=== PATIENT | male | born 1955 | race Caucasian/White ===

== ENCOUNTER 2016-11-09 10:00 | Emergency (ER) | payer MEDICARE ==
[~2016-11-09] VITALS: Ht 172.7 cm; Wt 75.0 kg
[~2016-11-09 10:00] MED LIST: AMBI10TA PO; ASPI81 PO; ATOR40TA PO; BUSP10 PO; METO50TA PO; MIRTA15 PO; OXYC5 PO; PRAS10 PO; RAMI2.5 PO
[2016-11-09 10:13] VITALS: BP 111/62; PULSE 82; RESP 16; TEMP 98; O2SAT 97
[2016-11-09 11:16] VITALS: BP 109/63; PULSE 81; RESP 18; TEMP 97.8; O2SAT 98
[2016-11-09] MEDS ORDERED: METO50TA PO ×2 (11:32)
[2016-11-09] MEDS ORDERED: RISP1TAB2 PO (11:32)
[2016-11-09] MEDS ORDERED: BUSP10TA PO (11:32)
[2016-11-09] MEDS ORDERED: ENAL5TAB PO (11:32)
[2016-11-09] MEDS ORDERED: MIRT30TA PO (11:32)
[2016-11-09] MEDS ORDERED: ASPI81TA11 PO (11:32)
[2016-11-09] MEDS ORDERED: ATOR40TA16 PO (11:32)
[2016-11-09] MEDS ORDERED: HYDR50TA94 PO (11:32)
[2016-11-09] MEDS ORDERED: TRAM50TA PO (12:52)
--- NOTE | 2016-11-09 13:01 | PD ---
HPI Chief Complaint: Abdominal Pain Time Seen by Provider: 11:35 Travel History International Travel<30 days: No Contact w/Intl Traveler<30days: No Traveled to known affect area: No History of Present Illness HPI This patient is concerned about having a hernia. He says he gets a soft ball sized growth on the right side of his groin that comes and goes. Duration is 4 months. Not having pain now. Has not had it evaluated by surgery. No alleviating factors PFSH Past Medical History Hx Anticoagulant Therapy: Yes (EFFIENT ) ADHD: Yes Arthritis: No Asthma: No Autoimmune Disease: No Blood Disorders: No Bipolar Disorder: Yes Anxiety: Yes Depression: Yes Cancer: No Cardiovascular Problems: Yes (HTN ) High Cholesterol: Yes (HAS BEEN UNDER CONTROL AT THIS TIME. ) Chemotherapy: No Chest Pain: No Congestive Heart Failure: No COPD: No Cerebrovascular Accident: Yes Coronary Artery Disease: Yes Diabetes: No Diminished Hearing: No Endocrine: No Gastrointestinal Disorders: No (INTUSSUSCEPTION (denies)) GERD: Yes Glaucoma: No Genitourinary: No Headaches: No Hepatitis: Yes (C) Hiatal Hernia: No Hypertension: Yes Immune Disorder: Yes (HEP C HX) Kidney Stones: No Musculoskeletal: Yes (CHRONIC RIGHT BACK PAIN) Neurologic: Yes (LEFT ARM/ SHOULDER NERVE DAMAGE) Psychiatric: Yes (PTSD) Reproductive: No Respiratory: No Migraines: No Myocardial Infarction: Yes Radiation Therapy: No Renal Failure: Yes Seizures: No Sickle Cell Disease: No Sleep Apnea: No Thyroid Disease: No Triglycerides - High: Yes Ulcer: No Tetanus Vaccination: < 5 Years Past Surgical History Abdominal Surgery: No AICD: No Appendectomy: No Arteriovenous Shunt: No Cardiac Surgery: Yes (cath; valve replacement) Cholecystectomy: No Ear Surgery: No Endocrine Surgery: No Eye Surgery: No Genitourinary Surgery: No Gynecologic Surgery: No Insulin Pump: No Joint Replacement: No Oral Surgery: Yes (ROOT CANAL) Pacemaker: No Thoracic Surgery: No Tonsillectomy: Yes (childhood) Other Surgery: Yes (SINUSES MANY YEARS AGO, tonsillectomy) Social History Alcohol Use: No Tobacco Use: Yes (05/19 PPD) Substance Use: No Allergies-Medications (Allergen,Severity, Reaction): Coded Allergies: No Known Allergies (Verified , 11/09/16) Reported Meds & Prescriptions Reported Meds & Active Scripts Active Tramadol (Tramadol HCl) 50 Mg Tab 50 Mg PO Q6H PRN Reported Mirtazapine 30 Mg Tab 30 Mg PO HS Metoprolol Tartrate 50 Mg Tab 25 Mg PO HS take one tablet every morning and take one-half tablet each night. Metoprolol Tartrate 50 Mg Tab 50 Mg PO DAILY take one tablet every morning and take one-half tablet each night. Enalapril (Enalapril Maleate) 5 Mg Tab 5 Mg PO DAILY Buspirone (Buspirone HCl) 10 Mg Tab 10 Mg PO TID Risperidone 1 Mg Tab 1 Mg PO DAILY Atorvastatin (Atorvastatin Calcium) 40 Mg Tab 40 Mg PO DAILY Hydroxyzine HCl 50 Mg Tab 50 Mg PO HS Aspirin EC (Aspirin) 81 Mg Tabdr 81 Mg PO DAILY Review of Systems General / Constitutional: No: Fever HENT: No: Headaches Cardiovascular: No: Chest Pain or Discomfort Physical Exam Narrative GASTROINTESTINAL: Abdomen soft, non-tender, nondistended. Positive bowel sounds. No hepato-splenomegaly, or palpable masses. No guarding. SKIN: Focused skin assessment reveals no rash or ulcers. Skin is warm and dry. Palpation shows no induration or nodules. : Circumcised penis without testicular tenderness or scrotal mass I don't see any obvious hernia Data Data Last Documented VS Vital Signs Date Time Temp Pulse Resp B/P Pulse Ox O2 Delivery O2 Flow Rate FiO2 11/09/16 11:16 18 11/09/16 11:16 97.8 81 109/63 98 Room Air MDM Medical Decision Making Medical Screen Exam Complete: Yes Emergency Medical Condition: Yes Medical Record Reviewed: Yes Differential Diagnosis Hernia, inguinal lymphadenopathy, hydrocele Narrative Course I have reviewed the patient's electronic medical record. Patient is a soft benign nontender abdomen. I don't feel any obvious mass or hernia at this time but given his complaint I would assume a right inguinal hernia. Suggested he follow-up with general surgery to discuss I wrote him a few tramadol and discussed measures to decrease intra-abdominal pressure No indication for emergent studies now Diagnosis Primary Impression: Hernia Additional Impression: Abdominal pain Qualified Code: R10.31 - Right lower quadrant abdominal pain Additional Instructions: The patient was advised to follow up with general surgery and return if they worsen. The patient was warned about potential sedation for the medications they will receive on prescription. Med/Other Pt SpecificInfo: Other Scripts Tramadol 50 Mg Tab50 Mg PO Q6H PRN (PAIN) #20 TAB Ref 0 Prov:Jose A Onofre MD 11/09/16 Disposition: 01 DISCHARGE HOME Condition: Stable Jose A Onofre MD Nov 09, 2016 13:01
[2016-11-09 14:01] VITALS: BP 109/63
== END 2016-11-09 14:01 | disposition home or self-care (01) ==
LOC: NEPC 10:00
DX: K40.90 Unilateral inguinal hernia, without obstruction or gangrene, not specified as recurrent (principal); I10 Essential (primary) hypertension; I25.10 Atherosclerotic heart disease of native coronary artery without angina pectoris; K21.9 Gastro-esophageal reflux disease without esophagitis; F31.9 Bipolar disorder, unspecified; F41.9 Anxiety disorder, unspecified; E78.00 Pure hypercholesterolemia, unspecified; Z86.73 Personal history of transient ischemic attack (TIA), and cerebral infarction without residual deficits; I25.2 Old myocardial infarction
CPT/HCPCS: 99283

== ENCOUNTER 2017-05-21 19:25 | Emergency (ER) | payer OTHER, MEDICARE ==
[~2017-05-21] VITALS: Ht 172.7 cm; Wt 70.0 kg
[~2017-05-21 19:25] MED LIST changes: -AMBI10TA PO; -ASPI81 PO; +ASPI81TA23 PO; -ATOR40TA PO; +ATOR40TA16 PO; -BUSP10 PO; +BUSP10TA PO; +DOXY100C PO; +ENAL5TAB PO; +HYDR50TA94 PO; +MIRT30TA PO; -MIRTA15 PO; -OXYC5 PO; -PRAS10 PO; -RAMI2.5 PO; +RISP1TAB2 PO; +TRAM50TA PO
[2017-05-21 19:26] VITALS: BP 175/98; PULSE 119; RESP 18; TEMP 97.9; O2SAT 97
--- NOTE | 2017-05-21 21:55 | PD ---
HPI Chief Complaint: Back/ Neck Pain or Injury Time Seen by Provider: 21:48 Travel History International Travel<30 days: No Contact w/Intl Traveler<30days: No Traveled to known affect area: No History of Present Illness HPI 61-year-old male with history hypertension, CVA, cardiac disease, psychiatric illness, remote IV drug use, presents to emergency department for evaluation of left-sided neck pain. Patient states he woke up with it 3 days ago. He describes it as severe, constant, exacerbated with movement States that he is unable to turn his head to the right without significant pain. States pain goes from the base of the skull to his shoulder. Denies any injury. Denies any focal deficits or weakness. He has not tried taking anything for this pain. He has no other symptoms to report. PFSH Past Medical History Hx Anticoagulant Therapy: Yes (EFFIENT ) ADHD: Yes Arthritis: No Asthma: No Autoimmune Disease: No Blood Disorders: No Bipolar Disorder: Yes Anxiety: Yes Depression: Yes Cancer: No Cardiovascular Problems: Yes (HTN ) High Cholesterol: Yes (HAS BEEN UNDER CONTROL AT THIS TIME. ) Chemotherapy: No Chest Pain: No Congestive Heart Failure: No COPD: No Cerebrovascular Accident: Yes Coronary Artery Disease: Yes Diabetes: No Diminished Hearing: No Endocrine: No Gastrointestinal Disorders: No (INTUSSUSCEPTION (denies)) GERD: Yes Glaucoma: No Genitourinary: No Headaches: No Hepatitis: Yes (C) Hiatal Hernia: No Hypertension: Yes Immune Disorder: Yes (HEP C HX) Kidney Stones: No Musculoskeletal: Yes (CHRONIC RIGHT BACK PAIN) Neurologic: Yes (LEFT ARM/ SHOULDER NERVE DAMAGE) Psychiatric: Yes (PTSD) Reproductive: No Respiratory: No Migraines: No Myocardial Infarction: Yes Radiation Therapy: No Renal Failure: Yes Seizures: No Sickle Cell Disease: No Sleep Apnea: No Thyroid Disease: No Triglycerides - High: Yes Ulcer: No ?: Not Past Surgical History Abdominal Surgery: No AICD: No Appendectomy: No Arteriovenous Shunt: No Cardiac Surgery: Yes (cath; valve replacement) Cholecystectomy: No Ear Surgery: No Endocrine Surgery: No Eye Surgery: No Genitourinary Surgery: No Gynecologic Surgery: No Insulin Pump: No Joint Replacement: No Oral Surgery: Yes (ROOT CANAL) Pacemaker: No Thoracic Surgery: No Tonsillectomy: Yes (childhood) Other Surgery: Yes (SINUSES MANY YEARS AGO, tonsillectomy) Social History Alcohol Use: No Tobacco Use: Yes (05/19 PPD) Substance Use: No Allergies-Medications (Allergen,Severity, Reaction): Coded Allergies: No Known Allergies (Verified Adverse Reaction, Unknown, 03/21/17) Reported Meds & Prescriptions Reported Meds & Active Scripts Active Ibuprofen 600 Mg Tab 600 Mg PO Q8HR PRN Robaxin (Methocarbamol) 500 Mg Tab 500 Mg PO QID PRN Doxycycline Hyclate 100 Mg Cap 100 Mg PO BID 7 Days Tramadol (Tramadol HCl) 50 Mg Tab 50 Mg PO Q6H PRN Reported Mirtazapine 30 Mg Tab 30 Mg PO HS Metoprolol Tartrate 50 Mg Tab 25 Mg PO HS take one tablet every morning and take one-half tablet each night. Metoprolol Tartrate 50 Mg Tab 50 Mg PO DAILY take one tablet every morning and take one-half tablet each night. Enalapril (Enalapril Maleate) 5 Mg Tab 5 Mg PO DAILY Buspirone (Buspirone HCl) 10 Mg Tab 10 Mg PO TID Risperidone 1 Mg Tab 1 Mg PO DAILY Atorvastatin (Atorvastatin Calcium) 40 Mg Tab 40 Mg PO DAILY Hydroxyzine HCl 50 Mg Tab 50 Mg PO HS Aspirin EC (Aspirin) 81 Mg Tabdr 81 Mg PO DAILY Review of Systems Except as stated in HPI: all other systems reviewed are Neg Physical Exam Narrative GENERAL: Thin, chronically ill-appearing male patient, in no acute distress. SKIN: Focused skin assessment warm/dry. HEAD: Normocephalic. EYES: No scleral icterus. No injection or drainage. NECK: Supple, trachea midline. No JVD or lymphadenopathy. Tenderness elicited palpation along the left trapezius musculature. Patient can turn his head to the right but reports significant pain with this. No spinal tenderness CARDIOVASCULAR: Tachycardic rate and rhythm without murmurs, gallops, or rubs. RESPIRATORY: Breath sounds equal bilaterally. No accessory muscle use. GASTROINTESTINAL: Abdomen soft, non-tender, nondistended. MUSCULOSKELETAL: No cyanosis, or edema. 5+ strength equal bilateral extremities. BACK: Nontender without obvious deformity. No CVA tenderness. Data Data Last Documented VS Vital Signs Date Time Temp Pulse Resp B/P (MAP) Pulse Ox O2 Delivery O2 Flow Rate FiO2 05/21/17 23:08 05/21/17 22:50 88 05/21/17 19:26 97.9 18 97 Room Air Orders Orders Ketorolac Inj (Toradol Inj) (05/21/17 22:00) Orphenadrine Inj (Norflex Inj) (05/21/17 22:00) Spine, Cervical - Ltd (Ap&Lat) (05/21/17 ) Ed Discharge Order (05/21/17 22:51) MDM Medical Decision Making Medical Screen Exam Complete: Yes Emergency Medical Condition: Yes Medical Record Reviewed: Yes Differential Diagnosis Spasmatic torticollis versus muscle strain versus discogenic pain versus radiculopathy Narrative Course 61-year-old male presents to emergency department for evaluation of left-sided neck pain, exacerbated by movement. Physical and history is consistent with a spasmodic torticollis. Patient is treated for pain. Upon reassessment, his heart rate has normalized and he verbalizes marked improvement in his pain. Patient will be discharged home with additional pain control. He is encouraged to follow-up with a primary care provider and return immediately with any acute worsening symptoms. Diagnosis Primary Impression: Spasmodic torticollis Referrals: Primary Care Physician Patient Instructions: General Instructions, Spasmodic Torticollis (ED) Additional Instructions: Warm heat and light massage may help to alleviate symptoms Follow-up with a primary care provider Return immediately with any acute worsening symptoms Med/Other Pt SpecificInfo: Prescription(s) given Scripts Ibuprofen (Ibuprofen) 600 Mg Tab 600 MG PO Q8HR Y for PAIN, #30 TAB 0 Refills Prov: Ellie Alexandra 05/21/17 Methocarbamol (Robaxin) 500 Mg Tab 500 MG PO QID Y for MUSCLE SPASM, #20 TAB 0 Refills Prov: Ellie Alexandra 05/21/17 Disposition: 01 DISCHARGE HOME Condition: Stable Ellie Alexandra May 21, 2017 21:55
[2017-05-21] MEDS ORDERED: ORPHENADRINE INJ 60 MG/2 ML AMP IM ONE (22:00)
[2017-05-21] MEDS ORDERED: KETOROLAC TROMETHAMINE 60 MG/2 ML (IM) VIAL IM ONE (22:00)
--- NOTE | 2017-05-21 22:49 | RADRPT ---
EXAM DATE/TIME: 05/21/2017 22:16 [facility] COMPARISON: No previous studies available for comparison. INDICATIONS : Neck pain for 6 hours with no known injury MEDICAL HISTORY : None. SURGICAL HISTORY : None. ENCOUNTER: Initial ACUITY: 1 day PAIN SCORE: 10/10 LOCATION: Cervical spine FINDINGS: There is moderate degenerative disc disease in lower cervical spine with slight reversal of normal ce rvical lordosis. No acute fracture or subluxation. No prevertebral soft tissue swelling. CONCLUSION: 1. Moderate degenerative disc disease at C5-6-7 with slight reversal of normal cervical lordosis. No acute bony abnormalities. Faizan Calvillo MD on May 21, 2017 at 22:46 Board Certified Radiologist. This report was verified electronically.
[2017-05-21 22:50] VITALS: PULSE 88
[2017-05-21] MEDS ORDERED: IBUP-232 PO (22:53)
[2017-05-21] MEDS ORDERED: ROBA500T PO (22:53)
== END 2017-05-21 23:09 | disposition home or self-care (01) ==
LOC: NEPK 19:25
DX: G24.3 Spasmodic torticollis (principal); I10 Essential (primary) hypertension; B19.20 Unspecified viral hepatitis C without hepatic coma; Z72.0 Tobacco use; Z79.01 Long term (current) use of anticoagulants
CPT/HCPCS: 72040; 96372; 99284; J1885; J2360

== ENCOUNTER 2017-05-24 13:09 | Inpatient (IN) | payer MEDICARE, OTHER ==
[~2017-05-24] VITALS: Ht 172.7 cm; Wt 67.0 kg
[~2017-05-24 13:09] MED LIST changes: +IBUP-232 PO; +ROBA500T PO
[2017-05-24] MEDS ORDERED: GADODIAMIDE PF 287 MG/ML 5 ML VIAL (for RAD MRI) IVCONTRAST ONE (13:10)
[2017-05-24 13:12] VITALS: BP 194/106; PULSE 128; RESP 18; TEMP 99.7; O2SAT 97
[2017-05-24] MEDS ORDERED: PLAV75TA29 PO (13:19)
[2017-05-24] MEDS ORDERED: SODIUM CHLOR 0.9% 1000 ML INJ 1,000 ML IV ONE ×4 (13:30→19:15)
[2017-05-24] MEDS ORDERED: HYDROmorphone HCL PF 2 MG/ML VIAL IV PUSH ONE ×2 (13:30→14:30)
[2017-05-24] MEDS ORDERED: ONDANSETRON HCL 4 MG/2 ML VIAL IV PUSH ONE (13:30)
[2017-05-24 13:38] VITALS: BP 176/113; PULSE 122; RESP 18; O2SAT 98
--- NOTE | 2017-05-24 13:38 | PD ---
HPI Chief Complaint: Back/ Neck Pain or Injury Time Seen by Provider: 13:15 Travel History International Travel<30 days: No Contact w/Intl Traveler<30days: No Traveled to known affect area: No History of Present Illness HPI This 61-year-old male is complaining of back pain and neck pain. He says he has been having back pain for about 4 days. He says the pain is quite severe and aggravated by any movement. He was unable to stand today because of the pain He does not have any numbness or tingling. He has not had any dysuria. He is not aware of any trauma. He was in the emergency department on the fifth with complaint of neck pain at that time was thought to have spasmodic torticollis. He did have an MRI of his neck done in December of 2015 which showed some herniated disks. He has a history of coronary artery disease. He has had a STEMI in the past and is on an anticoagulant, possibly clopidogrel or Effient. He was not aware of fever. He does have a history of drug use in the past. He says he has not used anything for about a month. He denies intravenous use at that time. He has a history of mental illness PFSH Past Medical History Hx Anticoagulant Therapy: Yes (EFFIENT ) ADHD: Yes Arthritis: No Asthma: No Autoimmune Disease: No Blood Disorders: No Bipolar Disorder: Yes Anxiety: Yes Depression: Yes Cancer: No Cardiovascular Problems: Yes (HTN ) High Cholesterol: Yes (HAS BEEN UNDER CONTROL AT THIS TIME. ) Chemotherapy: No Chest Pain: No Congestive Heart Failure: No COPD: No Cerebrovascular Accident: Yes Coronary Artery Disease: Yes Diabetes: No Diminished Hearing: No Endocrine: No Gastrointestinal Disorders: No (INTUSSUSCEPTION (denies)) GERD: Yes Glaucoma: No Genitourinary: No Headaches: No Hepatitis: Yes (C) Hiatal Hernia: No Hypertension: Yes Immune Disorder: Yes Kidney Stones: No Musculoskeletal: Yes (CHRONIC RIGHT BACK PAIN) Neurologic: Yes (LEFT ARM/ SHOULDER NERVE DAMAGE) Psychiatric: Yes (PTSD) Reproductive: No Respiratory: No Migraines: No Myocardial Infarction: Yes Radiation Therapy: No Renal Failure: Yes Seizures: No Sickle Cell Disease: No Sleep Apnea: No Thyroid Disease: No Triglycerides - High: Yes Ulcer: No Influenza Vaccination: Yes ?: Not Past Surgical History Abdominal Surgery: No AICD: No Appendectomy: No Arteriovenous Shunt: No Cardiac Surgery: Yes (cath; valve replacement) Cholecystectomy: No Ear Surgery: No Endocrine Surgery: No Eye Surgery: No Genitourinary Surgery: No Gynecologic Surgery: No Insulin Pump: No Joint Replacement: No Oral Surgery: Yes (ROOT CANAL) Pacemaker: No Thoracic Surgery: No Tonsillectomy: Yes (childhood) Other Surgery: Yes (SINUSES MANY YEARS AGO, tonsillectomy) Social History Alcohol Use: No Tobacco Use: Yes (05/19 PPD) Substance Use: No Allergies-Medications (Allergen,Severity, Reaction): Coded Allergies: No Known Allergies (Verified Adverse Reaction, Unknown, 05/24/17) Reported Meds & Prescriptions Reported Meds & Active Scripts Active Ibuprofen 600 Mg Tab 600 Mg PO Q8HR PRN Robaxin (Methocarbamol) 500 Mg Tab 500 Mg PO QID PRN Reported Plavix (Clopidogrel Bisulfate) 75 Mg Tab 75 Mg PO DAILY Buspirone (Buspirone HCl) 10 Mg Tab 10 Mg PO TID Risperidone 1 Mg Tab 1 Mg PO DAILY Atorvastatin (Atorvastatin Calcium) 40 Mg Tab 40 Mg PO DAILY Hydroxyzine HCl 50 Mg Tab 50 Mg PO HS Aspirin EC (Aspirin) 81 Mg Tabdr 81 Mg PO DAILY Review of Systems General / Constitutional: No: Fever, Chills Eyes: No: Diploplia, Blurred Vision HENT: No: Headaches, Vertigo, Sore Throat Cardiovascular: No: Chest Pain or Discomfort, Palpitations Respiratory: No: Cough, Shortness of Breath Gastrointestinal: No: Nausea, Vomiting Genitourinary: No: Urgency, Frequency Musculoskeletal: Positive: Pain, No: Myalgias Skin: No Rash, No Itching Neurologic: No: Weakness, Dizziness Endocrine: No: Heat Intolerance, Cold Intolerance Hematologic/Lymphatic: No: Easy Bruising Physical Exam Narrative GENERAL: Disheveled male in moderate distress SKIN: Focused skin assessment warm/dry. HEAD: Atraumatic. Normocephalic. EYES: Pupils equal and round. No scleral icterus. No injection or drainage. ENT: No nasal bleeding or discharge. Mucous membranes pink and moist. NECK: Trachea midline. No JVD. CARDIOVASCULAR: Irregular rate and rhythm. No murmur appreciated. RESPIRATORY: No accessory muscle use. Clear to auscultation. Breath sounds equal bilaterally. GASTROINTESTINAL: Abdomen soft, non-tender, nondistended. Hepatic and splenic margins not palpable. MUSCULOSKELETAL: No obvious deformities. No clubbing. No cyanosis. No edema. NEUROLOGICAL: Awake and alert. No obvious cranial nerve deficits. Motor grossly within normal limits. Normal speech. He is very tender in the lower back and the neck PSYCHIATRIC: Anxiety Data Data Last Documented VS Vital Signs Date Time Temp Pulse Resp B/P (MAP) Pulse Ox O2 Delivery O2 Flow Rate FiO2 05/24/17 14:16 18 05/24/17 13:38 122 176/113 (134) 98 Room Air 05/24/17 13:12 99.7 Orders Orders Sepsis Workup Initiated (05/24/17 ) Complete Blood Count With Diff (05/24/17 13:16) Comprehensive Metabolic Panel (05/24/17 13:16) Lactic Acid Sepsis Protocol (05/24/17 13:16) Urinalysis - C+S If Indicated (05/24/17 13:16) Influenzae A/B Antigen (05/24/17 13:16) Blood Culture (05/24/17 13:16) Chest, Single Ap (05/24/17 13:16) Blood Glucose (05/24/17 13:16) Ecg Monitoring (05/24/17 13:16) Iv Access Insert/Monitor (05/24/17 13:16) Oximetry (05/24/17 13:16) Oxygen Administration (05/24/17 13:16) C-Reactive Protein (Crp) (05/24/17 13:16) Westergren Sedimentation Rate (05/24/17 13:16) Sodium Chlor 0.9% 1000 Ml Inj (Ns 1000 M (05/24/17 13:30) Sodium Chlor 0.9% 1000 Ml Inj (Ns 1000 M (05/24/17 13:30) Ondansetron Inj (Zofran Inj) (05/24/17 13:30) Hydromorphone Pf Inj (Dilaudid Pf Inj) (05/24/17 13:30) Mri C Spine W&W/O Contrast (05/24/17 ) Mri T Spine W & W/O Contrast (05/24/17 ) Mri L Spine W&W/O Contrast (05/24/17 ) Sodium Chlor 0.9% 1000 Ml Inj (Ns 1000 M (05/24/17 14:15) Hydromorphone Pf Inj (Dilaudid Pf Inj) (05/24/17 14:30) Labs Laboratory Tests Test 05/24/17 13:25 05/24/17 14:05 White Blood Count 13.6 TH/MM3 Red Blood Count 4.58 MIL/MM3 Hemoglobin 12.6 GM/DL Hematocrit 38.8 % Mean Corpuscular Volume 84.8 FL Mean Corpuscular Hemoglobin 27.5 PG Mean Corpuscular Hemoglobin Concent 32.5 % Red Cell Distribution Width 13.9 % Platelet Count 422 TH/MM3 Mean Platelet Volume 8.1 FL Neutrophils (%) (Auto) 80.4 % Lymphocytes (%) (Auto) 8.3 % Monocytes (%) (Auto) 7.0 % Eosinophils (%) (Auto) 0.2 % Basophils (%) (Auto) 4.1 % Neutrophils # (Auto) 10.9 TH/MM3 Lymphocytes # (Auto) 1.1 TH/MM3 Monocytes # (Auto) 1.0 TH/MM3 Eosinophils # (Auto) 0.0 TH/MM3 Basophils # (Auto) 0.6 TH/MM3 CBC Comment DIFF FINAL Differential Comment Erythrocyte Sedimentation Rate 76 mm/hr Blood Urea Nitrogen 8 MG/DL Creatinine 0.70 MG/DL Random Glucose 106 MG/DL Total Protein 7.3 GM/DL Albumin 2.1 GM/DL Calcium Level 8.5 MG/DL Alkaline Phosphatase 151 U/L Aspartate Amino Transf (AST/SGOT) 21 U/L Alanine Aminotransferase (ALT/SGPT) 27 U/L Total Bilirubin 0.2 MG/DL Sodium Level 138 MEQ/L Potassium Level 3.6 MEQ/L Chloride Level 105 MEQ/L Carbon Dioxide Level 25.6 MEQ/L Anion Gap 7 MEQ/L Estimat Glomerular Filtration Rate 115 ML/MIN Lactic Acid Level 0.9 mmol/L [facility] Medical Decision Making Medical Screen Exam Complete: Yes Emergency Medical Condition: Yes Medical Record Reviewed: Yes Differential Diagnosis Differential includes HNP, lumbar strain, epidural abscess, osteomyelitis Narrative Course Hemoglobin is 12.6 with a white count of 13.6. His sedimentation rate is 76. MRIs of the cervical thoracic and lumbar spine have been ordered Solo Rodriguez MD May 24, 2017 13:38
[2017-05-24 13:46] LABS: AUTOMATED NEUTROPHIL # 10.9 TH/MM3 (1.8-7.7); BASOPHIL # 0.6 TH/MM3 (0-0.2); BASOPHIL % 4.1 % (0.0-2.0); EOSINOPHIL % 0.2 % (0.0-4.0); HEMATOCRIT 38.8 % (39.0-51.0); HEMOGLOBIN 12.6 GM/DL (13.0-17.0); LYMPH % 8.3 % (9.0-44.0); LYMPHOCYTE # 1.1 TH/MM3 (1.0-4.8); MEAN CELL VOLUME 84.8 FL (80.0-100.0); MEAN CORPUSCULAR HEMOGLOBIN 27.5 PG (27.0-34.0); MEAN CORPUSCULAR HGB CONC 32.5 % (32.0-36.0); MEAN PLATELET VOLUME 8.1 FL (7.0-11.0); NEUT % 80.4 % (16.0-70.0); PLATELET COUNT 422 TH/MM3 (150-450); RED BLOOD COUNT 4.58 MIL/MM3 (4.50-5.90); RED CELL DISTRIBUTION WIDTH 13.9 % (11.6-17.2); WHITE BLOOD COUNT 13.6 TH/MM3 (4.0-11.0)
--- NOTE | 2017-05-24 14:05 | RADRPT ---
EXAM DATE/TIME: 05/24/2017 13:30 [facility] COMPARISON: CHEST SINGLE AP, December 20, 2015, 22:30. INDICATIONS : Chest pain and muscle aches MEDICAL HISTORY : Hypertension. Hepatitis C. Gastroesophageal reflux disease. SURGICAL HISTORY : Cardiac catherization. ENCOUNTER: Initial ACUITY: 1 day PAIN SCORE: 10/10 LOCATION: Bilateral chest FINDINGS: A single view of the chest demonstrates the lungs to be symmetrically aerated without evidence of mas s, infiltrate or effusion. The cardiomediastinal contours are unremarkable. Osseous structures are intact. CONCLUSION: No acute disease. Marco Agustin MD FACR on May 24, 2017 at 14:02 Board Certified Radiologist. This report was verified electronically.
[2017-05-24 14:23] LABS: CHLORIDE 105 MEQ/L (98-107); SODIUM (NA) 138 MEQ/L (136-145)
[2017-05-24 14:26] LABS: ALBUMIN 2.1 GM/DL (3.4-5.0); BICARBONATE 25.6 MEQ/L (21.0-32.0); CALCIUM 8.5 MG/DL (8.5-10.1); GLUCOSE,RANDOM 106 MG/DL (74-106)
[2017-05-24 14:27] LABS: BLOOD UREA NITROGEN 8 MG/DL (7-18)
[2017-05-24 14:30] LABS: ALT (GPT) 27 U/L (12-78); AST (GOT) 21 U/L (15-37); GLOMERULAR FILTRATION RATE 115 ML/MIN (>89)
[2017-05-24 14:31] LABS: TOTAL BILIRUBIN ADULT 0.2 MG/DL (0.2-1.0); TOTAL PROTEIN 7.3 GM/DL (6.4-8.2)
[2017-05-24 14:32] LABS: ALKALINE PHOSPHATASE 151 U/L (45-117)
[2017-05-24 16:17] VITALS: BP 161/104; PULSE 130; RESP 18; O2SAT 96
--- NOTE | 2017-05-24 16:39 | RADRPT ---
EXAM DATE/TIME: 05/24/2017 14:52 [facility] COMPARISON: No previous studies available for comparison. INDICATIONS : Osteomyelitis. CONTRAST: 15 cc Omniscan (gadodiamide) IV MEDICAL HISTORY : Hepatitis C. PTSD, Bipolar, Drug abuse. SURGICAL HISTORY : Tonsillectomy. Appendectomy. Carotid stent. Nasal sx. ENCOUNTER: Initial ACUITY: 1 day PAIN SCORE: 10/10 LOCATION: Right lower back region. TECHNIQUE: Multiplanar multisequence MRI of the lumbar spine was performed with and without contrast. FINDINGS: Alignment: Intact without evidence of listhesis. Osseous structures and facet joints: Generalized bone marrow edema is identified throughout the L4 vertebral body. There is focal marginal erosion identified along the superior endplate and anterior cortical margins of the vertebral body. Following administration of contrast there is diffuse enhancement of vertebral body. There is no sign ificant enhancement of the L3-4 disc. Significant enhancing paraspinal soft tissue is noted. The enha ncing soft tissue extends from mid L3 to the top of L5. There are scattered small fluid accumulations within the enhancing soft tissue characteristic of small abscesses. These range in size up to 1 cm. Intervertebral disc spaces: The L3-4 demonstrates mild T2 hyperintensity which is equal in signal intensity to normal appearing L 4-5 and L5-S1 intervertebral discs. There is no significant disc enhancement. L1-2 and L2-3: Mild degenerative disc disease with disc space narrowing. L4-5 and L5-S1: Normal Neurologic structures: No evidence of epidural or intradural fluid collections. There is no evidence of nerve root enhanceme nt. CONCLUSION: 1. Diffuse bone marrow edema with abnormal enhancement and cortical erosion involving the L4 characte ristic of osteomyelitis. 2. No significant enhancement of the L3-4 disc. 3. Enhancing paraspinal soft tissue with small fluid collections characteristic of phlegmon and small abscesses. 4. Mild degenerative disc disease of L1-2 and L2-3 5. No other significant abnormality. Jewel Martin MD on May 24, 2017 at 16:22 Board Certified Radiologist. This report was verified electronically.
--- NOTE | 2017-05-24 16:54 | RADRPT ---
EXAM DATE/TIME: 05/24/2017 14:52 [facility] COMPARISON: No previous studies available for comparison. INDICATIONS : Osteomyelitis. CONTRAST: 15 cc Omniscan (gadodiamide) IV MEDICAL HISTORY : Hepatitis C. PTSD, Bipolar, Drug abuse. SURGICAL HISTORY : Carotid stent. Appendectomy. Tonsillectomy. Nasal sx. ENCOUNTER: Initial ACUITY: 1 day PAIN SCORE: 10/10 LOCATION: Bilateral midback region. TECHNIQUE: Multiplanar multisequence MRI of the thoracic spine was performed. FINDINGS: Study is limited by motion artifact on just about every pulse sequence. However, vertebral body signa l is normal throughout without marrow edema or abnormal enhancement. Spinal canal is widely patent. T1-T2: Normal. T2-T3: The thecal sac has a normal diameter. No evidence of disc bulge or protrusion. T3-T4: The thecal sac has a normal diameter. No evidence of disc bulge or protrusion. T4-T5: The thecal sac has a normal diameter. No evidence of disc bulge or protrusion. T5-T6: The thecal sac has a normal diameter. No evidence of disc bulge or protrusion. T6-T7: The thecal sac has a normal diameter. No evidence of disc bulge or protrusion. T7-T8: The thecal sac has a normal diameter. No evidence of disc bulge or protrusion. T8-T9: The thecal sac has a normal diameter. No evidence of disc bulge or protrusion. T9-T10: The thecal sac has a normal diameter. No evidence of disc bulge or protrusion. T10-T11: The thecal sac has a normal diameter. No evidence of disc bulge or protrusion. T11-T12: The thecal sac has a normal diameter. No evidence of disc bulge or protrusion. T12-L1: The thecal sac has a normal diameter. No evidence of disc bulge or protrusion. CONCLUSION: 1. Examination is somewhat limited due to motion artifact on every pulse sequence. 2. However, studies are adequate to exclude osteomyelitis. No vertebral body edema or abnormal enhanc ement. Spinal canal is widely patent throughout without cord compromise. Mango Spence MD on May 24, 2017 at 16:46 Board Certified Radiologist. This report was verified electronically.
--- NOTE | 2017-05-24 17:19 | RADRPT ---
EXAM DATE/TIME: 05/24/2017 14:29 [facility] COMPARISON: MRI CERVICAL SPINE W & W/O CONTRAST, December 26, 2015, 8:11. INDICATIONS : Osteomyelitis. CONTRAST: 15 cc Omniscan (gadodiamide) IV MEDICAL HISTORY : Hepatitis C. Bipolar, PTSD, Drug abuse. SURGICAL HISTORY : Appendectomy. Carotid stent. Tonsillectomy. Nasal Sx. ENCOUNTER: Initial ACUITY: 1 day PAIN SCORE: 10/10 LOCATION: Left neck region. TECHNIQUE: Multiplanar, multisequence MRI examination of the cervical spine was performed. FINDINGS: Extremely limited study due to motion artifact and just about every pulse sequence. There does appear to be degenerative disc disease most prominent at C4-5 and C5-6 with Modic endplate changes at C5-6 and a mild, diffuse disc bulge. Degree of stenosis at C4-5 and C5-6 is difficult to determine again t o motion artifact. On the axial sequence, there may be a disc left posterior at C2-3 with an inferior ly extruded segment which fills the lateral recess. CONCLUSION: 1. Very limited exam due to motion artifact on that about every pulse sequence. 2. I do believe that there is a left posterior sixth 8 mm dense with an inferiorly extruded segment a t C2-3 extending inferiorly. This appears to fill lateral recess and may compromise the left side of the cord. 3. Degenerative disc disease most prominent at C4-5 and C5-6 with Modic endplate changes at C5-6. Deg ree of spinal stenosis is difficult to determine again due to motion artifact. 4. No gross findings of osteomyelitis. Mango Spence MD on May 24, 2017 at 16:54 Board Certified Radiologist. This report was verified electronically.
--- NOTE | 2017-05-24 17:29 | PD ---
Physical Exam Narrative Patient was seen by ED physician and signed out to me. Data Data Last Documented VS Vital Signs Date Time Temp Pulse Resp B/P (MAP) Pulse Ox O2 Delivery O2 Flow Rate FiO2 05/24/17 16:19 18 05/24/17 16:17 130 161/104 (123) 96 Room Air 05/24/17 13:12 99.7 Orders Orders Sepsis Workup Initiated (05/24/17 ) Complete Blood Count With Diff (05/24/17 13:16) Comprehensive Metabolic Panel (05/24/17 13:16) Lactic Acid Sepsis Protocol (05/24/17 13:16) Urinalysis - C+S If Indicated (05/24/17 13:16) Influenzae A/B Antigen (05/24/17 13:16) Blood Culture (05/24/17 13:16) Chest, Single Ap (05/24/17 13:16) Blood Glucose (05/24/17 13:16) Ecg Monitoring (05/24/17 13:16) Iv Access Insert/Monitor (05/24/17 13:16) Oximetry (05/24/17 13:16) Oxygen Administration (05/24/17 13:16) C-Reactive Protein (Crp) (05/24/17 13:16) Westergren Sedimentation Rate (05/24/17 13:16) Sodium Chlor 0.9% 1000 Ml Inj (Ns 1000 M (05/24/17 13:30) Sodium Chlor 0.9% 1000 Ml Inj (Ns 1000 M (05/24/17 13:30) Ondansetron Inj (Zofran Inj) (05/24/17 13:30) Hydromorphone Pf Inj (Dilaudid Pf Inj) (05/24/17 13:30) Mri C Spine W&W/O Contrast (05/24/17 ) Mri T Spine W & W/O Contrast (05/24/17 ) Mri L Spine W&W/O Contrast (05/24/17 ) Sodium Chlor 0.9% 1000 Ml Inj (Ns 1000 M (05/24/17 14:15) Hydromorphone Pf Inj (Dilaudid Pf Inj) (05/24/17 14:30) Gadodiamide Pf Inj (Omniscan Pf Inj) (05/24/17 13:10) Vancomycin Inj (Vancomycin Inj) (05/24/17 17:30) Levofloxacin 750 Mg Premix Inj (Levaquin (05/24/17 17:30) Labs Laboratory Tests Test 05/24/17 13:25 05/24/17 14:05 White Blood Count 13.6 TH/MM3 Red Blood Count 4.58 MIL/MM3 Hemoglobin 12.6 GM/DL Hematocrit 38.8 % Mean Corpuscular Volume 84.8 FL Mean Corpuscular Hemoglobin 27.5 PG Mean Corpuscular Hemoglobin Concent 32.5 % Red Cell Distribution Width 13.9 % Platelet Count 422 TH/MM3 Mean Platelet Volume 8.1 FL Neutrophils (%) (Auto) 80.4 % Lymphocytes (%) (Auto) 8.3 % Monocytes (%) (Auto) 7.0 % Eosinophils (%) (Auto) 0.2 % Basophils (%) (Auto) 4.1 % Neutrophils # (Auto) 10.9 TH/MM3 Lymphocytes # (Auto) 1.1 TH/MM3 Monocytes # (Auto) 1.0 TH/MM3 Eosinophils # (Auto) 0.0 TH/MM3 Basophils # (Auto) 0.6 TH/MM3 CBC Comment DIFF FINAL Differential Comment Erythrocyte Sedimentation Rate 76 mm/hr Blood Urea Nitrogen 8 MG/DL Creatinine 0.70 MG/DL Random Glucose 106 MG/DL Total Protein 7.3 GM/DL Albumin 2.1 GM/DL Calcium Level 8.5 MG/DL Alkaline Phosphatase 151 U/L Aspartate Amino Transf (AST/SGOT) 21 U/L Alanine Aminotransferase (ALT/SGPT) 27 U/L Total Bilirubin 0.2 MG/DL Sodium Level 138 MEQ/L Potassium Level 3.6 MEQ/L Chloride Level 105 MEQ/L Carbon Dioxide Level 25.6 MEQ/L Anion Gap 7 MEQ/L Estimat Glomerular Filtration Rate 115 ML/MIN Lactic Acid Level 0.9 mmol/L C-Reactive Protein 14.70 MG/DL [facility] Supervised Visit with JORDAN: No Interpretation(s) Last Impressions Chest X-Ray 05/24/17 1316 Signed Impressions: Service Date/Time: Wednesday, May 24, 2017 13:30 - CONCLUSION: No acute disease. Marco Agustin MD FACR Thoracic Spine MRI 05/24/17 0000 Signed Impressions: Service Date/Time: Wednesday, May 24, 2017 14:52 - CONCLUSION: 1. Examination is somewhat limited due to motion artifact on every pulse sequence. 2. However , studies are adequate to exclude osteomyelitis. No vertebral body edema or abnormal enhancement. Spinal canal is widely patent throughout without cord compromise. Mango Spence MD Lumbar Spine MRI 05/24/17 0000 Signed Impressions: Service Date/Time: Wednesday, May 24, 2017 14:52 - CONCLUSION: 1. Diffuse bone marrow edema with abnormal enhancement and cortical erosion involving the L4 characteristic of osteomyelitis. 2. No significant enhancement of the L3-4 disc. 3. Enhancing paraspinal soft tissue with small fluid collections characteristic of phlegmon and small abscesses. 4. Mild degenerative disc disease of L1-2 and L2-3 5. No other significant abnormality. Jewel Martin MD 1720 3 PM. CBC WBC 13.6. 80 neutrophil. Sedimentation rate 76. C-reactive protein 14.7. Lactate acid 0.9. Narrative Course I spoke with Dr. Contreras, neurosurgeon. Advised to hold antibiotics for now. Infectious disease consultation and CT guided culture prior to antibiotic. Diagnosis Primary Impression: Osteomyelitis of lumbar spine Additional Impression: Paraspinal abscess Admitting Information Admitting Physician Requests: Admit Bill Banuelos MD May 24, 2017 17:29
[2017-05-24] MEDS ORDERED: LEVOFLOXACIN 750 MG PREMIX INJ 150 ML IV ONE (17:30)
[2017-05-24] MEDS ORDERED: VANCOMYCIN INJ 1,000 MG in SODIUM CHLOR 0.9% 250 ML INJ 250 ML IV ONE (17:30)
--- NOTE | 2017-05-24 17:51 | HHI.HP ---
[facility] Service [facility] Primary Care Physician [facility] Admission Diagnosis osteomyelitis lumbar spine. Paraspinal abscess lumbar spine Diagnoses: Chief Complaint: back pain Travel History International Travel<30 Days: No Contact w/Intl Traveler <30 Da: No Traveled to Known Affected Are: No History of Present Illness 61-year-old white male being admitted for paraspinal abscesses. Patient was in his usual state of health until about 4 days ago when he began experiencing upper neck pain and lower back pain. He says pain would worsen with ambulation; forcing him to stoop forward. His low back pain would radiate down to the legs. The pain worsened to the point where he would find himself crawling. He reports subjective fevers or chills. Also reports vomiting. Denies any numbness or tingling in his legs. Pt denies this ever occurring to him in the past. does report IVDU w/ Dilaudid as recent as a few months ago. Pt has a service dog with him. Pt is alert and oriented. Discussed case with interventional radiology who plans on performing CT-guided biopsy in a.m. Case d/w ER doc who spoke w/ MARGARETH and highly recommended Antibiotics to be started post bx per neurosurgery; consulting ID. Vancomycin and Levaquin ordered in the ER WERE NOT ADMINISTERED - CONFIRMED W/ NURSING. Review of Systems Except as stated in HPI: all other systems reviewed are Neg Past Family Social History Past Medical History Acid reflux Hepatitis C Hypertension CAD Chronic back pain bipolar d/o anxiety Past Surgical History Heart valve replacement Root canal Tonsillectomy Allergies: Coded Allergies: No Known Allergies (Verified Adverse Reaction, Unknown, 05/24/17) Family History HTN Social History lifelong daily smoker since adulthood IVDU w/ dilaudid has a service dog w/ him Physical Exam Vital Signs Vital Signs Date Time Temp Pulse Resp B/P (MAP) Pulse Ox O2 Delivery O2 Flow Rate FiO2 05/24/17 16:19 18 05/24/17 16:17 130 18 161/104 (123) 96 Room Air 05/24/17 14:16 18 05/24/17 13:38 122 18 176/113 (134) 98 Room Air 05/24/17 13:32 98 Room Air 05/24/17 13:12 99.7 128 18 194/106 (135) 97 Physical Exam VS: afebrile GENERAL: Middle-aged white male, well-nourished, in mild-mod distress secondary to pain SKIN: Warm and dry. EYES: No scleral icterus. No injection or drainage. ENT: NC, AT CARDIOVASCULAR: tachycardic rate and regular rhythm. no murmurs RESPIRATORY: No accessory muscle use. Clear to auscultation. Breath sounds equal bilaterally. GASTROINTESTINAL: Abdomen soft, non-tender, nondistended. Extremities: No clubbing, cyanosis, or edema. No obvious deformities. MUSCULOSKELETAL: adequate muscle bulk and tone for age and habitus. limited ROM of nec anteriorly and w/ external rotation BL NEUROLOGICAL: No facial droop nor slurred speech noted. Unable to flex chin to neck and unable to raise his straight legs more than 30 secondary to pain BL. Intact sensation to pinprick on lower extremities. Alert and oriented. PSYCHIATRIC: Appropriate mood and affect; insight and judgment normal. Laboratory Laboratory Tests Test 05/24/17 13:25 05/24/17 14:05 White Blood Count 13.6 Red Blood Count 4.58 Hemoglobin 12.6 Hematocrit 38.8 Mean Corpuscular Volume 84.8 Mean Corpuscular Hemoglobin 27.5 Mean Corpuscular Hemoglobin Concent 32.5 Red Cell Distribution Width 13.9 Platelet Count 422 Mean Platelet Volume 8.1 Neutrophils (%) (Auto) 80.4 Lymphocytes (%) (Auto) 8.3 Monocytes (%) (Auto) 7.0 Eosinophils (%) (Auto) 0.2 Basophils (%) (Auto) 4.1 Neutrophils # (Auto) 10.9 Lymphocytes # (Auto) 1.1 Monocytes # (Auto) 1.0 Eosinophils # (Auto) 0.0 Basophils # (Auto) 0.6 CBC Comment DIFF FINAL Differential Comment Erythrocyte Sedimentation Rate 76 Blood Urea Nitrogen 8 Creatinine 0.70 Random Glucose 106 Total Protein 7.3 Albumin 2.1 Calcium Level 8.5 Alkaline Phosphatase 151 Aspartate Amino Transf (AST/SGOT) 21 Alanine Aminotransferase (ALT/SGPT) 27 Total Bilirubin 0.2 Sodium Level 138 Potassium Level 3.6 Chloride Level 105 Carbon Dioxide Level 25.6 Anion Gap 7 Estimat Glomerular Filtration Rate 115 Lactic Acid Level 0.9 C-Reactive Protein 14.70 Date/Time Source Procedure Growth Status 05/24/17 13:30 Blood Peripheral Aerobic Blood Culture Pending Received 05/24/17 13:30 Blood Peripheral Anaerobic Blood Culture Pending Received 05/24/17 13:30 Nasal Aspirate Influenza Types A,B Antigen (GWEN) - Final NEGATIVE FOR FLU A AND B ANTIGEN.... Complete Result Diagram: 05/24/17 1325 05/24/17 1405 Imaging Last Impressions Chest X-Ray 05/24/17 1316 Signed Impressions: Service Date/Time: Wednesday, May 24, 2017 13:30 - CONCLUSION: No acute disease. Marco Agustin MD FACR Thoracic Spine MRI 05/24/17 0000 Signed Impressions: Service Date/Time: Wednesday, May 24, 2017 14:52 - CONCLUSION: 1. Examination is somewhat limited due to motion artifact on every pulse sequence. 2. However , studies are adequate to exclude osteomyelitis. No vertebral body edema or abnormal enhancement. Spinal canal is widely patent throughout without cord compromise. Mango Spence MD Lumbar Spine MRI 05/24/17 0000 Signed Impressions: Service Date/Time: Wednesday, May 24, 2017 14:52 - CONCLUSION: 1. Diffuse bone marrow edema with abnormal enhancement and cortical erosion involving the L4 characteristic of osteomyelitis. 2. No significant enhancement of the L3-4 disc. 3. Enhancing paraspinal soft tissue with small fluid collections characteristic of phlegmon and small abscesses. 4. Mild degenerative disc disease of L1-2 and L2-3 5. No other significant abnormality. Jewel Martin MD Cervical Spine MRI 05/24/17 0000 Signed Impressions: Service Date/Time: Wednesday, May 24, 2017 14:29 - CONCLUSION: 1. Very limited exam due to motion artifact on that about every pulse sequence. 2. I do believe that there is a left posterior sixth 8 mm dense with an inferiorly extruded segment at C2-3 extending inferiorly. This appears to fill lateral recess and may compromise the left side of the cord. 3. Degenerative disc disease most prominent at C4-5 and C5-6 with Modic endplate changes at C5-6. Degree of spinal stenosis is difficult to determine again due to motion artifact. 4. No gross findings of osteomyelitis. MD Eliza Israel VTE Risk Assessment [place] VTE Risk Assessment: Mod/High Risk (score >= 2) Caprini Risk Assessment Model Point Value = 1 Point Value = 2 Point Value = 3 Point Value = 5 Age 41-60 Minor surgery BMI > 25 kg/m2 Swollen legs Varicose veins or History of unexplained or recurrent spontaneous Oral contraceptives or hormone replacement Sepsis (< 1 month) Serious lung disease, including pneumonia (< 1 month) Abnormal pulmonary function Acute myocardial infarction Congestive heart failure (< 1 month) History of inflammatory bowel disease Medical patient at bed rest Age 61-74 Arthroscopic surgery Major open surgery (> 45 min) Laparoscopic surgery (> 45 min) Malignancy Confined to bed (> 72 hours) Immobilizing plaster cast Central venous access Age >= 75 History of VTE Family history of VTE Factor V Leiden Prothrombin [id number] Lupus anticoagulant Anticardiolipin antibodies Elevated serum homocysteine Heparin-induced thrombocytopenia Other congenital or acquired thrombophilia Stroke (< 1 month) Elective arthroplasty Hip, pelvis, or leg fracture Acute spinal cord injury (< 1 month) Prophylaxis Regimen Total Risk Factor Score Risk Level Prophylaxis Regimen 0-1 Low Early ambulation 2 Moderate Order ONE of the following: *Sequential Compression Device (SCD) *Heparin 5000 units SQ BID 3-4 Higher Order ONE of the following medications: *Heparin 5000 units SQ TID *Enoxaparin/Lovenox 40 mg SQ daily (WT < 150 kg, CrCl > 30 mL/min) *Enoxaparin/Lovenox 30 mg SQ daily (WT < 150 kg, CrCl > 10-29 mL/min) *Enoxaparin/Lovenox 30 mg SQ BID (WT < 150 kg, CrCl > 30 mL/min) AND/OR *Sequential Compression Device (SCD) 5 or more Highest Order ONE of the following medications: *Heparin 5000 units SQ TID (Preferred with Epidurals) *Enoxaparin/Lovenox 40 mg SQ daily (WT < 150 kg, CrCl > 30 mL/min) *Enoxaparin/Lovenox 30 mg SQ daily (WT < 150 kg, CrCl > 10-29 mL/min) *Enoxaparin/Lovenox 30 mg SQ BID (WT < 150 kg, CrCl > 30 mL/min) AND *Sequential Compression Device (SCD) Assessment and Plan Assessment and Plan 61-year-old white male w/ hx of IVDU being admitted for vertebral osteomyelitis and paraspinal abscesses. Acute on chronic low back pain - Suspect osteomyelitis with paraspinal abscesses. Alkaline phosphatase, CRP significantly elevated. - Case d/w ER doc who spoke w/ NSG (consulted) and highly recommended biopsy before antibiotics. Then I discussed case with interventional radiology who highly recommends holding off on CT-guided biopsy in AM due to patient having been on dual antiplatelet therapy; Dr. Kennedy has relayed in the literature pt's can be still have useful bx within 24 hrs of administering abx. I then re- discussed case with NSGiovana who recommended letting ID making decision for abx vs biopsy first if bx is delayed. In the meantime I will order 1 unit of platelets for type and hold in case transfusion is desired in next 24 hours. DDAVP won't be of much use given pharmacology of plavix. Starting gabapentin and lidocaine patch. NPO after midnight per IR recs for now in case bx is done sooner than expected. - Vancomycin and levaquin ordered in the ER WERE NOT ADMINISTERED - confirmed w / nursing. - Lortab when necessary pain, intravenous IV morphine when necessary breakthrough pain acute neck pain - likely from disc bulging and MSK as oppose to meningitis - gabapentin for now; will need PT/OT order when above workup completed - Neurosurgery to please evaluate tachycardia - likely 2/2 pain; monitor w/ telemetry. obtaining EKG - oncoming hospitalist to f/u HYL w/ unspecified stent placement (peripheral vs cardiac) - holding home aspirin and Plavix. chronic low back pain - continue robaxin bipolar + anxiety - continue home risperidone and buspirone SCDs In summary I would recommend starting abx prior to bx only if patient becomes overtly septic. Nonetheless we will keep patient nothing by mouth except by mouth meds as advised by interventional radiology in case they do proceed with biopsy in the next 12-24 hours. Typing and screening 1 unit of platelets. Supportive care and close monitoring in the meantime. ALEXANDER thomason. Physician Certification 2 Midnight Certification Type: Admission for Inpatient Services Order for Inpatient Services The services are ordered in accordance with Medicare regulations or non- Medicare payer requirements, as applicable. In the case of services not specified as inpatient-only, they are appropriately provided as inpatient services in accordance with the 2-midnight benchmark. Estimated LOS (days): 2 2 days is the estimated time the patient will need to remain in the hospital, assuming treatment plan goals are met and no additional complications. Post-Hospital Plan: Home Glen Joy MD May 24, 2017 17:50
[2017-05-24] MEDS ORDERED: SODIUM CHLOR 0.45% 1000 ML INJ 1,000 ML IV SCH (17:54)
[2017-05-24 18:03] VITALS: BP 166/96; PULSE 118; RESP 18; TEMP 98; O2SAT 97
[2017-05-24] MEDS ORDERED: METHOCARBAMOL 500 MG TAB PO PRN (19:15)
[2017-05-24] MEDS ORDERED: cloNIDine HCL 0.1 MG TAB PO ONE (19:45)
[2017-05-24 19:50] VITALS: BP 205/120; PULSE 125; RESP 18; O2SAT 98
[2017-05-24] MEDS: SODIUM CHLOR 0.9% 1000 ML INJ 1,000 ML IV SCH (19:59)
[2017-05-24] MEDS: GABAPENTIN 300 MG CAP PO SCH (19:59)
[2017-05-24] MEDS: LIDOCAINE HCL 5% PATCH T-DERMAL SCH (20:55)
[2017-05-24] MEDS ORDERED: SODIUM CHLOR 0.9% 250 ML INJ 250 ML IV ONE (21:15)
[2017-05-24] MEDS: hydrOXYzine HCL 50 MG TAB PO SCH (21:21)
[2017-05-24] MEDS: ACETAMINOPHEN/HYDROcodone 325 MG/10 MG TAB PO PRN (21:21)
[2017-05-24 21:27] VITALS: BP 203/115; PULSE 120; RESP 18; TEMP 98.5; O2SAT 98
[2017-05-24 22:03] LABS: BILIRUBIN, URINE NEG (NEG); BLOOD, URINE SMALL (NEG); GLUCOSE,URINE NEG (NEG); KETONE, URINE NEG (NEG); NITRITE,URINE POS (NEG); URINE LEUKOCYTE ESTERASE NEG (NEG)
[2017-05-24 22:16] LABS: URINE COLOR YELLOW (YELLW/STRAW)
[2017-05-24 22:17] LABS: MUCUS URINE FEW /lpf (OCC)
[2017-05-24 22:18] LABS: RBC, URINE 0-3 /hpf (0-3); SPERM, URINE OCC; SQUAMOUS EPITHELIAL CELL URINE 0-5 /hpf (0-5); WHITE BLOOD CELL CLUMPS OCC
[2017-05-24 22:19] LABS: BACTERIA, URINE OCC /hpf
[2017-05-25] VITALS (7 sets, daily range): BP systolic 148–181; BP diastolic 90–113; PULSE 112–130; RESP 16–18; TEMP 98–100.3; O2SAT 93–97
[2017-05-25] MEDS: ACETAMINOPHEN/HYDROcodone 325 MG/10 MG TAB PO PRN ×4 (03:07→20:12)
[2017-05-25] MEDS ORDERED: ACETAMINOPHEN/HYDROcodone 325 MG/10 MG TAB PO ONE (04:15)
[2017-05-25] MEDS: SODIUM CHLOR 0.9% 1000 ML INJ 1,000 ML IV SCH ×2 (05:15→20:11)
[2017-05-25] MEDS ORDERED: cloNIDine HCL 0.1 MG TAB PO ONE (07:00)
[2017-05-25 07:47] LABS: AUTOMATED NEUTROPHIL # 11.2 TH/MM3 (1.8-7.7); BASOPHIL # 0.1 TH/MM3 (0-0.2); BASOPHIL % 0.5 % (0.0-2.0); EOSINOPHIL # 0.1 TH/MM3 (0-0.4); EOSINOPHIL % 0.4 % (0.0-4.0); HEMATOCRIT 37.9 % (39.0-51.0); HEMOGLOBIN 12.8 GM/DL (13.0-17.0); LYMPH % 12.4 % (9.0-44.0); LYMPHOCYTE # 1.8 TH/MM3 (1.0-4.8); MEAN CELL VOLUME 84.5 FL (80.0-100.0); MEAN CORPUSCULAR HEMOGLOBIN 28.6 PG (27.0-34.0); MEAN CORPUSCULAR HGB CONC 33.8 % (32.0-36.0); MEAN PLATELET VOLUME 8.3 FL (7.0-11.0); MONO % 9.6 % (0.0-8.0); MONOCYTE # 1.4 TH/MM3 (0-0.9); NEUT % 77.1 % (16.0-70.0); PLATELET COUNT 345 TH/MM3 (150-450); RED BLOOD COUNT 4.49 MIL/MM3 (4.50-5.90); RED CELL DISTRIBUTION WIDTH 14.9 % (11.6-17.2); WHITE BLOOD COUNT 14.5 TH/MM3 (4.0-11.0)
[2017-05-25] MEDS: GABAPENTIN 300 MG CAP PO SCH ×3 (08:16→20:12)
[2017-05-25] MEDS: busPIRone HCL 10 MG TAB PO SCH ×3 (08:16→20:11)
[2017-05-25] MEDS: risperiDONE 1 MG TAB PO SCH (08:16)
[2017-05-25] MEDS: LIDOCAINE HCL 5% PATCH T-DERMAL SCH (08:17)
[2017-05-25] MEDS: ATORVASTATIN 40 MG TAB PO SCH (08:17)
--- NOTE | 2017-05-25 09:11 | RADRPT ---
EXAM DATE/TIME: 05/24/2017 00:00 [facility] COMPARISON: MRI THORACIC SPINE W & W/O CONTRAST, May 24, 2017, 14:52. MRI LUMBAR SPINE W & W/O CONTRAST, May, 14:52. INDICATIONS : Paraspinal abscess. The patient's MRI lumbar spine from yesterday was reviewed. The patient has very tiny multifocal barbara ections in the psoas muscles bilaterally, none large enough to warrant drain placement. CONCLUSION: No drainable collection identified at present. Ramos Najera MD on May 25, 2017 at 9:05 Board Certified Radiologist. This report was verified electronically.
--- NOTE | 2017-05-25 10:11 | HHI.PR ---
Subjective Remarks in no acute distress. complaining of back pain. afebrile today. Objective Vitals Vital Signs Date Time Temp Pulse Resp B/P (MAP) Pulse Ox O2 Delivery O2 Flow Rate FiO2 05/25/17 07:02 98.2 115 18 173/110 (131) 95 05/25/17 06:37 181/107 (131) 05/25/17 05:18 18 05/25/17 04:07 18 05/25/17 03:42 98.9 125 18 181/113 (135) 94 05/25/17 00:00 98.2 121 17 164/105 (124) 94 05/24/17 22:19 05/24/17 21:27 98.5 120 18 203/115 (144) 98 Room Air 05/24/17 19:50 125 18 205/120 (148) 98 Room Air 05/24/17 18:03 98.0 118 18 166/96 (119) 97 Room Air 05/24/17 16:19 18 05/24/17 16:17 130 18 161/104 (123) 96 Room Air 05/24/17 14:16 18 05/24/17 13:38 122 18 176/113 (134) 98 Room Air 05/24/17 13:32 98 Room Air 05/24/17 13:12 99.7 128 18 194/106 (135) 97 I/O 05/24/17 05/24/17 05/24/17 05/25/17 05/25/17 05/25/17 06:59 14:59 22:59 06:59 14:59 22:59 Intake Total 3225 ml Balance 3225 ml Intake IV Total 3225 ml Result Diagram: 05/25/17 0727 05/24/17 1405 Imaging Last Impressions Chest X-Ray 05/24/17 1316 Signed Impressions: Service Date/Time: Wednesday, May 24, 2017 13:30 - CONCLUSION: No acute disease. Marco Agustin MD FACR Thoracic Spine MRI 05/24/17 0000 Signed Impressions: Service Date/Time: Wednesday, May 24, 2017 14:52 - CONCLUSION: 1. Examination is somewhat limited due to motion artifact on every pulse sequence. 2. However , studies are adequate to exclude osteomyelitis. No vertebral body edema or abnormal enhancement. Spinal canal is widely patent throughout without cord compromise. Mango Spence MD Lumbar Spine MRI 05/24/17 0000 Signed Impressions: Service Date/Time: Wednesday, May 24, 2017 14:52 - CONCLUSION: 1. Diffuse bone marrow edema with abnormal enhancement and cortical erosion involving the L4 characteristic of osteomyelitis. 2. No significant enhancement of the L3-4 disc. 3. Enhancing paraspinal soft tissue with small fluid collections characteristic of phlegmon and small abscesses. 4. Mild degenerative disc disease of L1-2 and L2-3 5. No other significant abnormality. Jewel Martin MD Consultation 05/24/17 Signed Impressions: Service Date/Time: Wednesday, May 24, 2017 00:00 - CONCLUSION: No drainable collection identified at present. Ramos Najera MD Cervical Spine MRI 05/24/17 0000 Signed Impressions: Service Date/Time: Wednesday, May 24, 2017 14:29 - CONCLUSION: 1. Very limited exam due to motion artifact on that about every pulse sequence. 2. I do believe that there is a left posterior sixth 8 mm dense with an inferiorly extruded segment at C2-3 extending inferiorly. This appears to fill lateral recess and may compromise the left side of the cord. 3. Degenerative disc disease most prominent at C4-5 and C5-6 with Modic endplate changes at C5-6. Degree of spinal stenosis is difficult to determine again due to motion artifact. 4. No gross findings of osteomyelitis. Mango Spence MD Objective Remarks GENERAL: This is a well-nourished, well-developed patient, in no apparent distress. CARDIOVASCULAR: Regular rate and regular rhythm without murmurs, gallops, or rubs. RESPIRATORY: Clear to auscultation. Breath sounds equal bilaterally. No wheezes , rales, or rhonchi. GASTROINTESTINAL: Abdomen soft, non-tender, nondistended. Normal, active bowel sounds MUSCULOSKELETAL: Extremities without clubbing, cyanosis, or edema. NEURO: Alert & Oriented x4 to person, place, time, situation. Moves all ext x4 Medications and IVs Inpatient Medications Acetaminophen/ Hydrocodone Bitart (Bryan 10-325 Mg) 1 tab ONCE ONCE PO Last administered on 05/25/17at 04:18; Start 05/25/17 at 04:15; Stop 05/25/17 at 04:16; Status DC Atorvastatin Calcium (Lipitor) 40 mg DAILY PO Last administered on 05/25/17 08: 17; Start 05/25/17 at 09:00 Buspirone HCl (Buspar) 10 mg TID PO Last administered on 05/25/17 08:16; Start 05/25/17 at 09:00 Clonidine (Catapres) 0.1 mg ONCE ONCE PO Last administered on 05/25/17 07:12; Start 05/25/17 at 07:00; Stop 05/25/17 at 07:01; Status DC Gabapentin (Neurontin) 300 mg TID PO Last administered on 05/25/17 08:16; Start 05/24/17 at 19:15 Hydromorphone HCl (Dilaudid Pf Inj) 2 mg ONCE ONCE IV PUSH Last administered on 05/24/17 14:30; Start 05/24/17 at 14:30; Stop 05/24/17 at 14:31; Status DC Hydroxyzine HCl (Atarax) 50 mg HS PO Last administered on 05/24/17at 21:21; Start 05/24/17 at 21:00 Levofloxacin/ Dextrose 150 ml @ 100 mls/hr ONCE ONCE IV ; Start 05/24/17 at 17: 30; Stop 05/24/17 at 17:49; Status DC Lidocaine HCl (Lidoderm 5% Patch.12 Hr) 1 patch DAILY T-DERMAL Last administered on 05/25/17at 08:17; Start 05/24/17 at 19:15 Methocarbamol (Robaxin) 500 mg QID PRN PO MUSCLE SPASM; Start 05/24/17 at 19:15 Morphine Sulfate (Morphine Inj) 4 mg Q3H PRN IV PUSH pain not relieved by lortab; Start 05/24/17 at 19:15 Ondansetron HCl (Zofran Inj) 4 mg ONCE ONCE IV PUSH Last administered on at 13:36; Start 05/24/17 at 13:30; Stop 05/24/17 at 13:31; Status DC Risperidone (risperDAL) 1 mg DAILY PO Last administered on 05/25/17at 08:16; Start 05/25/17 at 09:00 Sodium Chloride 250 ml @ 15 mls/hr ONCE ONCE IV ; Start 05/24/17 at 21:15; Stop 05/25/17 at 13:54 Vancomycin HCl 1000 mg/Sodium Chloride 250 ml @ 250 mls/hr ONCE ONCE IV ; Start 05/24/17 at 17:30; Stop 05/24/17 at 17:49; Status DC A/P Assessment and Plan A/P sepsis ( tachycardia, leukocytosis)- Suspect osteomyelitis with paraspinal abscesses. will start on IV antibiotics; Vanco and Rocephin- d/w today and no need for bone biopsy since the blood cultures are positive for gram-positive cocci. will consult neurosurgery- ID consulted. - continue with pain control. CAD/ s/p stent placement - aspirin and Plavix on hold for now till neurosurgery/ ID evaluation. chronic low back pain - continue robaxin possible UTI- on antibiotic- follow the UC. bipolar + anxiety - continue home risperidone and buspirone SCDs Criselda Dior MD May 25, 2017 10:11
[2017-05-25] MEDS ORDERED: Vancomycin Consult Pharmacy 1 EA OTHER SCH (10:15)
--- NOTE | 2017-05-25 10:50 | PD.ID.CON ---
History of Present Illness Service ID Consult Requested By Ramos TREADWELL Reason for Consult vertebral osteo Primary Care Physician [facility] Diagnoses: History of Present Illness pt known to me from previous admission in 2016 He was admitted for STEMI and I treated him for arm abscess He has bee doing IV drugs. He states last time he did it was mos ago He endorses chronic low back pain for years, bt it got markedly worse since Wednesday He cant walk because of it He also c/o neck pain Contrasted MRI showed L spine osteo (L4) with bony erosion, no osteo in C spine , though study with significan t motion artefact Blood clx growing gram + cocci in pairs, clusters in both sets Review of Systems Constitutional: COMPLAINS OF: Chills Musculoskeletal: COMPLAINS OF: Back pain, Neck pain Neurologic: COMPLAINS OF: Abnormal gait Except as stated in HPI: all other systems reviewed are Neg Past Family Social History Allergies: Coded Allergies: No Known Allergies (Verified Adverse Reaction, Unknown, 05/24/17) Past Medical History HTN GERD HEP C PTSD ADHD Bipolar Disorder Past Surgical History None Active Ordered Medications Medications where reviewed in EMR Antibiotics Include: vancomycin CFTX levaquine Family History Family History Non-Contributory. Social History + Tobacco. 1/2 ppd No ETOH. + h/o IV drugs Physical Exam Vital Signs Vital Signs Date Time Temp Pulse Resp B/P (MAP) Pulse Ox O2 Delivery O2 Flow Rate FiO2 05/25/17 07:02 98.2 115 18 173/110 (131) 95 05/25/17 06:37 181/107 (131) 05/25/17 05:18 18 05/25/17 04:07 18 05/25/17 03:42 98.9 125 18 181/113 (135) 94 05/25/17 00:00 98.2 121 17 164/105 (124) 94 05/24/17 22:19 05/24/17 21:27 98.5 120 18 203/115 (144) 98 Room Air 05/24/17 19:50 125 18 205/120 (148) 98 Room Air 05/24/17 18:03 98.0 118 18 166/96 (119) 97 Room Air 05/24/17 16:19 18 05/24/17 16:17 130 18 161/104 (123) 96 Room Air 05/24/17 14:16 18 05/24/17 13:38 122 18 176/113 (134) 98 Room Air 05/24/17 13:32 98 Room Air 05/24/17 13:12 99.7 128 18 194/106 (135) 97 Physical Exam CONSTITUTIONAL/GENERAL: This is an adequately nourished patient, in no apparent distress. TUBES/LINES/DRAINS: SKIN: No jaundice, rashes, or lesions. No needle track hopper . Skin temperature appropriate. Not diaphoretic. HEAD: Atraumatic. Normocephalic. EYES: Pupils equal and round and reactive. Extraocular motions intact. No scleral icterus. No injection or drainage. Fundi not examined. ENT: Hearing grossly normal. Nose without bleeding or purulent drainage. Throat without visible erythema, exudates, masses, or lesions. NECK: Trachea midline. Supple,+ quite tender to palpation. No palpable thyroid enlargement or nodularity. CARDIOVASCULAR: Regular rate and rhythm without murmurs, gallops, or rubs. No JVD. Peripheral pulses symmetric. RESPIRATORY/CHEST: Symmetric, unlabored respirations. Clear to auscultation. Breath sounds equal bilaterally. No wheezes, rales, or rhonchi. GASTROINTESTINAL: Abdomen soft, non-tender, nondistended. No hepato-splenomegaly , or palpable masses. No guarding. Bowel sounds present. GENITOURINARY: Without palpable bladder distension. MUSCULOSKELETAL: Extremities without clubbing, cyanosis, or edema. No joint tenderness or effusion noted. No calf tenderness. No mottling or clubbing. 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 NEUROLOGICAL: Awake and alert. Motor and sensory grossly within normal limits. Follows commands. clear speech . Moves all extremities. PSYCHIATRIC: No obvious anxiety/depression. no apparent hallucinations or other psychotic thought process. Laboratory Laboratory Tests Test 05/24/17 13:25 05/24/17 14:05 05/24/17 21:50 05/25/17 07:27 White Blood Count 13.6 14.5 Red Blood Count 4.58 4.49 Hemoglobin 12.6 12.8 Hematocrit 38.8 37.9 Mean Corpuscular Volume 84.8 84.5 Mean Corpuscular Hemoglobin 27.5 28.6 Mean Corpuscular Hemoglobin Concent 32.5 33.8 Red Cell Distribution Width 13.9 14.9 Platelet Count 422 345 Mean Platelet Volume 8.1 8.3 Neutrophils (%) (Auto) 80.4 77.1 Lymphocytes (%) (Auto) 8.3 12.4 Monocytes (%) (Auto) 7.0 9.6 Eosinophils (%) (Auto) 0.2 0.4 Basophils (%) (Auto) 4.1 0.5 Neutrophils # (Auto) 10.9 11.2 Lymphocytes # (Auto) 1.1 1.8 Monocytes # (Auto) 1.0 1.4 Eosinophils # (Auto) 0.0 0.1 Basophils # (Auto) 0.6 0.1 CBC Comment DIFF FINAL DIFF FINAL Differential Comment Erythrocyte Sedimentation Rate 76 Blood Urea Nitrogen 8 Creatinine 0.70 Random Glucose 106 Total Protein 7.3 Albumin 2.1 Calcium Level 8.5 Alkaline Phosphatase 151 Aspartate Amino Transf (AST/SGOT) 21 Alanine Aminotransferase (ALT/SGPT) 27 Total Bilirubin 0.2 Sodium Level 138 Potassium Level 3.6 Chloride Level 105 Carbon Dioxide Level 25.6 Anion Gap 7 Estimat Glomerular Filtration Rate 115 Lactic Acid Level 0.9 C-Reactive Protein 14.70 Urine Color YELLOW Urine Turbidity SLIGHT Urine pH 6.0 Urine Specific Goldonna 1.021 Urine Protein 30 Urine Glucose (UA) NEG Urine Ketones NEG Urine Occult Blood SMALL Urine Nitrite POS Urine Bilirubin NEG Urine Leukocyte Esterase NEG Urine RBC 0-3 Urine WBC 9-14 Urine WBC Clumps OCC Urine Squamous Epithelial Cells 0-5 Urine Bacteria OCC Urine Mucus FEW Urine Sperm OCC Microscopic Urinalysis Comment CULTURE INDICATED Date/Time Source Procedure Growth Status 05/24/17 13:30 Blood Peripheral Aerobic Blood Culture - Preliminary Gram Positive Cocci Resulted 05/24/17 13:30 Anaerobic Blood Culture - Preliminary Gram Positive Cocci Resulted 05/24/17 13:30 Nasal Aspirate Influenza Types A,B Antigen (GWEN) - Final NEGATIVE FOR FLU A AND B ANTIGEN.... Complete 05/24/17 21:50 Urine Clean Catch Urine Culture Pending Received Result Diagram: 05/25/17 0727 05/24/17 1405 Imaging Last Impressions Chest X-Ray 05/24/17 1316 Signed Impressions: Service Date/Time: Wednesday, May 24, 2017 13:30 - CONCLUSION: No acute disease. Marco Agustin MD FACR Thoracic Spine MRI 05/24/17 0000 Signed Impressions: Service Date/Time: Wednesday, May 24, 2017 14:52 - CONCLUSION: 1. Examination is somewhat limited due to motion artifact on every pulse sequence. 2. However , studies are adequate to exclude osteomyelitis. No vertebral body edema or abnormal enhancement. Spinal canal is widely patent throughout without cord compromise. Mango Spence MD Lumbar Spine MRI 05/24/17 0000 Signed Impressions: Service Date/Time: Wednesday, May 24, 2017 14:52 - CONCLUSION: 1. Diffuse bone marrow edema with abnormal enhancement and cortical erosion involving the L4 characteristic of osteomyelitis. 2. No significant enhancement of the L3-4 disc. 3. Enhancing paraspinal soft tissue with small fluid collections characteristic of phlegmon and small abscesses. 4. Mild degenerative disc disease of L1-2 and L2-3 5. No other significant abnormality. Jewel Martin MD Consultation 05/24/17 0000 Signed Impressions: Service Date/Time: Wednesday, May 24, 2017 00:00 - CONCLUSION: No drainable collection identified at present. Ramos Najera MD Cervical Spine MRI 05/24/17 0000 Signed Impressions: Service Date/Time: Wednesday, May 24, 2017 14:29 - CONCLUSION: 1. Very limited exam due to motion artifact on that about every pulse sequence. 2. I do believe that there is a left posterior sixth 8 mm dense with an inferiorly extruded segment at C2-3 extending inferiorly. This appears to fill lateral recess and may compromise the left side of the cord. 3. Degenerative disc disease most prominent at C4-5 and C5-6 with Modic endplate changes at C5-6. Degree of spinal stenosis is difficult to determine again due to motion artifact. 4. No gross findings of osteomyelitis. Mango Spence MD Assessment and Plan Assessment and Plan L spine osteo Staph sepsis IV drug use - cont vancomycin; keep trough 15-20 dc levaquin and CFTX 2 D echo, possibly WILBERT monitor BC untill final Judith Moreira MD May 25, 2017 10:50
[2017-05-25] MEDS ORDERED: cefTRIAXone INJ 2,000 MG in SODIUM CHLORIDE 0.9% INJ 100 ML IV SCH (11:00)
[2017-05-25] MEDS: VANCOMYCIN INJ 1,500 MG in SODIUM CHLORID 0.9% 500 ML INJ 500 ML IV SCH (12:40)
--- NOTE | 2017-05-25 15:26 | ECHRPT ---
Indication: VEGETATIONS CONCLUSIONS The transthoracic study is normal by two-dimensional, color flow imaging and Doppler interrogation. normal lv size, wall thickness, ef=65% mild mr thickened aortic valve leaflets, no obvous evidence of endocarditis BP: 148 / 90 HR: 122 Rhythm: Other Technical Quality:Fair Hadley Moreira MD, FACC, FSCAI (Electronically Signed) Final Date:25 May 2017 15:25
--- NOTE | 2017-05-25 16:44 | EKG ---
Date Performed: 05/24/2017 Time Performed: 21:36:24 PTAGE: 61 years EKG: SINUS TACHYCARDIA POSSIBLE RIGHT VENTRICULAR CONDUCTION DELAY ABNORMAL RHYTHM ECG PREVIOUS TRACING : 12/25/2015 02.19 Rate has increased since prior tracing. Clinical correlatio n is recommended. DOCTOR: Jeff Sloan Interpretating Date/Time 05/25/2017 16:43:03
[2017-05-25] MEDS: hydrOXYzine HCL 50 MG TAB PO SCH (20:12)
--- NOTE | 2017-05-25 23:32 | PD.CONS ---
History of Present Illness Service Neurosurgery Consult Requested By Medicine service Reason for Consult Lumbar osteomyelitis Primary Care Physician [facility] Diagnoses: History of Present Illness 61-year-old male with previous history of IV drug use. States that roughly 5 days ago he developed severe progressive low back pain and approximate 3 days ago developed severe progressive left neck pain with some radiation of the shoulder. He denies any definite pain weakness and numbness in the upper extremities. Approximately 3 days ago he did develop some pain radiating across the right anterolateral thigh and lateral hip. Denies any fevers or chills No diarrhea or constipation. No nausea or vomiting. No headache, dizziness, vertigo Review of Systems Constitutional: COMPLAINS OF: Fatigue, Chills, DENIES: Fever Eyes: DENIES: Blurred vision, Diplopia Ears, nose, mouth, throat: DENIES: Hearing loss, Vertigo Respiratory: DENIES: Cough, Shortness of breath Cardiovascular: DENIES: Chest pain, Palpitations Gastrointestinal: DENIES: Diarrhea, Nausea, Vomiting Genitourinary: DENIES: Urinary incontinence, Urgency Musculoskeletal: COMPLAINS OF: Joint pain, Muscle aches, Back pain, Neck pain Hematologic/lymphatic: DENIES: Bruising Neurologic: DENIES: Abnormal gait, Headache Psychiatric: DENIES: Confusion Past Family Social History Allergies: Coded Allergies: No Known Allergies (Verified Adverse Reaction, Unknown, 05/24/17) Past Medical History Hypertension Hepatitis C Bipolar disorder PTSD History of myocardial infarction/coronary artery disease Past Surgical History Cardiac stent approximately 2-3 years ago following "mild IN" Reported Medications Reported Meds & Active Scripts Active Ibuprofen 600 Mg Tab 600 Mg PO Q8HR PRN Robaxin (Methocarbamol) 500 Mg Tab 500 Mg PO QID PRN Reported Plavix (Clopidogrel Bisulfate) 75 Mg Tab 75 Mg PO DAILY Buspirone (Buspirone HCl) 10 Mg Tab 10 Mg PO TID Risperidone 1 Mg Tab 1 Mg PO DAILY Atorvastatin (Atorvastatin Calcium) 40 Mg Tab 40 Mg PO DAILY Hydroxyzine HCl 50 Mg Tab 50 Mg PO HS Aspirin EC (Aspirin) 81 Mg Tabdr 81 Mg PO DAILY Family History Negative cancer diabetes neurologic disorders Social History Smokes cigarettes occasionally no alcohol use States no IV drugs for many months Physical Exam Vital Signs Vital Signs Date Time Temp Pulse Resp B/P (MAP) Pulse Ox O2 Delivery O2 Flow Rate FiO2 05/25/17 22:03 98.0 112 16 159/90 (113) 93 05/25/17 14:37 100.3 130 18 166/95 (118) 97 05/25/17 11:12 98.4 122 18 148/90 (109) 93 05/25/17 07:02 98.2 115 18 173/110 (131) 95 05/25/17 06:37 181/107 (131) 05/25/17 05:18 18 05/25/17 04:07 18 05/25/17 03:42 98.9 125 18 181/113 (135) 94 05/25/17 00:00 98.2 121 17 164/105 (124) 94 Physical Exam GENERAL: This is a somewhat thin, cachectic-appearing gentleman, appears painful, anxious. SKIN: No abrasions, contusion, rash noted. Skin warm and dry. HEAD: Atraumatic. Normocephalic. No temporal or scalp tenderness. EYES: Sclerae are clear and nonicteric ENT: No facial edema or ecchymosis. No periorbital edema. No CSF otorrhea or rhinorrhea. No palpable facial fracture or deformity. NECK: Trachea midline. No cervical spine tenderness. CARDIOVASCULAR: Regular rate and rhythm without murmurs, gallops, or rubs. RESPIRATORY: Clear to auscultation. Breath sounds equal bilaterally. No wheezes , rales, or rhonchi. GASTROINTESTINAL: Abdomen soft, non-tender, nondistended. No hepato-splenomegaly , or palpable masses. No guarding. MUSCULOSKELETAL: Extremities without cyanosis, or edema. No joint tenderness, or edema noted. No calf tenderness. Dorsalis pedis pulses 2+ bilateral NEUROLOGICAL: Awake and alert Oriented X 3 Speech is moderately dysarthric. Complains of left neck pain when talking. Thought processes are somewhat slow, appropriate Follow simple commands well Answers questions appropriately Seems to have somewhat diminished judgment and insight Recent and remote memory are intact Appears anxious. Pupils are equal and reactive to accommodation. Extra-ocular movements, visual jarquin to confrontation, facial sensorimotor, tongue, palate, sternocleidomastoid testing, hearing to finger rub testing, and bilateral shoulder shrug are all intact. Sensation is intact to light touch in all extremities Strength normal major flexion and extension groups all extremities except decreased effort right lower extremity with complaint of right low-back pain and thigh pain with testing Allie's absent bilaterally No ankle clonus Plantar responses absent bilateral Fine motor movements intact upper extremities Laboratory Laboratory Tests Test 05/25/17 07:27 White Blood Count 14.5 Red Blood Count 4.49 Hemoglobin 12.8 Hematocrit 37.9 Mean Corpuscular Volume 84.5 Mean Corpuscular Hemoglobin 28.6 Mean Corpuscular Hemoglobin Concent 33.8 Red Cell Distribution Width 14.9 Platelet Count 345 Mean Platelet Volume 8.3 Neutrophils (%) (Auto) 77.1 Lymphocytes (%) (Auto) 12.4 Monocytes (%) (Auto) 9.6 Eosinophils (%) (Auto) 0.4 Basophils (%) (Auto) 0.5 Neutrophils # (Auto) 11.2 Lymphocytes # (Auto) 1.8 Monocytes # (Auto) 1.4 Eosinophils # (Auto) 0.1 Basophils # (Auto) 0.1 CBC Comment DIFF FINAL Differential Comment Date/Time Source Procedure Growth Status 05/25/17 14:42 Blood Peripheral Aerobic Blood Culture Pending Received 05/25/17 14:42 Blood Peripheral Anaerobic Blood Culture Pending Received 05/24/17 13:30 Nasal Aspirate Influenza Types A,B Antigen (GWEN) - Final NEGATIVE FOR FLU A AND B ANTIGEN.... Complete 05/24/17 21:50 Urine Clean Catch Urine Culture - Preliminary IMMATURE GROWTH - REINCUBATE Resulted Result Diagram: 05/25/17 0727 05/24/17 1405 Imaging 05/24/17 cervical, thoracic, lumbar spine MRI images reviewed by the undersigned. Cervical spine MRI images are difficult to interpret due to motion artifact. There does appear to be an area of inflammation, less likely disc herniation at the left C2-3 region extending down to C4 region with moderate canal stenosis. Difficult to determine any significant cervical cord compression or abnormal cord signal intensity. Paraspinous inflammatory changes adjacent to the L3 region without definite acute abscess. Likely some inflammation of the exiting L4 nerve root. Chest X-Ray 05/24/17 1316 Signed Impressions: Service Date/Time: Wednesday, May 24, 2017 13:30 - CONCLUSION: No acute disease. Marco Agustin MD FACR Thoracic Spine MRI 05/24/17 0000 Signed Impressions: Service Date/Time: Wednesday, May 24, 2017 14:52 - CONCLUSION: 1. Examination is somewhat limited due to motion artifact on every pulse sequence. 2. However , studies are adequate to exclude osteomyelitis. No vertebral body edema or abnormal enhancement. Spinal canal is widely patent throughout without cord compromise. Mango Spence MD Lumbar Spine MRI 05/24/17 0000 Signed Impressions: Service Date/Time: Wednesday, May 24, 2017 14:52 - CONCLUSION: 1. Diffuse bone marrow edema with abnormal enhancement and cortical erosion involving the L4 characteristic of osteomyelitis. 2. No significant enhancement of the L3-4 disc. 3. Enhancing paraspinal soft tissue with small fluid collections characteristic of phlegmon and small abscesses. 4. Mild degenerative disc disease of L1-2 and L2-3 5. No other significant abnormality. Jewel Martin MD Consultation 05/24/17 Signed Impressions: Service Date/Time: Wednesday, May 24, 2017 00:00 - CONCLUSION: No drainable collection identified at present. Ramos Najera MD Cervical Spine MRI 05/24/17 Signed Impressions: Service Date/Time: Wednesday, May 24, 2017 14:29 - CONCLUSION: 1. Very limited exam due to motion artifact on that about every pulse sequence. 2. I do believe that there is a left posterior sixth 8 mm dense with an inferiorly extruded segment at C2-3 extending inferiorly. This appears to fill lateral recess and may compromise the left side of the cord. 3. Degenerative disc disease most prominent at C4-5 and C5-6 with Modic endplate changes at C5-6. Degree of spinal stenosis is difficult to determine again due to motion artifact. 4. No gross findings of osteomyelitis. Mango Spence MD Assessment and Plan Assessment and Plan Impression: 1. L4 osteomyelitis. Paraspinous changes appears somewhat subacute. No definite focal abscess. Possible secondary right L4 radiculopathy related to inflammation along the nerve root. 2. L2-3 level changes noted on cervical MRI. Very difficult to accurately determine the nature of any cervical spine abnormalities given significant motion artifact. No definite abscess but may have moderate stenosis and possibly cord compression although signal intensity changes are not well evaluated on the current study. 3. History of IV drug abuse 4. Sepsis 5. History of coronary artery disease, status post stent on aspirin and Plavix Plan: Findings were discussed with the patient. He is being seen by infectious disease, treated initially for staph sepsis with vancomycin. 2-D echo negative. He will need a repeat MRI of the cervical spine to try to more accurately determine the nature of any pathology and degree of any cord compression or signal changes. On his present examination he does not have any signs of definite focal radiculopathy or myelopathy, although right thigh pain may be related to right L4 nerve inflammation. The patient's case has already been reviewed by interventional radiology , apparently not felt to be a candidate for biopsy. Treatment at present based on blood culture results. Tawanda Vargas MD May 25, 2017 23:32
[2017-05-26 01:00] VITALS: BP 171/98; PULSE 110; RESP 18; TEMP 97.6; O2SAT 93
[2017-05-26] MEDS: SODIUM CHLOR 0.9% 1000 ML INJ 1,000 ML IV SCH ×3 (01:15→13:37)
[2017-05-26] MEDS: ACETAMINOPHEN/HYDROcodone 325 MG/10 MG TAB PO PRN ×2 (02:34→23:03)
[2017-05-26 04:13] VITALS: BP 163/109; PULSE 113; RESP 18; TEMP 97.7; O2SAT 93
[2017-05-26 08:00] VITALS: BP 199/105; PULSE 117; RESP 18; TEMP 98; O2SAT 96
[2017-05-26] MEDS: GABAPENTIN 300 MG CAP PO SCH ×3 (08:52→18:09)
[2017-05-26] MEDS: risperiDONE 1 MG TAB PO SCH (08:52)
[2017-05-26] MEDS: ATORVASTATIN 40 MG TAB PO SCH (08:52)
[2017-05-26] MEDS: busPIRone HCL 10 MG TAB PO SCH ×3 (08:52→18:09)
[2017-05-26] MEDS: LIDOCAINE HCL 5% PATCH T-DERMAL SCH (08:53)
[2017-05-26 09:12] LABS: CREATININE 0.76 MG/DL (0.60-1.30)
--- NOTE | 2017-05-26 09:47 | HHI.PR ---
Subjective Remarks in no acute distress. but somewhat ill-looking. T max 100.3. complaining of back and neck pain. Objective Vitals Vital Signs Date Time Temp Pulse Resp B/P (MAP) Pulse Ox O2 Delivery O2 Flow Rate FiO2 05/26/17 04:13 97.7 113 18 163/109 (127) 93 05/26/17 01:00 97.6 110 18 171/98 (122) 93 05/25/17 22:03 98.0 112 16 159/90 (113) 93 05/25/17 14:37 100.3 130 18 166/95 (118) 97 05/25/17 11:12 98.4 122 18 148/90 (109) 93 Result Diagram: 05/25/17 0727 05/26/17 0823 Imaging Last Impressions Chest X-Ray 05/24/17 1316 Signed Impressions: Service Date/Time: Wednesday, May 24, 2017 13:30 - CONCLUSION: No acute disease. Marco Agustin MD FACR Thoracic Spine MRI 05/24/17 0000 Signed Impressions: Service Date/Time: Wednesday, May 24, 2017 14:52 - CONCLUSION: 1. Examination is somewhat limited due to motion artifact on every pulse sequence. 2. However , studies are adequate to exclude osteomyelitis. No vertebral body edema or abnormal enhancement. Spinal canal is widely patent throughout without cord compromise. Mango Spence MD Lumbar Spine MRI 05/24/17 0000 Signed Impressions: Service Date/Time: Wednesday, May 24, 2017 14:52 - CONCLUSION: 1. Diffuse bone marrow edema with abnormal enhancement and cortical erosion involving the L4 characteristic of osteomyelitis. 2. No significant enhancement of the L3-4 disc. 3. Enhancing paraspinal soft tissue with small fluid collections characteristic of phlegmon and small abscesses. 4. Mild degenerative disc disease of L1-2 and L2-3 5. No other significant abnormality. Jewel Martin MD Consultation 05/24/17 0000 Signed Impressions: Service Date/Time: Wednesday, May 24, 2017 00:00 - CONCLUSION: No drainable collection identified at present. Ramos Najera MD Cervical Spine MRI 05/24/17 0000 Signed Impressions: Service Date/Time: Wednesday, May 24, 2017 14:29 - CONCLUSION: 1. Very limited exam due to motion artifact on that about every pulse sequence. 2. I do believe that there is a left posterior sixth 8 mm dense with an inferiorly extruded segment at C2-3 extending inferiorly. This appears to fill lateral recess and may compromise the left side of the cord. 3. Degenerative disc disease most prominent at C4-5 and C5-6 with Modic endplate changes at C5-6. Degree of spinal stenosis is difficult to determine again due to motion artifact. 4. No gross findings of osteomyelitis. Mango Spence MD Objective Remarks GENERAL: This is a well-nourished, well-developed patient, in no apparent distress. CARDIOVASCULAR: Regular rate and regular rhythm without murmurs, gallops, or rubs. RESPIRATORY: Clear to auscultation. Breath sounds equal bilaterally. No wheezes , rales, or rhonchi. GASTROINTESTINAL: Abdomen soft, non-tender, nondistended. Normal, active bowel sounds MUSCULOSKELETAL: Extremities without clubbing, cyanosis, or edema. NEURO: Alert & Oriented x4 to person, place, time, situation. Moves all ext x4 Medications and IVs Inpatient Medications Acetaminophen/ Hydrocodone Bitart ([place] 10-325 Mg) 1 tab ONCE ONCE PO Last administered on 05/25/17at 04:18; Start 05/25/17 at 04:15; Stop 05/25/17 at 04:16; Status DC Atorvastatin Calcium (Lipitor) 40 mg DAILY PO Last administered on 05/26/17at 08 :52; Start 05/25/17 at 09:00 Buspirone HCl (Buspar) 10 mg TID PO Last administered on 05/26/17at 08:52; Start 05/25/17 at 09:00 Ceftriaxone Sodium 2000 mg/ Sodium Chloride 100 ml @ 200 mls/hr Q24H IV ; Start 05/25/17 at 11:00; Stop 05/25/17 at 11:00; Status DC Clonidine (Catapres) 0.1 mg ONCE ONCE PO Last administered on 05/25/17at 07:12; Start 05/25/17 at 07:00; Stop 05/25/17 at 07:01; Status DC Gabapentin (Neurontin) 300 mg TID PO Last administered on 05/26/17at 08:52; Start 05/24/17 at 19:15 Hydromorphone HCl (Dilaudid Pf Inj) 2 mg ONCE ONCE IV PUSH Last administered on 05/24/17at 14:30; Start 05/24/17 at 14:30; Stop 05/24/17 at 14:31; Status DC Hydroxyzine HCl (Atarax) 50 mg HS PO Last administered on 05/25/17at 20:12; Start 05/24/17 at 21:00 Levofloxacin/ Dextrose 150 ml @ 100 mls/hr ONCE ONCE IV ; Start 05/24/17 at 17: 30; Stop 05/25/17 at 10:40; Status DC Lidocaine HCl (Lidoderm 5% Patch.12 Hr) 1 patch DAILY T-DERMAL Last administered on 05/26/17at 08:53; Start 05/24/17 at 19:15 Methocarbamol (Robaxin) 500 mg QID PRN PO MUSCLE SPASM; Start 05/24/17 at 19:15 Miscellaneous Information SPECIFIC LAB TO BE DRAWN:VANCOMYCIN TROUGH DATE TO... ONCE ONCE .XX ; Start 05/27/17 at 11:45; Stop 05/27/17 at 11:46 Morphine Sulfate (Morphine Inj) 4 mg Q3H PRN IV PUSH pain not relieved by lortab; Start 05/24/17 at 19:15 Ondansetron HCl (Zofran Inj) 4 mg ONCE ONCE IV PUSH Last administered on at 13:36; Start 05/24/17 at 13:30; Stop 05/24/17 at 13:31; Status DC Pharmacy Profile Note 0 ml @ 0 mls/hr UNSCH OTHER ; Start 05/25/17 at 10:15 Risperidone (risperDAL) 1 mg DAILY PO Last administered on 05/26/17at 08:52; Start 05/25/17 at 09:00 Sodium Chloride 250 ml @ 15 mls/hr ONCE ONCE IV ; Start 05/24/17 at 21:15; Stop 05/25/17 at 13:54; Status DC Vancomycin HCl 1000 mg/Sodium Chloride 250 ml @ 250 mls/hr ONCE ONCE IV ; Start 05/24/17 at 17:30; Stop 05/24/17 at 17:49; Status DC Vancomycin HCl 1500 mg/Sodium Chloride 515 ml @ 250 mls/hr Q12H IV Last administered on 05/26/17at 00:00; Start 05/25/17 at 12:00 A/P Assessment and Plan A/P sepsis ( tachycardia, leukocytosis)- Suspect osteomyelitis . ESR 76. continue IV Vancomycin per ID. previously d/w and no need for bone biopsy since the blood cultures are positive for gram-positive cocci. neurosurgery consult appreciated. - continue with pain control. - bacteremia with gram-positive cocci continue IV antibiotic per ID. follow the repeated blood cultures. echo negative- might need WILBERT. awaiting ID f/u and recommendations. CAD/ s/p stent placement - continue aspirin and Plavix . chronic low back pain - continue robaxin bipolar + anxiety - continue home risperidone and buspirone SCDs Criselda Dior MD May 26, 2017 09:47
[2017-05-26 12:00] VITALS: BP 123/89; PULSE 129; RESP 18; TEMP 98.2; O2SAT 94
[2017-05-26] MEDS: VANCOMYCIN INJ 1,500 MG in SODIUM CHLORID 0.9% 500 ML INJ 500 ML IV SCH ×3 (13:38)
[2017-05-26] MEDS: ASPIRIN EC 81 MG TABEC PO SCH (13:38)
[2017-05-26] MEDS: CLOPIDOGREL 75 MG TAB PO SCH (13:38)
--- NOTE | 2017-05-26 16:22 | MB ---
cc: SUE BATEMAN DATE OF CONSULTATION 05/26/2017 HISTORY OF THE PRESENT ILLNESS A 61-year-old white male with a history of DVT, history of IV drug use developed low back pain which got worse. He has difficulty walking. He was found to have bony erosions in the lumbar spine. His blood cultures are positive for gram-positive cocci. He has not had any chest pain. He has mild shortness of breath. He is complaining of severe lower back pain. PAST MEDICAL HISTORY Positive for: 1. Arm abscess. 2. Hypertension. 3. Gastroesophageal reflux disease. 4. Hepatitis C. 5. Posttraumatic stress disorder. 6. Attention deficit hyperactivity disorder. 7. Bipolar disorder. The patient was admitted in 12/2015 with acute myocardial infarction with 99% stenosis of the right coronary, 70-80% stenosis of the left circumflex artery, moderate disease in the first diagonal artery and mild disease in the ramus and LAD. RCA was stented using an Integrity stent with a good result. MEDICATIONS Include: 1. Methocarbamol. 2. Plavix. 3. Atorvastatin. 4. Baby aspirin. 5. Ibuprofen. 6. Risperidone. 7. Buspirone. 8. Hydroxyzine. ALLERGIES None. SOCIAL HISTORY The patient is a smoker. He does not drink alcohol. He has history of IV drug use with Dilaudid. FAMILY HISTORY Positive for hypertension. REVIEW OF SYSTEMS Otherwise negative. PHYSICAL EXAMINATION VITAL SIGNS: Blood pressure 123/89, pulse 129 and regular. HEENT: Negative. NECK: 2+ carotid upstrokes. No bruits. LUNGS: Clear. HEART: Regular. No murmur, gallop. ABDOMEN: Soft. No bruits. EXTREMITIES: Without edema. 2+ distal pulses. NEUROLOGIC: Examination is grossly nonfocal. EKG was reviewed and showed sinus tachycardia with normal axis, intervals, no acute changes. LABORATORY DATA Hemoglobin 12.8. Potassium 3.6, creatinine 0.76. AST and ALT normal. DIAGNOSES 1. Staph sepsis. 2. IV drug use. 3. Lumbar spinal osteomyelitis. 4. Coronary artery disease with a history of coronary stenting. 5. Post-traumatic stress disorder. DISPOSITION Mr. Colón will be scheduled for transesophageal echocardiogram to evaluate for endocarditis. His echocardiogram shows aortic sclerosis, mild mitral regurgitation, preserved left systolic function and no evidence of endocarditis. I recommend to continue antibiotic therapy as per ID. MD TORIBIO Lynn /2:49 PM /3:41 PM TESS
[2017-05-26 16:30] VITALS: BP 127/77; PULSE 120; RESP 18; TEMP 98.1; O2SAT 94
[2017-05-26] MEDS: hydrOXYzine HCL 50 MG TAB PO SCH (21:03)
[2017-05-26 21:48] VITALS: BP 149/94; PULSE 118; RESP 16; TEMP 98.3; O2SAT 95
[2017-05-27] VITALS (7 sets, daily range): BP systolic 151–175; BP diastolic 88–112; PULSE 100–112; RESP 14–20; TEMP 97.5–99; O2SAT 93–99
[2017-05-27] MEDS: VANCOMYCIN INJ 1,500 MG in SODIUM CHLORID 0.9% 500 ML INJ 500 ML IV SCH ×3 (00:30→16:16)
[2017-05-27] MEDS ORDERED: LACTATED RINGER'S 1000 ML IV PRN (03:15)
[2017-05-27] MEDS ORDERED: CHLORHEXIDINE GLUCONATE 2 % 1 PACK (2 CLOTHS) TOPICAL PRN (03:15)
[2017-05-27] MEDS ORDERED: SODIUM CHLORID 0.9% 500 ML IV PRN (03:15)
[2017-05-27] MEDS ORDERED: POVIDONE IODINE 5% (ANTISEPSIS KIT) 4 APPLICATIONS EACH NARE PRN (03:15)
[2017-05-27] MEDS: GABAPENTIN 300 MG CAP PO SCH ×3 (08:10→19:06)
[2017-05-27] MEDS: CLOPIDOGREL 75 MG TAB PO SCH (08:10)
[2017-05-27] MEDS: ASPIRIN EC 81 MG TABEC PO SCH (08:10)
[2017-05-27] MEDS: ATORVASTATIN 40 MG TAB PO SCH (08:10)
[2017-05-27] MEDS: ACETAMINOPHEN/HYDROcodone 325 MG/10 MG TAB PO PRN ×2 (08:11→16:29)
[2017-05-27] MEDS: risperiDONE 1 MG TAB PO SCH (08:11)
[2017-05-27] MEDS: busPIRone HCL 10 MG TAB PO SCH ×3 (08:11→19:06)
[2017-05-27] MEDS: LIDOCAINE HCL 5% PATCH T-DERMAL SCH (08:12)
[2017-05-27] MEDS: SODIUM CHLOR 0.9% 1000 ML INJ 1,000 ML IV SCH ×2 (08:13→19:07)
--- NOTE | 2017-05-27 08:43 | HHI.PR ---
Subjective Remarks f/u; sepsis/ bacteremia ill looking but in no acute distress. afebrile. complaining of back pain. awaiting WILBERT today. Objective Vitals Vital Signs Date Time Temp Pulse Resp B/P (MAP) Pulse Ox O2 Delivery O2 Flow Rate FiO2 05/27/17 08:16 99.0 107 14 152/88 (109) 99 05/27/17 04:10 97.9 108 19 175/112 (133) 96 05/27/17 00:52 98.0 112 18 159/106 (123) 96 05/26/17 21:48 98.3 118 16 149/94 (112) 95 05/26/17 16:30 98.1 120 18 127/77 (94) 94 05/26/17 12:00 98.2 129 18 123/89 (100) 94 Result Diagram: 05/25/17 0727 05/26/17 0823 Imaging Last Impressions Chest X-Ray 05/24/17 1316 Signed Impressions: Service Date/Time: Wednesday, May 24, 2017 13:30 - CONCLUSION: No acute disease. Marco Agustin MD FACR Thoracic Spine MRI 05/24/17 0000 Signed Impressions: Service Date/Time: Wednesday, May 24, 2017 14:52 - CONCLUSION: 1. Examination is somewhat limited due to motion artifact on every pulse sequence. 2. However , studies are adequate to exclude osteomyelitis. No vertebral body edema or abnormal enhancement. Spinal canal is widely patent throughout without cord compromise. Mango Spence MD Lumbar Spine MRI 05/24/17 0000 Signed Impressions: Service Date/Time: Wednesday, May 24, 2017 14:52 - CONCLUSION: 1. Diffuse bone marrow edema with abnormal enhancement and cortical erosion involving the L4 characteristic of osteomyelitis. 2. No significant enhancement of the L3-4 disc. 3. Enhancing paraspinal soft tissue with small fluid collections characteristic of phlegmon and small abscesses. 4. Mild degenerative disc disease of L1-2 and L2-3 5. No other significant abnormality. Jewel Martin MD Consultation 05/24/17 0000 Signed Impressions: Service Date/Time: Wednesday, May 24, 2017 00:00 - CONCLUSION: No drainable collection identified at present. Ramos Najera MD Cervical Spine MRI 05/24/17 0000 Signed Impressions: Service Date/Time: Wednesday, May 24, 2017 14:29 - CONCLUSION: 1. Very limited exam due to motion artifact on that about every pulse sequence. 2. I do believe that there is a left posterior sixth 8 mm dense with an inferiorly extruded segment at C2-3 extending inferiorly. This appears to fill lateral recess and may compromise the left side of the cord. 3. Degenerative disc disease most prominent at C4-5 and C5-6 with Modic endplate changes at C5-6. Degree of spinal stenosis is difficult to determine again due to motion artifact. 4. No gross findings of osteomyelitis. Mango Spence MD Objective Remarks GENERAL: ill looking, in no apparent distress. CARDIOVASCULAR: tachycardic and regular rhythm without murmurs, gallops, or rubs. RESPIRATORY: Clear to auscultation. Breath sounds equal bilaterally. No wheezes , rales, or rhonchi. GASTROINTESTINAL: Abdomen soft, non-tender, nondistended. Normal, active bowel sounds MUSCULOSKELETAL: Extremities without clubbing, cyanosis, or edema. NEURO: Alert & Oriented x4 to person, place, time, situation. Moves all ext x4 Medications and IVs Inpatient Medications Acetaminophen/ Hydrocodone Bitart ([place] 10-325 Mg) 1 tab ONCE ONCE PO Last administered on 05/25/17at 04:18; Start 05/25/17 at 04:15; Stop 05/25/17 at 04:16; Status DC Aspirin (Ecotrin Ec) 81 mg DAILY PO Last administered on 05/27/17at 08:10; Start 05/26/17 at 10:00 Atorvastatin Calcium (Lipitor) 40 mg DAILY PO Last administered on 05/27/17at 08 :10; Start 05/25/17 at 09:00 Buspirone HCl (Buspar) 10 mg TID PO Last administered on 05/27/17at 08:11; Start 05/25/17 at 09:00 Ceftriaxone Sodium 2000 mg/ Sodium Chloride 100 ml @ 200 mls/hr Q24H IV ; Start 05/25/17 at 11:00; Stop 05/25/17 at 11:00; Status DC Chlorhexidine Gluconate (Chlorhexidine 2% Cloth) 3 pack [employer] PRN TOPICAL SEE LABEL COMMENTS; Start 05/27/17 at 03:15; Stop 05/30/17 at 03:14 Clonidine (Catapres) 0.1 mg ONCE ONCE PO Last administered on 05/25/17at 07:12; Start 05/25/17 at 07:00; Stop 05/25/17 at 07:01; Status DC Clopidogrel Bisulfate (Plavix) 75 mg DAILY PO Last administered on 05/27/17at 08 :10; Start 05/26/17 at 10:00 Gabapentin (Neurontin) 300 mg TID PO Last administered on 05/27/17at 08:10; Start 05/24/17 at 19:15 Hydromorphone HCl (Dilaudid Pf Inj) 2 mg ONCE ONCE IV PUSH Last administered on 05/24/17at 14:30; Start 05/24/17 at 14:30; Stop 05/24/17 at 14:31; Status DC Hydroxyzine HCl (Atarax) 50 mg HS PO Last administered on 05/26/17at 21:03; Start 05/24/17 at 21:00 Lactated Ringer's 1,000 ml @ 30 mls/hr Q24H PRN IV SEE LABEL COMMENTS; Start at 03:15; Stop 05/30/17 at 03:14 Levofloxacin/ Dextrose 150 ml @ 100 mls/hr ONCE ONCE IV ; Start 05/24/17 at 17: 30; Stop 05/25/17 at 10:40; Status DC Lidocaine HCl (Lidoderm 5% Patch.12 Hr) 1 patch DAILY T-DERMAL Last administered on 05/27/17at 08:12; Start 05/24/17 at 19:15 Methocarbamol (Robaxin) 500 mg QID PRN PO MUSCLE SPASM; Start 05/24/17 at 19:15 Miscellaneous Information SPECIFIC LAB TO BE DRAWN:VANCOMYCIN TROUGH DATE TO... ONCE ONCE .XX ; Start 05/27/17 at 11:45; Stop 05/27/17 at 11:46 Morphine Sulfate (Morphine Inj) 4 mg Q3H PRN IV PUSH pain not relieved by lortab; Start 05/24/17 at 19:15 Ondansetron HCl (Zofran Inj) 4 mg ONCE ONCE IV PUSH Last administered on at 13:36; Start 05/24/17 at 13:30; Stop 05/24/17 at 13:31; Status DC Pharmacy Profile Note 0 ml @ 0 mls/hr UNSCH OTHER ; Start 05/25/17 at 10:15 Povidone Iodine (Betadine 5% Antisepsis Kit) 1 applic [employer] PRN EACH NARE SEE LABEL COMMENTS; Start 05/27/17 at 03:15; Stop 05/30/17 at 03:14 Risperidone (risperDAL) 1 mg DAILY PO Last administered on 05/27/17at 08:11; Start 05/25/17 at 09:00 Sodium Chloride 500 ml @ 30 mls/hr [id number] PRN IV SEE LABEL COMMENTS; Start 04/03 at 03:15; Stop 05/30/17 at 03:14 Vancomycin HCl 1000 mg/Sodium Chloride 250 ml @ 250 mls/hr ONCE ONCE IV ; Start 05/24/17 at 17:30; Stop 05/24/17 at 17:49; Status DC Vancomycin HCl 1500 mg/Sodium Chloride 515 ml @ 250 mls/hr Q12H IV Last administered on 05/27/17at 00:30; Start 05/25/17 at 12:00 A/P Assessment and Plan A/P sepsis ( tachycardia, leukocytosis)- Suspect osteomyelitis . ESR 76. continue IV Vancomycin per ID. previously d/w and no need for bone biopsy since the blood cultures are positive for gram-positive cocci. neurosurgery consult appreciated. - continue with pain control. - bacteremia with MRSA continue IV Vancomycin per ID. repeated blood cultures from 05/25 still positive for gram positive cocci. TTE negative- cardiology consulted and plan for WILBERT today ( previously d/w ). awaiting ID f/u and recommendations. CAD/ s/p stent placement - continue aspirin and Plavix . chronic low back pain - continue with pain control. bipolar + anxiety - continue home risperidone and buspirone SCDs Discharge Planning work-up for MRSA bacteremia in progress; for WILBERT today. Criselda Dior MD May 27, 2017 08:43
[2017-05-27] MEDS ORDERED: MORPHINE SULFATE 2 MG/ML INJ IV ONE (10:00)
--- NOTE | 2017-05-27 11:20 | HHI.NSPN ---
(Mich Trevino) History Chief Complaint: Neck and back pain. (Mich Trevino) Interval History 05/25: 61-year-old male with previous history of IV drug use. States that roughly 5 days ago he developed severe progressive low back pain and approximate 3 days ago developed severe progressive left neck pain with some radiation of the shoulder. He denies any definite pain weakness and numbness in the upper extremities. Approximately 3 days ago he did develop some pain radiating across the right anterolateral thigh and lateral hip. Denies any fevers or chills No diarrhea or constipation. No nausea or vomiting. No headache, dizziness, vertigo 05/27: When seen this morning the patient is asleep but awakens to voice. He says he is doing okay but does have pain to the neck and lower back. His speech is slow but appropriate. He does move all extremities but keeps the right lower flexed due to the pain to it and his back. (Mich Trevino) Exam Results 05/25/17 05/25/17 05/26/17 05/26/17 05/27/17 05/27/17 06:00 18:00 06:00 18:00 06:00 18:00 Intake Total 1225 ml Balance 1225 ml Intake IV Total 1225 ml Vital Signs Date Time Temp Pulse Resp B/P (MAP) Pulse Ox O2 Delivery O2 Flow Rate FiO2 05/27/17 09:36 112 169/101 (123) 94 05/27/17 08:16 99.0 107 14 152/88 (109) 99 05/27/17 04:10 97.9 108 19 175/112 (133) 96 05/27/17 00:52 98.0 112 18 159/106 (123) 96 05/26/17 21:48 98.3 118 16 149/94 (112) 95 05/26/17 16:30 98.1 120 18 127/77 (94) 94 05/26/17 12:00 98.2 129 18 123/89 (100) 94 05/26/17 08:00 98.0 117 18 199/105 (136) 96 05/26/17 04:13 97.7 113 18 163/109 (127) 93 05/26/17 01:00 97.6 110 18 171/98 (122) 93 05/25/17 22:03 98.0 112 16 159/90 (113) 93 05/25/17 14:37 100.3 130 18 166/95 (118) 97 05/25/17 11:12 98.4 122 18 148/90 (109) 93 05/25/17 07:02 98.2 115 18 173/110 (131) 95 05/25/17 06:37 181/107 (131) 05/25/17 05:18 18 05/25/17 04:07 18 05/25/17 03:42 98.9 125 18 181/113 (135) 94 05/25/17 00:00 98.2 121 17 164/105 (124) 94 05/24/17 22:19 05/24/17 21:27 98.5 120 18 203/115 (144) 98 Room Air 05/24/17 19:50 125 18 205/120 (148) 98 Room Air 05/24/17 18:03 98.0 118 18 166/96 (119) 97 Room Air 05/24/17 16:19 18 05/24/17 16:17 130 18 161/104 (123) 96 Room Air 05/24/17 14:16 18 05/24/17 13:38 122 18 176/113 (134) 98 Room Air 05/24/17 13:32 98 Room Air 05/24/17 13:12 99.7 128 18 194/106 (135) 97 (Mich Trevino) Physical Examination GENERAL: Asleep but awakens to voice, readily interacts, appears mildly to moderately uncomfortable, no apparent distress. SKIN: Warm, dry & intact. NECK: Mildly TTP to lower midline cervical spine & moderately TTP to left lateral paraspinal region. MUSCULOSKELETAL: NICOLE spontaneously, limits RLE movement due to pain. Midline thoracolumbar spine mildly TTP at thoracolumbar junction and down, minimally TTP to the left lumbar paraspinals and moderately TTP to the right lumbar paraspinals. NEUROLOGICAL: AAOx3. Speech is clear but slow & moderately dysarthric. Follows simple commands w/o difficulty. Sensation is intact to light touch to all extremities. Motor strength appears to be normal although patient has decreased effort, especially to the right lower. He complains of pain shooting from the low back into the thigh and down the extremity with testing. (Mich Trevino) Lab, Micro, Other Results Recent Impressions Chest X-Ray 05/24/17 1316 Signed Impressions: Service Date/Time: Wednesday, May 24, 2017 13:30 - CONCLUSION: No acute disease. Marco Agustin MD FACR Laboratory Tests Test 05/24/17 13:25 05/24/17 14:05 05/24/17 21:50 05/25/17 07:27 White Blood Count 13.6 TH/MM3 14.5 TH/MM3 Red Blood Count 4.58 MIL/MM3 4.49 MIL/MM3 Hemoglobin 12.6 GM/DL 12.8 GM/DL Hematocrit 38.8 % 37.9 % Mean Corpuscular Volume 84.8 FL 84.5 FL Mean Corpuscular Hemoglobin 27.5 PG 28.6 PG Mean Corpuscular Hemoglobin Concent 32.5 % 33.8 % Red Cell Distribution Width 13.9 % 14.9 % Platelet Count 422 TH/MM3 345 TH/MM3 Mean Platelet Volume 8.1 FL 8.3 FL Neutrophils (%) (Auto) 80.4 % 77.1 % Lymphocytes (%) (Auto) 8.3 % 12.4 % Monocytes (%) (Auto) 7.0 % 9.6 % Eosinophils (%) (Auto) 0.2 % 0.4 % Basophils (%) (Auto) 4.1 % 0.5 % Neutrophils # (Auto) 10.9 TH/MM3 11.2 TH/MM3 Lymphocytes # (Auto) 1.1 TH/MM3 1.8 TH/MM3 Monocytes # (Auto) 1.0 TH/MM3 1.4 TH/MM3 Eosinophils # (Auto) 0.0 TH/MM3 0.1 TH/MM3 Basophils # (Auto) 0.6 TH/MM3 0.1 TH/MM3 CBC Comment DIFF FINAL DIFF FINAL Differential Comment Erythrocyte Sedimentation Rate 76 mm/hr Blood Urea Nitrogen 8 MG/DL Creatinine 0.70 MG/DL Random Glucose 106 MG/DL Total Protein 7.3 GM/DL Albumin 2.1 GM/DL Calcium Level 8.5 MG/DL Alkaline Phosphatase 151 U/L Aspartate Amino Transf (AST/SGOT) 21 U/L Alanine Aminotransferase (ALT/SGPT) 27 U/L Total Bilirubin 0.2 MG/DL Sodium Level 138 MEQ/L Potassium Level 3.6 MEQ/L Chloride Level 105 MEQ/L Carbon Dioxide Level 25.6 MEQ/L Anion Gap 7 MEQ/L Estimat Glomerular Filtration Rate 115 ML/MIN Lactic Acid Level 0.9 mmol/L C-Reactive Protein 14.70 MG/DL Urine Color YELLOW Urine Turbidity SLIGHT Urine pH 6.0 Urine Specific [place] 1.021 Urine Protein 30 mg/dL Urine Glucose (UA) NEG mg/dL Urine Ketones NEG mg/dL Urine Occult Blood SMALL Urine Nitrite POS Urine Bilirubin NEG Urine Leukocyte Esterase NEG Urine RBC 0-3 /hpf Urine WBC 9-14 /hpf Urine WBC Clumps OCC Urine Squamous Epithelial Cells 0-5 /hpf Urine Bacteria OCC /hpf Urine Mucus FEW /lpf Urine Sperm OCC Microscopic Urinalysis Comment CULTURE INDICATED Test 05/26/17 08:23 Creatinine 0.76 MG/DL Estimat Glomerular Filtration Rate 105 ML/MIN (Mich Trevino) Medical Decision Making Impression and Plan Impression: 1. L4 osteomyelitis. Paraspinous changes appears somewhat subacute. No definite focal abscess. Possible secondary right L4 radiculopathy related to inflammation along the nerve root. 2. L2-3 level changes noted on cervical MRI. Very difficult to accurately determine the nature of any cervical spine abnormalities given significant motion artifact. No definite abscess but may have moderate stenosis and possibly cord compression although signal intensity changes are not well evaluated on the current study. 3. History of IV drug abuse 4. Sepsis 5. History of coronary artery disease, status post stent on aspirin and Plavix No signs of definite focal radiculopathy or myelopathy, although right thigh pain may be related to right L4 nerve inflammation. Patient is doing fair, his pain is still not well controlled, he does appear neurologically intact. Blood cultures positive for methicillin-resistant Staphylococcus aureus on final. MRI cervical spine are difficult to interpret due to motion artifact. There does appear to be an area of inflammation, less likely disc herniation at the left C2-3 region extending down to C4 region with moderate canal stenosis. Difficult to determine any significant cervical cord compression or abnormal cord signal intensity. MRI thoracic spine appears unremarkable in spite of motion artifact. MRI lumbar spine demonstrates paraspinous inflammatory changes adjacent to the L3 region without definite acute abscess. Likely some inflammation of the exiting L4 nerve root. 2-D echo negative. Plan: Plan of care discussed with the patient. Primary management per Hospitalist. Repeat MRI cervical spine w/o & w/contrast today. Antibiotics per Infectious Disease. (Mich Trevino) Attending Statement The exam, history, and the medical decision-making described in the above note were completed with the assistance of the mid-level provider. I reviewed and agree with the findings presented. I attest that I had a [id number] encounter with the patient on the same day, and personally performed and documented my assessment and findings in the medical record. At the time of my examination on 05/27/2017 the patient remained awake and alert. Still complaining of significant left sided neck and shoulder pain. Sensation intact to light touch throughout the upper and lower extremities with strength normal in all major flexion and extension groups all extremities. Allie's response absent bilateral No ankle clonus Discussed with patient on the morning of 05/27/2017. He is in agreement with a follow-up MRI scan with and without contrast to try to better image the cervical spine. He remains neurologically stable. Continuing IV vancomycin per infectious disease recommendations. (Tawanda Vargas MD) Mich Trevino May 27, 2017 11:20 Tawanda Vargas MD May 28, 2017 21:41
[2017-05-27] MEDS ORDERED: PHARMACY ORDERED LAB ONE (11:45)
[2017-05-27] MEDS ORDERED: PROPOFOL 200 MG/20 ML AMP ONE (13:13)
--- NOTE | 2017-05-27 13:45 | PD.CARD.PN ---
Subjective Subjective Remarks C/o back pain, no CP or SOB Objective Medications Current Medications Medications (Trade) Dose Ordered Sig/Ирина Route Start Time Stop Time Status Last Admin (Lipitor) 40 mg DAILY PO 05/25/17 09:00 05/27/17 08:10 (Buspar) 10 mg TID PO 05/25/17 09:00 05/27/17 08:11 (Atarax) 50 mg HS PO 05/24/17 21:00 05/26/17 21:03 (Robaxin) 500 mg QID PRN PO 05/24/17 19:15 (risperDAL) 1 mg DAILY PO 05/25/17 09:00 05/27/17 08:11 ([place] 10-325 Mg) 1 tab Q4H PRN PO 05/24/17 19:15 05/27/17 08:11 (Morphine Inj) 4 mg Q3H PRN IV PUSH 05/24/17 19:15 (Lidoderm 5% Patch.12 Hr) 1 patch DAILY T-DERMAL 05/24/17 19:15 05/27/17 08:12 (Neurontin) 300 mg TID PO 05/24/17 19:15 05/27/17 08:10 Sodium Chloride 1,000 ml @ 100 mls/hr Q10H IV 05/24/17 19:15 05/27/17 08:13 Pharmacy Profile Note 0 ml @ 0 mls/hr UNSCH OTHER 05/25/17 10:15 Vancomycin HCl 1500 mg/Sodium Chloride 515 ml @ 250 mls/hr Q12H IV 05/25/17 12:00 05/27/17 00:30 (Ecotrin Ec) 81 mg DAILY PO 05/26/17 10:00 05/27/17 08:10 (Plavix) 75 mg DAILY PO 05/26/17 10:00 05/27/17 08:10 Lactated Ringer's 1,000 ml @ 30 mls/hr Q24H PRN IV 05/27/17 03:15 05/30/17 03:14 Sodium Chloride 500 ml @ 30 mls/hr [id number] PRN IV 05/27/17 03:15 05/30/17 03:14 (Betadine 5% Antisepsis Kit) 1 applic SENIOR INTERACTIVE DEVELOPER PRN EACH NARE 05/27/17 03:15 05/30/17 03:14 (Chlorhexidine 2% Cloth) 3 pack SENIOR INTERACTIVE DEVELOPER PRN TOPICAL 05/27/17 03:15 05/30/17 03:14 (Ambien) 5 mg HS PRN PO 05/27/17 21:00 Vital Signs / I&O Vital Signs Date Time Temp Pulse Resp B/P (MAP) Pulse Ox O2 Delivery O2 Flow Rate FiO2 05/27/17 11:57 97.5 100 18 168/98 (121) 95 05/27/17 09:36 112 169/101 (123) 94 05/27/17 08:16 99.0 107 14 152/88 (109) 99 05/27/17 04:10 97.9 108 19 175/112 (133) 96 05/27/17 00:52 98.0 112 18 159/106 (123) 96 05/26/17 21:48 98.3 118 16 149/94 (112) 95 05/26/17 16:30 98.1 120 18 127/77 (94) 94 Physical Exam GENERAL: In mild distress SKIN: Warm and dry. HEAD: Normocephalic. EYES: No scleral icterus. No injection or drainage. NECK: Supple, trachea midline. No JVD or lymphadenopathy. CARDIOVASCULAR: Regular rate and rhythm without murmurs, gallops, or rubs. RESPIRATORY: Breath sounds equal bilaterally. No accessory muscle use. GASTROINTESTINAL: Abdomen soft, non-tender, nondistended. MUSCULOSKELETAL: No cyanosis, or edema. Assessment and Plan Problem List: (1) Sepsis ICD Codes: A41.9 - Sepsis, unspecified organism (2) Osteomyelitis of lumbar spine ICD Codes: M46.26 - Osteomyelitis of vertebra, lumbar region Status: Acute (3) CAD (coronary artery disease) ICD Codes: I25.10 - Atherosclerotic heart disease of [place] coronary artery without angina pectoris Status: Acute (4) Chronic post-traumatic stress disorder (PTSD) ICD Codes: F43.12 - Post-traumatic stress disorder, chronic Status: Acute (5) Bipolar disorder ICD Codes: F31.9 - Bipolar disorder Status: Chronic Assessment and Plan Continue abxs as per ID. Proceed with WILBERT as planned today. No new cardiac issues. Patrick Morrow MD May 27, 2017 13:45
--- NOTE | 2017-05-27 13:55 | HHI.IDPN ---
Subjective Subjective Remarks co neck and lower back pain Afebrile WILBERT scheduled [place] clx again positive Antibiotics vanco Allergies: Coded Allergies: No Known Allergies (Verified Adverse Reaction, Unknown, 05/24/17) Objective . Vital Signs Date Time Temp Pulse Resp B/P (MAP) Pulse Ox O2 Delivery O2 Flow Rate FiO2 05/27/17 11:57 97.5 100 18 168/98 (121) 95 05/27/17 09:36 112 169/101 (123) 94 05/27/17 08:16 99.0 107 14 152/88 (109) 99 05/27/17 04:10 97.9 108 19 175/112 (133) 96 05/27/17 00:52 98.0 112 18 159/106 (123) 96 05/26/17 21:48 98.3 118 16 149/94 (112) 95 05/26/17 16:30 98.1 120 18 127/77 (94) 94 . Laboratory Tests Test 05/26/17 08:23 Creatinine 0.76 MG/DL Estimat Glomerular Filtration Rate 105 ML/MIN Microbiology Date/Time Source Procedure Growth Status 05/25/17 14:42 Blood Peripheral Aerobic Blood Culture - Final S. Aureus Mrsa Resulted 05/25/17 14:42 Blood Peripheral Anaerobic Blood Culture - Preliminary NO GROWTH IN 2 DAYS Resulted 05/25/17 14:36 Blood Peripheral Aerobic Blood Culture - Final S. Aureus Mrsa Resulted 05/25/17 14:36 Blood Peripheral Anaerobic Blood Culture - Preliminary NO GROWTH IN 2 DAYS Resulted 05/24/17 21:50 Urine Clean Catch Urine Culture - Final S. Aureus Mrsa Complete Imaging Last Impressions Chest X-Ray 05/24/17 1316 Signed Impressions: Service Date/Time: Wednesday, May 24, 2017 13:30 - CONCLUSION: No acute disease. Marco Agustin MD FACR Thoracic Spine MRI 05/24/17 0000 Signed Impressions: Service Date/Time: Wednesday, May 24, 2017 14:52 - CONCLUSION: 1. Examination is somewhat limited due to motion artifact on every pulse sequence. 2. However , studies are adequate to exclude osteomyelitis. No vertebral body edema or abnormal enhancement. Spinal canal is widely patent throughout without cord compromise. Mango Spence MD Lumbar Spine MRI 05/24/17 0000 Signed Impressions: Service Date/Time: Wednesday, May 24, 2017 14:52 - CONCLUSION: 1. Diffuse bone marrow edema with abnormal enhancement and cortical erosion involving the L4 characteristic of osteomyelitis. 2. No significant enhancement of the L3-4 disc. 3. Enhancing paraspinal soft tissue with small fluid collections characteristic of phlegmon and small abscesses. 4. Mild degenerative disc disease of L1-2 and L2-3 5. No other significant abnormality. Jewel Martin MD Consultation 05/24/17 0000 Signed Impressions: Service Date/Time: Wednesday, May 24, 2017 00:00 - CONCLUSION: No drainable collection identified at present. Ramos Najera MD Cervical Spine MRI 05/24/17 0000 Signed Impressions: Service Date/Time: Wednesday, May 24, 2017 14:29 - CONCLUSION: 1. Very limited exam due to motion artifact on that about every pulse sequence. 2. I do believe that there is a left posterior sixth 8 mm dense with an inferiorly extruded segment at C2-3 extending inferiorly. This appears to fill lateral recess and may compromise the left side of the cord. 3. Degenerative disc disease most prominent at C4-5 and C5-6 with Modic endplate changes at C5-6. Degree of spinal stenosis is difficult to determine again due to motion artifact. 4. No gross findings of osteomyelitis. Mango Spence MD Physical Exam CONSTITUTIONAL/GENERAL: This is an adequately nourished patient, in no apparent distress. TUBES/LINES/DRAINS: SKIN: No jaundice, rashes, or lesions. No needle track hopper . Skin temperature appropriate. Not diaphoretic. EYES: Pupils equal and round and reactive. Extraocular motions intact. No scleral icterus. No injection or drainage. Fundi not examined. NECK: Supple,+ quite tender to palpation. CARDIOVASCULAR: Regular rate and rhythm without murmurs, gallops, or rubs. No JVD. Peripheral pulses symmetric. RESPIRATORY/CHEST: Symmetric, unlabored respirations. Clear to auscultation. Breath sounds equal bilaterally. No wheezes, rales, or rhonchi. GASTROINTESTINAL: Abdomen soft, non-tender, nondistended. No hepato-splenomegaly , or palpable masses. No guarding. Bowel sounds present. MUSCULOSKELETAL: Extremities without clubbing, cyanosis, or edema. No joint tenderness or effusion noted. No calf tenderness. No mottling or clubbing. NEUROLOGICAL: Awake and alert. Motor and sensory grossly within normal limits. Follows commands. clear speech . Moves all extremities. PSYCHIATRIC: No obvious anxiety/depression. no apparent hallucinations or other psychotic thought process. Assessment & Plan Remarks L spine osteo Staph sepsis IV drug use - cont vancomycin; keep trough 15-20 dc levaquin and CFTX 2 D echo, possibly WILBERT repeat Judith Couch MD May 27, 2017 13:55
[2017-05-27] MEDS ORDERED: GADODIAMIDE PF 287 MG/ML 5 ML VIAL (for RAD MRI) IV PUSH ONE (18:30)
[2017-05-27] MEDS ORDERED: ZOLPIDEM TARTRATE 5 MG TAB PO PRN (21:00)
--- NOTE | 2017-05-27 21:11 | RADRPT ---
EXAM DATE/TIME: 05/27/2017 18:07 [facility] COMPARISON: MRI CERVICAL SPINE W & W/O CONTRAST, May 24, 2017, 14:29. INDICATIONS : Osteomyelitis. CONTRAST: 14 cc Omniscan (gadodiamide) IV MEDICAL HISTORY : Hypertension. Gastroesophageal reflux disease. Myocardial infarction. CVA. SURGICAL HISTORY : Tonsillectomy. Cardiac valve replacement. ENCOUNTER: Subsequent ACUITY: 1 day PAIN SCORE: 5/10 LOCATION: neck TECHNIQUE: Multiplanar, multisequence MRI examination of the cervical spine was performed. FINDINGS: A left anterolateral rim enhancing epidural fluid collection compatible with an abscess is present. A measures approximately 8 x 11 mm in greatest transaxial dimension and 4.6 cm proximal to distal. It extends from the tip of the odontoid to the C4 vertebral body. There is edema and reactive appearing enhancement in the adjacent soft tissues, including in the left upper cervical foramina. There is mil d to moderate intensity marrow edema of C2 noted towards the left but I don't clearly see associated T1 signal changes to fully substantiate osteomyelitis. There is no associated cord compression or cord signal abnormality. CONCLUSION: Left anterolateral epidural abscess of the upper cervical spine as described above. There is marrow e yudith of C2 that mainly appears reactive. I don't clearly see osteomyelitis. Also no cord compression or cord signal abnormality. Findings discussed with Dr. Vargas by phone. Ramos Evans MD on May 27, 2017 at 21:00 Board Certified Radiologist. This report was verified electronically.
[2017-05-27] MEDS: hydrOXYzine HCL 50 MG TAB PO SCH (22:35)
[2017-05-28 01:17] VITALS: BP 157/101; PULSE 108; RESP 20; TEMP 98.3; O2SAT 94
[2017-05-28] MEDS: VANCOMYCIN INJ 1,500 MG in SODIUM CHLORID 0.9% 500 ML INJ 500 ML IV SCH ×2 (05:04→16:00)
[2017-05-28] MEDS: SODIUM CHLOR 0.9% 1000 ML INJ 1,000 ML IV SCH ×2 (05:07→12:25)
[2017-05-28 05:36] VITALS: BP 179/114; PULSE 115; RESP 18; TEMP 99.2; O2SAT 94
[2017-05-28 07:19] LABS: AUTOMATED NEUTROPHIL # 12.2 TH/MM3 (1.8-7.7); BASOPHIL % 0.3 % (0.0-2.0); EOSINOPHIL # 0.1 TH/MM3 (0-0.4); EOSINOPHIL % 0.6 % (0.0-4.0); HEMATOCRIT 38.7 % (39.0-51.0); HEMOGLOBIN 13.3 GM/DL (13.0-17.0); LYMPH % 12.5 % (9.0-44.0); LYMPHOCYTE # 1.9 TH/MM3 (1.0-4.8); MEAN CORPUSCULAR HEMOGLOBIN 28.9 PG (27.0-34.0); MEAN CORPUSCULAR HGB CONC 34.4 % (32.0-36.0); MONOCYTE # 1.1 TH/MM3 (0-0.9); NEUT % 79.6 % (16.0-70.0); PLATELET COUNT 359 TH/MM3 (150-450); RED BLOOD COUNT 4.61 MIL/MM3 (4.50-5.90); WHITE BLOOD COUNT 15.3 TH/MM3 (4.0-11.0)
[2017-05-28 07:44] LABS: BICARBONATE 27.1 MEQ/L (21.0-32.0); CALCIUM 8.6 MG/DL (8.5-10.1); CREATININE 0.65 MG/DL (0.60-1.30)
[2017-05-28 08:00] VITALS: PULSE 105; RESP 20; TEMP 98.2; O2SAT 94
[2017-05-28] MEDS: busPIRone HCL 10 MG TAB PO SCH ×3 (09:36→18:00)
[2017-05-28] MEDS: risperiDONE 1 MG TAB PO SCH (09:37)
[2017-05-28] MEDS: GABAPENTIN 300 MG CAP PO SCH ×3 (09:37→18:00)
[2017-05-28] MEDS: ACETAMINOPHEN/HYDROcodone 325 MG/10 MG TAB PO PRN (09:38)
[2017-05-28] MEDS: LIDOCAINE HCL 5% PATCH T-DERMAL SCH (09:38)
--- NOTE | 2017-05-28 09:58 | HHI.PR ---
Subjective Remarks f/u; MRSA bacteremia ill looking. in no acute distress. still with some neck pain. no fever. complaining of constipation. Objective Vitals Vital Signs Date Time Temp Pulse Resp B/P (MAP) Pulse Ox O2 Delivery O2 Flow Rate FiO2 05/28/17 08:00 98.2 105 20 94 05/28/17 05:36 99.2 115 18 179/114 (135) 94 05/28/17 01:17 98.3 108 20 157/101 (119) 94 05/27/17 21:29 97.6 111 20 151/101 (118) 94 05/27/17 17:06 98.0 109 20 173/104 (127) 93 05/27/17 11:57 97.5 100 18 168/98 (121) 95 Result Diagram: 05/28/17 0525 05/28/17 0525 Imaging Last Impressions Cervical Spine MRI 05/27/17 0000 Signed Impressions: Service Date/Time: May 18:07 - CONCLUSION: Left anterolateral epidural abscess of the upper cervical spine as described above. There is marrow edema of C2 that mainly appears reactive. I don't clearly see osteomyelitis. Also no cord compression or cord signal abnormality. Findings discussed with Dr. Vargas by phone. Ramos Evans MD Chest X-Ray 05/24/17 1316 Signed Impressions: Service Date/Time: Wednesday, May 24, 2017 13:30 - CONCLUSION: No acute disease. Marco Agustin MD FACR Thoracic Spine MRI 05/24/17 0000 Signed Impressions: Service Date/Time: Wednesday, May 24, 2017 14:52 - CONCLUSION: 1. Examination is somewhat limited due to motion artifact on every pulse sequence. 2. However , studies are adequate to exclude osteomyelitis. No vertebral body edema or abnormal enhancement. Spinal canal is widely patent throughout without cord compromise. Mango Spence MD Lumbar Spine MRI 05/24/17 0000 Signed Impressions: Service Date/Time: Wednesday, May 24, 2017 14:52 - CONCLUSION: 1. Diffuse bone marrow edema with abnormal enhancement and cortical erosion involving the L4 characteristic of osteomyelitis. 2. No significant enhancement of the L3-4 disc. 3. Enhancing paraspinal soft tissue with small fluid collections characteristic of phlegmon and small abscesses. 4. Mild degenerative disc disease of L1-2 and L2-3 5. No other significant abnormality. Jewel Martin MD Consultation 05/24/17 0000 Signed Impressions: Service Date/Time: Wednesday, May 24, 2017 00:00 - CONCLUSION: No drainable collection identified at present. Ramos Najera MD Objective Remarks GENERAL: ill looking, in no apparent distress. CARDIOVASCULAR: tachycardic and regular rhythm without murmurs, gallops, or rubs. RESPIRATORY: Clear to auscultation. Breath sounds equal bilaterally. No wheezes , rales, or rhonchi. GASTROINTESTINAL: Abdomen soft, non-tender, nondistended. Normal, active bowel sounds MUSCULOSKELETAL: Extremities without clubbing, cyanosis, or edema. NEURO: Alert & Oriented x4 to person, place, time, situation. Moves all ext x4 Medications and IVs Inpatient Medications Acetaminophen/ Hydrocodone Bitart ([place] 10-325 Mg) 1 tab ONCE ONCE PO Last administered on 05/25/17at 04:18; Start 05/25/17 at 04:15; Stop 05/25/17 at 04:16; Status DC Aspirin (Ecotrin Ec) 81 mg DAILY PO Last administered on 05/27/17at 08:10; Start 05/26/17 at 10:00; Status Future hold Atorvastatin Calcium (Lipitor) 40 mg DAILY PO Last administered on 05/27/17at 08 :10; Start 05/25/17 at 09:00; Status Future hold Buspirone HCl (Buspar) 10 mg TID PO Last administered on 05/28/17at 09:36; Start 05/25/17 at 09:00 Ceftriaxone Sodium 2000 mg/ Sodium Chloride 100 ml @ 200 mls/hr Q24H IV ; Start 05/25/17 at 11:00; Stop 05/25/17 at 11:00; Status DC Chlorhexidine Gluconate (Chlorhexidine 2% Cloth) 3 pack HYDROELECTRIC MACHINERY MECHANIC PRN TOPICAL SEE LABEL COMMENTS; Start 05/27/17 at 03:15; Stop 05/30/17 at 03:14 Clonidine (Catapres) 0.1 mg ONCE ONCE PO Last administered on 05/25/17at 07:12; Start 05/25/17 at 07:00; Stop 05/25/17 at 07:01; Status DC Clopidogrel Bisulfate (Plavix) 75 mg DAILY PO Last administered on 05/27/17at 08 :10; Start 05/26/17 at 10:00; Status Future hold Gabapentin (Neurontin) 300 mg TID PO Last administered on 05/28/17at 09:37; Start 05/24/17 at 19:15 Hydromorphone HCl (Dilaudid Pf Inj) 2 mg ONCE ONCE IV PUSH Last administered on 05/24/17at 14:30; Start 05/24/17 at 14:30; Stop 05/24/17 at 14:31; Status DC Hydroxyzine HCl (Atarax) 50 mg HS PO Last administered on 05/27/17at 22:35; Start 05/24/17 at 21:00 Lactated Ringer's 1,000 ml @ 30 mls/hr Q24H PRN IV SEE LABEL COMMENTS; Start at 03:15; Stop 05/30/17 at 03:14 Levofloxacin/ Dextrose 150 ml @ 100 mls/hr ONCE ONCE IV ; Start 05/24/17 at 17: 30; Stop 05/25/17 at 10:40; Status DC Lidocaine HCl (Lidoderm 5% Patch.12 Hr) 1 patch DAILY T-DERMAL Last administered on 05/28/17at 09:38; Start 05/24/17 at 19:15 Methocarbamol (Robaxin) 500 mg QID PRN PO MUSCLE SPASM Last administered on 05/03at 09:35; Start 05/24/17 at 19:15 Miscellaneous Information SPECIFIC LAB TO BE KEZ[facility]... ONCE ONCE .XX ; Start 05/30 at 03:45; Stop 05/30/17 at 03:46 Morphine Sulfate (Morphine Inj) 2 mg ONCE ONCE IV ; Start 05/27/17 at 10:00; Stop 05/27/17 at 10:35; Status DC Ondansetron HCl (Zofran Inj) 4 mg ONCE ONCE IV PUSH Last administered on at 13:36; Start 05/24/17 at 13:30; Stop 05/24/17 at 13:31; Status DC Pharmacy Profile Note 0 ml @ 0 mls/hr UNSCH OTHER ; Start 05/25/17 at 10:15 Povidone Iodine (Betadine 5% Antisepsis Kit) 1 applic HYDROELECTRIC MACHINERY MECHANIC PRN EACH NARE SEE LABEL COMMENTS; Start 05/27/17 at 03:15; Stop 05/30/17 at 03:14 Risperidone (risperDAL) 1 mg DAILY PO Last administered on 05/28/17at 09:37; Start 05/25/17 at 09:00 Sodium Chloride 500 ml @ 30 mls/hr [id number] PRN IV SEE LABEL COMMENTS; Start 04/03 at 03:15; Stop 05/30/17 at 03:14 Vancomycin HCl 1000 mg/Sodium Chloride 250 ml @ 250 mls/hr ONCE ONCE IV ; Start 05/24/17 at 17:30; Stop 05/24/17 at 17:49; Status DC Vancomycin HCl 1500 mg/Sodium Chloride 515 ml @ 250 mls/hr Q12H IV Last administered on 05/28/17at 05:04; Start 05/27/17 at 16:00 Zolpidem Tartrate (Ambien) 5 mg HS PRN PO INSOMNIA; Start 05/27/17 at 21:00 A/P Assessment and Plan A/P sepsis ( tachycardia, leukocytosis)- Suspect osteomyelitis / cervical spine epidural abscess ESR 76. continue IV Vancomycin per ID. previously d/w and no need for bone biopsy since the blood cultures are positive for gram-positive cocci. neurosurgery follow-up appreciated- plan for surgery today. - continue with pain control. - bacteremia with MRSA continue IV Vancomycin per ID. repeated blood cultures from 05/25 still positive for gram positive cocci. f/u blood cultures repeated on 05/28. TTE negative- s/p WILBERT ( report pending). ID following. CAD/ s/p stent placement - aspirin and Plavix on hold for the planned procedure. elevated BP's- likely due to pain- vasotec prn- continue to monitor. chronic low back pain - continue with pain control. bipolar + anxiety - continue home risperidone and buspirone constipation -laxatives as needed. DVT prophylaxis with SCDs Discharge Planning work-up for MRSA bacteremia in progress. not ready for discharge. Criselda Dior MD May 28, 2017 09:58
[2017-05-28 12:00] VITALS: BP 149/101; PULSE 108; RESP 18; TEMP 97.5; O2SAT 93
[2017-05-28] MEDS ORDERED: ONDANSETRON HCL 4 MG/2 ML VIAL IV PUSH ONE (12:00)
[2017-05-28] MEDS ORDERED: SODIUM CHLOR 0.9% (EXCEL) INJ 250 ML IV ONE (12:00)
[2017-05-28] MEDS ORDERED: NORMOSOL R INJ 1,000 ML IV ONE (12:00)
[2017-05-28] MEDS ORDERED: PROPOFOL 200 MG/20 ML AMP IV ONE (12:00)
[2017-05-28] MEDS ORDERED: DEXAMETHASONE SOD PHOS 4 MG/ML VIAL IV ONE (12:00)
[2017-05-28] MEDS ORDERED: ROCURONIUM INJ 50 MG/5 ML SYRINGE IV PUSH ONE (12:00)
[2017-05-28] MEDS ORDERED: PHENYLEPHRINE HCL 10 MG/ML VIAL IV ONE (12:00)
[2017-05-28] MEDS ORDERED: PHENYLEPH/NS 1000 MCG/10 ML SYR IV ONE (12:00)
[2017-05-28] MEDS ORDERED: ePHEDrine/NS 25 MG/5 ML SYRINGE IV ONE (12:00)
[2017-05-28] MEDS ORDERED: SOD CH 0.9%(ARTERIAL)500ML INJ 500 ML ONE (12:00)
[2017-05-28] MEDS ORDERED: LIDOCAINE HCL 1% PF 5 ML SYRINGE OTHER ONE (12:00)
--- NOTE | 2017-05-28 12:55 | HHI.NSPN ---
(Mich Trevino) History Chief Complaint: Neck and back pain. (Mich Trevino) Interval History 05/25: 61-year-old male with previous history of IV drug use. States that roughly 5 days ago he developed severe progressive low back pain and approximate 3 days ago developed severe progressive left neck pain with some radiation of the shoulder. He denies any definite pain weakness and numbness in the upper extremities. Approximately 3 days ago he did develop some pain radiating across the right anterolateral thigh and lateral hip. Denies any fevers or chills No diarrhea or constipation. No nausea or vomiting. No headache, dizziness, vertigo 05/27: When seen this morning the patient is asleep but awakens to voice. He says he is doing okay but does have pain to the neck and lower back. His speech is slow but appropriate. He does move all extremities but keeps the right lower flexed due to the pain to it and his back. 05/28: This afternoon the patient is asleep but awakens to voice. He states he is okay and his pain is better today than yesterday since he had received medication for it. He did go for an MRI cervical spine yesterday evening. (Mich Trevino) Exam Results 05/26/17 05/26/17 05/27/17 05/27/17 05/28/17 05/28/17 05:59 17:59 05:59 17:59 05:59 17:59 Intake Total 1000 ml Balance 1000 ml Intake IV Total 1000 ml Vital Signs Date Time Temp Pulse Resp B/P (MAP) Pulse Ox O2 Delivery O2 Flow Rate FiO2 05/28/17 08:00 98.2 105 20 94 05/28/17 05:36 99.2 115 18 179/114 (135) 94 05/28/17 01:17 98.3 108 20 157/101 (119) 94 05/27/17 21:29 97.6 111 20 151/101 (118) 94 05/27/17 17:06 98.0 109 20 173/104 (127) 93 05/27/17 11:57 97.5 100 18 168/98 (121) 95 05/27/17 09:36 112 169/101 (123) 94 05/27/17 08:16 99.0 107 14 152/88 (109) 99 05/27/17 04:10 97.9 108 19 175/112 (133) 96 05/27/17 00:52 98.0 112 18 159/106 (123) 96 05/26/17 21:48 98.3 118 16 149/94 (112) 95 05/26/17 16:30 98.1 120 18 127/77 (94) 94 05/26/17 12:00 98.2 129 18 123/89 (100) 94 05/26/17 08:00 98.0 117 18 199/105 (136) 96 05/26/17 04:13 97.7 113 18 163/109 (127) 93 05/26/17 01:00 97.6 110 18 171/98 (122) 93 05/25/17 22:03 98.0 112 16 159/90 (113) 93 05/25/17 14:37 100.3 130 18 166/95 (118) 97 (Mich Trevino) Physical Examination GENERAL: Asleep but awakens to voice, readily interacts, affect flat, appears mildly uncomfortable, no apparent distress. SKIN: Warm, dry & intact. NECK: Mildly TTP to lower midline cervical spine & moderately TTP to left lateral paraspinal region. MUSCULOSKELETAL: NICOLE spontaneously. Midline thoracolumbar spine mildly TTP at thoracolumbar junction and down, minimally TTP to the left lumbar paraspinals and moderately TTP to the right lumbar paraspinals. NEUROLOGICAL: Asleep but awakens to voice. Speech is clear but slow & moderately dysarthric. Follows simple commands w/o difficulty. Sensation is intact to light touch to all extremities. Motor strength appears to be normal although patient has decreased effort. He does have some pain from the low back into the thigh and down the extremity with testing. (Mich Trevino) Lab, Micro, Other Results Recent Impressions Cervical Spine MRI 05/27/17 0000 Signed Impressions: Service Date/Time: May 18:07 - CONCLUSION: Left anterolateral epidural abscess of the upper cervical spine as described above. There is marrow edema of C2 that mainly appears reactive. I don't clearly see osteomyelitis. Also no cord compression or cord signal abnormality. Findings discussed with Dr. Vargas by phone. Ramos Evans MD Laboratory Tests Test 05/26/17 08:23 05/27/17 15:12 05/28/17 05:25 Creatinine 0.76 MG/DL 0.65 MG/DL Estimat Glomerular Filtration Rate 105 ML/MIN 126 ML/MIN Vancomycin Level Trough 15.6 MCG/ML White Blood Count 15.3 TH/MM3 Red Blood Count 4.61 MIL/MM3 Hemoglobin 13.3 GM/DL Hematocrit 38.7 % Mean Corpuscular Volume 84.0 FL Mean Corpuscular Hemoglobin 28.9 PG Mean Corpuscular Hemoglobin Concent 34.4 % Red Cell Distribution Width 15.0 % Platelet Count 359 TH/MM3 Mean Platelet Volume 8.0 FL Neutrophils (%) (Auto) 79.6 % Lymphocytes (%) (Auto) 12.5 % Monocytes (%) (Auto) 7.0 % Eosinophils (%) (Auto) 0.6 % Basophils (%) (Auto) 0.3 % Neutrophils # (Auto) 12.2 TH/MM3 Lymphocytes # (Auto) 1.9 TH/MM3 Monocytes # (Auto) 1.1 TH/MM3 Eosinophils # (Auto) 0.1 TH/MM3 Basophils # (Auto) 0.0 TH/MM3 CBC Comment DIFF FINAL Differential Comment Blood Urea Nitrogen 10 MG/DL Random Glucose 90 MG/DL Calcium Level 8.6 MG/DL Sodium Level 137 MEQ/L Potassium Level 3.5 MEQ/L Chloride Level 102 MEQ/L Carbon Dioxide Level 27.1 MEQ/L Anion Gap 8 MEQ/L (Mich Trevino) Medical Decision Making Impression and Plan Impression: 1. L4 osteomyelitis. Paraspinous changes appears somewhat subacute. No definite focal abscess. Possible secondary right L4 radiculopathy related to inflammation along the nerve root. 2. L2-3 level changes noted on cervical MRI. Very difficult to accurately determine the nature of any cervical spine abnormalities given significant motion artifact. No definite abscess but may have moderate stenosis and possibly cord compression although signal intensity changes are not well evaluated on the current study. 3. History of IV drug abuse 4. Sepsis 5. History of coronary artery disease, status post stent on aspirin and Plavix No signs of definite focal radiculopathy or myelopathy, although right thigh pain may be related to right L4 nerve inflammation. Patient doing well, pain better controlled, neurologically intact. Blood cultures positive for methicillin-resistant Staphylococcus aureus on final. Reviewed labs for today. Interval increase in leukocytosis. Anaemia resolved. MRI cervical spine demonstrates an left anterolateral upper cervical spine epidural abscess. The marrow appears mildly reactive. There was no clear osteomyelitis evident. There was also no cord compression or signal abnormality. MRI thoracic spine appears unremarkable in spite of motion artifact. MRI lumbar spine demonstrates paraspinous inflammatory changes adjacent to the L3 region without definite acute abscess. Likely some inflammation of the exiting L4 nerve root. 2-D echo negative. Plan: Plan of care discussed with the patient. Primary management per Hospitalist. Antibiotics per Infectious Disease. (Mich Trevino) Attending Statement The exam, history, and the medical decision-making described in the above note were completed with the assistance of the mid-level provider. I reviewed and agree with the findings presented. I attest that I had a [id number] encounter with the patient on the same day, and personally performed and documented my assessment and findings in the medical record. I spoke with the patient on the morning of 05/28/2017 regarding the MRI results. The new study is of much better image quality and reveals a moderate left C1- 2 level ventrolateral epidural abscess with impingement on the thecal sac but no spinal cord compression. There is moderate inflammatory tissue along the left C1-2 level. I have advised the patient that due to his increasing white count, significant pain symptoms, and evidence of persistent abscess, it would be best to proceed with a left C2 laminectomy for evacuation of the epidural abscess. The procedure was discussed with him. Risks and possible complications were fully explained including the risk of spinal cord or nerve injury, spinal fluid leak, recurrent or residual abscess. He appears understand and wishes to proceed with surgery on 05/28/2017. (Tawanda Vargas MD) Mich Trevino May 28, 2017 12:55 Tawanda Vargas MD May 28, 2017 21:44
--- NOTE | 2017-05-28 13:25 | PD.CARD.PN ---
Subjective Subjective Remarks No CP or SOB, no new cardiac complaints, WILBERT unremarkable Objective Medications Current Medications Medications (Trade) Dose Ordered Sig/Ирина Route Start Time Stop Time Status Last Admin (Lipitor) 40 mg DAILY PO 05/25/17 09:00 Future hold 05/27/17 08:10 (Buspar) 10 mg TID PO 05/25/17 09:00 05/28/17 12:25 (Atarax) 50 mg HS PO 05/24/17 21:00 05/27/17 22:35 (Robaxin) 500 mg QID PRN PO 05/24/17 19:15 05/28/17 09:35 (risperDAL) 1 mg DAILY PO 05/25/17 09:00 05/28/17 09:37 (Cameron 10-325 Mg) 1 tab Q4H PRN PO 05/24/17 19:15 05/28/17 09:38 (Morphine Inj) 4 mg Q3H PRN IV PUSH 05/24/17 19:15 (Lidoderm 5% Patch.12 Hr) 1 patch DAILY T-DERMAL 05/24/17 19:15 05/28/17 09:38 (Neurontin) 300 mg TID PO 05/24/17 19:15 05/28/17 12:25 Sodium Chloride 1,000 ml @ 100 mls/hr Q10H IV 05/24/17 19:15 05/28/17 12:25 Pharmacy Profile Note 0 ml @ 0 mls/hr UNSCH OTHER 05/25/17 10:15 (Ecotrin Ec) 81 mg DAILY PO 05/26/17 10:00 Future hold 05/27/17 08:10 (Plavix) 75 mg DAILY PO 05/26/17 10:00 Future hold 05/27/17 08:10 Lactated Ringer's 1,000 ml @ 30 mls/hr Q24H PRN IV 05/27/17 03:15 05/30/17 03:14 Sodium Chloride 500 ml @ 30 mls/hr [id number] PRN IV 05/27/17 03:15 05/30/17 03:14 (Betadine 5% Antisepsis Kit) 1 applic CLINICAL REHABILITATION LIAISON PRN EACH NARE 05/27/17 03:15 05/30/17 03:14 (Chlorhexidine 2% Cloth) 3 pack CLINICAL REHABILITATION LIAISON PRN TOPICAL 05/27/17 03:15 05/30/17 03:14 (Ambien) 5 mg HS PRN PO 05/27/17 21:00 Vancomycin HCl 1500 mg/Sodium Chloride 515 ml @ 250 mls/hr Q12H IV 05/27/17 16:00 05/28/17 05:04 Miscellaneous Information SPECIFIC LAB TO BE [facility]... ONCE ONCE .XX 05/30/17 03:45 05/30/17 03:46 (Milk Of Alma Liq) 30 ml DAILY PRN PO 05/29/17 10:00 (Vasotec Inj) 1.25 mg Q8H PRN IV PUSH 05/28/17 10:00 Vital Signs / I&O Vital Signs Date Time Temp Pulse Resp B/P (MAP) Pulse Ox O2 Delivery O2 Flow Rate FiO2 05/28/17 08:00 98.2 105 20 94 05/28/17 05:36 99.2 115 18 179/114 (135) 94 05/28/17 01:17 98.3 108 20 157/101 (119) 94 05/27/17 21:29 97.6 111 20 151/101 (118) 94 05/27/17 17:06 98.0 109 20 173/104 (127) 93 I/O 05/27/17 05/27/17 05/27/17 05/28/17 05/28/17 05/28/17 07:00 15:00 23:00 07:00 15:00 23:00 Intake Total 1000 ml Balance 1000 ml Intake IV Total 1000 ml Physical Exam GENERAL: In mild distress due to back pain SKIN: Warm and dry. HEAD: Normocephalic. EYES: No scleral icterus. No injection or drainage. NECK: Supple, trachea midline. No JVD or lymphadenopathy. CARDIOVASCULAR: Regular rate and rhythm without murmurs, gallops, or rubs. RESPIRATORY: Breath sounds equal bilaterally. No accessory muscle use. GASTROINTESTINAL: Abdomen soft, non-tender, nondistended. MUSCULOSKELETAL: No cyanosis, or edema. Laboratory Laboratory Tests Test 05/27/17 15:12 05/28/17 05:25 Vancomycin Level Trough 15.6 MCG/ML White Blood Count 15.3 TH/MM3 Red Blood Count 4.61 MIL/MM3 Hemoglobin 13.3 GM/DL Hematocrit 38.7 % Mean Corpuscular Volume 84.0 FL Mean Corpuscular Hemoglobin 28.9 PG Mean Corpuscular Hemoglobin Concent 34.4 % Red Cell Distribution Width 15.0 % Platelet Count 359 TH/MM3 Mean Platelet Volume 8.0 FL Neutrophils (%) (Auto) 79.6 % Lymphocytes (%) (Auto) 12.5 % Monocytes (%) (Auto) 7.0 % Eosinophils (%) (Auto) 0.6 % Basophils (%) (Auto) 0.3 % Neutrophils # (Auto) 12.2 TH/MM3 Lymphocytes # (Auto) 1.9 TH/MM3 Monocytes # (Auto) 1.1 TH/MM3 Eosinophils # (Auto) 0.1 TH/MM3 Basophils # (Auto) 0.0 TH/MM3 CBC Comment DIFF FINAL Differential Comment Blood Urea Nitrogen 10 MG/DL Creatinine 0.65 MG/DL Random Glucose 90 MG/DL Calcium Level 8.6 MG/DL Sodium Level 137 MEQ/L Potassium Level 3.5 MEQ/L Chloride Level 102 MEQ/L Carbon Dioxide Level 27.1 MEQ/L Anion Gap 8 MEQ/L Estimat Glomerular Filtration Rate 126 ML/MIN Assessment and Plan Problem List: (1) Sepsis ICD Codes: A41.9 - Sepsis, unspecified organism (2) Osteomyelitis of lumbar spine ICD Codes: M46.26 - Osteomyelitis of vertebra, lumbar region Status: Acute (3) CAD (coronary artery disease) ICD Codes: I25.10 - Atherosclerotic heart disease of [place] coronary artery without angina pectoris Status: Acute (4) Chronic post-traumatic stress disorder (PTSD) ICD Codes: F43.12 - Post-traumatic stress disorder, chronic Status: Acute (5) Bipolar disorder ICD Codes: F31.9 - Bipolar disorder Status: Chronic Assessment and Plan WILBERT with no evidence of endocarditis. Continue abxs as per ID. No new cardiac issues. Will sign off. Patrick Morrow MD May 28, 2017 13:25
[2017-05-28] MEDS ORDERED: THROMBIN (TOPICAL) 5,000 UNIT VIAL ONE (13:53)
[2017-05-28] MEDS ORDERED: BUPIVACAINE/EPINEPHRINE 0.25% PF 10 ML VIAL ONE (13:53)
[2017-05-28] MEDS ORDERED: GENTAMICIN SULFATE 80 MG/2 ML VIAL ONE (13:54)
[2017-05-28] MEDS ORDERED: GELFOAM SIZE 100 ONE (13:54)
[2017-05-28] MEDS ORDERED: ACETAMINOPHEN 1000 MG/100 ML 100 ML IV ONE (17:24)
[2017-05-28] MEDS ORDERED: PROPOFOL 500 MG/50 ML INJ 150 ML ONE (17:25)
[2017-05-28] MEDS ORDERED: SODIUM CHLOR 0.9% 250 ML INJ 250 ML ONE (17:48)
[2017-05-28] MEDS ORDERED: VANCOMYCIN 500 MG VIAL ONE (17:48)
[2017-05-28] MEDS ORDERED: VANCOMYCIN HCL 1000 MG VIAL ONE (17:48)
[2017-05-28] MEDS ORDERED: MIDAZOLAM HCL 2 MG/2 ML VIAL ONE (20:15)
[2017-05-28] MEDS: NS + KCL 20 MEQ INJ 1,000 ML IV SCH (21:30)
--- NOTE | 2017-05-28 21:40 | PD.OP ---
Operative Report Date of Surgery: May 28, 2017 Preoperative Diagnosis: (1) Abscess in epidural space of cervical spine Left C1-C2 level epidural abscess Postoperative Diagnosis: (1) Abscess in epidural space of cervical spine Left C1-C2 level epidural abscess Procedure: Left C2 semi-laminectomy, evacuation C1-C2 level epidural abscess-microtechnique Anesthesia: Gen. endotracheal Surgeon: Tawanda Vargas [employer] Plant Operator(s): Fredis Roberts Operation and Findings: Findings: Moderate inflammatory tissue along the left C1-2 epidural space. Moderate epidural abscess ventral lateral to the thecal sac. Procedure in detail: The patient was brought into the operating room and general endotracheal anesthesia induced without difficulty Lines were established per anesthesia Leads for intraoperative neuro monitoring were placed and a baseline study was obtained prior to positioning. CHRISSY hose and sequential compression devices were in place The patient was placed in a cervical collar for positioning Appropriate timeout procedure was performed with all personnel present and in agreement The 3 point head fixation device was secured to the head by the undersigned. The patient was carefully turned into prone position on the [facility] table with the side bolsters and all extremities appropriately padded. The head was secured to the table with the 3-point fixation device with the neck slightly flexed. Cervical spine positioning was checked with the intraoperative C-arm and felt to be satisfactory The neck and occipital region were shaved with the clippers and sterilely prepped and draped. The left C1-2 level was checked with intraoperative C-arm. An incision was made approximately 4 cm lateral to the midline at the left C1-2 level and carried sharply down to the fascia which was sharply incised. The Metzenbaum scissors were used to dissect through the normal intermuscular planes down to the lateral left C2 lamina. The Luke elevator was used to elevate the paraspinous musculature and fascia away from the lateral left C1 and C2 lamina. The deep self-retaining micro-retractor was placed at the left C1-2 level in the posterior oblique trajectory utilized for the exposure. Left C1-2 levels was verified with intraoperative C-arm. The microscope was into place and used for the remainder of the procedure including the closure. The TPS drill with a 4 mm bone bur was used to thin out the superior half of the left C2 lamina. The ligament was elevated away from the thecal sac with the thickened ligament dissector. The epidural veins were coagulated and incised with microscissors and elevated away from the dorsal lateral left C1-2 level thecal sac. The Rhoton dissectors were used to dissect through the left C1 2 epidural space taking care not to retract the thecal sac. At the ventral lateral aspect of the spinal canal a moderate abscess cavity was encountered. A moderate amount of purulent anterior was evacuated from this region and sent for routine cultures. The region was well irrigated with antibiotic irrigation until clear. There did not appear to be any compression on the thecal sac from granulation tissue and no residual abscess at the time of closure. Bleeding was carefully controlled with bipolar forceps The closure was performed with 3-0 Vicryl for the deep and superficial fascia in an interrupted fashion, with 4-0 Vicryl running subcuticular closure. A dressing of sterile Mastisol, Steri-Strips, and Primapore was placed. The patient was placed back in the cervical collar and released from the 3- point fixation device and turned back into supine position with the undersigned containing control of the head and neck. Intraoperative monitoring remained stable during the procedure All counts were correct at the end of the case Estimated blood loss was 25 cc The specimen of abscess was sent for routine bacterial cultures. The patient was taken to recovery room in stable condition Tawanda Vargas MD May 28, 2017 21:40
--- NOTE | 2017-05-28 21:54 | RADRPT ---
EXAM DATE/TIME: 05/28/2017 18:42 [facility] COMPARISON: No previous studies available for comparison. INDICATIONS : Level localization for C1 C2 laminectomy. MEDICAL HISTORY : Hypertension. Gastroesophageal reflux disease. Myocardial infarction. CVA. SURGICAL HISTORY : Tonsillectomy. Cardiac valve replacement ENCOUNTER: Subsequent ACUITY: 1 day PAIN SCORE: Non-responsive. LOCATION: C1 C2. FINDINGS: Single lateral spot fluoroscopic image demonstrates posterior metallic marker between the C1 and C2 s pinous processes CONCLUSION: Posterior metallic marker at C1-2. Cornelio Cherry MD on May 28, 2017 at 21:51 Board Certified Radiologist. This report was verified electronically.
[2017-05-28] MEDS ORDERED: DO NOT ADM ANY ANTICOAGULANT DRUGS PRN (22:00)
[2017-05-28] MEDS: hydrOXYzine HCL 50 MG TAB PO SCH (23:05)
[2017-05-29] VITALS (11 sets, daily range): BP systolic 107–151; BP diastolic 70–97; PULSE 90–129; RESP 18–20; TEMP 97.2–98.7; O2SAT 94–100
[2017-05-29] MEDS: ACETAMINOPHEN/HYDROcodone 325 MG/10 MG TAB PO PRN ×5 (01:06→23:31)
[2017-05-29] MEDS: VANCOMYCIN INJ 1,500 MG in SODIUM CHLORID 0.9% 500 ML INJ 500 ML IV SCH ×2 (03:23→16:02)
--- NOTE | 2017-05-29 08:16 | HHI.PR ---
Subjective Remarks Patient seen and examined this morning. Vital stable although some tachycardia. States he was confused yesterday. He got out of the bed and fell , Saba was dislodged, IV access was lost. States this morning he knew where he was but couldn't exactly remember why he was in the hospital. He reports some neck pain. He is asking where his cell phone is once no he changed rooms. Denies any other acute concerns at this time. Objective Vital Signs Date Time Temp Pulse Resp B/P (MAP) Pulse Ox O2 Delivery O2 Flow Rate FiO2 05/29/17 06:30 98.2 107 20 134/83 (100) 97 05/29/17 05:11 98.0 111 20 132/84 (100) 96 05/29/17 04:09 98.0 112 20 138/78 (98) 96 05/29/17 03:18 97.2 112 20 129/79 (96) 96 05/29/17 02:30 100 05/29/17 02:10 98.0 129 20 107/70 (82) 96 05/29/17 01:32 98.6 90 20 108/73 (85) 94 05/28/17 22:30 116 18 154/91 (112) 97 Nasal Cannula 2 05/28/17 22:15 116 16 168/97 (120) 97 Nasal Cannula 2 05/28/17 22:00 117 16 152/96 (114) 97 Nasal Cannula 2 05/28/17 21:45 114 16 144/92 (109) 98 Nasal Cannula 2 05/28/17 21:25 98.3 116 16 141/90 (107) 98 Nasal Cannula 2 05/28/17 12:00 97.5 108 18 149/101 (117) 93 I/O 05/28/17 05/28/17 05/28/17 05/29/17 05/29/17 05/29/17 07:00 15:00 23:00 07:00 15:00 23:00 Intake Total 1000 ml 2000 ml 1020 ml Output Total 1000 ml 1050 ml 1100 ml Balance 0 ml 950 ml -1100 ml 1020 ml Intake IV Total 1000 ml 2000 ml 1020 ml Output Urine Total 1000 ml 1025 ml 1100 ml Estimated Blood Loss 25 ml # Bowel Movements 0 Result Diagram: 05/28/1725 05/28/17 05 Imaging Last Impressions Cervical Spine X-Ray 05/28/17 0000 Signed Impressions: Service Date/Time: Sunday, May 28, 2017 18:42 - CONCLUSION: Posterior metallic marker at C1-2. Cornelio Cherry MD Cervical Spine MRI 05/27/17 0000 Signed Impressions: Service Date/Time: May 18:07 - CONCLUSION: Left anterolateral epidural abscess of the upper cervical spine as described above. There is marrow edema of C2 that mainly appears reactive. I don't clearly see osteomyelitis. Also no cord compression or cord signal abnormality. Findings discussed with Dr. Vargas by phone. Ramos Evans MD Chest X-Ray 05/24/17 1316 Signed Impressions: Service Date/Time: Wednesday, May 24, 2017 13:30 - CONCLUSION: No acute disease. Marco Agustin MD FACR Thoracic Spine MRI 05/24/17 0000 Signed Impressions: Service Date/Time: Wednesday, May 24, 2017 14:52 - CONCLUSION: 1. Examination is somewhat limited due to motion artifact on every pulse sequence. 2. However , studies are adequate to exclude osteomyelitis. No vertebral body edema or abnormal enhancement. Spinal canal is widely patent throughout without cord compromise. Mango Spence MD Lumbar Spine MRI 05/24/17 0000 Signed Impressions: Service Date/Time: Wednesday, May 24, 2017 14:52 - CONCLUSION: 1. Diffuse bone marrow edema with abnormal enhancement and cortical erosion involving the L4 characteristic of osteomyelitis. 2. No significant enhancement of the L3-4 disc. 3. Enhancing paraspinal soft tissue with small fluid collections characteristic of phlegmon and small abscesses. 4. Mild degenerative disc disease of L1-2 and L2-3 5. No other significant abnormality. Jewel Martin MD Consultation 05/24/17 0000 Signed Impressions: Service Date/Time: Wednesday, May 24, 2017 00:00 - CONCLUSION: No drainable collection identified at present. Ramos Najera MD Objective Remarks GENERAL: Sitting up in chair, well-appearing, no acute distress SKIN: Warm and dry. HEAD: Normocephalic. EYES: No scleral icterus. No injection or drainage. NECK: Supple, trachea midline. CARDIOVASCULAR: Regular rate and rhythm without murmur RESPIRATORY: Breath sounds equal bilaterally. No accessory muscle use. GASTROINTESTINAL: Abdomen soft, non-tender, nondistended. MUSCULOSKELETAL: Cervical collar in place, bilateral SCDs A/P Problem List: (1) Paraspinal abscess ICD Code: M46.20 - Osteomyelitis of vertebra, site unspecified Status: Acute (2) Sepsis ICD Code: A41.9 - Sepsis, unspecified organism (3) CAD (coronary artery disease) ICD Code: I25.10 - Atherosclerotic heart disease of [place] coronary artery without angina pectoris Status: Acute (4) Bipolar disorder ICD Code: F31.9 - Bipolar disorder Status: Chronic Assessment and Plan 61-year-old male with Bacteremia, MRSA, Osteomyelitis, cervical spinal epidural - Sepsis criteria on admission - Neurosurgery following: Status post Left C2 semi-laminectomy, evacuation C1- C2 level epidural abscess-microtechnique on 05/28 - ID is following: MRSA sepsis, continue vancomycin keep trough 15-20, repeat blood cultures - WILBERT negative with no evidence of endocarditis. Cardiology has signed off CAD with stent placement - Aspirin and pravastatin currently on hold for procedure Back pain - Continue pain medications Bipolar disorder and anxiety - Continue home risperidone and buspirone Constipation - Bowel regimen while on narcotics Discharge Planning d/c pending neuro surg and ID clearance Case discussed with Stacy Damon MD May 29, 2017 08:16
[2017-05-29] MEDS: GABAPENTIN 300 MG CAP PO SCH ×3 (08:36→18:21)
[2017-05-29] MEDS: busPIRone HCL 10 MG TAB PO SCH ×3 (08:36→18:21)
[2017-05-29] MEDS: risperiDONE 1 MG TAB PO SCH (08:36)
[2017-05-29] MEDS: LIDOCAINE HCL 5% PATCH T-DERMAL SCH (08:37)
[2017-05-29] MEDS ORDERED: MAGNESIUM HYDROXIDE SUSP 30 ML CUP PO PRN (10:00)
--- NOTE | 2017-05-29 11:42 | HHI.NSPN ---
History Chief Complaint: Neck and back pain. Interval History 05/25: 61-year-old male with previous history of IV drug use. States that roughly 5 days ago he developed severe progressive low back pain and approximate 3 days ago developed severe progressive left neck pain with some radiation of the shoulder. He denies any definite pain weakness and numbness in the upper extremities. Approximately 3 days ago he did develop some pain radiating across the right anterolateral thigh and lateral hip. Denies any fevers or chills No diarrhea or constipation. No nausea or vomiting. No headache, dizziness, vertigo 05/27: When seen this morning the patient is asleep but awakens to voice. He says he is doing okay but does have pain to the neck and lower back. His speech is slow but appropriate. He does move all extremities but keeps the right lower flexed due to the pain to it and his back. 05/28: This afternoon the patient is asleep but awakens to voice. He states he is okay and his pain is better today than yesterday since he had received medication for it. He did go for an MRI cervical spine yesterday evening. 05/29: Patient up in chair sitting comfortably. No complaints of significant neck pain. No complaints of weakness in the upper or lower extremities. He has a cervical collar in place but it is not correctly fit. Exam Results Vital Signs Date Time Temp Pulse Resp B/P (MAP) Pulse Ox O2 Delivery O2 Flow Rate FiO2 05/29/17 08:00 98.7 108 18 146/93 (110) 96 05/28/17 22:30 Nasal Cannula 2 Intake and Output 05/29/17 05/29/17 05/30/17 08:00 16:00 00:00 Intake Total 1020 ml Output Total 1100 ml Balance -80 ml Physical Examination NEUROLOGICAL: Patient is awake and alert. Oriented 3. Motor function 5 over 5 in the upper and lower extremities. Cervical surgical dressing is dry and intact. Lab, Micro, Other Results Date/Time Source Procedure Growth Status 05/28/17 05:35 Blood Peripheral Aerobic Blood Culture - Preliminary NO GROWTH IN 1 DAY Resulted 05/28/17 05:35 Blood Peripheral Anaerobic Blood Culture - Preliminary NO GROWTH IN 1 DAY Resulted 05/24/17 13:30 Nasal Aspirate Influenza Types A,B Antigen (GWEN) - Final NEGATIVE FOR FLU A AND B ANTIGEN.... Complete 05/24/17 21:50 Urine Clean Catch Urine Culture - Final S. Aureus Mrsa Complete 05/28/17 20:18 Wound Back Fungal Smear - Final NO FUNGAL ELEMENTS SEEN. Resulted 05/28/17 20:18 Wound Back Fungal Culture Pending Resulted Medical Decision Making Impression and Plan Impression: Status post cervical laminectomy for epidural abscess. Stable neurological examination. Plan: We'll have [place] J collar fit for the patient. Continue observation and current medical management. Attila Knight MD May 29, 2017 11:42
[2017-05-29] MEDS: NS + KCL 20 MEQ INJ 1,000 ML IV SCH ×2 (14:36→21:20)
[2017-05-29] MEDS: MORPHINE SULFATE 2 MG/ML INJ IV PUSH PRN (16:02)
[2017-05-29] MEDS: hydrOXYzine HCL 50 MG TAB PO SCH (21:24)
[2017-05-30] VITALS: BP 148/86; PULSE 97; RESP 18; TEMP 97.3; O2SAT 96
[2017-05-30] MEDS: ACETAMINOPHEN/HYDROcodone 325 MG/10 MG TAB PO PRN ×3 (03:42→16:40)
[2017-05-30] MEDS: VANCOMYCIN INJ 1,500 MG in SODIUM CHLORID 0.9% 500 ML INJ 500 ML IV SCH (03:42)
[2017-05-30] MEDS ORDERED: PHARMACY ORDERED LAB ONE (03:45)
[2017-05-30 04:00] VITALS: PULSE 111; RESP 18; TEMP 97.6; O2SAT 96
[2017-05-30] MEDS: ENALAPRILAT 1.25 MG/ML VIAL IV PUSH PRN (04:32)
[2017-05-30 05:36] VITALS: BP 152/91
[2017-05-30] MEDS: LIDOCAINE HCL 5% PATCH T-DERMAL SCH (07:37)
[2017-05-30] MEDS: GABAPENTIN 300 MG CAP PO SCH ×3 (07:37→18:28)
[2017-05-30] MEDS: busPIRone HCL 10 MG TAB PO SCH ×3 (07:37→18:28)
[2017-05-30] MEDS: risperiDONE 1 MG TAB PO SCH (07:37)
--- NOTE | 2017-05-30 07:53 | HHI.PR ---
Subjective Remarks Patient seen and examined this morning. Vital stable although some tachycardia. Wants to know if he can have something for sleep. States he feels well, minimal pain. Walked around yesterday. Denies CP or difficulty breathing. Objective Vital Signs Date Time Temp Pulse Resp B/P (MAP) Pulse Ox O2 Delivery O2 Flow Rate FiO2 05/30/17 05:36 152/91 (111) 05/30/17 04:00 97.6 111 18 96 05/30/17 00:00 97.3 97 18 148/86 (106) 96 05/29/17 16:07 19 05/29/17 16:00 97.7 106 18 151/92 (111) 98 05/29/17 12:00 97.9 112 18 129/82 (98) 96 05/29/17 09:45 19 05/29/17 08:00 98.7 108 18 146/93 (110) 96 I/O 05/29/17 05/29/17 05/29/17 05/30/17 05/30/17 05/30/17 07:00 15:00 23:00 07:00 15:00 23:00 Intake Total 2020 ml 500 ml Output Total 1100 ml 700 ml Balance -1100 ml 2020 ml 500 ml -700 ml Intake IV Total 2020 ml 500 ml Output Urine Total 1100 ml 700 ml # Bowel Movements 1 1 Result Diagram: 05/28/17 0525 05/28/17 0525 Imaging Last Impressions Cervical Spine X-Ray 05/28/17 0000 Signed Impressions: Service Date/Time: Sunday, May 28, 2017 18:42 - CONCLUSION: Posterior metallic marker at C1-2. Cornelio Cherry MD Cervical Spine MRI 05/27/17 0000 Signed Impressions: Service Date/Time: May 18:07 - CONCLUSION: Left anterolateral epidural abscess of the upper cervical spine as described above. There is marrow edema of C2 that mainly appears reactive. I don't clearly see osteomyelitis. Also no cord compression or cord signal abnormality. Findings discussed with Dr. Vargas by phone. Ramos Evans MD Chest X-Ray 05/24/17 1316 Signed Impressions: Service Date/Time: Wednesday, May 24, 2017 13:30 - CONCLUSION: No acute disease. Marco Agustin MD FACR Thoracic Spine MRI 1/8/18 0000 Signed Impressions: Service Date/Time: Wednesday, May 24, 2017 14:52 - CONCLUSION: 1. Examination is somewhat limited due to motion artifact on every pulse sequence. 2. However , studies are adequate to exclude osteomyelitis. No vertebral body edema or abnormal enhancement. Spinal canal is widely patent throughout without cord compromise. Mango Spence MD Lumbar Spine MRI 05/24/17 Signed Impressions: Service Date/Time: Wednesday, May 24, 2017 14:52 - CONCLUSION: 1. Diffuse bone marrow edema with abnormal enhancement and cortical erosion involving the L4 characteristic of osteomyelitis. 2. No significant enhancement of the L3-4 disc. 3. Enhancing paraspinal soft tissue with small fluid collections characteristic of phlegmon and small abscesses. 4. Mild degenerative disc disease of L1-2 and L2-3 5. No other significant abnormality. Jewel Martin MD Consultation 05/24/17 Signed Impressions: Service Date/Time: Wednesday, May 24, 2017 00:00 - CONCLUSION: No drainable collection identified at present. Ramos Najera MD Objective Remarks GENERAL: Sitting up in chair, well-appearing, no acute distress SKIN: Warm and dry. HEAD: Normocephalic. EYES: No scleral icterus. No injection or drainage. NECK: Supple, trachea midline. CARDIOVASCULAR: Regular rate and rhythm without murmur RESPIRATORY: Breath sounds equal bilaterally. No accessory muscle use. GASTROINTESTINAL: Abdomen soft, non-tender, nondistended. MUSCULOSKELETAL: Cervical collar in place, bilateral SCDs A/P Problem List: (1) Paraspinal abscess ICD Code: M46.20 - Osteomyelitis of vertebra, site unspecified Status: Acute (2) Sepsis ICD Code: A41.9 - Sepsis, unspecified organism (3) CAD (coronary artery disease) ICD Code: I25.10 - Atherosclerotic heart disease of [place] coronary artery without angina pectoris Status: Acute (4) Bipolar disorder ICD Code: F31.9 - Bipolar disorder Status: Chronic Assessment and Plan 61-year-old male with Bacteremia, MRSA, Osteomyelitis, cervical spinal epidural - Sepsis criteria on admission - Neurosurgery following: Status post Left C2 semi-laminectomy, evacuation C1- C2 level epidural abscess-microtechnique on 05/28 - ID is following: MRSA sepsis, continue vancomycin keep trough 15-20, repeat blood cultures 05/28 two tubes with gram + cocci , wound cultures are pending - WILBERT negative with no evidence of endocarditis. Cardiology has signed off CAD with stent placement - Aspirin, plavix, and pravastatin resumed Back pain - Continue pain medications Bipolar disorder and anxiety - Continue home risperidone and buspirone Constipation - Bowel regimen while on narcotics Discharge Planning d/c pending neuro surg and ID clearance Case discussed with nurse Stacy Del Cid MD May 30, 2017 07:53
[2017-05-30 08:00] VITALS: BP 152/95; PULSE 108; RESP 17; TEMP 98; O2SAT 96
[2017-05-30 09:16] LABS: AUTOMATED NEUTROPHIL # 11.9 TH/MM3 (1.8-7.7); BASOPHIL % 0.3 % (0.0-2.0); EOSINOPHIL # 0.2 TH/MM3 (0-0.4); EOSINOPHIL % 1.1 % (0.0-4.0); HEMATOCRIT 34.9 % (39.0-51.0); HEMOGLOBIN 11.5 GM/DL (13.0-17.0); LYMPH % 21.3 % (9.0-44.0); LYMPHOCYTE # 3.6 TH/MM3 (1.0-4.8); MEAN CELL VOLUME 85.3 FL (80.0-100.0); MEAN CORPUSCULAR HEMOGLOBIN 28.2 PG (27.0-34.0); MEAN CORPUSCULAR HGB CONC 33.1 % (32.0-36.0); MONO % 7.3 % (0.0-8.0); MONOCYTE # 1.2 TH/MM3 (0-0.9); PLATELET COUNT 401 TH/MM3 (150-450); RED BLOOD COUNT 4.09 MIL/MM3 (4.50-5.90); RED CELL DISTRIBUTION WIDTH 14.9 % (11.6-17.2)
[2017-05-30 09:21] LABS: CREATININE 0.83 MG/DL (0.60-1.30)
--- NOTE | 2017-05-30 10:14 | HHI.NSPN ---
History Chief Complaint: Neck and back pain. Interval History 05/25: 61-year-old male with previous history of IV drug use. States that roughly 5 days ago he developed severe progressive low back pain and approximate 3 days ago developed severe progressive left neck pain with some radiation of the shoulder. He denies any definite pain weakness and numbness in the upper extremities. Approximately 3 days ago he did develop some pain radiating across the right anterolateral thigh and lateral hip. Denies any fevers or chills No diarrhea or constipation. No nausea or vomiting. No headache, dizziness, vertigo 05/27: When seen this morning the patient is asleep but awakens to voice. He says he is doing okay but does have pain to the neck and lower back. His speech is slow but appropriate. He does move all extremities but keeps the right lower flexed due to the pain to it and his back. 05/28: This afternoon the patient is asleep but awakens to voice. He states he is okay and his pain is better today than yesterday since he had received medication for it. He did go for an MRI cervical spine yesterday evening. 05/29: Patient up in chair sitting comfortably. No complaints of significant neck pain. No complaints of weakness in the upper or lower extremities. He has a cervical collar in place but it is not correctly fit. 05/30: Patient is awake alert with his only complaint today being lack of sleep. No complaints of significant neck pain. Exam Results Vital Signs Date Time Temp Pulse Resp B/P (MAP) Pulse Ox O2 Delivery O2 Flow Rate FiO2 05/30/17 08:38 18 05/30/17 05:36 152/91 (111) 05/30/17 04:00 97.6 111 96 05/28/17 22:30 Nasal Cannula 2 Intake and Output 05/30/17 05/30/17 05/31/17 08:00 16:00 00:00 Output Total 700 ml Balance -700 ml Physical Examination NEUROLOGICAL: Patient is awake and alert. Oriented 3. Motor function 5 over 5 in the upper and lower extremities. Cervical surgical dressing is dry and intact. Lab, Micro, Other Results Laboratory Tests Test 05/30/17 03:40 05/30/17 07:28 Vancomycin Level Trough 20.9 White Blood Count 17.0 Red Blood Count 4.09 Hemoglobin 11.5 Hematocrit 34.9 Mean Corpuscular Volume 85.3 Mean Corpuscular Hemoglobin 28.2 Mean Corpuscular Hemoglobin Concent 33.1 Red Cell Distribution Width 14.9 Platelet Count 401 Mean Platelet Volume 8.0 Neutrophils (%) (Auto) 70.0 Lymphocytes (%) (Auto) 21.3 Monocytes (%) (Auto) 7.3 Eosinophils (%) (Auto) 1.1 Basophils (%) (Auto) 0.3 Neutrophils # (Auto) 11.9 Lymphocytes # (Auto) 3.6 Monocytes # (Auto) 1.2 Eosinophils # (Auto) 0.2 Basophils # (Auto) 0.0 CBC Comment DIFF FINAL Differential Comment Creatinine 0.83 Estimat Glomerular Filtration Rate 95 Date/Time Source Procedure Growth Status 05/28/17 05:35 Blood Peripheral Aerobic Blood Culture - Final S. Aureus Mrsa Resulted 05/28/17 05:35 Blood Peripheral Anaerobic Blood Culture - Preliminary NO GROWTH IN 1 DAY Resulted 05/24/17 13:30 Nasal Aspirate Influenza Types A,B Antigen (GWEN) - Final NEGATIVE FOR FLU A AND B ANTIGEN.... Complete 05/24/17 21:50 Urine Clean Catch Urine Culture - Final S. Aureus Mrsa Complete 05/28/17 20:18 Wound Back Fungal Smear - Final NO FUNGAL ELEMENTS SEEN. Resulted 05/28/17 20:18 Wound Back Fungal Culture Pending Resulted Medical Decision Making Impression and Plan Impression: Status post cervical laminectomy for epidural abscess. Stable neurological examination. Plan: Clear for discharge from neurosurgical viewpoint. Continue observation and current medical management until cleared by medical services. Attila Knight MD May 30, 2017 10:14
[2017-05-30] MEDS ORDERED: ZOLPIDEM TARTRATE 10 MG TAB PO PRN (10:15)
[2017-05-30 12:00] VITALS: BP 141/99; PULSE 108; RESP 18; TEMP 98.2; O2SAT 97
[2017-05-30] MEDS: MORPHINE SULFATE 2 MG/ML INJ IV PUSH PRN ×2 (12:35→18:27)
[2017-05-30] MEDS: NS + KCL 20 MEQ INJ 1,000 ML IV SCH ×2 (14:04→21:47)
--- NOTE | 2017-05-30 14:45 | HHI.PR ---
Subjective Patient symptoms today Saba catheter inadvertently became dislodged early yesterday morning. Initially the patient had some bloody urine output but this has subsequently cleared. He presently reports that his voiding without any difficulty and denies ongoing hematuria. Objective Vital Signs Vital Signs Date Time Temp Pulse Resp B/P (MAP) Pulse Ox O2 Delivery O2 Flow Rate FiO2 05/30/17 12:00 98.2 108 18 141/99 (113) 97 05/30/17 08:38 18 05/30/17 08:00 98.0 108 17 152/95 (114) 96 05/30/17 05:36 152/91 (111) 05/30/17 04:00 97.6 111 18 96 05/30/17 00:00 97.3 97 18 148/86 (106) 96 05/29/17 16:07 19 05/29/17 16:00 97.7 106 18 151/92 (111) 98 Intake & Output 05/30/17 05/30/17 07:00 19:00 Intake Total 1000 ml Output Total 700 ml Balance -700 ml 1000 ml Intake IV Total 1000 ml Output Urine Total 700 ml # Voids 2 # Bowel Movements 2 Result Diagram: 05/30/1728 05/30/1728 Objective Remarks Urinal at bedside with large amount of serene urine Abdomen soft, bladder not distended Medications and IVs Current Medications Medications (Trade) Dose Ordered Sig/Ирина Route Start Time Stop Time Status Last Admin (Lipitor) 40 mg DAILY PO 05/25/17 09:00 Future hold 05/27/17 08:10 (Buspar) 10 mg TID PO 05/25/17 09:00 05/30/17 12:34 (Atarax) 50 mg HS PO 05/24/17 21:00 05/29/17 21:24 (Robaxin) 500 mg QID PRN PO 05/24/17 19:15 05/28/17 09:35 (risperDAL) 1 mg DAILY PO 05/25/17 09:00 05/30/17 07:37 ([place] 10-325 Mg) 1 tab Q4H PRN PO 05/24/17 19:15 05/30/17 07:38 (Morphine Inj) 4 mg Q3H PRN IV PUSH 05/24/17 19:15 05/30/17 12:35 (Lidoderm 5% Patch.12 Hr) 1 patch DAILY T-DERMAL 05/24/17 19:15 05/30/17 07:37 (Neurontin) 300 mg TID PO 05/24/17 19:15 05/30/17 12:34 Pharmacy Profile Note 0 ml @ 0 mls/hr UNSCH OTHER 05/25/17 10:15 (Ecotrin Ec) 81 mg DAILY PO 05/26/17 10:00 Future hold 05/27/17 08:10 (Plavix) 75 mg DAILY PO 05/26/17 10:00 Future hold 05/27/17 08:10 (Milk Of Magnesia Liq) 30 ml DAILY PRN PO 05/29/17 10:00 (Vasotec Inj) 1.25 mg Q8H PRN IV PUSH 05/28/17 10:00 05/30/17 04:32 Potassium Chloride/Sodium Chloride 1,000 ml @ 84 mls/hr [id number] IV 05/28/17 21:30 05/30/17 14:04 Vancomycin HCl 1250 mg/Sodium Chloride 262.5 ml @ 250 mls/hr Q12H IV 05/30/17 16:00 Miscellaneous Information SPECIFIC LAB TO BE [facility]... ONCE ONCE .XX 06/01/17 03:45 06/01/17 03:46 (Ambien) 10 mg HS PRN PO 05/30/17 10:15 Assessment and Plan Assessment and Plan Urologic impression: #1 status post traumatic removal of Saba catheter yesterday morning with resultant hematuria (now resolved) #2 presently voiding without difficulty Recommendation: #1 conservative management #2 will be available as needed Magdiel Figueroa MD May 30, 2017 14:45
[2017-05-30] MEDS: VANCOMYCIN INJ 1,250 MG in SODIUM CHLOR 0.9% 250 ML INJ 250 ML IV SCH (16:40)
[2017-05-30 20:00] VITALS: BP 165/95; PULSE 118; RESP 20; TEMP 97.8; O2SAT 95
[2017-05-30] MEDS: hydrOXYzine HCL 50 MG TAB PO SCH (21:47)
[2017-05-31] VITALS (8 sets, daily range): BP systolic 113–183; BP diastolic 75–113; PULSE 97–133; RESP 18–20; TEMP 97–98.5; O2SAT 91–97
[2017-05-31] MEDS ORDERED: LORazepam 2 MG/ML VIAL IV PUSH ONE (02:30)
[2017-05-31] MEDS: ACETAMINOPHEN/HYDROcodone 325 MG/10 MG TAB PO PRN ×4 (03:01→22:38)
[2017-05-31] MEDS: MORPHINE SULFATE 2 MG/ML INJ IV PUSH PRN (03:40)
[2017-05-31] MEDS: ENALAPRILAT 1.25 MG/ML VIAL IV PUSH PRN (04:53)
[2017-05-31] MEDS: VANCOMYCIN INJ 1,250 MG in SODIUM CHLOR 0.9% 250 ML INJ 250 ML IV SCH ×2 (04:53→18:16)
--- NOTE | 2017-05-31 07:55 | HHI.PR ---
Subjective Remarks Patient seen and examined this morning. Per nurse yesterday the patient started acting odd. He was found to be repeating himself often, would not keep his collar on. BP increased and remained elevated. Only new medication was ambien added last night. This am he is sleeping but awakens easily. He states he was confused because there have been so many different people. He recognizes me. He knows where he is. I asked him if he can keep his collar on and he agreed. Objective Vital Signs Date Time Temp Pulse Resp B/P (MAP) Pulse Ox O2 Delivery O2 Flow Rate FiO2 05/31/17 04:00 129 20 183/109 (133) 95 05/31/17 02:41 97.7 133 20 178/107 (130) 91 05/31/17 00:00 97.0 97 18 113/75 (88) 94 05/30/17 20:00 97.8 118 20 165/95 (118) 95 05/30/17 18:32 19 05/30/17 17:45 19 05/30/17 12:00 98.2 108 18 141/99 (113) 97 05/30/17 08:00 98.0 108 17 152/95 (114) 96 I/O 05/30/17 05/30/17 05/30/17 05/31/17 05/31/17 05/31/17 07:00 15:00 23:00 07:00 15:00 23:00 Intake Total 1000 ml 250 ml Output Total 700 ml 2700 ml Balance -700 ml 1000 ml 250 ml -2700 ml Intake IV Total 1000 ml 250 ml Output Urine Total 700 ml 2700 ml # Voids 2 1 # Bowel Movements 1 2 Result Diagram: 05/30/17 0728 05/30/1728 Imaging Last Impressions Cervical Spine X-Ray 05/28/17 0000 Signed Impressions: Service Date/Time: Sunday, May 28, 2017 18:42 - CONCLUSION: Posterior metallic marker at C1-2. Cornelio Cherry MD Cervical Spine MRI 05/27/17 0000 Signed Impressions: Service Date/Time: May 18:07 - CONCLUSION: Left anterolateral epidural abscess of the upper cervical spine as described above. There is marrow edema of C2 that mainly appears reactive. I don't clearly see osteomyelitis. Also no cord compression or cord signal abnormality. Findings discussed with Dr. Vargas by phone. Ramos Evans MD Chest X-Ray 05/24/17 1316 Signed Impressions: Service Date/Time: Wednesday, May 24, 2017 13:30 - CONCLUSION: No acute disease. Marco Agustin MD FACR Thoracic Spine MRI 05/24/17 0000 Signed Impressions: Service Date/Time: Wednesday, May 24, 2017 14:52 - CONCLUSION: 1. Examination is somewhat limited due to motion artifact on every pulse sequence. 2. However , studies are adequate to exclude osteomyelitis. No vertebral body edema or abnormal enhancement. Spinal canal is widely patent throughout without cord compromise. Mango Spence MD Lumbar Spine MRI 05/24/17 0000 Signed Impressions: Service Date/Time: Wednesday, May 24, 2017 14:52 - CONCLUSION: 1. Diffuse bone marrow edema with abnormal enhancement and cortical erosion involving the L4 characteristic of osteomyelitis. 2. No significant enhancement of the L3-4 disc. 3. Enhancing paraspinal soft tissue with small fluid collections characteristic of phlegmon and small abscesses. 4. Mild degenerative disc disease of L1-2 and L2-3 5. No other significant abnormality. Jewel Martin MD Consultation 05/24/17 0000 Signed Impressions: Service Date/Time: Wednesday, May 24, 2017 00:00 - CONCLUSION: No drainable collection identified at present. Ramos Najera MD Objective Remarks GENERAL: laying in bed drowsy, no acute distress SKIN: Warm and dry. HEAD: Normocephalic. EYES: No scleral icterus. No injection or drainage. NECK: Supple, trachea midline. CARDIOVASCULAR: Tachycardic rate and rhythm without murmur RESPIRATORY: Breath sounds equal bilaterally. No accessory muscle use. GASTROINTESTINAL: Abdomen soft, non-tender, nondistended. MUSCULOSKELETAL: Cervical collar in place, bilateral SCDs A/P Problem List: (1) Paraspinal abscess ICD Code: M46.20 - Osteomyelitis of vertebra, site unspecified Status: Acute (2) Sepsis ICD Code: A41.9 - Sepsis, unspecified organism (3) CAD (coronary artery disease) ICD Code: I25.10 - Atherosclerotic heart disease of [place] coronary artery without angina pectoris Status: Acute (4) Bipolar disorder ICD Code: F31.9 - Bipolar disorder Status: Chronic Assessment and Plan 61-year-old male with AMS - patient definitely not as baseline - medication side effect vs. sepsis vs. other - stop Ambien, hold sedatives - see below, 1 L bolus NS also given - monitor closely Bacteremia, MRSA, Osteomyelitis, cervical spinal epidural - Sepsis criteria on admission - Neurosurgery following: Status post Left C2 semi-laminectomy, evacuation C1- C2 level epidural abscess-microtechnique on 05/28 - ID is following: MRSA sepsis, continue vancomycin keep trough 15-20, repeat blood cultures 05/28 two tubes with gram + cocci , wound cultures + MRSA, repeat blood cultures ordered today 05/31 - WILBERT negative with no evidence of endocarditis. Cardiology has signed off CAD with stent placement - Aspirin, plavix, and pravastatin resumed Back pain - Continue pain medications Bipolar disorder and anxiety - Continue home risperidone and buspirone Constipation - Bowel regimen while on narcotics Discharge Planning cleared by neurosurgery must have negative blood cultures for PICC to be placed and outpatient abx recommendations Case discussed with Dr. Moreira and Ifeanyi (nurse) Stacy Del Cid MD May 31, 2017 07:55
[2017-05-31] MEDS ORDERED: SODIUM CHLOR 0.9% 1000 ML INJ 1,000 ML IV ONE (08:15)
[2017-05-31 08:17] LABS: AUTOMATED NEUTROPHIL # 16.2 TH/MM3 (1.8-7.7); BASOPHIL # 0.2 TH/MM3 (0-0.2); BASOPHIL % 0.8 % (0.0-2.0); EOSINOPHIL # 0.2 TH/MM3 (0-0.4); EOSINOPHIL % 1.1 % (0.0-4.0); HEMATOCRIT 36.3 % (39.0-51.0); HEMOGLOBIN 12.3 GM/DL (13.0-17.0); LYMPH % 17.3 % (9.0-44.0); LYMPHOCYTE # 3.8 TH/MM3 (1.0-4.8); MEAN CELL VOLUME 85.1 FL (80.0-100.0); MEAN CORPUSCULAR HEMOGLOBIN 28.7 PG (27.0-34.0); MEAN CORPUSCULAR HGB CONC 33.7 % (32.0-36.0); MEAN PLATELET VOLUME 7.9 FL (7.0-11.0); MONO % 6.5 % (0.0-8.0); MONOCYTE # 1.4 TH/MM3 (0-0.9); NEUT % 74.3 % (16.0-70.0); PLATELET COUNT 465 TH/MM3 (150-450); RED BLOOD COUNT 4.27 MIL/MM3 (4.50-5.90); WHITE BLOOD COUNT 21.7 TH/MM3 (4.0-11.0)
[2017-05-31 08:32] LABS: CALCIUM 8.7 MG/DL (8.5-10.1); CREATININE 0.65 MG/DL (0.60-1.30)
[2017-05-31] MEDS: GABAPENTIN 300 MG CAP PO SCH ×3 (09:00→18:12)
[2017-05-31] MEDS: LIDOCAINE HCL 5% PATCH T-DERMAL SCH ×2 (09:00→11:31)
[2017-05-31] MEDS: NS + KCL 20 MEQ INJ 1,000 ML IV SCH ×2 (09:05→22:38)
[2017-05-31] MEDS ORDERED: ENALAPRILAT 1.25 MG/ML VIAL IV PUSH PRN (09:30)
[2017-05-31] MEDS: CLOPIDOGREL 75 MG TAB PO SCH (09:45)
[2017-05-31] MEDS: ATORVASTATIN 40 MG TAB PO SCH (09:45)
[2017-05-31] MEDS: busPIRone HCL 10 MG TAB PO SCH ×3 (09:46→18:12)
[2017-05-31] MEDS: ASPIRIN EC 81 MG TABEC PO SCH (09:46)
[2017-05-31] MEDS: risperiDONE 1 MG TAB PO SCH (09:46)
--- NOTE | 2017-05-31 11:29 | HHI.NSPN ---
History Chief Complaint: Neck and back pain. Interval History 05/25: 61-year-old male with previous history of IV drug use. States that roughly 5 days ago he developed severe progressive low back pain and approximate 3 days ago developed severe progressive left neck pain with some radiation of the shoulder. He denies any definite pain weakness and numbness in the upper extremities. Approximately 3 days ago he did develop some pain radiating across the right anterolateral thigh and lateral hip. Denies any fevers or chills No diarrhea or constipation. No nausea or vomiting. No headache, dizziness, vertigo 05/27: When seen this morning the patient is asleep but awakens to voice. He says he is doing okay but does have pain to the neck and lower back. His speech is slow but appropriate. He does move all extremities but keeps the right lower flexed due to the pain to it and his back. 05/28: Left C2 laminectomy evacuation epidural abscess 05/31/17: More comfortable today, some agitation and confusion last evening Exam Results Vital Signs Date Time Temp Pulse Resp B/P (MAP) Pulse Ox O2 Delivery O2 Flow Rate FiO2 05/31/17 08:13 98.0 124 20 167/111 (129) 95 05/28/17 22:30 Nasal Cannula 2 Intake and Output 05/31/17 05/31/17 06/01/17 08:00 16:00 00:00 Output Total 2700 ml Balance -2700 ml Physical Examination Awake and alert In bed with head elevated States that he feels quite a bit more comfortable today Minimal tenderness over the left and right cervical paraspinous musculature. Cervical range of motion 45 right and left rotation No nuchal rigidity Skin incision is well-healed He has less dysarthria than last week prior to surgery. Answers simple questions appropriately and follows simple commands well. Sensation intact to light touch all extremities Strength normal throughout the upper and lower extremity major flexion- extension groups as well as hand intrinsics Hoffmans absent bilateral No ankle clonus Lab, Micro, Other Results Laboratory Tests Test 05/31/17 07:37 White Blood Count 21.7 TH/MM3 Red Blood Count 4.27 MIL/MM3 Hemoglobin 12.3 GM/DL Hematocrit 36.3 % Mean Corpuscular Volume 85.1 FL Mean Corpuscular Hemoglobin 28.7 PG Mean Corpuscular Hemoglobin Concent 33.7 % Red Cell Distribution Width 15.0 % Platelet Count 465 TH/MM3 Mean Platelet Volume 7.9 FL Neutrophils (%) (Auto) 74.3 % Lymphocytes (%) (Auto) 17.3 % Monocytes (%) (Auto) 6.5 % Eosinophils (%) (Auto) 1.1 % Basophils (%) (Auto) 0.8 % Neutrophils # (Auto) 16.2 TH/MM3 Lymphocytes # (Auto) 3.8 TH/MM3 Monocytes # (Auto) 1.4 TH/MM3 Eosinophils # (Auto) 0.2 TH/MM3 Basophils # (Auto) 0.2 TH/MM3 CBC Comment DIFF FINAL Differential Comment Blood Urea Nitrogen 11 MG/DL Creatinine 0.65 MG/DL Random Glucose 111 MG/DL Calcium Level 8.7 MG/DL Sodium Level 136 MEQ/L Potassium Level 3.6 MEQ/L Chloride Level 101 MEQ/L Carbon Dioxide Level 26.0 MEQ/L Anion Gap 9 MEQ/L Estimat Glomerular Filtration Rate 126 ML/MIN Medical Decision Making Impression and Plan Impression: 1. Generally improved following evacuation cervical epidural abscess on 2017. Sensorimotor function intact in all extremities 2. C4 osteomyelitis 3. Sepsis 4. History of coronary artery disease, status post stent, recently on aspirin and Plavix. Plan: Discussed with patient Continuing IV antibiotics for abscess and osteomyelitis Mobilize out of bed with cervical collar Okay for Lovenox or other DVT prophylaxis. Tawanda Vargas MD May 31, 2017 11:29
--- NOTE | 2017-05-31 14:27 | HHI.IDPN ---
Subjective Subjective Remarks sp Left C2 semi-laminectomy, evacuation C1-C2 level epidural abscess- microtechnique on May 28, [address] Vargas WILBERT negative for vegtaions Last clx remian positive afebrile but had issues with tachycardia, hypertentio n today seen by urologist for hematuria post [place] removal Antibiotics vanco Allergies: Coded Allergies: No Known Allergies (Verified Adverse Reaction, Unknown, 05/24/17) Objective . Vital Signs Date Time Temp Pulse Resp B/P (MAP) Pulse Ox O2 Delivery O2 Flow Rate FiO2 05/31/17 12:22 98.5 108 20 181/110 (133) 96 05/31/17 08:13 98.0 124 20 167/111 (129) 95 05/31/17 04:00 129 20 183/109 (133) 95 05/31/17 02:41 97.7 133 20 178/107 (130) 91 05/31/17 00:00 97.0 97 18 113/75 (88) 94 05/30/17 20:00 97.8 118 20 165/95 (118) 95 05/30/17 18:32 19 05/30/17 17:45 19 . Laboratory Tests Test 05/30/17 07:28 05/31/17 07:37 White Blood Count 17.0 TH/MM3 21.7 TH/MM3 Red Blood Count 4.09 MIL/MM3 4.27 MIL/MM3 Hemoglobin 11.5 GM/DL 12.3 GM/DL Hematocrit 34.9 % 36.3 % Mean Corpuscular Volume 85.3 FL 85.1 FL Mean Corpuscular Hemoglobin 28.2 PG 28.7 PG Mean Corpuscular Hemoglobin Concent 33.1 % 33.7 % Red Cell Distribution Width 14.9 % 15.0 % Platelet Count 401 TH/MM3 465 TH/MM3 Mean Platelet Volume 8.0 FL 7.9 FL Neutrophils (%) (Auto) 70.0 % 74.3 % Lymphocytes (%) (Auto) 21.3 % 17.3 % Monocytes (%) (Auto) 7.3 % 6.5 % Eosinophils (%) (Auto) 1.1 % 1.1 % Basophils (%) (Auto) 0.3 % 0.8 % Neutrophils # (Auto) 11.9 TH/MM3 16.2 TH/MM3 Lymphocytes # (Auto) 3.6 TH/MM3 3.8 TH/MM3 Monocytes # (Auto) 1.2 TH/MM3 1.4 TH/MM3 Eosinophils # (Auto) 0.2 TH/MM3 0.2 TH/MM3 Basophils # (Auto) 0.0 TH/MM3 0.2 TH/MM3 CBC Comment DIFF FINAL DIFF FINAL Differential Comment Laboratory Tests Test 05/30/17 07:28 05/31/17 07:37 Creatinine 0.83 MG/DL 0.65 MG/DL Estimat Glomerular Filtration Rate 95 ML/MIN 126 ML/MIN Blood Urea Nitrogen 11 MG/DL Random Glucose 111 MG/DL Calcium Level 8.7 MG/DL Sodium Level 136 MEQ/L Potassium Level 3.6 MEQ/L Chloride Level 101 MEQ/L Carbon Dioxide Level 26.0 MEQ/L Anion Gap 9 MEQ/L Microbiology Date/Time Source Procedure Growth Status 05/31/17 11:24 Blood Peripheral Aerobic Blood Culture Pending Received 05/31/17 11:24 Blood Peripheral Anaerobic Blood Culture Pending Received 05/31/17 11:17 Blood Peripheral Aerobic Blood Culture Pending Received 05/31/17 11:17 Blood Peripheral Anaerobic Blood Culture Pending Received 05/28/17 20:18 Wound Back Fungal Smear - Final NO FUNGAL ELEMENTS SEEN. Resulted 05/28/17 20:18 Wound Back Fungal Culture Pending Resulted 05/28/17 20:18 Wound Back Acid Fast Stain - Final NO ACID FAST BACILLI SEEN Resulted 05/28/17 20:18 Wound Back Mycobacterial Culture Pending Resulted 05/28/17 20:18 Wound Back Gram Stain - Final Complete 05/28/17 20:18 Wound Culture - Final S. Aureus Mrsa Complete 05/28/17 20:18 Wound Back Fungal Smear - Final NO FUNGAL ELEMENTS SEEN. Resulted 05/28/17 20:18 Wound Back Fungal Culture Pending Resulted 05/28/17 20:18 Wound Back Acid Fast Stain - Final NO ACID FAST BACILLI SEEN Resulted 05/28/17 20:18 Wound Back Mycobacterial Culture Pending Resulted 05/28/17 20:18 Wound Back Gram Stain - Final Complete 05/28/17 20:18 Wound Culture - Final S. Aureus Mrsa Complete Imaging Last Impressions Cervical Spine X-Ray 05/28/17 0000 Signed Impressions: Service Date/Time: Sunday, May 28, 2017 18:42 - CONCLUSION: Posterior metallic marker at C1-2. Cornelio Cherry MD Cervical Spine MRI 05/27/17 0000 Signed Impressions: Service Date/Time: May 18:07 - CONCLUSION: Left anterolateral epidural abscess of the upper cervical spine as described above. There is marrow edema of C2 that mainly appears reactive. I don't clearly see osteomyelitis. Also no cord compression or cord signal abnormality. Findings discussed with Dr. Vargas by phone. Ramos Evans MD Chest X-Ray 05/24/17 1316 Signed Impressions: Service Date/Time: Wednesday, May 24, 2017 13:30 - CONCLUSION: No acute disease. Marco Agustin MD FACR Thoracic Spine MRI 05/24/17 0000 Signed Impressions: Service Date/Time: Wednesday, May 24, 2017 14:52 - CONCLUSION: 1. Examination is somewhat limited due to motion artifact on every pulse sequence. 2. However , studies are adequate to exclude osteomyelitis. No vertebral body edema or abnormal enhancement. Spinal canal is widely patent throughout without cord compromise. Mango Spence MD Lumbar Spine MRI 05/24/17 0000 Signed Impressions: Service Date/Time: Wednesday, May 24, 2017 14:52 - CONCLUSION: 1. Diffuse bone marrow edema with abnormal enhancement and cortical erosion involving the L4 characteristic of osteomyelitis. 2. No significant enhancement of the L3-4 disc. 3. Enhancing paraspinal soft tissue with small fluid collections characteristic of phlegmon and small abscesses. 4. Mild degenerative disc disease of L1-2 and L2-3 5. No other significant abnormality. Jewel Martin MD Consultation 05/24/17 0000 Signed Impressions: Service Date/Time: Wednesday, May 24, 2017 00:00 - CONCLUSION: No drainable collection identified at present. Ramos Najera MD Physical Exam CONSTITUTIONAL/GENERAL: This is an adequately nourished patient, in no apparent distress. TUBES/LINES/DRAINS: SKIN: No jaundice, rashes, or lesions. No needle track hopper . Skin temperature appropriate. Not diaphoretic. EYES: Pupils equal and round and reactive. Extraocular motions intact. No scleral icterus. No injection or drainage. Fundi not examined. NECK: C collar in place CARDIOVASCULAR: Regular rate and rhythm without murmurs, gallops, or rubs. No JVD. Peripheral pulses symmetric. RESPIRATORY/CHEST: Symmetric, unlabored respirations. Clear to auscultation. Breath sounds equal bilaterally. No wheezes, rales, or rhonchi. GASTROINTESTINAL: Abdomen soft, non-tender, nondistended. No hepato-splenomegaly , or palpable masses. No guarding. Bowel sounds present. MUSCULOSKELETAL: Extremities without clubbing, cyanosis, or edema. No joint tenderness or effusion noted. No calf tenderness. No mottling or clubbing. NEUROLOGICAL: Lethargic, easily arousable . Motor and sensory grossly within normal limits. Follows commands. clear speech . Moves all extremities. PSYCHIATRIC: No obvious anxiety/depression. no apparent hallucinations or other psychotic thought process. 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
[2017-05-31] MEDS: ENOXAPARIN SODIUM 40 MG/0.4 ML SYRINGE SQ SCH (17:56)
[2017-05-31] MEDS ORDERED: cloNIDine HCL 0.1 MG TAB PO ONE (18:45)
[2017-05-31] MEDS: hydrOXYzine HCL 50 MG TAB PO SCH (22:38)
[2017-06-01 00:34] VITALS: BP 124/74; PULSE 119; RESP 18; TEMP 97.4; O2SAT 96
[2017-06-01] MEDS ORDERED: PHARMACY ORDERED LAB ONE (03:45)
[2017-06-01] MEDS: VANCOMYCIN INJ 1,250 MG in SODIUM CHLOR 0.9% 250 ML INJ 250 ML IV SCH ×2 (04:21→15:34)
[2017-06-01] MEDS: ACETAMINOPHEN/HYDROcodone 325 MG/10 MG TAB PO PRN ×5 (04:21→22:45)
[2017-06-01 05:18] VITALS: BP 148/87; PULSE 107; RESP 18; TEMP 99.4; O2SAT 96
[2017-06-01 07:40] VITALS: BP 152/85; PULSE 104; RESP 20; TEMP 98.1; O2SAT 95
[2017-06-01] MEDS: CLOPIDOGREL 75 MG TAB PO SCH (09:44)
[2017-06-01] MEDS: GABAPENTIN 300 MG CAP PO SCH ×3 (09:44→18:11)
[2017-06-01] MEDS: busPIRone HCL 10 MG TAB PO SCH ×3 (09:44→18:12)
[2017-06-01] MEDS: ATORVASTATIN 40 MG TAB PO SCH (09:45)
[2017-06-01] MEDS: ASPIRIN EC 81 MG TABEC PO SCH (09:45)
[2017-06-01] MEDS: risperiDONE 1 MG TAB PO SCH (09:45)
[2017-06-01] MEDS: LIDOCAINE HCL 5% PATCH T-DERMAL SCH (09:46)
[2017-06-01 10:29] LABS: AUTOMATED NEUTROPHIL # 9.6 TH/MM3 (1.8-7.7); BASOPHIL # 0.1 TH/MM3 (0-0.2); BASOPHIL % 0.6 % (0.0-2.0); EOSINOPHIL # 0.3 TH/MM3 (0-0.4); EOSINOPHIL % 1.9 % (0.0-4.0); HEMATOCRIT 36.5 % (39.0-51.0); HEMOGLOBIN 12.1 GM/DL (13.0-17.0); LYMPH % 19.8 % (9.0-44.0); LYMPHOCYTE # 2.7 TH/MM3 (1.0-4.8); MEAN CELL VOLUME 85.3 FL (80.0-100.0); MEAN CORPUSCULAR HEMOGLOBIN 28.3 PG (27.0-34.0); MEAN CORPUSCULAR HGB CONC 33.2 % (32.0-36.0); MEAN PLATELET VOLUME 6.8 FL (7.0-11.0); MONO % 6.4 % (0.0-8.0); MONOCYTE # 0.9 TH/MM3 (0-0.9); NEUT % 71.3 % (16.0-70.0); PLATELET COUNT 475 TH/MM3 (150-450); RED BLOOD COUNT 4.28 MIL/MM3 (4.50-5.90); RED CELL DISTRIBUTION WIDTH 15.3 % (11.6-17.2); WHITE BLOOD COUNT 13.5 TH/MM3 (4.0-11.0)
--- NOTE | 2017-06-01 10:34 | HHI.NSPN ---
(BelindaMich VERAS) History Chief Complaint: Neck and back pain. (Jarrod Trevinowilson VERAS) Interval History 05/25: 61-year-old male with previous history of IV drug use. States that roughly 5 days ago he developed severe progressive low back pain and approximate 3 days ago developed severe progressive left neck pain with some radiation of the shoulder. He denies any definite pain weakness and numbness in the upper extremities. Approximately 3 days ago he did develop some pain radiating across the right anterolateral thigh and lateral hip. Denies any fevers or chills No diarrhea or constipation. No nausea or vomiting. No headache, dizziness, vertigo 05/27: When seen this morning the patient is asleep but awakens to voice. He says he is doing okay but does have pain to the neck and lower back. His speech is slow but appropriate. He does move all extremities but keeps the right lower flexed due to the pain to it and his back. 05/28: This afternoon the patient is asleep but awakens to voice. He states he is okay and his pain is better today than yesterday since he had received medication for it. He did go for an MRI cervical spine yesterday evening. The patient went for a left C2 semi-laminectomy and evacuation of a C1-C2 level epidural abscess early in the evening . 05/29: Patient up in chair sitting comfortably. No complaints of significant neck pain. No complaints of weakness in the upper or lower extremities. He has a cervical collar in place but it is not correctly fit. 05/30: Patient is awake alert with his only complaint today being lack of sleep. No complaints of significant neck pain. 05/31/17: More comfortable today, some agitation and confusion last evening 06/01: When seen this morning the patient is awake and alert in bed watching TV. The patient complains of neck and back pain limiting his ability to move. He does say he has been up some but would like to get up more if he could. He spontaneously moves all extremities. His only complaint of numbness is to the left knee. The [facility] cervical collar is in place. (Mich Trevino) Exam Results 05/30/17 05/30/17 05/31/17 05/31/17 06/01/17 06/01/17 06:00 18:00 06:00 18:00 06:00 18:00 Intake Total 500 ml 1250 ml 262.5 ml Output Total 700 ml 2100 ml 600 ml Balance -200 ml 1250 ml -2100 ml -600 ml 262.5 ml Intake IV Total 500 ml 1250 ml 262.5 ml Output Urine Total 700 ml 2100 ml 600 ml # Voids 2 1 1 # Bowel Movements 1 1 2 Vital Signs Date Time Temp Pulse Resp B/P (MAP) Pulse Ox O2 Delivery O2 Flow Rate FiO2 06/01/17 07:40 98.1 104 20 152/85 (107) 95 06/01/17 05:38 18 06/01/17 05:18 99.4 107 18 148/87 (107) 96 06/01/17 00:34 97.4 119 18 124/74 (91) 96 05/31/17 21:03 98.0 120 18 139/89 (106) 97 05/31/17 18:37 166/101 (122) 05/31/17 16:00 98.1 111 20 175/113 (133) 96 05/31/17 12:22 98.5 108 20 181/110 (133) 96 05/31/17 08:13 98.0 124 20 167/111 (129) 95 05/31/17 04:00 129 20 183/109 (133) 95 05/31/17 02:41 97.7 133 20 178/107 (130) 91 05/31/17 00:00 97.0 97 18 113/75 (88) 94 05/30/17 20:00 97.8 118 20 165/95 (118) 95 05/30/17 18:32 19 05/30/17 12:00 98.2 108 18 141/99 (113) 97 05/30/17 08:00 98.0 108 17 152/95 (114) 96 05/30/17 05:36 152/91 (111) 05/30/17 04:00 97.6 111 18 96 05/30/17 00:00 97.3 97 18 148/86 (106) 96 05/29/17 16:00 97.7 106 18 151/92 (111) 98 05/29/17 12:00 97.9 112 18 129/82 (98) 96 (Mich Trevino) Physical Examination GENERAL: Awake & alert, readily interacts, slightly flat affect, appears mildly uncomfortable, no apparent distress. SKIN: Warm, dry & intact except for surgical incision to upper cervical spine w/ intact dressing. NECK: [place] cervical collar in place. Moderately TTP to midline cervical spine & left lateral paraspinal region. MUSCULOSKELETAL: NICOLE spontaneously. Midline thoracolumbar spine TTP at thoracolumbar junction and down. NEUROLOGICAL: AAOx3. Speech is clear & appropriate. Follows simple commands w/o difficulty. Sensation is decreased to left knee o/w intact to light touch to all extremities. Motor strength appears to be normal although patient has decreased effort which appears to be pain related. (Mich Trevino) Lab, Micro, Other Results Laboratory Tests Test 05/30/17 03:40 05/30/17 07:28 05/31/17 07:37 06/01/17 04:12 Vancomycin Level Trough 20.9 MCG/ML 17.6 MCG/ML White Blood Count 17.0 TH/MM3 21.7 TH/MM3 Red Blood Count 4.09 MIL/MM3 4.27 MIL/MM3 Hemoglobin 11.5 GM/DL 12.3 GM/DL Hematocrit 34.9 % 36.3 % Mean Corpuscular Volume 85.3 FL 85.1 FL Mean Corpuscular Hemoglobin 28.2 PG 28.7 PG Mean Corpuscular Hemoglobin Concent 33.1 % 33.7 % Red Cell Distribution Width 14.9 % 15.0 % Platelet Count 401 TH/MM3 465 TH/MM3 Mean Platelet Volume 8.0 FL 7.9 FL Neutrophils (%) (Auto) 70.0 % 74.3 % Lymphocytes (%) (Auto) 21.3 % 17.3 % Monocytes (%) (Auto) 7.3 % 6.5 % Eosinophils (%) (Auto) 1.1 % 1.1 % Basophils (%) (Auto) 0.3 % 0.8 % Neutrophils # (Auto) 11.9 TH/MM3 16.2 TH/MM3 Lymphocytes # (Auto) 3.6 TH/MM3 3.8 TH/MM3 Monocytes # (Auto) 1.2 TH/MM3 1.4 TH/MM3 Eosinophils # (Auto) 0.2 TH/MM3 0.2 TH/MM3 Basophils # (Auto) 0.0 TH/MM3 0.2 TH/MM3 CBC Comment DIFF FINAL DIFF FINAL Differential Comment Creatinine 0.83 MG/DL 0.65 MG/DL Estimat Glomerular Filtration Rate 95 ML/MIN 126 ML/MIN Blood Urea Nitrogen 11 MG/DL Random Glucose 111 MG/DL Calcium Level 8.7 MG/DL Sodium Level 136 MEQ/L Potassium Level 3.6 MEQ/L Chloride Level 101 MEQ/L Carbon Dioxide Level 26.0 MEQ/L Anion Gap 9 MEQ/L (Mich Trevino) Medical Decision Making Impression and Plan Impression: 1. L4 osteomyelitis. Paraspinous changes appears somewhat subacute. No definite focal abscess. Possible secondary right L4 radiculopathy related to inflammation along the nerve root. 2. L2-3 level changes noted on cervical MRI. Very difficult to accurately determine the nature of any cervical spine abnormalities given significant motion artifact. No definite abscess but may have moderate stenosis and possibly cord compression although signal intensity changes are not well evaluated on the current study. 3. History of IV drug abuse 4. Sepsis 5. History of coronary artery disease, status post stent on aspirin and Plavix No signs of definite focal radiculopathy or myelopathy, although right thigh pain may be related to right L4 nerve inflammation. Patient doing well but his pain is not well controlled, remains neurologically intact. Blood & wound cultures positive for methicillin-resistant Staphylococcus aureus on final. Blood cultures pending. Physical Therapy recommends further therapy, home vs inpatient. POD #4 () s/p: Left C2 semi-laminectomy, evacuation C1-C2 level epidural abscess-microtechnique Postoperative Diagnosis: (1) Abscess in epidural space of cervical spine Left C1-C2 level epidural abscess Plan: Plan of care discussed with the patient. Primary management per Hospitalist. Antibiotics per Infectious Disease. [place] cervical collar. Mobilise patient w/assistance. Mechanical DVT prophylaxis. Pharmacologic DVT prophylaxis. (Mich Trevino) Attending Statement The exam, history, and the medical decision-making described in the above note were completed with the assistance of the mid-level provider. I reviewed and agree with the findings presented. I attest that I had a [id number] encounter with the patient on the same day, and personally performed and documented my assessment and findings in the medical record. The left neck incision is dry and intact Relatively mild tenderness over the left cervical paraspinous musculature and across the left upper trapezius. Upper and lower extremity sensorimotor function is intact Complains of moderate low back pain Generally improving pain. Stable neurologic exam postoperative Discontinue cervical collar Continue therapy Treatment plan discussed with patient and all questions answered (Tawanda Vargas MD) Mich Trevino Jun 01, 2017 10:34 Tawanda Vargas MD Jun 01, 2017 21:08
[2017-06-01 10:52] LABS: CREATININE 0.85 MG/DL (0.60-1.30)
--- NOTE | 2017-06-01 11:00 | HHI.PR ---
Subjective Remarks Patient reports is feeling okay except for some neck discomfort. Pain medication is helping. Objective Vitals Vital Signs Date Time Temp Pulse Resp B/P (MAP) Pulse Ox O2 Delivery O2 Flow Rate FiO2 06/01/17 07:40 98.1 104 20 152/85 (107) 95 06/01/17 05:38 18 06/01/17 05:18 99.4 107 18 148/87 (107) 96 06/01/17 00:34 97.4 119 18 124/74 (91) 96 05/31/17 21:03 98.0 120 18 139/89 (106) 97 05/31/17 18:37 166/101 (122) 05/31/17 16:00 98.1 111 20 175/113 (133) 96 05/31/17 12:22 98.5 108 20 181/110 (133) 96 I/O 05/31/17 05/31/17 05/31/17 06/01/17 06/01/17 06/01/17 07:00 15:00 23:00 07:00 15:00 23:00 Intake Total 262.5 ml Output Total 2700 ml Balance -2700 ml 262.5 ml Intake IV Total 262.5 ml Output Urine Total 2700 ml # Voids 1 1 # Bowel Movements 2 Result Diagram: 06/01/17 1006 06/01/17 1006 Objective Remarks GENERAL: This is a well-nourished, well-developed patient, in no apparent distress. Cervical collar in place CARDIOVASCULAR: Normal rate and regular rhythm without murmurs, gallops, or rubs. RESPIRATORY: Good respiratory efforts. Breath sounds equal and clear to auscultation bilaterally. GASTROINTESTINAL: Abdomen soft, non-tender, non-distended. Normal active bowel sounds MUSCULOSKELETAL: Extremities without cyanosis, or edema. NEURO: Alert & Oriented x4 to person, place, time, situation. Moves all ext x4 PSYCH: Appropriate mood and affect. A/P Assessment and Plan 61-year-old male with Bacteremia, MRSA, Osteomyelitis, cervical spinal epidural - Sepsis criteria on admission - Neurosurgery following: Status post Left C2 semi-laminectomy, evacuation C1- C2 level epidural abscess-microtechnique on 05/28 - ID is following: MRSA sepsis, continue vancomycin keep trough 15-20, repeat blood cultures 05/28 two tubes with gram + cocci , wound cultures + MRSA, repeat blood cultures 05/31 - WILBERT negative with no evidence of endocarditis. Cardiology has signed off - Plan for PICC line placement after repeat blood cultures on 05/31 is negative for 3 days. Encephalopathy: Likely secondary to above. Mental status returned to baseline. - Continue to hold Ambien, hold sedatives - monitor closely CAD with stent placement - Aspirin, Plavix, and pravastatin resumed Back pain - Continue pain medications Bipolar disorder and anxiety - Continue home risperidone and buspirone Constipation - Bowel regimen while on narcotics GI prophylaxis:Stool softener PRN constipation. DVT PPx: Lovenox Discharge Planning Will need home IV antibiotics. Continue physical therapy and rehabilitation effort. Stephanie Potter MD Jun 01, 2017 11:00
[2017-06-01 11:50] VITALS: BP 159/94; PULSE 116; RESP 20; TEMP 97.9; O2SAT 96
[2017-06-01] MEDS: NS + KCL 20 MEQ INJ 1,000 ML IV SCH ×2 (12:08→21:26)
--- NOTE | 2017-06-01 14:29 | CF ---
cc: SUE BATEMAN DATE: 05/27/2017 PROCEDURE PERFORMED: Transesophageal echocardiogram. INDICATION: Sepsis. Osteomyelitis lumbar spine. Evaluation for endocarditis. PROCEDURE: After the patient was sedated by Anesthesia, transesophageal probe was placed without difficulty. Tomographic images were obtained. Left ventricular function was preserved. The left atrial appendage was visualized. There was no evidence of left atrial thrombus. The mitral valve was structurally normal; there was no evidence of mitral stenosis or regurgitation. There was no evidence of mitral valve vegetation. There evidence of mild mitral regurgitation with multiple jets of MR. There was no evidence mitral stenosis. The aortic valve was structurally normal; there was no evidence of aortic stenosis or regurgitation. There was no evidence of aortic valve vegetations. The tricuspid valve was structurally normal; there was no evidence of tricuspid stenosis. There was no evidence of tricuspid vegetation. There was evidence of trace tricuspid regurgitation. There was no evidence of pulmonary insufficiency. Bubble study was performed; there was no evidence of [id number] shunt. The descending thoracic aorta had no significant plaque. DIAGNOSES: 1. No evidence of valvular vegetations. 2. No evidence of patent foramen ovale. 3. Preserved left ventricular systolic function. 4. Mild mitral regurgitation. 5. Trace tricuspid regurgitation. IMPRESSION: No evidence of endocarditis. MD EDWIGE Lynn/SSB /2:01 PM /10:27 AM TESS
[2017-06-01] MEDS: ENOXAPARIN SODIUM 40 MG/0.4 ML SYRINGE SQ SCH (15:33)
[2017-06-01] MEDS: MORPHINE SULFATE 2 MG/ML INJ IV PUSH PRN (15:34)
[2017-06-01 16:36] VITALS: BP 135/81; PULSE 84; RESP 20; TEMP 97.9; O2SAT 95
[2017-06-01 20:44] VITALS: BP 136/79; PULSE 115; RESP 18; TEMP 98.1; O2SAT 97
[2017-06-01] MEDS: hydrOXYzine HCL 50 MG TAB PO SCH (21:26)
[2017-06-02] MEDS: MORPHINE SULFATE 2 MG/ML INJ IV PUSH PRN ×3 (00:34→23:27)
[2017-06-02 01:17] VITALS: BP 138/71; PULSE 115; RESP 19; TEMP 97.7; O2SAT 96
[2017-06-02] MEDS: ACETAMINOPHEN/HYDROcodone 325 MG/10 MG TAB PO PRN ×4 (03:34→21:06)
[2017-06-02] MEDS: VANCOMYCIN INJ 1,250 MG in SODIUM CHLOR 0.9% 250 ML INJ 250 ML IV SCH ×2 (03:35→16:26)
[2017-06-02 05:43] VITALS: BP 123/76; PULSE 107; RESP 18; TEMP 97.6; O2SAT 95
[2017-06-02] MEDS: GABAPENTIN 300 MG CAP PO SCH ×3 (08:22→17:39)
[2017-06-02] MEDS: CLOPIDOGREL 75 MG TAB PO SCH (08:22)
[2017-06-02] MEDS: LIDOCAINE HCL 5% PATCH T-DERMAL SCH (08:22)
[2017-06-02] MEDS: ATORVASTATIN 40 MG TAB PO SCH (08:23)
[2017-06-02] MEDS: ASPIRIN EC 81 MG TABEC PO SCH (08:23)
[2017-06-02] MEDS: risperiDONE 1 MG TAB PO SCH (08:23)
[2017-06-02] MEDS: busPIRone HCL 10 MG TAB PO SCH ×3 (08:23→17:39)
[2017-06-02 08:55] VITALS: BP 130/77; PULSE 105; RESP 20; TEMP 98; O2SAT 94
--- NOTE | 2017-06-02 10:28 | HHI.PR ---
Subjective Remarks Patient reports he is feeling better. Still having neck discomfort. Moving better overall. Afebrile. Objective Vitals Vital Signs Date Time Temp Pulse Resp B/P (MAP) Pulse Ox O2 Delivery O2 Flow Rate FiO2 06/02/17 08:55 98.0 105 20 130/77 (94) 94 06/02/17 05:43 97.6 107 18 123/76 (92) 95 06/02/17 05:01 18 06/02/17 01:17 97.7 115 19 138/71 (93) 96 06/02/17 00:45 18 06/01/17 20:44 98.1 115 18 136/79 (98) 97 06/01/17 16:36 97.9 84 20 135/81 (99) 95 06/01/17 11:50 97.9 116 20 159/94 (115) 96 I/O 06/01/17 06/01/17 06/01/17 06/02/17 06/02/17 06/02/17 07:00 15:00 23:00 07:00 15:00 23:00 Intake Total 1000 ml 1982.5 ml Output Total 750 ml Balance 1000 ml 1982.5 ml -750 ml Intake Oral 720 ml IV Total 1000 ml 1262.5 ml Output Urine Total 750 ml # Voids 1 3 Result Diagram: 06/01/17 1006 06/01/17 1006 Objective Remarks GENERAL: This is a well-nourished, well-developed patient, in no apparent distress. CARDIOVASCULAR: Normal rate and regular rhythm without murmurs, gallops, or rubs. RESPIRATORY: Good respiratory efforts. Breath sounds equal and clear to auscultation bilaterally. GASTROINTESTINAL: Abdomen soft, non-tender, non-distended. Normal active bowel sounds MUSCULOSKELETAL: Extremities without cyanosis, or edema. NEURO: Alert & Oriented x4 to person, place, time, situation. Moves all ext x4 PSYCH: Appropriate mood and affect. A/P Assessment and Plan 61-year-old male with Bacteremia, MRSA, Osteomyelitis, cervical spinal epidural - Sepsis criteria on admission - Neurosurgery following: Status post Left C2 semi-laminectomy, evacuation C1- C2 level epidural abscess-microtechnique on 05/28 - ID is following: MRSA sepsis, continue vancomycin keep trough 15-20, repeat blood cultures 05/28 two tubes with gram + cocci , wound cultures + MRSA, repeat blood cultures 05/31 - WILBERT negative with no evidence of endocarditis. Cardiology has signed off - Plan for PICC line placement after repeat blood cultures on 05/31 is negative for 3 days. Follow-up results tomorrow. Encephalopathy: Likely secondary to above. Resolved. Mental status returned to baseline. - Continue to hold Ambien, hold sedatives - monitor closely CAD with stent placement - Aspirin, Plavix, and pravastatin resumed Back pain - Continue pain medications Bipolar disorder and anxiety - Continue home risperidone and buspirone Constipation - Bowel regimen while on narcotics GI prophylaxis:Stool softener PRN constipation. DVT PPx: Lovenox Discharge Planning Will need home IV antibiotics. ID following. Continue physical therapy and rehabilitation effort. Stephanie Potter MD Jun 02, 2017 10:28
[2017-06-02] MEDS: NS + KCL 20 MEQ INJ 1,000 ML IV SCH ×2 (10:51→21:07)
[2017-06-02 12:19] VITALS: BP 126/79; PULSE 107; RESP 20; TEMP 97.9; O2SAT 95
--- NOTE | 2017-06-02 15:05 | HHI.FF ---
Infusion Therapy Location of Infusion Therapy: Home [facility] Care IV Infusion Order Patient Information Patient Weight 72.6 kg Diagnosis: Coded Allergies: No Known Allergies (Verified Adverse Reaction, Unknown, 05/24/17) Administer Medication televancin 10 mg/kg daily IV Start Treatment: Jun 03, 2017 Stop Treatment: Jul 22, 2017 Additional Information Venous access: PICC Line Additional Instructions [x] Peripheral flush and dressing changes per protocol [x] Implanted port and central first line production supervisor: * Implanted port: 10 ml Normal Saline followed by 5 ml Heparin 100 units/ml Heparin flush after each use and monthly to maintain. [] May leave port accessed during therapy. [] May leave peripheral site accessed for duration of therapy. [x] If patient has SOB or respiratory distress, check oxygen saturation. If less than 90% or clinical signs of respiratory distress, administer oxygen at 2 L/min. via nasal cannula and notify physician. [x] Anaphylaxis/Reaction orders: * Stop infusion. * Keep IV line open with saline flush. * Notify physician. * Monitor vital signs every 15 minutes until symptoms resolve. * Check Oxygen saturation; Oxygen at 2 L/min. via nasal cannula if less than 90% or clinical signs of respiratory distress. * Administer diphenhydramine (Benadryl) 25 mg IV STAT, (unless patient has received as pre-med). May repeat once, if necessary. * Solu-Cortef 250 mg IVP over 30-60 seconds, use 100 mg vials for each dissolution. * Epinephrine (1mg/1 ml) 0.3 mg subcutaneously or IVP now with any signs of respiratory distress. * Check with physician for new additional pre-med orders if patient is re- challenged or re-treated. [x] May remove PICC line when treatment complete, after confirming with Physician. [x] If the patient is admitted to the hospital, the ED, or transferred via [facility] , complete transfer form including medication reconciliation order sheet. Laboratory Tests Weekly Labs: CBC w/diff, Creatinine (every wednesday and ) Judith Moreira MD Jun 02, 2017 15:05
[2017-06-02 15:35] VITALS: BP 126/79; PULSE 111; RESP 20; TEMP 98.4; O2SAT 95
[2017-06-02] MEDS: ENOXAPARIN SODIUM 40 MG/0.4 ML SYRINGE SQ SCH (16:26)
[2017-06-02 20:30] VITALS: BP 154/74; PULSE 59; RESP 18; TEMP 98; O2SAT 98
[2017-06-02] MEDS: hydrOXYzine HCL 50 MG TAB PO SCH (21:06)
[2017-06-03 00:11] VITALS: BP 151/98; PULSE 109; RESP 17; TEMP 97.5; O2SAT 96
[2017-06-03] MEDS: VANCOMYCIN INJ 1,250 MG in SODIUM CHLOR 0.9% 250 ML INJ 250 ML IV SCH ×2 (03:36→16:20)
[2017-06-03] MEDS: ACETAMINOPHEN/HYDROcodone 325 MG/10 MG TAB PO PRN ×4 (03:42→21:32)
[2017-06-03 04:46] VITALS: BP 135/82; PULSE 111; RESP 18; TEMP 98; O2SAT 97
[2017-06-03 07:38] LABS: HEMATOCRIT 34.7 % (39.0-51.0); MEAN CELL VOLUME 85.3 FL (80.0-100.0); MEAN CORPUSCULAR HEMOGLOBIN 29.5 PG (27.0-34.0); MEAN CORPUSCULAR HGB CONC 34.6 % (32.0-36.0); MEAN PLATELET VOLUME 7.2 FL (7.0-11.0); PLATELET COUNT 458 TH/MM3 (150-450); RED BLOOD COUNT 4.06 MIL/MM3 (4.50-5.90); RED CELL DISTRIBUTION WIDTH 15.2 % (11.6-17.2); WHITE BLOOD COUNT 16.4 TH/MM3 (4.0-11.0)
[2017-06-03 07:57] LABS: CREATININE 0.83 MG/DL (0.60-1.30)
[2017-06-03 08:41] VITALS: BP 144/69; PULSE 109; RESP 20; TEMP 97.6; O2SAT 98
[2017-06-03] MEDS: risperiDONE 1 MG TAB PO SCH (08:47)
[2017-06-03] MEDS: ATORVASTATIN 40 MG TAB PO SCH (08:47)
[2017-06-03] MEDS: GABAPENTIN 300 MG CAP PO SCH ×3 (08:48→17:39)
[2017-06-03] MEDS: ASPIRIN EC 81 MG TABEC PO SCH (08:48)
[2017-06-03] MEDS: CLOPIDOGREL 75 MG TAB PO SCH (08:49)
[2017-06-03] MEDS: busPIRone HCL 10 MG TAB PO SCH ×3 (08:49→17:39)
[2017-06-03] MEDS: LIDOCAINE HCL 5% PATCH T-DERMAL SCH (08:50)
[2017-06-03] MEDS: NS + KCL 20 MEQ INJ 1,000 ML IV SCH ×2 (08:50→21:34)
[2017-06-03] MEDS ORDERED: NEUR300C PO (10:34)
[2017-06-03] MEDS ORDERED: HYDR-3583 PO (10:34)
[2017-06-03] MEDS ORDERED: LIDO1ADH4 T-DERMAL (10:34)
[2017-06-03] MEDS ORDERED: ROBA500T PO (10:34)
--- NOTE | 2017-06-03 10:36 | HHI.FF ---
Face to Face Verification Diagnosis: (1) Abscess in epidural space of cervical spine (2) Sepsis (3) Chronic post-traumatic stress disorder (PTSD) (4) CAD (coronary artery disease) (5) Bipolar disorder (6) Osteomyelitis of lumbar spine Physical Therapy Order: Evaluate and Treat, Improve ambulation, Strength and gait training Home Health Nursing Order: Medical education Medication education-adverse effect Nursing assessment with vital signs I have seen patient Phillip Colón on 06/03/17. My clinical findings support the need for the requested home health care services because: Limited ability to care for self Infection w/ risk of complications I certify that my clinical findings support that this patient is homebound because: Unsafe to leave home unassisted Stephanie Potter MD Jun 03, 2017 10:36
--- NOTE | 2017-06-03 10:37 | HHI.DS ---
Discharge Summary Admission Date May 24, 2017 at 17:33 Discharge Date: Jun 03, 2017 Admitting Diagnosis osteomyelitis lumbar spine. Paraspinal abscess lumbar spine (1) Abscess in epidural space of cervical spine ICD Code: G06.1 - Intraspinal abscess and granuloma (2) Chronic post-traumatic stress disorder (PTSD) ICD Code: F43.12 - Post-traumatic stress disorder, chronic Status: Acute (3) Bipolar disorder ICD Code: F31.9 - Bipolar disorder Status: Chronic (4) Paraspinal abscess ICD Code: M46.20 - Osteomyelitis of vertebra, site unspecified Status: Acute (5) Dissociative identity disorder ICD Code: F44.81 - Dissociative identity disorder Status: Acute (6) IVDU (intravenous drug user) ICD Code: F19.90 - Other psychoactive substance use, unspecified, uncomplicated Procedures Left C2 semi-laminectomy, evacuation C1-C2 level epidural abscess-microtechnique Brief History - From Admission 61-year-old white male who presented with upper neck and lower back pain. Pain has been worsening over the past 4 days prior to admission. He reported fevers and chills. Patient does have a history of IV drug use with Dilaudid dating a few months back. Workup in the emergency room revealed paraspinal abscess. CBC/BMP: 06/03/17 0550 06/03/17 0550 Significant Findings Laboratory Tests Test 06/01/17 04:12 06/01/17 10:06 06/03/17 05:50 Vancomycin Level Trough 17.6 MCG/ML (5.0-10.0) White Blood Count 13.5 TH/MM3 (4.0-11.0) 16.4 TH/MM3 (4.0-11.0) Red Blood Count 4.28 MIL/MM3 (4.50-5.90) 4.06 MIL/MM3 (4.50-5.90) Hemoglobin 12.1 GM/DL (13.0-17.0) 12.0 GM/DL (13.0-17.0) Hematocrit 36.5 % (39.0-51.0) 34.7 % (39.0-51.0) Platelet Count 475 TH/MM3 (150-450) 458 TH/MM3 (150-450) Mean Platelet Volume 6.8 FL (7.0-11.0) Neutrophils (%) (Auto) 71.3 % (16.0-70.0) Neutrophils # (Auto) 9.6 TH/MM3 (1.8-7.7) Imaging Last Impressions Chest X-Ray 06/03/17 Signed Impressions: Service Date/Time: May 12:53 - CONCLUSION: Normal examination. PICC line on the right side placement with its tip overlying the SVC. Sebastian Ernandez MD Cervical Spine X-Ray 05/28/17 Signed Impressions: Service Date/Time: Sunday, May 28, 2017 18:42 - CONCLUSION: Posterior metallic marker at C1-2. Cornelio Cherry MD Cervical Spine MRI 05/27/17 0000 Signed Impressions: Service Date/Time: May 18:07 - CONCLUSION: Left anterolateral epidural abscess of the upper cervical spine as described above. There is marrow edema of C2 that mainly appears reactive. I don't clearly see osteomyelitis. Also no cord compression or cord signal abnormality. Findings discussed with Dr. Vargas by phone. Ramos Evans MD Thoracic Spine MRI 05/24/17 Signed Impressions: Service Date/Time: Wednesday, May 24, 2017 14:52 - CONCLUSION: 1. Examination is somewhat limited due to motion artifact on every pulse sequence. 2. However , studies are adequate to exclude osteomyelitis. No vertebral body edema or abnormal enhancement. Spinal canal is widely patent throughout without cord compromise. Mango Spence MD Lumbar Spine MRI 05/24/17 Signed Impressions: Service Date/Time: Wednesday, May 24, 2017 14:52 - CONCLUSION: 1. Diffuse bone marrow edema with abnormal enhancement and cortical erosion involving the L4 characteristic of osteomyelitis. 2. No significant enhancement of the L3-4 disc. 3. Enhancing paraspinal soft tissue with small fluid collections characteristic of phlegmon and small abscesses. 4. Mild degenerative disc disease of L1-2 and L2-3 5. No other significant abnormality. Jewel Martin MD Consultation 05/24/17 Signed Impressions: Service Date/Time: Wednesday, May 24, 2017 00:00 - CONCLUSION: No drainable collection identified at present. Ramos Najera MD PE at Discharge GENERAL: This is a well-nourished, well-developed patient, in no apparent distress. CARDIOVASCULAR: Normal rate and regular rhythm without murmurs, gallops, or rubs. RESPIRATORY: Good respiratory efforts. Breath sounds equal and clear to auscultation bilaterally. GASTROINTESTINAL: Abdomen soft, non-tender, non-distended. Normal active bowel sounds MUSCULOSKELETAL: Extremities without cyanosis, or edema. NEURO: Alert & Oriented x4 to person, place, time, situation. Moves all ext x4 PSYCH: Appropriate mood and affect. Pt update on day of discharge Patient reports is feeling better except for some neck discomfort. States he is moving better. Hospital Course 61-year-old male with history of IV drug use admitted and treated for the following: Bacteremia, MRSA, Osteomyelitis, cervical spinal epidural - Sepsis criteria on admission. Patient was followed by neurosurgery. He underwent Left C2 semi-laminectomy, evacuation C1-C2 level epidural abscess- microtechnique on 05/28/17. Patient was followed by infectious disease. wound cultures + MRSA. He was treated with IV vancomycin. WILBERT was negative for endocarditis. Blood cultures followed until repeat is negative. Patient will continue on antibiotics until July 17. A PICC line has been placed. He does have a history of IV drug use and multiple personality disorder. It was deemed to be unsafe to treat him at home. Therefore the patient is discharged to SNF to complete antibiotics course. Encephalopathy: Likely secondary to sepsis as above. Mental status returned to baseline. CAD with stent placement - Continue Aspirin, Plavix, and pravastatin Back pain - Continue pain medications Bipolar disorder and anxiety Multiple personality disorder - Continue home risperidone and buspirone Pt Condition on Discharge: Good Discharge Disposition: Discharge to SNF Discharge Time: > 30 minutes Discharge Instructions DIET: Follow Instructions for: As Tolerated, No Restrictions Activities you can perform: Regular-No Restrictions Follow up Referrals: Neurosurgery PCP Follow-up New Medications: Epinephrine Inj (Epinephrine Inj) 1 Mg/Ml (1 Ml) Inj 0.3 MG IV PUSH ONCE PRN for ALLERGIC REACTION, #1 VIAL Epinephrine Inj (Epinephrine Inj) 1 Mg/Ml (1 Ml) Inj 0.3 MG SQ ONCE PRN for ALLERGIC REACTION, #1 VIAL Give with any signs of respiratory distress. Hydrocortisone Inj (Solu-Cortef Inj) 250 Mg/2 Ml Inj 250 MG IV PUSH ONCE PRN for ALLERGIC REACTION, #1 VIAL 0 Refills Give over 30-60 seconds. Telavancin Inj (Vibativ Inj) 750 Mg Inj 750 MG IV Q24H for Infection for 60 Days, BAG 0 Refills Gabapentin (Neurontin) 300 Mg Cap 300 MG PO TID, #90 CAP Hydrocodone/Acetaminophen (Hydrocodone-Acetamin 10-325 mg) 10 Mg-325 Mg Tablet 1 TAB PO Q4H PRN for PAIN GREATER THAN 5, #30 Lidocaine (Lidoderm) 5 % Adh..patch 1 PATCH T-DERMAL DAILY, #15 PATCH Continued Medications: Aspirin DR (Aspirin EC) 81 Mg Tabdr 81 MG PO DAILY, TAB 0 Refills Atorvastatin (Atorvastatin) 40 Mg Tab 40 MG PO DAILY for Cholesterol Management, #30 TAB 0 Refills Buspirone (Buspirone) 10 Mg Tab 10 MG PO TID for Anxiety, TAB 0 Refills Clopidogrel (Plavix) 75 Mg Tab 75 MG PO DAILY for Blood Clot Prevention, #30 TAB 0 Refills Hydroxyzine HCl (Hydroxyzine HCl) 50 Mg Tab 50 MG PO HS, TAB 0 Refills Methocarbamol (Robaxin) 500 Mg Tab 500 MG PO QID PRN for MUSCLE SPASM, #30 TAB 0 Refills (This prescription has been renewed) Risperidone (Risperidone) 1 Mg Tab 1 MG PO DAILY, #30 TAB 0 Refills Discontinued Medications: Ibuprofen (Ibuprofen) 600 Mg Tab 600 MG PO Q8HR PRN for PAIN, #30 TAB 0 Refills Stephanie Potter MD Jun 03, 2017 10:37
[2017-06-03 11:54] VITALS: BP 129/66; PULSE 111; RESP 20; TEMP 98.3; O2SAT 96
--- NOTE | 2017-06-03 12:50 | HHI.NSPN ---
History Chief Complaint: Continues to have some neck and back pain. Interval History 05/25: 61-year-old male with previous history of IV drug use. States that roughly 5 days ago he developed severe progressive low back pain and approximate 3 days ago developed severe progressive left neck pain with some radiation of the shoulder. He denies any definite pain weakness and numbness in the upper extremities. Approximately 3 days ago he did develop some pain radiating across the right anterolateral thigh and lateral hip. Denies any fevers or chills No diarrhea or constipation. No nausea or vomiting. No headache, dizziness, vertigo 05/27: When seen this morning the patient is asleep but awakens to voice. He says he is doing okay but does have pain to the neck and lower back. His speech is slow but appropriate. He does move all extremities but keeps the right lower flexed due to the pain to it and his back. 05/28: This afternoon the patient is asleep but awakens to voice. He states he is okay and his pain is better today than yesterday since he had received medication for it. He did go for an MRI cervical spine yesterday evening. The patient went for a left C2 semi-laminectomy and evacuation of a C1-C2 level epidural abscess early in the evening . 05/29: Patient up in chair sitting comfortably. No complaints of significant neck pain. No complaints of weakness in the upper or lower extremities. He has a cervical collar in place but it is not correctly fit. 05/30: Patient is awake alert with his only complaint today being lack of sleep. No complaints of significant neck pain. 05/31/17: More comfortable today, some agitation and confusion last evening 06/01: When seen this morning the patient is awake and alert in bed watching TV. The patient complains of neck and back pain limiting his ability to move. He does say he has been up some but would like to get up more if he could. He spontaneously moves all extremities. His only complaint of numbness is to the left knee. The [place] cervical collar is in place. 06/03: The patient is sitting up eating lunch when seen. He does say he has some pain to the neck, more so to the surgical incision, and also to the back. He does say his pain is better controlled now. He denies any pain, numbness, tingling or weakness to the extremities. Exam Results 06/01/17 06/01/17 06/02/17 06/02/17 06/03/17 06/03/17 06:00 18:00 06:00 18:00 06:00 18:00 Intake Total 262.5 ml 2256.5 ml 726 ml 2084 ml 240 ml Output Total 1750 ml 1850 ml Balance 262.5 ml 2256.5 ml 726 ml 334 ml -1610 ml Intake Oral 720 ml 720 ml 240 ml IV Total 262.5 ml 1536.5 ml 726 ml 1364 ml Output Urine Total 1750 ml 1850 ml # Voids 1 3 # Bowel Movements 1 1 Vital Signs Date Time Temp Pulse Resp B/P (MAP) Pulse Ox O2 Delivery O2 Flow Rate FiO2 06/03/17 11:54 98.3 111 20 129/66 (87) 96 06/03/17 08:41 97.6 109 20 144/69 (94) 98 06/03/17 04:46 98.0 111 18 135/82 (99) 97 06/03/17 00:11 97.5 109 17 151/98 (115) 96 06/02/17 20:30 98.0 59 18 154/74 (100) 98 06/02/17 17:26 18 06/02/17 15:35 98.4 111 20 126/79 (95) 95 06/02/17 13:37 20 06/02/17 12:19 97.9 107 20 126/79 (95) 95 06/02/17 08:55 98.0 105 20 130/77 (94) 94 06/02/17 05:43 97.6 107 18 123/76 (92) 95 06/02/17 01:17 97.7 115 19 138/71 (93) 96 06/01/17 20:44 98.1 115 18 136/79 (98) 97 06/01/17 16:36 97.9 84 20 135/81 (99) 95 06/01/17 11:50 97.9 116 20 159/94 (115) 96 06/01/17 07:40 98.1 104 20 152/85 (107) 95 06/01/17 05:18 99.4 107 18 148/87 (107) 96 06/01/17 00:34 97.4 119 18 124/74 (91) 96 05/31/17 21:03 98.0 120 18 139/89 (106) 97 05/31/17 18:37 166/101 (122) 05/31/17 16:00 98.1 111 20 175/113 (133) 96 Physical Examination GENERAL: Awake & alert, readily interacts, normal affect, no apparent distress. SKIN: Warm, dry & intact except for surgical incision to left lateral posterior neck w/intact steri-strips, no drainage, erythema or streaking noted. NECK: Moderately TTP to the left lateral posterior neck surgical incision & minimally TTP to the midline cervical spine. MUSCULOSKELETAL: NICOLE spontaneously. Midline thoracolumbar spine mildly TTP at thoracolumbar junction and down. NEUROLOGICAL: AAOx3. Speech is clear & appropriate. Follows simple commands w/o difficulty. Sensation is intact to light touch to all extremities. Motor strength appears to be normal although patient has decreased effort which appears to be pain related. Lab, Micro, Other Results Laboratory Tests Test 06/01/17 04:12 06/01/17 10:06 06/03/17 05:50 Vancomycin Level Trough 17.6 MCG/ML White Blood Count 13.5 TH/MM3 16.4 TH/MM3 Red Blood Count 4.28 MIL/MM3 4.06 MIL/MM3 Hemoglobin 12.1 GM/DL 12.0 GM/DL Hematocrit 36.5 % 34.7 % Mean Corpuscular Volume 85.3 FL 85.3 FL Mean Corpuscular Hemoglobin 28.3 PG 29.5 PG Mean Corpuscular Hemoglobin Concent 33.2 % 34.6 % Red Cell Distribution Width 15.3 % 15.2 % Platelet Count 475 TH/MM3 458 TH/MM3 Mean Platelet Volume 6.8 FL 7.2 FL Neutrophils (%) (Auto) 71.3 % Lymphocytes (%) (Auto) 19.8 % Monocytes (%) (Auto) 6.4 % Eosinophils (%) (Auto) 1.9 % Basophils (%) (Auto) 0.6 % Neutrophils # (Auto) 9.6 TH/MM3 Lymphocytes # (Auto) 2.7 TH/MM3 Monocytes # (Auto) 0.9 TH/MM3 Eosinophils # (Auto) 0.3 TH/MM3 Basophils # (Auto) 0.1 TH/MM3 CBC Comment DIFF FINAL Differential Comment Creatinine 0.85 MG/DL 0.83 MG/DL Estimat Glomerular Filtration Rate 92 ML/MIN 95 ML/MIN Medical Decision Making Impression and Plan Impression: 1. L4 osteomyelitis. Paraspinous changes appears somewhat subacute. No definite focal abscess. Possible secondary right L4 radiculopathy related to inflammation along the nerve root. 2. L2-3 level changes noted on cervical MRI. Very difficult to accurately determine the nature of any cervical spine abnormalities given significant motion artifact. No definite abscess but may have moderate stenosis and possibly cord compression although signal intensity changes are not well evaluated on the current study. 3. History of IV drug abuse 4. Sepsis 5. History of coronary artery disease, status post stent on aspirin and Plavix No signs of definite focal radiculopathy or myelopathy, although right thigh pain may be related to right L4 nerve inflammation. Patient continues to do well and his pain is better controlled, remains neurologically intact. Reviewed labs for today. Interval increase in leukocytosis. Haemoglobin essentially stable. Interval improvement in thrombocytosis. Renal function stable. Blood & wound cultures positive for methicillin-resistant Staphylococcus aureus on final. Blood cultures no growth x3 days. Physical Therapy recommends further therapy, home vs inpatient. POD #6 () s/p: Left C2 semi-laminectomy, evacuation C1-C2 level epidural abscess-microtechnique Postoperative Diagnosis: (1) Abscess in epidural space of cervical spine Left C1-C2 level epidural abscess Plan: Plan of care discussed with the patient. Primary management per Hospitalist. Antibiotics per Infectious Disease. Mobilise patient w/assistance. Mechanical DVT prophylaxis. Pharmacologic DVT prophylaxis. Will continue to intermittently follow while in the hospital. Mich Trevino Jun 03, 2017 12:50
--- NOTE | 2017-06-03 13:17 | RADRPT ---
EXAM DATE/TIME: 06/03/2017 12:53 [facility] COMPARISON: CHEST SINGLE AP, May 24, 2017, 13:30. INDICATIONS : Evaluate PICC line placement MEDICAL HISTORY : Hypertension. Gastroesophageal reflux disease. Myocardial infarction. CVA. SURGICAL HISTORY : Tonsillectomy. Cardiac valve replacement ENCOUNTER: Initial ACUITY: 4 - 6 days PAIN SCORE: 0/10 LOCATION: Bilateral chest FINDINGS: A single view of the chest demonstrates the lungs to be symmetrically aerated without evidence of mas s, infiltrate or effusion. The cardiomediastinal contours are unremarkable. Osseous structures are intact. CONCLUSION: Normal examination. PICC line on the right side placement with its tip overlying the SVC. Sebastian Ernandez MD on June 03, 2017 at 13:15 Board Certified Radiologist. This report was verified electronically.
[2017-06-03] MEDS ORDERED: SODIUM CHLORIDE 0.9% FLUSH 10 ML FLUSH IV FLUSH PRN (14:45)
[2017-06-03 15:49] VITALS: BP 117/65; PULSE 111; RESP 20; TEMP 97.3; O2SAT 99
[2017-06-03] MEDS: ENOXAPARIN SODIUM 40 MG/0.4 ML SYRINGE SQ SCH (16:20)
--- NOTE | 2017-06-03 17:38 | HHI.IDPN ---
Subjective Subjective Remarks sp Left C2 semi-laminectomy, evacuation C1-C2 level epidural abscess- microtechnique on May 28, [address] Vargas WILBERT negative for vegtaions Last clx remian positive afebrile Antibiotics vanco Allergies: Coded Allergies: No Known Allergies (Verified Adverse Reaction, Unknown, 05/24/17) Objective . Vital Signs Date Time Temp Pulse Resp B/P (MAP) Pulse Ox O2 Delivery O2 Flow Rate FiO2 06/03/17 15:49 97.3 111 20 117/65 (82) 99 06/03/17 11:54 98.3 111 20 129/66 (87) 96 06/03/17 08:41 97.6 109 20 144/69 (94) 98 06/03/17 04:46 98.0 111 18 135/82 (99) 97 06/03/17 00:11 97.5 109 17 151/98 (115) 96 06/02/17 20:30 98.0 59 18 154/74 (100) 98 06/03/17 06/03/17 06/04/17 15:00 23:00 07:00 Intake Total 720 ml Output Total 500 ml Balance 220 ml Intake Oral 720 ml Output Urine Total 500 ml # Voids 3 # Bowel Movements 1 . Laboratory Tests Test 06/03/17 05:50 White Blood Count 16.4 TH/MM3 Red Blood Count 4.06 MIL/MM3 Hemoglobin 12.0 GM/DL Hematocrit 34.7 % Mean Corpuscular Volume 85.3 FL Mean Corpuscular Hemoglobin 29.5 PG Mean Corpuscular Hemoglobin Concent 34.6 % Red Cell Distribution Width 15.2 % Platelet Count 458 TH/MM3 Mean Platelet Volume 7.2 FL Laboratory Tests Test 06/03/17 05:50 Creatinine 0.83 MG/DL Estimat Glomerular Filtration Rate 95 ML/MIN Imaging Last Impressions Chest X-Ray 06/03/17 0000 Signed Impressions: Service Date/Time: May 12:53 - CONCLUSION: Normal examination. PICC line on the right side placement with its tip overlying the SVC. Sebastian Ernandez MD Cervical Spine X-Ray 05/28/17 0000 Signed Impressions: Service Date/Time: Sunday, May 28, 2017 18:42 - CONCLUSION: Posterior metallic marker at C1-2. Cornelio Cherry MD Cervical Spine MRI 05/27/17 Signed Impressions: Service Date/Time: May 18:07 - CONCLUSION: Left anterolateral epidural abscess of the upper cervical spine as described above. There is marrow edema of C2 that mainly appears reactive. I don't clearly see osteomyelitis. Also no cord compression or cord signal abnormality. Findings discussed with Dr. Vargas by phone. Ramos Evans MD Thoracic Spine MRI 05/24/17 Signed Impressions: Service Date/Time: Wednesday, May 24, 2017 14:52 - CONCLUSION: 1. Examination is somewhat limited due to motion artifact on every pulse sequence. 2. However , studies are adequate to exclude osteomyelitis. No vertebral body edema or abnormal enhancement. Spinal canal is widely patent throughout without cord compromise. Mango Spence MD Lumbar Spine MRI 05/24/17 Signed Impressions: Service Date/Time: Wednesday, May 24, 2017 14:52 - CONCLUSION: 1. Diffuse bone marrow edema with abnormal enhancement and cortical erosion involving the L4 characteristic of osteomyelitis. 2. No significant enhancement of the L3-4 disc. 3. Enhancing paraspinal soft tissue with small fluid collections characteristic of phlegmon and small abscesses. 4. Mild degenerative disc disease of L1-2 and L2-3 5. No other significant abnormality. Jewel Martin MD Consultation 05/24/17 Signed Impressions: Service Date/Time: Wednesday, May 24, 2017 00:00 - CONCLUSION: No drainable collection identified at present. Ramos Najera MD Physical Exam CONSTITUTIONAL/GENERAL: This is an adequately nourished patient, in no apparent distress. TUBES/LINES/DRAINS: SKIN: No jaundice, rashes, or lesions. No needle track hopper . Skin temperature appropriate. Not diaphoretic. EYES: Pupils equal and round and reactive. Extraocular motions intact. No scleral icterus. No injection or drainage. Fundi not examined. NECK: small dry incision on L posterior neck no erythema, no edema CARDIOVASCULAR: Regular rate and rhythm without murmurs, gallops, or rubs. No JVD. Peripheral pulses symmetric. RESPIRATORY/CHEST: Symmetric, unlabored respirations. Clear to auscultation. Breath sounds equal bilaterally. No wheezes, rales, or rhonchi. GASTROINTESTINAL: Abdomen soft, non-tender, nondistended. No hepato-splenomegaly , or palpable masses. No guarding. Bowel sounds present. MUSCULOSKELETAL: Extremities without clubbing, cyanosis, or edema. No joint tenderness or effusion noted. No calf tenderness. No mottling or clubbing. NEUROLOGICAL: Lethargic, easily arousable . Motor and sensory grossly within normal limits. Follows commands. clear speech . Moves all extremities. 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 source - cont vancomycin; keep trough 15-20 - repeat BC; will repeat sensitivity if posst op blood clx are agian positive - anticipate 8 weeks of IV abx tx; OPAT forms filled opuit - PICC fu WBC OK to dc Judith Moreira MD Jun 03, 2017 17:38
[2017-06-03 21:00] VITALS: BP 101/69; PULSE 109; RESP 19; TEMP 98; O2SAT 98
[2017-06-03] MEDS: hydrOXYzine HCL 50 MG TAB PO SCH (21:32)
[2017-06-03] MEDS: MORPHINE SULFATE 2 MG/ML INJ IV PUSH PRN (22:45)
[2017-06-04 00:30] VITALS: BP 105/70; PULSE 110; RESP 20; TEMP 97.8; O2SAT 97
[2017-06-04] MEDS: ACETAMINOPHEN/HYDROcodone 325 MG/10 MG TAB PO PRN ×3 (03:28→15:46)
[2017-06-04] MEDS: VANCOMYCIN INJ 1,250 MG in SODIUM CHLOR 0.9% 250 ML INJ 250 ML IV SCH (03:28)
[2017-06-04 03:45] LABS: AUTOMATED NEUTROPHIL # 9.5 TH/MM3 (1.8-7.7); BASOPHIL # 0.1 TH/MM3 (0-0.2); BASOPHIL % 0.5 % (0.0-2.0); EOSINOPHIL # 0.1 TH/MM3 (0-0.4); EOSINOPHIL % 1.1 % (0.0-4.0); HEMATOCRIT 32.9 % (39.0-51.0); HEMOGLOBIN 11.2 GM/DL (13.0-17.0); LYMPH % 21.7 % (9.0-44.0); MEAN CORPUSCULAR HEMOGLOBIN 28.9 PG (27.0-34.0); MEAN PLATELET VOLUME 6.7 FL (7.0-11.0); MONO % 7.8 % (0.0-8.0); MONOCYTE # 1.1 TH/MM3 (0-0.9); NEUT % 68.9 % (16.0-70.0); PLATELET COUNT 516 TH/MM3 (150-450); RED BLOOD COUNT 3.88 MIL/MM3 (4.50-5.90); WHITE BLOOD COUNT 13.9 TH/MM3 (4.0-11.0)
[2017-06-04 04:30] VITALS: BP 110/72; PULSE 112; RESP 21; TEMP 98.8; O2SAT 98
[2017-06-04 08:00] VITALS: BP 164/89; PULSE 106; RESP 18; TEMP 97.3; O2SAT 98
[2017-06-04] MEDS: NS + KCL 20 MEQ INJ 1,000 ML IV SCH (08:42)
[2017-06-04] MEDS: ASPIRIN EC 81 MG TABEC PO SCH (08:43)
[2017-06-04] MEDS: CLOPIDOGREL 75 MG TAB PO SCH (08:43)
[2017-06-04] MEDS: ATORVASTATIN 40 MG TAB PO SCH (08:43)
[2017-06-04] MEDS: GABAPENTIN 300 MG CAP PO SCH ×2 (08:43→13:09)
[2017-06-04] MEDS: busPIRone HCL 10 MG TAB PO SCH ×2 (08:43→13:09)
[2017-06-04] MEDS: risperiDONE 1 MG TAB PO SCH (08:44)
[2017-06-04] MEDS: LIDOCAINE HCL 5% PATCH T-DERMAL SCH (08:45)
[2017-06-04] MEDS ORDERED: SODIUM CHLORIDE 0.9% FLUSH 10 ML FLUSH IV FLUSH SCH (09:00)
[2017-06-04] MEDS: MORPHINE SULFATE 2 MG/ML INJ IV PUSH PRN (11:27)
--- NOTE | 2017-06-04 11:39 | HHI.PR ---
Subjective Remarks Patient reports to the neck pain is slightly improved. Ambulating better. Patient is medically cleared for discharge. Awaiting SNF placement Objective Vitals Vital Signs Date Time Temp Pulse Resp B/P (MAP) Pulse Ox O2 Delivery O2 Flow Rate FiO2 06/04/17 08:00 97.3 106 18 164/89 (114) 98 06/04/17 04:30 98.8 112 21 110/72 (85) 98 06/04/17 00:30 97.8 110 20 105/70 (82) 97 06/03/17 21:00 98.0 109 19 101/69 (80) 98 06/03/17 15:49 97.3 111 20 117/65 (82) 99 06/03/17 11:54 98.3 111 20 129/66 (87) 96 I/O 06/03/17 06/03/17 06/03/17 06/04/17 06/04/17 06/04/17 07:00 15:00 23:00 07:00 15:00 23:00 Intake Total 240 ml 720 ml 900 ml 1200 ml Output Total 1850 ml 500 ml 300 ml 900 ml Balance -1610 ml 220 ml 600 ml 300 ml Intake Oral 240 ml 720 ml 900 ml 1200 ml Output Urine Total 1850 ml 500 ml 300 ml 900 ml # Voids 3 # Bowel Movements 1 1 0 0 Result Diagram: 06/04/17 0334 06/03/17 0550 Objective Remarks GENERAL: This is a well-nourished, well-developed patient, in no apparent distress. CARDIOVASCULAR: Normal rate and regular rhythm without murmurs, gallops, or rubs. RESPIRATORY: Good respiratory efforts. Breath sounds equal and clear to auscultation bilaterally. GASTROINTESTINAL: Abdomen soft, non-tender, non-distended. Normal active bowel sounds MUSCULOSKELETAL: Extremities without cyanosis, or edema. NEURO: Alert & Oriented x4 to person, place, time, situation. Moves all ext x4 PSYCH: Appropriate mood and affect. Procedures Left C2 semi-laminectomy, evacuation C1-C2 level epidural abscess-microtechnique A/P Problem List: (1) Abscess in epidural space of cervical spine ICD Code: G06.1 - Intraspinal abscess and granuloma (2) Chronic post-traumatic stress disorder (PTSD) ICD Code: F43.12 - Post-traumatic stress disorder, chronic Status: Acute (3) Bipolar disorder ICD Code: F31.9 - Bipolar disorder Status: Chronic (4) Paraspinal abscess ICD Code: M46.20 - Osteomyelitis of vertebra, site unspecified Status: Acute (5) Dissociative identity disorder ICD Code: F44.81 - Dissociative identity disorder Status: Acute (6) IVDU (intravenous drug user) ICD Code: F19.90 - Other psychoactive substance use, unspecified, uncomplicated Assessment and Plan 61-year-old male with history of IV drug use admitted and treated for the following: Bacteremia, MRSA, Osteomyelitis, cervical spinal epidural - Sepsis criteria on admission. Patient was followed by neurosurgery. He underwent Left C2 semi-laminectomy, evacuation C1-C2 level epidural abscess- microtechnique on 05/28/17. Patient was followed by infectious disease. wound cultures + MRSA. He was treated with IV vancomycin. WILBERT was negative for endocarditis. Blood cultures followed until repeat is negative. Patient will continue on antibiotics until July 17. A PICC line has been placed. He does have a history of IV drug use and multiple personality disorder. It was deemed to be unsafe to treat him at home. Therefore he is discharged to SNF to continue antibiotics. Encephalopathy: Likely secondary to sepsis as above. Mental status returned to baseline. CAD with stent placement - Continue Aspirin, Plavix, and pravastatin Back pain - Continue pain medications Bipolar disorder and anxiety Multiple personality disorder - Continue home risperidone and buspirone GI prophylaxis:Stool softener PRN constipation. DVT PPx: Lovenox Discharge Planning DC to SNF once arrangements are made. Stephanie Potter MD Jun 04, 2017 11:39
[2017-06-04 12:00] VITALS: BP 125/68; PULSE 109; RESP 18; TEMP 97.9; O2SAT 99
--- NOTE | 2017-06-04 15:38 | HHI.FF ---
Infusion Therapy Location of Infusion Therapy: [facility] Infusion Therapy Order Patient Information Patient Weight 67 kg Diagnosis: Coded Allergies: No Known Allergies (Verified Adverse Reaction, Unknown, 05/24/17) Administer Medication Vancomycin 1250 IV mg q 12 Start Treatment: Jun 04, 2017 Stop Treatment: Jul 22, 2017 Additional Information Venous access: PICC Line Additional Instructions [x] Peripheral flush and dressing changes per protocol [x] Implanted port and central mason liner: * Implanted port: 10 ml Normal Saline followed by 5 ml Heparin 100 units/ml Heparin flush after each use and monthly to maintain. [] May leave port accessed during therapy. [] May leave peripheral site accessed for duration of therapy. [x] If patient has SOB or respiratory distress, check oxygen saturation. If less than 90% or clinical signs of respiratory distress, administer oxygen at 2 L/min. via nasal cannula and notify physician. [x] Anaphylaxis/Reaction orders: * Stop infusion. * Keep IV line open with saline flush. * Notify physician. * Monitor vital signs every 15 minutes until symptoms resolve. * Check Oxygen saturation; Oxygen at 2 L/min. via nasal cannula if less than 90% or clinical signs of respiratory distress. * Administer diphenhydramine (Benadryl) 25 mg IV STAT, (unless patient has received as pre-med). May repeat once, if necessary. * Solu-Cortef 250 mg IVP over 30-60 seconds, use 100 mg vials for each dissolution. * Epinephrine (1mg/1 ml) 0.3 mg subcutaneously or IVP now with any signs of respiratory distress. * Check with physician for new additional pre-med orders if patient is re- challenged or re-treated. [x] May remove PICC line when treatment complete, after confirming with Physician. [x] If the patient is admitted to the hospital, the ED, or transferred via [facility] , complete transfer form including medication reconciliation order sheet. Laboratory Tests Weekly Labs: Creatinine, CRP, SED Rate, Vancomycin Trough Judith Moreira MD Jun 04, 2017 15:38
[2017-06-04] MEDS ORDERED: EPIN1INJ21 SQ (15:41)
[2017-06-04] MEDS ORDERED: EPIN1INJ21 IV PUSH (15:41)
[2017-06-04] MEDS ORDERED: SOLU250I IV PUSH (15:41)
[2017-06-04] MEDS ORDERED: VANC10IN IV (15:41)
== END 2017-06-04 16:24 | DRG 853 ==
LOC: PHED 13:09 → PHEDA 17:33 → NEPGCP 22:51 → N05A 05-28 13:32
PROVIDERS: ADMIT Family Medicine; ATTEND Family Medicine
PROC: 00CU0ZZ Extirpation of Matter from Spinal Canal, Open Approach (ICD-10-PCS; principal; 2017-05-28 17:39)
PROC: 02HV33Z Insertion of Infusion Device into Superior Vena Cava, Percutaneous Approach (ICD-10-PCS; 2017-06-03)
DX: A41.02 Sepsis due to Methicillin resistant Staphylococcus aureus (principal); G06.1 Intraspinal abscess and granuloma; G93.40 Encephalopathy, unspecified; M46.26 Osteomyelitis of vertebra, lumbar region; I10 Essential (primary) hypertension; F31.9 Bipolar disorder, unspecified; F90.9 Attention-deficit hyperactivity disorder, unspecified type; I25.10 Atherosclerotic heart disease of native coronary artery without angina pectoris; F43.12 Post-traumatic stress disorder, chronic; E78.00 Pure hypercholesterolemia, unspecified; K21.9 Gastro-esophageal reflux disease without esophagitis; G89.29 Other chronic pain; F17.210 Nicotine dependence, cigarettes, uncomplicated; B95.62 Methicillin resistant Staphylococcus aureus infection as the cause of diseases classified elsewhere; R00.0 Tachycardia, unspecified; M54.5 Low back pain; F44.81 Dissociative identity disorder; D64.9 Anemia, unspecified; K59.00 Constipation, unspecified; M48.02 Spinal stenosis, cervical region; M51.36 Other intervertebral disc degeneration, lumbar region; R31.9 Hematuria, unspecified; R45.1 Restlessness and agitation; Z86.718 Personal history of other venous thrombosis and embolism; Z86.73 Personal history of transient ischemic attack (TIA), and cerebral infarction without residual deficits; Z79.01 Long term (current) use of anticoagulants; I25.2 Old myocardial infarction; Z95.2 Presence of prosthetic heart valve; Z95.5 Presence of coronary angioplasty implant and graft
CPT/HCPCS: 71045; 72020; 72156; 72157; 72158; 76000; 80048; 80053; 80202; 81001; 82565; 83605; 85025; 85027; 85652; 86140; 86403; 86850; 86900; 86901; 86902; 86920; 86922; 87015; 87040; 87070; 87086; 87102; 87116; 87147; 87176; 87186; 87205; 87206; 87804; 93005; 93308; 93312; 93320; 93325; 94150; 96361; 96374; 96375; A9579; J0131; J1100; J1170; J1580; J1642; J1650; J1956; J2060; J2250; J2270; J2370; J2405; J3010; J3370; J3480; J7030; J7040; J7050; J7120; L0172

== ENCOUNTER 2017-06-13 20:00 | Emergency (ER) | payer MEDICARE ==
[~2017-06-13] VITALS: Ht 172.7 cm; Wt 52.2 kg
[~2017-06-13 20:00] MED LIST changes: -DOXY100C PO; -ENAL5TAB PO; +EPIN1INJ21 IV PUSH; +EPIN1INJ21 SQ; +HYDR-3583 PO; -IBUP-232 PO; +LIDO1ADH4 T-DERMAL; -METO50TA PO; -MIRT30TA PO; +NEUR300C PO; +PLAV75TA29 PO; +SOLU250I IV PUSH; -TRAM50TA PO; +VANC10IN IV
[2017-06-13 20:05] VITALS: BP 130/93; PULSE 117; RESP 20; TEMP 98.2; O2SAT 97
--- NOTE | 2017-06-13 20:18 | PD ---
HPI Chief Complaint: Nosebleed Time Seen by Provider: 20:13 Travel History International Travel<30 days: No Contact w/Intl Traveler<30days: No Traveled to known affect area: No History of Present Illness HPI 61-year-old male patient with history of previous CAD, hypertension, currently being treated for osteomyelitis of the spine, gets daily IV vancomycin, is here today sent in from nursing care facility because he started having epistaxis. There has been to episode at the facility apparently and they noted that his blood pressure was elevated. Patient denies any chest pains, shortness of breath, or other issues. He states this started on his own when he woke up with it. Modifying Factors: None Associated Signs & Symptoms: Epistaxis Risk Factors: Patient is on aspirin and Plavix PFSH Past Medical History Hx Anticoagulant Therapy: Yes (EFFIENT ) ADHD: Yes Arthritis: No Asthma: No Autoimmune Disease: No Blood Disorders: No Bipolar Disorder: Yes Anxiety: Yes Depression: Yes Cancer: No Cardiovascular Problems: Yes High Cholesterol: Yes (under control at this time) Chemotherapy: No Chest Pain: No Congestive Heart Failure: No COPD: No Cerebrovascular Accident: Yes Coronary Artery Disease: Yes Diabetes: No Diminished Hearing: No Endocrine: No GERD: Yes Glaucoma: No Genitourinary: No Headaches: No Hepatitis: Yes (C) Hiatal Hernia: No Hypertension: Yes Immune Disorder: Yes Kidney Stones: No Musculoskeletal: Yes Neurologic: Yes (left arm/shoulder nerve damage) Psychiatric: Yes (PTSD) Reproductive: No Respiratory: No Migraines: No Myocardial Infarction: Yes Radiation Therapy: No Renal Failure: Yes Seizures: No Sickle Cell Disease: No Sleep Apnea: No Thyroid Disease: No Triglycerides - High: Yes Ulcer: No Past Surgical History Abdominal Surgery: No AICD: No Appendectomy: No Arteriovenous Shunt: No Cardiac Surgery: Yes (cath; valve replacement) Cholecystectomy: No Ear Surgery: No Endocrine Surgery: No Eye Surgery: No Genitourinary Surgery: No Gynecologic Surgery: No Insulin Pump: No Joint Replacement: No Oral Surgery: Yes (sinuses many years ago, tonsillectomy) Pacemaker: No Thoracic Surgery: No Tonsillectomy: Yes (childhood) Other Surgery: Yes (SINUSES MANY YEARS AGO, tonsillectomy) Social History Alcohol Use: No Tobacco Use: No (QUIT A MONTH AGO) Substance Use: No Allergies-Medications (Allergen,Severity, Reaction): Coded Allergies: No Known Allergies (Verified Adverse Reaction, Unknown, 06/13/17) Reported Meds & Prescriptions Reported Meds & Active Scripts Active Epinephrine Inj 1 Mg/Ml (1 Ml) Inj 0.3 Mg SQ ONCE PRN Give with any signs of respiratory distress. Epinephrine Inj 1 Mg/Ml (1 Ml) Inj 0.3 Mg IV PUSH ONCE PRN Solu-Cortef Inj (Hydrocortisone Sodium Succinate) 250 Mg/2 Ml Inj 250 Mg IV PUSH ONCE PRN Give over 30-60 seconds. Vancomycin Inj (Vancomycin HCl) 10 Gram Inj 1,250 Mg IV BID 60 Days Lidoderm (Lidocaine) 5 % Adh..patch 1 Patch T-DERMAL DAILY Neurontin (Gabapentin) 300 Mg Cap 300 Mg PO TID Hydrocodone-Acetamin 10-325 mg (Hydrocodone/Acetaminophen) 10 Mg-325 Mg Tablet 1 Tab PO Q4H PRN Robaxin (Methocarbamol) 500 Mg Tab 500 Mg PO QID PRN Reported Plavix (Clopidogrel Bisulfate) 75 Mg Tab 75 Mg PO DAILY Buspirone (Buspirone HCl) 10 Mg Tab 10 Mg PO TID Risperidone 1 Mg Tab 1 Mg PO DAILY Atorvastatin (Atorvastatin Calcium) 40 Mg Tab 40 Mg PO DAILY Hydroxyzine HCl 50 Mg Tab 50 Mg PO HS Aspirin EC (Aspirin) 81 Mg Tabdr 81 Mg PO DAILY Review of Systems Except as stated in HPI: all other systems reviewed are Neg Physical Exam Narrative GENERAL: Well-developed middle age male patient currently in mild distress. Awake and oriented 3. SKIN: Focused skin assessment warm/dry. HEAD: Atraumatic. Normocephalic. EYES: Pupils equal and round. No scleral icterus. No injection or drainage. ENT: There is notable left nostril nasal bleeding, clots, no septal hematoma identified. Mucous membranes pink and moist. NECK: Trachea midline. No JVD. CARDIOVASCULAR: Regular rate and rhythm. No murmur appreciated. RESPIRATORY: No accessory muscle use. Clear to auscultation. Breath sounds equal bilaterally. GASTROINTESTINAL: Abdomen soft, non-tender, nondistended. Hepatic and splenic margins not palpable. MUSCULOSKELETAL: No obvious deformities. No clubbing. No cyanosis. No edema. NEUROLOGICAL: Awake and alert. No obvious cranial nerve deficits. Motor grossly within normal limits. Normal speech. PSYCHIATRIC: Appropriate mood and affect; insight and judgment normal. Data Data Last Documented VS Vital Signs Date Time Temp Pulse Resp B/P (MAP) Pulse Ox O2 Delivery O2 Flow Rate FiO2 06/13/17 20:11 20 06/13/17 20:05 98.2 117 130/93 (105) 97 Orders Orders Complete Blood Count With Diff (06/13/17 20:13) Basic Metabolic Panel (Bmp) (06/13/17 20:13) Prothrombin Time / Inr (Pt) (06/13/17 20:13) Act Partial Throm Time (Ptt) (06/13/17 20:13) Type And Screen (06/13/17 20:13) Benzocaine 20% Oral Spr (Hurricaine 20% (06/13/17 20:45) Red Blood Cells (Rbc) (06/13/17 20:31) Ed Discharge Order (06/13/17 21:31) Labs Laboratory Tests Test 06/13/17 20:31 White Blood Count 13.0 TH/MM3 Red Blood Count 4.08 MIL/MM3 Hemoglobin 11.3 GM/DL Hematocrit 33.3 % Mean Corpuscular Volume 81.6 FL Mean Corpuscular Hemoglobin 27.7 PG Mean Corpuscular Hemoglobin Concent 33.9 % Red Cell Distribution Width 14.9 % Platelet Count 536 TH/MM3 Mean Platelet Volume 6.6 FL Neutrophils (%) (Auto) 78.2 % Lymphocytes (%) (Auto) 12.3 % Monocytes (%) (Auto) 7.7 % Eosinophils (%) (Auto) 1.3 % Basophils (%) (Auto) 0.5 % Neutrophils # (Auto) 10.2 TH/MM3 Lymphocytes # (Auto) 1.6 TH/MM3 Monocytes # (Auto) 1.0 TH/MM3 Eosinophils # (Auto) 0.2 TH/MM3 Basophils # (Auto) 0.1 TH/MM3 CBC Comment DIFF FINAL Differential Comment Prothrombin Time 10.6 SEC Prothromb Time International Ratio 1.0 RATIO Activated Partial Thromboplast Time 27.3 SEC Blood Urea Nitrogen 27 MG/DL Creatinine 0.97 MG/DL Random Glucose 130 MG/DL Calcium Level 8.8 MG/DL Sodium Level 136 MEQ/L Potassium Level 3.9 MEQ/L Chloride Level 106 MEQ/L Carbon Dioxide Level 23.7 MEQ/L Anion Gap 6 MEQ/L Estimat Glomerular Filtration Rate 79 ML/MIN MDM Medical Decision Making Medical Screen Exam Complete: Yes Emergency Medical Condition: Yes Medical Record Reviewed: Yes Interpretation(s) Laboratory Tests Test 06/13/17 20:31 White Blood Count 13.0 TH/MM3 (4.0-11.0) Red Blood Count 4.08 MIL/MM3 (4.50-5.90) Hemoglobin 11.3 GM/DL (13.0-17.0) Hematocrit 33.3 % (39.0-51.0) Platelet Count 536 TH/MM3 (150-450) Mean Platelet Volume 6.6 FL (7.0-11.0) Neutrophils (%) (Auto) 78.2 % (16.0-70.0) Neutrophils # (Auto) 10.2 TH/MM3 (1.8-7.7) Monocytes # (Auto) 1.0 TH/MM3 (0-0.9) Blood Urea Nitrogen 27 MG/DL (7-18) Random Glucose 130 MG/DL (74-106) Estimat Glomerular Filtration Rate 79 ML/MIN (>89) Differential Diagnosis Epistaxis Narrative Course H&H appears to be stable. Rhino Rocket was placed in the left nostril by me without issues. At this point, epistaxis seems to have stopped and my plan would be to release the patient with follow-up to ENT at facility. He is already on antibiotics and has pain medications at the facility. Return for any worsening in bleeding or new symptoms as needed. The plan has been discussed with the patient and he states understanding. Diagnosis Primary Impression: Epistaxis Additional Instructions: Follow-up with your urine is in throat doctor to get the nasal tampon out. Return for any worsening in pain, bleeding, and as needed. Disposition: 03 DISCHARGE TO SNF Condition: Stable Dontae Bean MD Jun 13, 2017 20:18
[2017-06-13] MEDS ORDERED: BENZOCAINE 20% ORAL SPR 60 ML CAN OTHER ONE (20:45)
[2017-06-13 20:56] LABS: AUTOMATED NEUTROPHIL # 10.2 TH/MM3 (1.8-7.7); BASOPHIL # 0.1 TH/MM3 (0-0.2); BASOPHIL % 0.5 % (0.0-2.0); EOSINOPHIL # 0.2 TH/MM3 (0-0.4); EOSINOPHIL % 1.3 % (0.0-4.0); HEMATOCRIT 33.3 % (39.0-51.0); HEMOGLOBIN 11.3 GM/DL (13.0-17.0); LYMPH % 12.3 % (9.0-44.0); LYMPHOCYTE # 1.6 TH/MM3 (1.0-4.8); MEAN CELL VOLUME 81.6 FL (80.0-100.0); MEAN CORPUSCULAR HEMOGLOBIN 27.7 PG (27.0-34.0); MEAN CORPUSCULAR HGB CONC 33.9 % (32.0-36.0); MEAN PLATELET VOLUME 6.6 FL (7.0-11.0); MONO % 7.7 % (0.0-8.0); NEUT % 78.2 % (16.0-70.0); PLATELET COUNT 536 TH/MM3 (150-450); RED BLOOD COUNT 4.08 MIL/MM3 (4.50-5.90); RED CELL DISTRIBUTION WIDTH 14.9 % (11.6-17.2)
[2017-06-13 21:10] LABS: PROTHROMBIN TIME - PATIENT 10.6 SEC (9.8-11.6)
[2017-06-13 21:12] LABS: BICARBONATE 23.7 MEQ/L (21.0-32.0); CALCIUM 8.8 MG/DL (8.5-10.1); CREATININE 0.97 MG/DL (0.60-1.30)
== END 2017-06-14 00:40 ==
LOC: NEPE 20:00 → NEDAMB 06-14 00:40
DX: R04.0 Epistaxis (principal); E78.00 Pure hypercholesterolemia, unspecified; I10 Essential (primary) hypertension; I25.10 Atherosclerotic heart disease of native coronary artery without angina pectoris; I25.2 Old myocardial infarction; Z79.02 Long term (current) use of antithrombotics/antiplatelets
CPT/HCPCS: 80048; 85025; 85610; 85730; 86850; 86900; 86901; 86920; 86922; 99283

== ENCOUNTER 2017-09-05 03:20 | Inpatient (IN) | payer MEDICARE, OTHER ==
[2017-09-05] VITALS (7 sets, daily range): BP systolic 140–170; BP diastolic 83–100; PULSE 96–104; RESP 12–20; TEMP 97.7–98.1; O2SAT 97–100
[~2017-09-05] VITALS: Ht 172.7 cm; Wt 77.0 kg
[2017-09-05] MEDS ORDERED: KETOROLAC TROMETHAMINE 30 MG/ML (IVP) VIAL IV PUSH ONE (03:30)
--- NOTE | 2017-09-05 03:39 | PD ---
HPI Chief Complaint: Back/ Neck Pain or Injury Time Seen by Provider: 03:23 Travel History International Travel<30 days: No Contact w/Intl Traveler<30days: No Traveled to known affect area: No History of Present Illness HPI This is a 61-year-old male with a history of cervical abscess in May 2017, presents here from the skilled nursing in custody with complaints of back and neck pain. Patient denies any fevers, chills. Patient reports the back and neck pain is associated with sharp pains running down his legs bilaterally. There is no report of incontinence. There is no report of weakness. He denies any recent IV drug use. He did state that he had used drugs in the past. He has been in skilled nursing for the last 7 days. PFSH Past Medical History Hx Anticoagulant Therapy: Yes (EFFIENT ) ADHD: Yes Arthritis: No Asthma: No Autoimmune Disease: No Blood Disorders: No Bipolar Disorder: Yes Anxiety: Yes Depression: Yes Cancer: No Cardiovascular Problems: Yes High Cholesterol: Yes Chemotherapy: No Chest Pain: No Congestive Heart Failure: No COPD: No Cerebrovascular Accident: Yes Coronary Artery Disease: Yes Diabetes: No Diminished Hearing: No Endocrine: No GERD: Yes Glaucoma: No Genitourinary: No Headaches: No Hepatitis: Yes (C) Hiatal Hernia: No Hypertension: Yes Immune Disorder: Yes Kidney Stones: No Musculoskeletal: Yes Neurologic: Yes (left arm/shoulder nerve damage) Psychiatric: Yes (PTSD) Reproductive: No Respiratory: No Migraines: No Myocardial Infarction: Yes Radiation Therapy: No Renal Failure: Yes Seizures: No Sickle Cell Disease: No Sleep Apnea: No Thyroid Disease: No Triglycerides - High: Yes Ulcer: No Past Surgical History Abdominal Surgery: No AICD: No Appendectomy: No Arteriovenous Shunt: No Cardiac Surgery: Yes (cath; valve replacement) Cholecystectomy: No Ear Surgery: No Endocrine Surgery: No Eye Surgery: No Genitourinary Surgery: No Gynecologic Surgery: No Insulin Pump: No Joint Replacement: No Oral Surgery: Yes (sinuses ) Pacemaker: No Thoracic Surgery: No Tonsillectomy: Yes Other Surgery: Yes Social History Alcohol Use: No Tobacco Use: No Substance Use: No Allergies-Medications (Allergen,Severity, Reaction): Coded Allergies: No Known Allergies (Verified Adverse Reaction, Unknown, 06/13/17) Reported Meds & Prescriptions Reported Meds & Active Scripts Active Epinephrine Inj 1 Mg/Ml (1 Ml) Inj 0.3 Mg SQ ONCE PRN Give with any signs of respiratory distress. Epinephrine Inj 1 Mg/Ml (1 Ml) Inj 0.3 Mg IV PUSH ONCE PRN Solu-Cortef Inj (Hydrocortisone Sodium Succinate) 250 Mg/2 Ml Inj 250 Mg IV PUSH ONCE PRN Give over 30-60 seconds. Vancomycin Inj (Vancomycin HCl) 10 Gram Inj 1,250 Mg IV BID 60 Days Lidoderm (Lidocaine) 5 % Adh..patch 1 Patch T-DERMAL DAILY Neurontin (Gabapentin) 300 Mg Cap 300 Mg PO TID Hydrocodone-Acetamin 10-325 mg (Hydrocodone/Acetaminophen) 10 Mg-325 Mg Tablet 1 Tab PO Q4H PRN Robaxin (Methocarbamol) 500 Mg Tab 500 Mg PO QID PRN Reported Plavix (Clopidogrel Bisulfate) 75 Mg Tab 75 Mg PO DAILY Buspirone (Buspirone HCl) 10 Mg Tab 10 Mg PO TID Risperidone 1 Mg Tab 1 Mg PO DAILY Atorvastatin (Atorvastatin Calcium) 40 Mg Tab 40 Mg PO DAILY Hydroxyzine HCl 50 Mg Tab 50 Mg PO HS Aspirin EC (Aspirin) 81 Mg Tabdr 81 Mg PO DAILY Review of Systems Except as stated in HPI: all other systems reviewed are Neg General / Constitutional: No: Fever, Chills HENT: Positive: Neck Pain (Posterior cervical), No: Headaches Cardiovascular: No: Chest Pain or Discomfort, Palpitations Respiratory: No: Cough, Shortness of Breath Gastrointestinal: No: Nausea, Vomiting, Abdominal Pain Genitourinary: No: Dysuria, Incontinence Musculoskeletal: Positive: Limited ROM (Secondary to pain), Pain (Lumbar and cervical. Patient states he feels as though it is moving into his thoracic as well.), No: Weakness Neurologic: Positive: Paresthesia (Pain down the legs from the lumbar spine. He reports bilateral.), No: Weakness, Headache, Sensory Disturbance Physical Exam Narrative GENERAL: Well-developed well-nourished male in no acute respiratory distress. SKIN: Focused skin assessment warm/dry. HEAD: Atraumatic. Normocephalic. EYES: Pupils equal and round. No scleral icterus. No injection or drainage. ENT: No nasal bleeding or discharge. Mucous membranes pink and moist. NECK: Trachea midline. Supple. Patient has subjective paraspinous discomfort in his mid cervical area. No posterior spinous process tenderness. CARDIOVASCULAR: Regular rate and rhythm. No murmur appreciated. RESPIRATORY: No accessory muscle use. Clear to auscultation. Breath sounds equal bilaterally. GASTROINTESTINAL: Abdomen soft, non-tender, nondistended. Hepatic and splenic margins not palpable. MUSCULOSKELETAL: No obvious deformities. No clubbing. No cyanosis. No edema. BACK: No CVA tenderness. No rash. She reports pain in his lower lumbar region. At level L4. He used reports radiation to his left lateral paraspinous area. NEUROLOGICAL: Awake and alert. No obvious cranial nerve deficits. Motor grossly within normal limits. Normal speech. Data Data Last Documented VS Vital Signs Date Time Temp Pulse Resp B/P (MAP) Pulse Ox O2 Delivery O2 Flow Rate FiO2 09/05/17 06:58 98 18 146/93 (110) 98 09/05/17 03:21 97.7 Orders Orders Complete Blood Count With Diff (09/05/17 03:23) Basic Metabolic Panel (Bmp) (09/05/17 03:23) Iv Access Insert/Monitor (09/05/17 03:23) Ecg Monitoring (09/05/17 03:23) Oximetry (09/05/17 03:23) Ketorolac Inj (Toradol Inj) (09/05/17 03:30) Mri L Spine W&W/O Contrast (09/05/17 03:23) Lorazepam Inj (Ativan Inj) (09/05/17 04:30) Morphine Inj (Morphine Inj) (09/05/17 05:15) Lorazepam Inj (Ativan Inj) (09/05/17 05:15) Diphenhydramine Inj (Benadryl Inj) (09/05/17 05:15) Ondansetron Inj (Zofran Inj) (09/05/17 05:15) Ct Lumb Spine W/O Contrast (09/05/17 05:53) Mri C Spine W/O Contrast (09/05/17 03:23) Mri T Spine W/O Contrast (09/05/17 03:23) Blood Culture (09/05/17 07:02) Labs Laboratory Tests Test 09/05/17 03:30 White Blood Count 13.0 TH/MM3 Red Blood Count 5.30 MIL/MM3 Hemoglobin 14.8 GM/DL Hematocrit 44.3 % Mean Corpuscular Volume 83.7 FL Mean Corpuscular Hemoglobin 28.0 PG Mean Corpuscular Hemoglobin Concent 33.4 % Red Cell Distribution Width 15.8 % Platelet Count 371 TH/MM3 Mean Platelet Volume 7.9 FL Neutrophils (%) (Auto) 65.8 % Lymphocytes (%) (Auto) 26.2 % Monocytes (%) (Auto) 6.6 % Eosinophils (%) (Auto) 0.8 % Basophils (%) (Auto) 0.6 % Neutrophils # (Auto) 8.5 TH/MM3 Lymphocytes # (Auto) 3.4 TH/MM3 Monocytes # (Auto) 0.9 TH/MM3 Eosinophils # (Auto) 0.1 TH/MM3 Basophils # (Auto) 0.1 TH/MM3 CBC Comment AUTO DIFF Differential Comment AUTO DIFF CONFIRMED Blood Urea Nitrogen 15 MG/DL Creatinine 1.02 MG/DL Random Glucose 85 MG/DL Calcium Level 9.6 MG/DL Sodium Level 139 MEQ/L Potassium Level 4.4 MEQ/L Chloride Level 104 MEQ/L Carbon Dioxide Level 26.5 MEQ/L Anion Gap 9 MEQ/L Estimat Glomerular Filtration Rate 75 ML/MIN [facility] Medical Decision Making Medical Screen Exam Complete: Yes Emergency Medical Condition: Yes Differential Diagnosis Lumbar radiculopathy versus recurrent epidural abscess versus muscular strain. Narrative Course 61-year-old male with a history of IV drug use in the past, previous epidural abscess in the cervical spine, presents today with complaints of severe low back pain. Patient also reports pain in his cervical spine and thoracic spine. There is no reported fevers, chills. Patient is in custody. We were able to obtain an MRI of his cervical and thoracic spine. Those show no evidence of acute abscess. He would not sit still enough to obtain the lumbar MRI. A lumbar CT was ordered instead. Lumbar CT shows what appears to be discitis and osteomyelitis and appears much worse than his previous MRI. Given this, he will be admitted to the hospital. Blood cultures have been sent. He will be started on vancomycin. There is a call out to the admitting service. Diagnosis Primary Impression: Intractable back pain Additional Impressions: Lumbar spine discitis and osteomyelitis History of IV drug use Admitting Information Admitting Physician Requests: Admit Rodo Golden MD Sep 05, 2017 03:39
[2017-09-05 03:40] LABS: AUTOMATED NEUTROPHIL # 8.5 TH/MM3 (1.8-7.7); BASOPHIL # 0.1 TH/MM3 (0-0.2); BASOPHIL % 0.6 % (0.0-2.0); EOSINOPHIL # 0.1 TH/MM3 (0-0.4); EOSINOPHIL % 0.8 % (0.0-4.0); HEMATOCRIT 44.3 % (39.0-51.0); HEMOGLOBIN 14.8 GM/DL (13.0-17.0); LYMPH % 26.2 % (9.0-44.0); LYMPHOCYTE # 3.4 TH/MM3 (1.0-4.8); MEAN CELL VOLUME 83.7 FL (80.0-100.0); MEAN CORPUSCULAR HGB CONC 33.4 % (32.0-36.0); MEAN PLATELET VOLUME 7.9 FL (7.0-11.0); MONO % 6.6 % (0.0-8.0); MONOCYTE # 0.9 TH/MM3 (0-0.9); NEUT % 65.8 % (16.0-70.0); PLATELET COUNT 371 TH/MM3 (150-450); RED CELL DISTRIBUTION WIDTH 15.8 % (11.6-17.2)
[2017-09-05 04:08] LABS: BICARBONATE 26.5 MEQ/L (21.0-32.0); CALCIUM 9.6 MG/DL (8.5-10.1); CREATININE 1.02 MG/DL (0.60-1.30)
[2017-09-05] MEDS ORDERED: LORazepam 2 MG/ML VIAL IV PUSH ONE ×2 (04:30→05:15)
[2017-09-05] MEDS ORDERED: MORPHINE SULFATE 8 MG/ML INJ IV PUSH ONE (05:15)
[2017-09-05] MEDS ORDERED: ONDANSETRON HCL 4 MG/2 ML VIAL IV PUSH ONE (05:15)
[2017-09-05] MEDS ORDERED: diphenhydrAMINE HCL 50 MG/ML VIAL IV PUSH ONE (05:15)
--- NOTE | 2017-09-05 06:24 | RADRPT ---
EXAM DATE/TIME: 09/05/2017 04:13 [facility] COMPARISON: No previous studies available for comparison. INDICATIONS : Abscess. MEDICAL HISTORY : Hypertension. Gastroesophageal reflux disease. Myocardial infarction. SURGICAL HISTORY : Tonsillectomy. Aortic valve replacement ENCOUNTER: Initial ACUITY: 2 day PAIN SCORE: 5/10 LOCATION: neck TECHNIQUE: Multiplanar, multisequence MRI examination of the cervical spine was performed. FINDINGS: Examination is degraded by motion artifact. VERTEBRAE: Normal vertebral body height. Homogeneous marrow signal. ALIGNMENT: There is loss of the natural lordosis. CORD: Normal configuration and signal. POST FOSSA: The cerebellar tonsils are normal in position. C2-C3: The thecal sac has a normal configuration. There is no evidence of disc herniation or spinal canal s tenosis. The neural foramina are patent bilaterally. C3-C4: Mild central bulge. No bottom of the cord or central canal stenosis. Neural foraminal are patent. C4-C5: There is a mild broad-based disc bulge. This just touches the ventral portion of the cervical cord wi thout compression. Anterior to posterior dimension of the central canal in the midline is 8 mm. Narro wing the lateral recesses bilaterally. Bony uncovertebral hypertrophy generates no significant narrow ing of the neural foramina. C5-C6: There is disc space narrowing with a broad-based disc bulge that flattens the ventral portion of the cord. Central canal measures 7 mm in the midline. Narrowing of the lateral recesses bilaterally. Bony uncovertebral hypertrophy generates mild narrowing of the left neural foramen. The right remains pat ent. C6-C7: The thecal sac has a normal configuration. There is no evidence of disc herniation or spinal canal s tenosis. The neural foramina are patent bilaterally. C7-T1: The thecal sac has a normal configuration. There is no evidence of disc herniation or spinal canal s tenosis. The neural foramina are patent bilaterally. CONCLUSION: 1. Study degraded by motion artifact. 2. No abscess. 3. Multilevel degenerative changes most pronounced at C5-C6 with compression of the ventral portion o f the cord but no appreciable signal change within the cord on these limited images. Adam Cantu Jr., MD on September 05, 2017 at 6:19 Board Certified Radiologist. This report was verified electronically.
--- NOTE | 2017-09-05 06:34 | RADRPT ---
EXAM DATE/TIME: 09/05/2017 04:13 [facility] COMPARISON: No previous studies available for comparison. INDICATIONS : Abscess. MEDICAL HISTORY : Hypertension. Gastroesophageal reflux disease. Myocardial infarction. SURGICAL HISTORY : Tonsillectomy. Aortic valve replacement. ENCOUNTER: Initial ACUITY: 2 day PAIN SCORE: 7/10 LOCATION: back TECHNIQUE: Multiplanar multisequence MRI of the thoracic spine was performed. FINDINGS: VERTEBRA: Normal vertebral body height. Homogeneous marrow signal. ALIGNMENT: Normal. CORD: Normal position and configuration. T1-T2: Normal. T2-T3: The thecal sac has a normal diameter. No evidence of disc bulge or protrusion. T3-T4: The thecal sac has a normal diameter. No evidence of disc bulge or protrusion. T4-T5: The thecal sac has a normal diameter. No evidence of disc bulge or protrusion. T5-T6: The thecal sac has a normal diameter. No evidence of disc bulge or protrusion. T6-T7: The thecal sac has a normal diameter. No evidence of disc bulge or protrusion. T7-T8: The thecal sac has a normal diameter. No evidence of disc bulge or protrusion. T8-T9: The thecal sac has a normal diameter. No evidence of disc bulge or protrusion. T9-T10: The thecal sac has a normal diameter. No evidence of disc bulge or protrusion. T10-T11: The thecal sac has a normal diameter. No evidence of disc bulge or protrusion. T11-T12: The thecal sac has a normal diameter. No evidence of disc bulge or protrusion. T12-L1: The thecal sac has a normal diameter. No evidence of disc bulge or protrusion. CONCLUSION: 1. No abscess. 2. Patent central canal throughout. Adam Cantu Jr., MD on September 05, 2017 at 6:31 Board Certified Radiologist. This report was verified electronically.
--- NOTE | 2017-09-05 06:57 | RADRPT ---
EXAM DATE/TIME: 09/05/2017 06:32 [facility] COMPARISON: MRI LUMBAR SPINE W & W/O CONTRAST, May 24, 2017, 14:52. INDICATIONS : Low back pain. History of abscess. RADIATION DOSE: 18.56 CTDIvol (mGy) MEDICAL HISTORY : Cardiovascular disease. Hypertension. Gastroesophageal reflux disease. SURGICAL HISTORY : Valve replacemrnt ENCOUNTER: Initial ACUITY: 2 days PAIN SCALE: 6/10 LOCATION: lumbar TECHNIQUE: Volumetric scanning of the lumbar spine was performed. Multiplanar reconstructions in the sagittal, coronal and oblique axial planes were performed. Using automated exposure control and adjustment of the mA and/or kV according to patient size, radiation dose was kept as low as reasonably achievable t o obtain optimal diagnostic quality images. DICOM format image data is available electronically for review and comparison. FINDINGS: Exam degraded by motion artifact. VERTEBRAE: Destructive changes are seen involving inferior endplate of L3 and superior endplate of L4. Destructi ve changes at L4 extend through the vertebral body as well approaching the inferior endplate of L4 bu t not break or the inferior endplate of L4. This is a significant change relative to the prior study. Remainin vertebral bodies are normal. There is loss of height of the L4 superior endplate and inferi or endplate of L3. ALIGNMENT: No evidence of subluxation. T12-L1: The thecal sac has a normal diameter. No evidence of disc bulge or protrusion. The neural foramina are patent bilaterally. L1-L2: The thecal sac has a normal diameter. No evidence of disc bulge or protrusion. The neural foramina are patent bilaterally. L2-L3: The thecal sac has a normal diameter. No evidence of disc bulge or protrusion. The neural foramina are patent bilaterally. L3-L4: The thecal sac has a normal diameter. No evidence of disc bulge or protrusion. The neural foramina are patent bilaterally. L4-L5: Mild broad-based disc bulge. Mild narrowing of the neural foramen bilaterally. Central canal is paten t. L5-S1: The thecal sac has a normal diameter. No evidence of disc bulge or protrusion. The neural foramina are patent bilaterally. CONCLUSION: 1. Destructive changes at L3-L4 disc space extending into the adjacent endplates consistent with disc itis and osteomyelitis. This is a significant change relative to the prior MRI. MRI would be more sen sitive for evaluating this. There is motion artifact on the CT scan and I am concerned that the degre e of motion would degrade the MRI. Adam Cantu Jr., MD on September 05, 2017 at 6:51 Board Certified Radiologist. This report was verified electronically.
[2017-09-05] MEDS ORDERED: VANCOMYCIN INJ 1,000 MG in SODIUM CHLOR 0.9% 250 ML INJ 250 ML IV ONE (07:30)
[2017-09-05] MEDS: DOCUSATE SODIUM 50 MG/SENNA 8.6 MG TAB PO SCH ×2 (09:00→22:39)
[2017-09-05] MEDS: SODIUM CHLORIDE 0.9% FLUSH 10 ML FLUSH IV FLUSH SCH ×2 (09:00→22:44)
[2017-09-05] MEDS ORDERED: ACETAMINOPHEN 325 MG TAB PO PRN (09:00)
[2017-09-05] MEDS ORDERED: LACTULOSE SYRUP 20 GM/30 ML CUP PO PRN (09:00)
[2017-09-05] MEDS ORDERED: SODIUM CHLORIDE 0.9% FLUSH 10 ML FLUSH IV FLUSH PRN (09:00)
[2017-09-05] MEDS ORDERED: SENNOSIDES 8.6 MG TAB PO PRN (09:00)
[2017-09-05] MEDS ORDERED: NALOXONE HCL 0.4 MG/ML AMP IV PUSH PRN (09:00)
[2017-09-05] MEDS ORDERED: ONDANSETRON HCL 4 MG/2 ML VIAL IVP PRN (09:00)
[2017-09-05] MEDS ORDERED: VANCOMYCIN INJ 1,000 MG in SODIUM CHLOR 0.9% 250 ML INJ 250 ML IV SCH (09:00)
[2017-09-05] MEDS ORDERED: MAGNESIUM HYDROXIDE SUSP 30 ML CUP PO PRN (09:00)
[2017-09-05] MEDS ORDERED: BISACODYL 10 MG SUPP RECTAL PRN (09:00)
[2017-09-05] MEDS ORDERED: Vancomycin Consult Pharmacy 1 EA OTHER SCH (09:00)
--- NOTE | 2017-09-05 09:07 | HHI.HP ---
[facility] Unknown Admission Diagnosis Discitis, osteomyelitis lumbar spine Diagnoses: Chief Complaint: back pain Travel History International Travel<30 Days: No Contact w/Intl Traveler <30 Da: No Traveled to Known Affected Are: No History of Present Illness This is a 61-year-old male with a history of cervical abscess in May 2017, presents here from the correction in custody with complaints of back and neck pain. Patient denies any fevers, chills. Patient reports the back and neck pain is associated with sharp pains running down his legs bilaterally. There is no report of incontinence. There is no report of weakness. He denies any recent IV drug use. He did state that he had used drugs in the past. He has been in correction for the last 7 days. Can't walk. Nausea last night. No vomiting. Review of Systems Except as stated in HPI: all other systems reviewed are Neg Past Family Social History Past Medical History CAD/[place] on Effient ADHD Bipolar Disorder Anxiety Depression High Cholesterol Hypertension left arm/shoulder nerve damage PTSD Renal Failure Past Surgical History Cath, MV valve replacement Tonsillectomy Reported Medications Last Impressions Lumbar Spine CT 09/05/17 0553 Signed Impressions: Service Date/Time: Tuesday, September 05, 2017 06:32 - CONCLUSION: 1. Destructive changes at L3-L4 disc space extending into the adjacent endplates consistent with discitis and osteomyelitis. This is a significant change relative to the prior MRI. MRI would be more sensitive for evaluating this. There is motion artifact on the CT scan and I am concerned that the degree of motion would degrade the MRI. Adam Cantu Jr., MD Thoracic Spine MRI 09/05/17 0323 Signed Impressions: Service Date/Time: Tuesday, September 05, 2017 04:13 - CONCLUSION: 1. No abscess. 2. Patent central canal throughout. Adam Cantu Jr., MD Cervical Spine MRI 09/05/17 0323 Signed Impressions: Service Date/Time: Tuesday, September 05, 2017 04:13 - CONCLUSION: 1. Study degraded by motion artifact. 2. No abscess. 3. Multilevel degenerative changes most pronounced at C5-C6 with compression of the ventral portion of the cord but no appreciable signal change within the cord on these limited images. Adam Cantu Jr., MD Allergies: Coded Allergies: No Known Allergies (Verified Adverse Reaction, Unknown, 09/05/17) Family History Father healthy at 81 poss parkinsons Mother 83 Alzh Social History Alcohol Use: No Tobacco Use: No Substance Use: No Physical Exam Vital Signs Vital Signs Date Time Temp Pulse Resp B/P (MAP) Pulse Ox O2 Delivery O2 Flow Rate FiO2 09/05/17 07:46 104 12 153/100 (117) 98 Room Air 09/05/17 07:46 98 Room Air 09/05/17 06:58 98 18 146/93 (110) 98 09/05/17 03:21 97.7 98 16 170/94 (119) 100 Physical Exam GENERAL: This is a well-nourished, well-developed patient, in no apparent distress. SKIN: No rashes, ecchymoses or lesions. Cool and dry. HEAD: Atraumatic. Normocephalic. No temporal or scalp tenderness. EYES: Pupils equal round and reactive. Extraocular motions intact. No scleral icterus. No injection or drainage. ENT: Nose without bleeding, purulent drainage or septal hematoma. Throat without erythema, tonsillar hypertrophy or exudate. Uvula midline. Airway patent. NECK: Trachea midline. No JVD or lymphadenopathy. Supple, nontender, no meningeal signs. CARDIOVASCULAR: Regular rate and rhythm without murmurs, gallops, or rubs. RESPIRATORY: Clear to auscultation. Breath sounds equal bilaterally. No wheezes , rales, or rhonchi. GASTROINTESTINAL: Abdomen soft, non-tender, nondistended. No hepato-splenomegaly , or palpable masses. No guarding. MUSCULOSKELETAL: Back pain thoracic and lumbar region with left leg radiculopathy. Extremities without clubbing, cyanosis, or edema. No joint tenderness, effusion, or edema noted. No calf tenderness. Negative Homans sign bilaterally. NEUROLOGICAL: Awake and alert. Cranial nerves II through XII intact. Motor and sensory grossly within normal limits. Five out of 5 muscle strength in all muscle groups. Normal speech. Laboratory Laboratory Tests Test 09/05/17 03:30 White Blood Count 13.0 Red Blood Count 5.30 Hemoglobin 14.8 Hematocrit 44.3 Mean Corpuscular Volume 83.7 Mean Corpuscular Hemoglobin 28.0 Mean Corpuscular Hemoglobin Concent 33.4 Red Cell Distribution Width 15.8 Platelet Count 371 Mean Platelet Volume 7.9 Neutrophils (%) (Auto) 65.8 Lymphocytes (%) (Auto) 26.2 Monocytes (%) (Auto) 6.6 Eosinophils (%) (Auto) 0.8 Basophils (%) (Auto) 0.6 Neutrophils # (Auto) 8.5 Lymphocytes # (Auto) 3.4 Monocytes # (Auto) 0.9 Eosinophils # (Auto) 0.1 Basophils # (Auto) 0.1 CBC Comment AUTO DIFF Differential Comment AUTO DIFF CONFIRMED Blood Urea Nitrogen 15 Creatinine 1.02 Random Glucose 85 Calcium Level 9.6 Sodium Level 139 Potassium Level 4.4 Chloride Level 104 Carbon Dioxide Level 26.5 Anion Gap 9 Estimat Glomerular Filtration Rate 75 Date/Time Source Procedure Growth Status 09/05/17 07:35 Blood Peripheral Aerobic Blood Culture Pending Received 09/05/17 07:35 Blood Peripheral Anaerobic Blood Culture Pending Received Result Diagram: 09/05/17 0330 09/05/17 0330 Imaging Last Impressions Lumbar Spine CT 09/05/17 0553 Signed Impressions: Service Date/Time: Tuesday, September 05, 2017 06:32 - CONCLUSION: 1. Destructive changes at L3-L4 disc space extending into the adjacent endplates consistent with discitis and osteomyelitis. This is a significant change relative to the prior MRI. MRI would be more sensitive for evaluating this. There is motion artifact on the CT scan and I am concerned that the degree of motion would degrade the MRI. Adam Cantu Jr., MD Thoracic Spine MRI 09/05/17 0323 Signed Impressions: Service Date/Time: Tuesday, September 05, 2017 04:13 - CONCLUSION: 1. No abscess. 2. Patent central canal throughout. Adam Cantu Jr., MD Cervical Spine MRI 09/05/17 0323 Signed Impressions: Service Date/Time: Tuesday, September 05, 2017 04:13 - CONCLUSION: 1. Study degraded by motion artifact. 2. No abscess. 3. Multilevel degenerative changes most pronounced at C5-C6 with compression of the ventral portion of the cord but no appreciable signal change within the cord on these limited images. MD Thomas Flower Jr. VTE Risk Assessment Caprini VTE Risk Assessment: Mod/High Risk (score >= 2) Caprini Risk Assessment Model Point Value = 1 Point Value = 2 Point Value = 3 Point Value = 5 Age 41-60 Minor surgery BMI > 25 kg/m2 Swollen legs Varicose veins or History of unexplained or recurrent spontaneous Oral contraceptives or hormone replacement Sepsis (< 1 month) Serious lung disease, including pneumonia (< 1 month) Abnormal pulmonary function Acute myocardial infarction Congestive heart failure (< 1 month) History of inflammatory bowel disease Medical patient at bed rest Age 61-74 Arthroscopic surgery Major open surgery (> 45 min) Laparoscopic surgery (> 45 min) Malignancy Confined to bed (> 72 hours) Immobilizing plaster cast Central venous access Age >= 75 History of VTE Family history of VTE Factor V Leiden Prothrombin [id number] Lupus anticoagulant Anticardiolipin antibodies Elevated serum homocysteine Heparin-induced thrombocytopenia Other congenital or acquired thrombophilia Stroke (< 1 month) Elective arthroplasty Hip, pelvis, or leg fracture Acute spinal cord injury (< 1 month) Prophylaxis Regimen Total Risk Factor Score Risk Level Prophylaxis Regimen 0-1 Low Early ambulation 2 Moderate Order ONE of the following: *Sequential Compression Device (SCD) *Heparin 5000 units SQ BID 3-4 Higher Order ONE of the following medications: *Heparin 5000 units SQ TID *Enoxaparin/Lovenox 40 mg SQ daily (WT < 150 kg, CrCl > 30 mL/min) *Enoxaparin/Lovenox 30 mg SQ daily (WT < 150 kg, CrCl > 10-29 mL/min) *Enoxaparin/Lovenox 30 mg SQ BID (WT < 150 kg, CrCl > 30 mL/min) AND/OR *Sequential Compression Device (SCD) 5 or more Highest Order ONE of the following medications: *Heparin 5000 units SQ TID (Preferred with Epidurals) *Enoxaparin/Lovenox 40 mg SQ daily (WT < 150 kg, CrCl > 30 mL/min) *Enoxaparin/Lovenox 30 mg SQ daily (WT < 150 kg, CrCl > 10-29 mL/min) *Enoxaparin/Lovenox 30 mg SQ BID (WT < 150 kg, CrCl > 30 mL/min) AND *Sequential Compression Device (SCD) Assessment and Plan Assessment and Plan 61-year-old male with a history of IV drug use in the past, previous epidural abscess in the cervical spine, presents with complaints of severe low back pain. Patient also reports pain in his cervical spine and thoracic spine. There is no reported fevers, chills. MRI of his cervical and thoracic spine. Those show no evidence of acute abscess. He would not sit still enough to obtain the lumbar MRI. A lumbar CT was ordered instead. Lumbar CT shows what appears to be discitis and osteomyelitis and appears much worse than his previous MRI. Intractable back pain Lumbar spine discitis and osteomyelitis History of IV drug use Blood cultures sent Started on vancomycin IV Consult ID Might consider neurosurgery consultation Restart home meds as appropriate Discussed Condition With pt, nurse Physician Certification 2 Midnight Certification Type: Admission for Inpatient Services Order for Inpatient Services The services are ordered in accordance with Medicare regulations or non- Medicare payer requirements, as applicable. In the case of services not specified as inpatient-only, they are appropriately provided as inpatient services in accordance with the 2-midnight benchmark. Estimated LOS (days): 3 days is the estimated time the patient will need to remain in the hospital, assuming treatment plan goals are met and no additional complications. Post-Hospital Plan: Stephania Ledesma MD Sep 05, 2017 09:07
[2017-09-05] MEDS ORDERED: ENOXAPARIN SODIUM 30 MG/0.3 ML SYRINGE SQ SCH (10:00)
[2017-09-05] MEDS ORDERED: KETOROLAC TROMETHAMINE 30 MG/ML (IVP) VIAL IV PUSH PRN (10:00)
--- NOTE | 2017-09-05 10:12 | RADRPT ---
EXAM DATE/TIME: 09/05/2017 09:10 [facility] COMPARISON: CT LUMBAR SPINE W/O CONTRAST, September 05, 2017, 6:32. MRI LUMBAR SPINE W & W/O CONTRAST, May 24, 018, 14:52. INDICATIONS : Lower back pain. History of osteomyelitis and discitis in the lumbar spine. Abnormal lumbar spine CT demonstrating significant change compared to prior MRI. CONTRAST: 16 cc Omniscan (gadodiamide) IV MEDICAL HISTORY : Hypertension. Gastroesophageal reflux disease. Myocardial infarction. SURGICAL HISTORY : Tonsillectomy. Valve replacement. ENCOUNTER: Initial ACUITY: 2 day PAIN SCORE: 6/10 LOCATION: l-spine TECHNIQUE: Multiplanar multisequence MRI of the lumbar spine was performed with and without contrast. FINDINGS: The study is degraded by motion artifact. The most caudal appearing lumbar vertebra is numbered as L5. VERTEBRAE: Compared to the prior MRI there has been been interval partial collapse of the superior endplate of L 4 with moderate compression fracture deformity now noted. There is now abnormal signal involving the L3 and L4 vertebral bodies. The L3 signal is new. Discs: And mild desiccation of the disc space at the L1-2 and L2-3 levels. There is no abnormal signal at th e L3-4 disc. CONUS: Normal level and configuration. POST CONTRAST: The L3 and L4 vertebral bodies now completely enhance enhancement extending into the posterior elemen ts. There is increased enhancement also noted along the anterior epidural space at L2-L5 levels. T12-L1: The thecal sac has a normal diameter. No evidence of disc bulge or protrusion. The neural foramina are patent bilaterally. L1-L2: The thecal sac has a normal diameter. No evidence of disc bulge or protrusion. The neural foramina are patent bilaterally. L2-L3: The thecal sac has a normal diameter. No evidence of disc bulge or protrusion. The neural foramina are patent bilaterally. L3-L4: Annular disc bulge is now noted mild flattening the anterior thecal sac. The neural foramina appear g rossly patent. The study is degraded by motion artifact.. There is enhancement of the epidural space surrounding the thecal sac. Extensive paravertebral soft tissue swelling inhomogeneity is present. L4-L5: The thecal sac has a normal diameter. No evidence of disc bulge or protrusion. The neural foramina are patent bilaterally. L5-S1: The thecal sac has a normal diameter. No evidence of disc bulge or protrusion. The neural foramina are patent bilaterally. CONCLUSION: 1. Suboptimal examination degraded by motion artifact especially on axial images. 2. Compared to the prior MRI there has been partial collapse of the superior endplate of L4 with mode rate compression fracture deformity now noted. There is now new abnormal signal in the L3 vertebral b antonette as well as enhancement. These findings are consistent with osteomyelitis. There is no abnormal en hancement or signal in the disc space on the current study. 3. Fairly diffuse increased enhancement involving the epidural space surrounding the thecal sac at th e L3-4 level with no focal epidural abscess. 4. Paravertebral soft tissue swelling enhancement surrounding L3-L4 vertebral bodies. This is mildly increased compared to the prior study. Phillip Tracey MD on September 05, 2017 at 9:58 Board Certified Radiologist. This report was verified electronically.
[2017-09-05] MEDS: ACETAMINOPHEN/HYDROcodone 325 MG/10 MG TAB PO PRN ×3 (13:40→22:39)
[2017-09-05] MEDS: GABAPENTIN 300 MG CAP PO SCH ×2 (13:40→19:42)
[2017-09-05] MEDS: busPIRone HCL 10 MG TAB PO SCH ×2 (13:40→19:42)
--- NOTE | 2017-09-05 16:48 | PD.CONS ---
History of Present Illness Service Infectious disease Consult Requested By Dr Zina Stroud Reason for Consult Evaluate patient with infection of the lumbar spine Primary Care Physician Unknown Diagnoses: History of Present Illness Patient seen and examined. Records reviewed. Patient is a 61-year-old male, has been in halfway for about 7 days, brought into the hospital for further evaluation of worsening back pain. His history is significant for a diagnosis of cervical spine abscess last May 2017 for which she underwent laminectomy and drainage of the abscess. During that time his MRI showed some abnormalities in the lumbar spine. He completed his IV antibiotic like August 05 and this was done in the residential. Patient stated that he has not used IV drugs since his last hospitalization. He stated that he always has had that low back pain, but since he has been in halfway the pain has been worsening and there is radiation of the pain to his anterior right thigh. He denies any urinary retention or any other urinary complaints and denies any GI as far as constipation. Patient has had some nausea which he attributes to the severe pain. He denies any respiratory complaint. He had some low-grade fevers around the day that he was being taken to the hospital. Patient is afebrile. His WBC on admission is 13,000. CT of the lumbar spine showing destructive changes in L3-L4 suggestive of discitis. Patient got 1 dose of IV vancomycin this morning. Neurosurgery has been consulted. Infectious disease consultation has been requested to assist with his management. Review of Systems Constitutional: COMPLAINS OF: Fever, Chills, Night Sweats Eyes: DENIES: Eye pain Ears, nose, mouth, throat: DENIES: Nasal discharge, Oral lesions, Throat pain, Hoarseness, Sinus Pain, Toothache Respiratory: DENIES: Cough, Shortness of breath Cardiovascular: DENIES: Chest pain, Palpitations, Syncope, Dyspnea on Exertion , Lower Extremity Edema Gastrointestinal: COMPLAINS OF: Nausea, DENIES: Abdominal pain, Diarrhea, Vomiting, Difficulty Swallowing Genitourinary: DENIES: Urgency, Hematuria, Dysuria, Nocturia Musculoskeletal: DENIES: Back pain Integumentary: DENIES: Pruritus, Rash Hematologic/lymphatic: DENIES: Lymphadenopathy Neurologic: DENIES: Headache, Localized weakness Psychiatric: DENIES: Hallucinations Past Family Social History Allergies: Coded Allergies: No Known Allergies (Verified Adverse Reaction, Unknown, 09/05/17) Past Medical History HTN GERD HEP C PTSD ADHD Bipolar Disorder Cervical epidural abscess May 2017 Question lumbar osteomyelitis May 2017 Past Surgical History C2 laminectomy, and drainage of epidural abscess May 2017 Active Ordered Medications Current Medications Medications (Trade) Dose Ordered Sig/Ирина Route Start Time Stop Time Status Last Admin (NS Flush) 2 ml UNSCH PRN IV FLUSH 09/05/17 09:00 (NS Flush) 2 ml BID IV FLUSH 09/05/17 09:00 (Tylenol) 650 mg Q4H PRN PO 09/05/17 09:00 (Zofran Inj) 4 mg Q6H PRN IVP 09/05/17 09:00 (Lovenox Inj) 30 mg Q24H SQ 09/05/17 10:00 09/05/17 11:24 (Narcan Inj) 0.4 mg UNSCH PRN IV PUSH 09/05/17 09:00 (Kati-Colace) 1 tab BID PO 09/05/17 09:00 (Milk Of Magnesia Liq) 30 ml Q12H PRN PO 09/05/17 09:00 (Senokot) 17.2 mg Q12H PRN PO 09/05/17 09:00 (Dulcolax Supp) 10 mg DAILY PRN RECTAL 09/05/17 09:00 (Lactulose Liq) 30 ml DAILY PRN PO 09/05/17 09:00 (Ecotrin Ec) 81 mg DAILY PO 09/06/17 09:00 (Lipitor) 40 mg HS PO 09/05/17 21:00 (Buspar) 10 mg TID PO 09/05/17 13:00 09/05/17 13:40 (Plavix) 75 mg DAILY PO 09/06/17 09:00 (Neurontin) 300 mg TID PO 09/05/17 13:00 09/05/17 13:40 ([place] 10-325 Mg) 1 tab Q4H PRN PO 09/05/17 10:00 09/05/17 13:40 (Lidoderm 5% Patch.12 Hr) 1 patch DAILY T-DERMAL 09/06/17 09:00 (Robaxin) 500 mg QID PRN PO 09/05/17 10:00 (risperDAL) 1 mg DAILY PO 09/06/17 09:00 (Toradol Inj) 15 mg Q6H PRN IV PUSH 09/05/17 10:00 09/10/17 09:59 Miscellaneous Information 1 DAILY T-DERMAL 09/06/17 09:00 Family History Noncontributory Social History Smoker, 1/2 ppd No ETOH. History IV drugs Physical Exam Vital Signs Vital Signs Date Time Temp Pulse Resp B/P (MAP) Pulse Ox O2 Delivery O2 Flow Rate FiO2 09/05/17 16:18 98.1 96 20 143/88 (106) 97 09/05/17 16:05 09/05/17 15:00 97 18 144/83 (103) 99 Room Air 09/05/17 11:00 100 17 140/92 (108) 99 Room Air 09/05/17 10:10 97 21 09/05/17 10:00 17 09/05/17 07:46 104 12 153/100 (117) 98 Room Air 09/05/17 07:46 98 Room Air 09/05/17 06:58 98 18 146/93 (110) 98 09/05/17 03:21 97.7 98 16 170/94 (119) 100 Physical Exam GENERAL: Patient is a well-nourished, well-developed male, awake and alert, not in respiratory distress. SKIN: Warm and dry. No generalized rash, no ecchymoses and no evidence of embolic lesions. HEAD: Atraumatic. Normocephalic. No temporal wasting, or tenderness. EYES: [place] conjunctiva. No petechia or hemorrhage. Pupils equal, round and reactive to light. Extraocular movements full and intact. No scleral icterus. No injection or drainage. EARS, NOSE AND THROAT: Nose without bleeding or purulent nasal discharge. No sinus tenderness. Mucous membranes pink and moist. No oral lesions noted. NECK: Trachea midline. Supple and not tender, no meningeal signs CARDIOVASCULAR: Regular rate and rhythm. No murmurs, rubs or gallops heard RESPIRATORY: Clear to auscultation. Breath sounds equal bilaterally. No rales , wheezing or rhonchi ABDOMEN: Soft, non-tender, nondistended. Bowel sounds present and normoactive. No guarding. No rebound. No organomegaly. EXTREMITIES: No clubbing, cyanosis, or edema.No joint effusion, has good ROM. No calf tenderness. Well perfused and warm. NEUROLOGICAL: Awake and alert. Cranial nerves grossly intact. Motor grossly within normal limits. PSYCHIATRIC: Normal affect, calm and cooperative. LINE: No evidence of infection Laboratory Laboratory Tests Test 09/05/17 03:30 White Blood Count 13.0 Red Blood Count 5.30 Hemoglobin 14.8 Hematocrit 44.3 Mean Corpuscular Volume 83.7 Mean Corpuscular Hemoglobin 28.0 Mean Corpuscular Hemoglobin Concent 33.4 Red Cell Distribution Width 15.8 Platelet Count 371 Mean Platelet Volume 7.9 Neutrophils (%) (Auto) 65.8 Lymphocytes (%) (Auto) 26.2 Monocytes (%) (Auto) 6.6 Eosinophils (%) (Auto) 0.8 Basophils (%) (Auto) 0.6 Neutrophils # (Auto) 8.5 Lymphocytes # (Auto) 3.4 Monocytes # (Auto) 0.9 Eosinophils # (Auto) 0.1 Basophils # (Auto) 0.1 CBC Comment AUTO DIFF Differential Comment AUTO DIFF CONFIRMED Blood Urea Nitrogen 15 Creatinine 1.02 Random Glucose 85 Calcium Level 9.6 Sodium Level 139 Potassium Level 4.4 Chloride Level 104 Carbon Dioxide Level 26.5 Anion Gap 9 Estimat Glomerular Filtration Rate 75 Date/Time Source Procedure Growth Status 09/05/17 07:35 Blood Peripheral Aerobic Blood Culture Pending Received 09/05/17 07:35 Blood Peripheral Anaerobic Blood Culture Pending Received Result Diagram: 09/05/17 0330 09/05/17 0330 Imaging RADIOLOGY STUDIES/FILMS REVIEWED Last Impressions Lumbar Spine CT 09/05/17 0553 Signed Impressions: Service Date/Time: Tuesday, September 05, 2017 06:32 - CONCLUSION: 1. Destructive changes at L3-L4 disc space extending into the adjacent endplates consistent with discitis and osteomyelitis. This is a significant change relative to the prior MRI. MRI would be more sensitive for evaluating this. There is motion artifact on the CT scan and I am concerned that the degree of motion would degrade the MRI. Adam Cantu Jr., MD Thoracic Spine MRI 09/05/17 0323 Signed Impressions: Service Date/Time: Tuesday, September 05, 2017 04:13 - CONCLUSION: 1. No abscess. 2. Patent central canal throughout. Adam Cantu Jr., MD Lumbar Spine MRI 09/05/17 0323 Signed Impressions: Service Date/Time: Tuesday, September 05, 2017 09:10 - CONCLUSION: 1. Suboptimal examination degraded by motion artifact especially on axial images. 2. Compared to the prior MRI there has been partial collapse of the superior endplate of L4 with moderate compression fracture deformity now noted. There is now new abnormal signal in the L3 vertebral body as well as enhancement. These findings are consistent with osteomyelitis. There is no abnormal enhancement or signal in the disc space on the current study. 3. Fairly diffuse increased enhancement involving the epidural space surrounding the thecal sac at the L3-4 level with no focal epidural abscess. 4. Paravertebral soft tissue swelling enhancement surrounding L3-L4 vertebral bodies. This is mildly increased compared to the prior study. Phillip Tracey MD Cervical Spine MRI 09/05/17 0323 Signed Impressions: Service Date/Time: Tuesday, September 05, 2017 04:13 - CONCLUSION: 1. Study degraded by motion artifact. 2. No abscess. 3. Multilevel degenerative changes most pronounced at C5-C6 with compression of the ventral portion of the cord but no appreciable signal change within the cord on these limited images. Adam Cantu Jr., MD Assessment and Plan Assessment and Plan IMPRESSION Discitis L3-L4, has progressed, ?due to MRSA or other pathogen S/P Rx cervical spine abscess C/S MRSA Previous IVDU, denies recent use RECOMMENDATION Follow C/S Baseline ESR and CRP, LFT BC Neurosurgery to evaluate Hold Abx Will need sampling of L3-l4 for C/S - routine, AFB and fungal Get PT, PTT Will determine course of RX once work-up completed I will follow along with you Thank you for this consultation Discussed Condition With Explained plan to the patient Discussed with Jeannette Contreras MD Sep 05, 2017 16:48
[2017-09-05 18:04] LABS: ALKALINE PHOSPHATASE 145 U/L (45-117); TOTAL BILIRUBIN ADULT 0.3 MG/DL (0.2-1.0)
[2017-09-05 18:06] LABS: ALBUMIN 3.5 GM/DL (3.4-5.0); ALT (GPT) 30 U/L (12-78); AST (GOT) 32 U/L (15-37); DIRECT BILIRUBIN ADULT LESS THAN 0.1 MG/DL (0.0-0.2); INDIRECT BILIRUBIN 0.2 MG/DL (0.0-0.8)
[2017-09-05] MEDS ORDERED: VANCOMYCIN 1,000 MG/NS 250 ML IV SCH ×2 (20:00)
[2017-09-05 20:07] LABS: INTERNATIONAL NORMALIZED RATIO 1.1 RATIO; PROTHROMBIN TIME - PATIENT 10.9 SEC (9.8-11.6)
[2017-09-05] MEDS ORDERED: ATORVASTATIN 40 MG TAB PO SCH (21:00)
[2017-09-06] VITALS (9 sets, daily range): BP systolic 100–161; BP diastolic 68–99; PULSE 92–112; RESP 16–20; TEMP 97.4–98.6; O2SAT 93–99
--- NOTE | 2017-09-06 01:12 | PD.CONS ---
History of Present Illness Service Neurosurgery Consult Requested By Emergency room- Reason for Consult Lumbar osteomyelitis Primary Care Physician Unknown Diagnoses: History of Present Illness The patient is a 61-year-old male previously seen by the undersigned in May 2017 for cervical discitis-osteomyelitis with epidural abscess which was surgically evacuated. His lumbar spine MRI of 05/24/2017 revealed diffuse bone marrow edema and enhancement with cortical erosion of the L4 vertebral body without L3-4 disc enhancement with a small paraspinous fluid collection. He was treated with a full course of intravenous antibiotics and discharged to long-term. He now presents to the emergency room after having been in [facility] for approximately 1 week, with complaint of progressive low back pain and some increasing neck pain. He has not had any significant pain weakness or numbness in the lower extremities except for chronic discomfort in the right anterolateral thigh which has been present since his last admission. Repeat CT scan during this hospitalization has revealed progression of destructive changes at the L3-4 level. He complains of recent fevers and chills. No significant bowel or bladder dysfunction. Review of Systems Constitutional: COMPLAINS OF: Fever, Chills, DENIES: Dizziness Eyes: DENIES: Blurred vision, Diplopia Ears, nose, mouth, throat: DENIES: Vertigo Respiratory: DENIES: Cough, Shortness of breath Cardiovascular: DENIES: Chest pain Gastrointestinal: DENIES: Abdominal pain, Diarrhea, Nausea, Vomiting Musculoskeletal: COMPLAINS OF: Muscle aches, Back pain, Neck pain, DENIES: Joint pain Hematologic/lymphatic: DENIES: Bruising Neurologic: DENIES: Abnormal gait, Headache Psychiatric: DENIES: Confusion Past Family Social History Allergies: Coded Allergies: No Known Allergies (Verified Adverse Reaction, Unknown, 09/05/17) Past Medical History Hypertension Hepatitis C GERD ADHD Bipolar disorder PTSD Previous history cervical and lumbar osteomyelitis-cervical abscess Past Surgical History May 2017 C2 laminectomy evacuation of epidural abscess Reported Medications Reported Meds & Active Scripts Active Lidoderm (Lidocaine) 5 % Adh..patch 1 Patch T-DERMAL DAILY Neurontin (Gabapentin) 300 Mg Cap 300 Mg PO TID Hydrocodone-Acetamin 10-325 mg (Hydrocodone/Acetaminophen) 10 Mg-325 Mg Tablet 1 Tab PO Q4H PRN Robaxin (Methocarbamol) 500 Mg Tab 500 Mg PO QID PRN Reported Plavix (Clopidogrel Bisulfate) 75 Mg Tab 75 Mg PO DAILY Buspirone (Buspirone HCl) 10 Mg Tab 10 Mg PO TID Risperidone 1 Mg Tab 1 Mg PO DAILY Atorvastatin (Atorvastatin Calcium) 40 Mg Tab 40 Mg PO HS Aspirin EC (Aspirin) 81 Mg Tabdr 81 Mg PO DAILY Family History Negative neurologic disorders, cardiac disease Social History Previous history IV drug use. Smokes one half pack cigarettes a day No recent alcohol Physical Exam Vital Signs Vital Signs Date Time Temp Pulse Resp B/P (MAP) Pulse Ox O2 Delivery O2 Flow Rate FiO2 09/05/17 16:18 98.1 96 20 143/88 (106) 97 09/05/17 16:05 09/05/17 15:00 97 18 144/83 (103) 99 Room Air 09/05/17 11:00 100 17 140/92 (108) 99 Room Air 09/05/17 10:10 97 21 09/05/17 10:00 17 09/05/17 07:46 104 12 153/100 (117) 98 Room Air 09/05/17 07:46 98 Room Air 09/05/17 06:58 98 18 146/93 (110) 98 09/05/17 03:21 97.7 98 16 170/94 (119) 100 Physical Exam GENERAL: This is a well-nourished, well-developed patient, no apparent distress. SKIN: No abrasions, contusion, rash noted. Skin warm and dry. HEAD: Atraumatic. Normocephalic. No temporal or scalp tenderness. EYES: Sclerae are clear and nonicteric ENT: No facial edema or ecchymosis. No periorbital edema. No CSF otorrhea or rhinorrhea. No palpable facial fracture or deformity. NECK: Trachea midline. No cervical spine tenderness. CARDIOVASCULAR: Regular rate and rhythm without murmurs, gallops, or rubs. RESPIRATORY: Clear to auscultation. Breath sounds equal bilaterally. No wheezes , rales, or rhonchi. GASTROINTESTINAL: Abdomen soft, non-tender, nondistended. No hepato-splenomegaly , or palpable masses. No guarding. MUSCULOSKELETAL: Extremities without cyanosis, or edema. No joint tenderness, or edema noted. No calf tenderness. Dorsalis pedis pulses 2+ bilateral Mild tenderness over the cervical midline and paraspinous musculature. Moderate mid to lower lumbar midline and paraspinous muscle tenderness. No significant hip pain with range of motion. NEUROLOGICAL: Awake and alert Oriented X 3 Speech is clear Conversant and appropriate Follow simple commands well Answers questions appropriately Reasonable judgment and insight Recent and remote memory are intact No evidence of anxiety or depression Pupils are equal and reactive to accommodation. Extra-ocular movements, visual jarquin to confrontation, facial sensorimotor, tongue, palate, sternocleidomastoid testing, hearing to finger rub testing, and bilateral shoulder shrug are all intact. Sensation is intact to light touch in all extremities Strength normal major flexion and extension groups all extremities Allie's absent bilaterally No ankle clonus Plantar responses absent bilateral Fine motor movements intact upper extremities Laboratory Laboratory Tests Test 09/05/17 03:30 09/05/17 17:53 09/05/17 19:08 White Blood Count 13.0 Red Blood Count 5.30 Hemoglobin 14.8 Hematocrit 44.3 Mean Corpuscular Volume 83.7 Mean Corpuscular Hemoglobin 28.0 Mean Corpuscular Hemoglobin Concent 33.4 Red Cell Distribution Width 15.8 Platelet Count 371 Mean Platelet Volume 7.9 Neutrophils (%) (Auto) 65.8 Lymphocytes (%) (Auto) 26.2 Monocytes (%) (Auto) 6.6 Eosinophils (%) (Auto) 0.8 Basophils (%) (Auto) 0.6 Neutrophils # (Auto) 8.5 Lymphocytes # (Auto) 3.4 Monocytes # (Auto) 0.9 Eosinophils # (Auto) 0.1 Basophils # (Auto) 0.1 CBC Comment AUTO DIFF Differential Comment AUTO DIFF CONFIRMED Blood Urea Nitrogen 15 Creatinine 1.02 Random Glucose 85 Calcium Level 9.6 Sodium Level 139 Potassium Level 4.4 Chloride Level 104 Carbon Dioxide Level 26.5 Anion Gap 9 Estimat Glomerular Filtration Rate 75 Total Bilirubin 0.3 Direct Bilirubin LESS THAN 0.1 Indirect Bilirubin 0.2 Aspartate Amino Transf (AST/SGOT) 32 Alanine Aminotransferase (ALT/SGPT) 30 Alkaline Phosphatase 145 C-Reactive Protein 3.90 Total Protein 9.0 Albumin 3.5 Erythrocyte Sedimentation Rate GREATER THAN 140 Prothrombin Time 10.9 Prothromb Time International Ratio 1.1 Activated Partial Thromboplast Time 30.8 Date/Time Source Procedure Growth Status 09/05/17 07:35 Blood Peripheral Aerobic Blood Culture Pending Received 09/05/17 07:35 Blood Peripheral Anaerobic Blood Culture Pending Received Result Diagram: 09/05/17 0330 09/05/17 0330 Imaging Last Impressions Lumbar Spine CT 09/05/17 0553 Signed Impressions: Service Date/Time: Tuesday, September 05, 2017 06:32 - CONCLUSION: 1. Destructive changes at L3-L4 disc space extending into the adjacent endplates consistent with discitis and osteomyelitis. This is a significant change relative to the prior MRI. MRI would be more sensitive for evaluating this. There is motion artifact on the CT scan and I am concerned that the degree of motion would degrade the MRI. Adam Cantu Jr., MD Thoracic Spine MRI [id number]/05/[id number] Signed Impressions: Service Date/Time: Tuesday, September 05, 2017 04:13 - CONCLUSION: 1. No abscess. 2. Patent central canal throughout. Adam Cantu Jr., MD Lumbar Spine MRI [id number]/05/17322 Signed Impressions: Service Date/Time: Tuesday, September 05, 2017 09:10 - CONCLUSION: 1. Suboptimal examination degraded by motion artifact especially on axial images. 2. Compared to the prior MRI there has been partial collapse of the superior endplate of L4 with moderate compression fracture deformity now noted. There is now new abnormal signal in the L3 vertebral body as well as enhancement. These findings are consistent with osteomyelitis. There is no abnormal enhancement or signal in the disc space on the current study. 3. Fairly diffuse increased enhancement involving the epidural space surrounding the thecal sac at the L3-4 level with no focal epidural abscess. 4. Paravertebral soft tissue swelling enhancement surrounding L3-L4 vertebral bodies. This is mildly increased compared to the prior study. Phillip Tracey MD Cervical Spine MRI 09/05/17322 Signed Impressions: Service Date/Time: Tuesday, September 05, 2017 04:13 - CONCLUSION: 1. Study degraded by motion artifact. 2. No abscess. 3. Multilevel degenerative changes most pronounced at C5-C6 with compression of the ventral portion of the cord but no appreciable signal change within the cord on these limited images. Adam Cantu Jr., MD Assessment and Plan Assessment and Plan Impression: Progression of L3-4 discitis osteomyelitis No evidence recurrent cervical spine infectious process Plan: D/W patient in emergency room 09/05/17 AM. I have advised that he proceed with L3-[address] guided biopsy. Hold ATB and anticoagulation and antiplatelet agents pending biopsy. Tawanda Vargas MD Sep 06, 2017 01:12
[2017-09-06] MEDS: ACETAMINOPHEN/HYDROcodone 325 MG/10 MG TAB PO PRN ×5 (03:43→21:49)
[2017-09-06 07:23] LABS: AUTOMATED NEUTROPHIL # 5.8 TH/MM3 (1.8-7.7); BASOPHIL # 0.1 TH/MM3 (0-0.2); BASOPHIL % 0.6 % (0.0-2.0); EOSINOPHIL # 0.1 TH/MM3 (0-0.4); HEMATOCRIT 40.8 % (39.0-51.0); HEMOGLOBIN 13.6 GM/DL (13.0-17.0); LYMPH % 29.4 % (9.0-44.0); LYMPHOCYTE # 2.9 TH/MM3 (1.0-4.8); MEAN CELL VOLUME 84.2 FL (80.0-100.0); MEAN CORPUSCULAR HEMOGLOBIN 28.1 PG (27.0-34.0); MEAN CORPUSCULAR HGB CONC 33.4 % (32.0-36.0); MONO % 9.3 % (0.0-8.0); MONOCYTE # 0.9 TH/MM3 (0-0.9); NEUT % 59.7 % (16.0-70.0); PLATELET COUNT 305 TH/MM3 (150-450); RED BLOOD COUNT 4.85 MIL/MM3 (4.50-5.90); RED CELL DISTRIBUTION WIDTH 15.7 % (11.6-17.2); WHITE BLOOD COUNT 9.8 TH/MM3 (4.0-11.0)
[2017-09-06 07:50] LABS: ALBUMIN 3.1 GM/DL (3.4-5.0); ALT (GPT) 20 U/L (12-78); AST (GOT) 12 U/L (15-37); BICARBONATE 25.7 MEQ/L (21.0-32.0); BLOOD UREA NITROGEN 16 MG/DL (7-18); CALCIUM 9.3 MG/DL (8.5-10.1); CHLORIDE 106 MEQ/L (98-107); CREATININE 1.01 MG/DL (0.60-1.30); GLOMERULAR FILTRATION RATE 76 ML/MIN (>89); GLUCOSE,RANDOM 74 MG/DL (74-106); SODIUM (NA) 141 MEQ/L (136-145)
[2017-09-06 07:53] LABS: ALKALINE PHOSPHATASE 139 U/L (45-117); TOTAL BILIRUBIN ADULT 0.3 MG/DL (0.2-1.0); TOTAL PROTEIN 7.9 GM/DL (6.4-8.2)
[2017-09-06] MEDS: DOCUSATE SODIUM 50 MG/SENNA 8.6 MG TAB PO SCH ×2 (07:58→21:49)
[2017-09-06] MEDS: GABAPENTIN 300 MG CAP PO SCH ×3 (07:58→16:48)
[2017-09-06] MEDS: risperiDONE 1 MG TAB PO SCH (07:59)
[2017-09-06] MEDS: busPIRone HCL 10 MG TAB PO SCH ×3 (07:59→16:48)
[2017-09-06] MEDS: REMOVE OLD PATCH T-DERMAL SCH (08:02)
[2017-09-06] MEDS: LIDOCAINE HCL 5% PATCH T-DERMAL SCH (08:02)
[2017-09-06] MEDS: SODIUM CHLORIDE 0.9% FLUSH 10 ML FLUSH IV FLUSH SCH ×2 (08:02→21:48)
[2017-09-06] MEDS ORDERED: CLOPIDOGREL 75 MG TAB PO SCH (09:00)
[2017-09-06] MEDS ORDERED: ASPIRIN EC 81 MG TABEC PO SCH (09:00)
[2017-09-06] MEDS ORDERED: fentaNYL CITRATE 250 MCG/5 ML AMP ONE (09:49)
[2017-09-06] MEDS ORDERED: MIDAZOLAM HCL 2 MG/2 ML VIAL ONE ×2 (09:49)
[2017-09-06] MEDS ORDERED: INFLUENZA VIRUS VACCINE (QUADRIVALENT) 0.5 ML SYR IM ONE (10:00)
--- NOTE | 2017-09-06 11:36 | RADRPT ---
EXAM DATE/TIME: 09/06/2017 09:58 [facility] COMPARISON: No previous studies available for comparison. INDICATIONS : Patient with history of cervical abscess in may 2017.Now presents with pain in back and down both legs. MEDICAL HISTORY : 1.CAd 2.ADHD 3. [place] 4. bipolar disorder 5. Anxiety 6. Depression 7. HTN 8. PTSD 9 Renal failure SURGICAL HISTORY : 1. heart cath 2. Mitral valve replacement 3. Tonsillectomy ENCOUNTER: Initial ACUITY: 1 week PAIN SCORE: 8/10 LOCATION: lumbar FLUORO TIME: 7.9 minutes IMAGE SERIES: 2 SEDATION TIME: 30 minutes MEDICATION(S): 1.) 2.5 mg midazolam (Versed) IV 2.) 125 mcg fentanyl (Sublimaze) IV DEVICE(S): 1.) 20 gauge 6 inch spinal needle Core specimen(s) was obtained and submitted to laboratory for pathologic evaluation. PROCEDURE : 1. Fluoroscopically guided needle biopsy. 2. Conscious sedation with continuous EKG and Oximetry monitoring. The risks, benefits and alternatives to the procedure were explained and verbal and written consent w as obtained. The site was prepped in sterile fashion. Full sterile technique was used, including cap, mask, steri le gloves and gown and a large sterile sheet. Hand hygiene and 2% chlorhexidine and/or betadine/alco hol prep was utilized per protocol for cutaneous antisepsis. The skin and subcutaneous tissues were infiltrated with local anesthetic solution. With fluoroscopic guidance the L3-L4 disc was localized and 2 cc of bloody purulent material was nino carroll. Conscious sedation was performed with the prescribed dosages and duration as above in the presence of an independent trained radiology nurse to assist in the monitoring of the patient. EKG and oximetry remained stable throughout the procedure. CONCLUSION: Uncomplicated needle biopsy of the L3-L4 disc as above. Dino Hernandez MD on September 06, 2017 at 11:33 Board Certified Radiologist. This report was verified electronically.
--- NOTE | 2017-09-06 12:57 | HHI.IDPN ---
Subjective Subjective Remarks Patient is a 61-year-old male, has been in [facility] for about 7 days, brought into the hospital for further evaluation of worsening back pain. His history is significant for a diagnosis of cervical spine abscess last May 2017 for which she underwent laminectomy and drainage of the abscess. During that time his MRI showed some abnormalities in the lumbar spine. He completed his IV antibiotic like August 05 and this was done in the senior care. Patient stated that he has not used IV drugs since his last hospitalization. He stated that he always has had that low back pain, but since he has been in [facility] the pain has been worsening and there is radiation of the pain to his anterior right thigh. He denies any urinary retention or any other urinary complaints and denies any GI as far as constipation. Patient has had some nausea which he attributes to the severe pain. He denies any respiratory complaint. He had some low-grade fevers around the day that he was being taken to the hospital. Patient is afebrile. His WBC on admission is 13,000. CT of the lumbar spine showing destructive changes in L3-L4 suggestive of discitis. Patient got 1 dose of IV vancomycin this morning. Neurosurgery has been consulted. Infectious disease consultation has been requested to assist with his management. Notes reviewed Beatris atkinson Just had CT-guided biopsy of his back A little bit sluggish post procedure Wants to eat 1 blood culture on admission with coag negative staph ESR and CRP elevated Antibiotics No antibiotics Current Medications Medications (Trade) Dose Ordered Sig/Ирина Route Start Time Stop Time Status Last Admin (NS Flush) 2 ml UNSCH PRN IV FLUSH 09/05/17 09:00 (NS Flush) 2 ml BID IV FLUSH 09/05/17 09:00 09/06/17 08:02 (Tylenol) 650 mg Q4H PRN PO 09/05/17 09:00 (Zofran Inj) 4 mg Q6H PRN IVP 09/05/17 09:00 (Narcan Inj) 0.4 mg UNSCH PRN IV PUSH 09/05/17 09:00 (Kati-Colace) 1 tab BID PO 09/05/17 09:00 09/06/17 07:58 (Milk Of Magnesia Liq) 30 ml Q12H PRN PO 09/05/17 09:00 (Senokot) 17.2 mg Q12H PRN PO 4/22/18 09:00 (Dulcolax Supp) 10 mg DAILY PRN RECTAL 09/05/17 09:00 (Lactulose Liq) 30 ml DAILY PRN PO 09/05/17 09:00 (Buspar) 10 mg TID PO 09/05/17 13:00 09/06/17 12:06 (Neurontin) 300 mg TID PO 09/05/17 13:00 09/06/17 12:06 (Ballico 10-325 Mg) 1 tab Q4H PRN PO 09/05/17 10:00 09/06/17 12:06 (Lidoderm 5% Patch.12 Hr) 1 patch DAILY T-DERMAL 09/06/17 09:00 09/06/17 08:02 (Robaxin) 500 mg QID PRN PO 09/05/17 10:00 (risperDAL) 1 mg DAILY PO 09/06/17 09:00 09/06/17 07:59 Miscellaneous Information 1 DAILY T-DERMAL 09/06/17 09:00 Lines PIV no evidence of infection Past Medical History HTN GERD HEP C PTSD ADHD Bipolar Disorder Cervical epidural abscess May 2017 Question lumbar osteomyelitis May 2017 Past Surgical History C2 laminectomy, and drainage of epidural abscess May 2017 Allergies: Coded Allergies: No Known Allergies (Verified Adverse Reaction, Unknown, 09/05/17) Objective . Vital Signs Date Time Temp Pulse Resp B/P (MAP) Pulse Ox O2 Delivery O2 Flow Rate FiO2 09/06/17 11:50 110 18 133/99 (110) 94 09/06/17 11:20 111 18 100/77 (85) 93 09/06/17 11:05 97.6 108 18 118/80 (93) 97 09/06/17 08:00 97.8 92 20 161/96 (117) 99 09/06/17 04:00 98.6 98 16 138/84 (102) 97 09/06/17 00:00 98.6 94 18 140/82 (101) 99 09/06/17 00:00 98.6 94 18 146/82 (103) 99 09/05/17 16:18 98.1 96 20 143/88 (106) 97 09/05/17 16:05 09/05/17 15:00 97 18 144/83 (103) 99 Room Air . Laboratory Tests Test 09/05/17 03:30 09/05/17 17:53 09/06/17 06:22 White Blood Count 13.0 TH/MM3 9.8 TH/MM3 Red Blood Count 5.30 MIL/MM3 4.85 MIL/MM3 Hemoglobin 14.8 GM/DL 13.6 GM/DL Hematocrit 44.3 % 40.8 % Mean Corpuscular Volume 83.7 FL 84.2 FL Mean Corpuscular Hemoglobin 28.0 PG 28.1 PG Mean Corpuscular Hemoglobin Concent 33.4 % 33.4 % Red Cell Distribution Width 15.8 % 15.7 % Platelet Count 371 TH/MM3 305 TH/MM3 Mean Platelet Volume 7.9 FL 8.0 FL Neutrophils (%) (Auto) 65.8 % 59.7 % Lymphocytes (%) (Auto) 26.2 % 29.4 % Monocytes (%) (Auto) 6.6 % 9.3 % Eosinophils (%) (Auto) 0.8 % 1.0 % Basophils (%) (Auto) 0.6 % 0.6 % Neutrophils # (Auto) 8.5 TH/MM3 5.8 TH/MM3 Lymphocytes # (Auto) 3.4 TH/MM3 2.9 TH/MM3 Monocytes # (Auto) 0.9 TH/MM3 0.9 TH/MM3 Eosinophils # (Auto) 0.1 TH/MM3 0.1 TH/MM3 Basophils # (Auto) 0.1 TH/MM3 0.1 TH/MM3 CBC Comment AUTO DIFF DIFF FINAL Differential Comment AUTO DIFF CONFIRMED Erythrocyte Sedimentation Rate GREATER THAN 140 mm/hr Laboratory Tests Test 09/05/17 03:30 09/06/17 06:22 Blood Urea Nitrogen 15 MG/DL 16 MG/DL Creatinine 1.02 MG/DL 1.01 MG/DL Random Glucose 85 MG/DL 74 MG/DL Calcium Level 9.6 MG/DL 9.3 MG/DL Sodium Level 139 MEQ/L 141 MEQ/L Potassium Level 4.4 MEQ/L 4.5 MEQ/L Chloride Level 104 MEQ/L 106 MEQ/L Carbon Dioxide Level 26.5 MEQ/L 25.7 MEQ/L Anion Gap 9 MEQ/L 9 MEQ/L Estimat Glomerular Filtration Rate 75 ML/MIN 76 ML/MIN Total Bilirubin 0.3 MG/DL 0.3 MG/DL Direct Bilirubin LESS THAN 0.1 MG/DL Indirect Bilirubin 0.2 MG/DL Aspartate Amino Transf (AST/SGOT) 32 U/L 12 U/L Alanine Aminotransferase (ALT/SGPT) 30 U/L 20 U/L Alkaline Phosphatase 145 U/L 139 U/L C-Reactive Protein 3.90 MG/DL Total Protein 9.0 GM/DL 7.9 GM/DL Albumin 3.5 GM/DL 3.1 GM/DL Microbiology Date/Time Source Procedure Growth Status 09/05/17 07:35 Blood Peripheral Aerobic Blood Culture - Preliminary NO GROWTH IN 1 DAY Resulted 09/05/17 07:35 Blood Peripheral Anaerobic Blood Culture - Preliminary NO GROWTH IN 1 DAY Resulted 09/05/17 07:30 Blood Peripheral Aerobic Blood Culture - Preliminary Staph Sp Coagulase Negative Resulted 09/05/17 07:30 Blood Peripheral Anaerobic Blood Culture - Preliminary NO GROWTH IN 1 DAY Resulted 09/06/17 10:50 Abscess Back Fungal Smear Pending Received 09/06/17 10:50 Abscess Back Fungal Culture Pending Received 09/06/17 10:50 Abscess Back Acid Fast Stain Pending Received 09/06/17 10:50 Abscess Back Mycobacterial Culture Pending Received 09/06/17 10:50 Abscess Back Gram Stain Pending Received 09/06/17 10:50 Abscess Back Wound Culture Pending Received Imaging Last Impressions Needle Biopsy/Aspiration X-Ray 09/06/17 0000 Signed Impressions: Service Date/Time: Wednesday, September 06, 2017 09:58 - CONCLUSION: Uncomplicated needle biopsy of the L3-L4 disc as above. Dino Hernandez MD Lumbar Spine CT 09/05/17 0553 Signed Impressions: Service Date/Time: Tuesday, September 05, 2017 06:32 - CONCLUSION: 1. Destructive changes at L3-L4 disc space extending into the adjacent endplates consistent with discitis and osteomyelitis. This is a significant change relative to the prior MRI. MRI would be more sensitive for evaluating this. There is motion artifact on the CT scan and I am concerned that the degree of motion would degrade the MRI. Adam Cantu Jr., MD Thoracic Spine MRI 09/05/17 0323 Signed Impressions: Service Date/Time: Tuesday, September 05, 2017 04:13 - CONCLUSION: 1. No abscess. 2. Patent central canal throughout. Adam Cantu Jr., MD Lumbar Spine MRI 09/05/17 0323 Signed Impressions: Service Date/Time: Tuesday, September 05, 2017 09:10 - CONCLUSION: 1. Suboptimal examination degraded by motion artifact especially on axial images. 2. Compared to the prior MRI there has been partial collapse of the superior endplate of L4 with moderate compression fracture deformity now noted. There is now new abnormal signal in the L3 vertebral body as well as enhancement. These findings are consistent with osteomyelitis. There is no abnormal enhancement or signal in the disc space on the current study. 3. Fairly diffuse increased enhancement involving the epidural space surrounding the thecal sac at the L3-4 level with no focal epidural abscess. 4. Paravertebral soft tissue swelling enhancement surrounding L3-L4 vertebral bodies. This is mildly increased compared to the prior study. Phillip Tracey MD Cervical Spine MRI 09/05/17 0323 Signed Impressions: Service Date/Time: Tuesday, September 05, 2017 04:13 - CONCLUSION: 1. Study degraded by motion artifact. 2. No abscess. 3. Multilevel degenerative changes most pronounced at C5-C6 with compression of the ventral portion of the cord but no appreciable signal change within the cord on these limited images. Adam Cantu Jr., MD Physical Exam GENERAL: awake and sluggish, not in respiratory distress. SKIN: Warm and dry. No generalized rash, no ecchymoses and no evidence of embolic lesions. HEAD: Atraumatic. Normocephalic. No temporal wasting, or tenderness. EYES: Dunstan conjunctiva. No petechia or hemorrhage. Pupils equal, round and reactive to light. Extraocular movements full and intact. No scleral icterus. No injection or drainage. EARS, NOSE AND THROAT: Nose without bleeding or purulent nasal discharge. No sinus tenderness. Mucous membranes pink and moist. No oral lesions noted. NECK: Trachea midline. Supple and not tender, no meningeal signs CARDIOVASCULAR: Regular rate and rhythm. No murmurs, rubs or gallops heard RESPIRATORY: Clear to auscultation. Breath sounds equal bilaterally. No rales , wheezing or rhonchi ABDOMEN: Soft, non-tender, nondistended. Bowel sounds present and normoactive. No guarding. No rebound. No organomegaly. EXTREMITIES: No clubbing, cyanosis, or edema.No joint effusion, has good ROM. No calf tenderness. Well perfused and warm. NEUROLOGICAL: Awake and alert. Cranial nerves grossly intact. Motor grossly within normal limits. PSYCHIATRIC: Normal affect, calm and cooperative. LINE: No evidence of infection Assessment & Plan Remarks IMPRESSION Discitis L3-L4, has progressed, ?due to MRSA or other pathogen S/P Rx cervical spine abscess C/S MRSA Previous IVDU, denies recent use 1 positive blood culture with coag negative staph, likely contaminant RECOMMENDATION Follow C/S We will follow results of the aspirate of the disc Will determine course of RX once work-up completed Explained plan to the patient Jeannette Carmona MD Sep 06, 2017 12:57
--- NOTE | 2017-09-06 19:05 | HHI.PR ---
Subjective Remarks Complain of back pain No fever Objective Vitals Vital Signs Date Time Temp Pulse Resp B/P (MAP) Pulse Ox O2 Delivery O2 Flow Rate FiO2 09/06/17 17:39 97.4 108 18 114/68 (83) 98 09/06/17 12:00 97.6 104 18 128/88 (101) 99 09/06/17 11:50 110 18 133/99 (110) 94 09/06/17 11:20 111 18 100/77 (85) 93 09/06/17 11:05 97.6 108 18 118/80 (93) 97 09/06/17 08:00 97.8 92 20 161/96 (117) 99 09/06/17 04:00 98.6 98 16 138/84 (102) 97 09/06/17 00:00 98.6 94 18 140/82 (101) 99 09/06/17 00:00 98.6 94 18 146/82 (103) 99 I/O 09/05/17 09/05/17 09/05/17 09/06/17 09/06/17 09/06/17 07:00 15:00 23:00 07:00 15:00 23:00 Intake Total 480 ml Output Total 300 ml Balance 180 ml Intake Oral 480 ml Output Urine Total 300 ml # Voids 1 Result Diagram: 09/06/1762109/06/17621 Objective Remarks GENERAL: This is a well-nourished, well-developed patient, in no apparent distress. SKIN: No rashes, warm and dry HEAD: Atraumatic. Normocephalic. EYES: Pupils equal round and reactive. Extraocular motions intact. No scleral icterus. ENT: Nose without bleeding, or drainage, Airway patent. NECK: Trachea midline. Supple CARDIOVASCULAR: Regular rate and rhythm without murmurs, gallops, or rubs. RESPIRATORY: Fair air entry bilaterally. No wheezes, rales, or rhonchi. GASTROINTESTINAL: Abdomen soft, non-tender, nondistended. Positive bowel sounds MUSCULOSKELETAL: Extremities without clubbing, cyanosis, or edema. Pedal pulses appreciated NEUROLOGICAL: Awake and alert. Moves all extremity. Normal speech.no focal neurological deficit A/P Assessment and Plan 61-year-old male with a history of IV drug use in the past, previous epidural abscess in the cervical spine, presents with complaints of severe low back pain. Patient also reports pain in his cervical spine and thoracic spine. There is no reported fevers, chills. MRI of his cervical and thoracic spine. Those show no evidence of acute abscess. He would not sit still enough to obtain the lumbar MRI. A lumbar CT was ordered instead. Lumbar CT shows what appears to be discitis and osteomyelitis and appears much worse than his previous MRI. Intractable back pain Lumbar spine discitis and osteomyelitis History of IV drug use Follow blood culture Continue IV antibiotic per ID recommendation, appreciate their consult Appreciate neurosurgery consultation Restart home meds as appropriate 09/06: Continue current care with IV antibiotic, monitor temperature and any signs of sepsis, follow blood culture Maggie Cramer MD Sep 06, 2017 19:05
[2017-09-06] MEDS ORDERED: PHARMACY ORDERED LAB ONE (19:45)
[2017-09-06] MEDS: METHOCARBAMOL 500 MG TAB PO PRN (21:49)
[2017-09-07] VITALS: BP 109/68; PULSE 111; RESP 18; TEMP 97.6; O2SAT 94
[2017-09-07 04:00] VITALS: BP_SYST 129; BP_SYST 168; BP_DIAS 72; BP_DIAS 84; PULSE 111; PULSE 69; RESP 17; RESP 18; TEMP 97.8; TEMP 98.1; O2SAT 94; O2SAT 99
[2017-09-07] MEDS: busPIRone HCL 10 MG TAB PO SCH ×3 (07:32→16:54)
[2017-09-07] MEDS: DOCUSATE SODIUM 50 MG/SENNA 8.6 MG TAB PO SCH ×2 (07:33→21:38)
[2017-09-07] MEDS: SODIUM CHLORIDE 0.9% FLUSH 10 ML FLUSH IV FLUSH SCH ×2 (07:33→21:38)
[2017-09-07] MEDS: GABAPENTIN 300 MG CAP PO SCH ×3 (07:33→16:53)
[2017-09-07] MEDS: risperiDONE 1 MG TAB PO SCH (07:33)
[2017-09-07] MEDS: ACETAMINOPHEN/HYDROcodone 325 MG/10 MG TAB PO PRN ×4 (07:33→21:39)
[2017-09-07] MEDS: REMOVE OLD PATCH T-DERMAL SCH (07:34)
[2017-09-07] MEDS: LIDOCAINE HCL 5% PATCH T-DERMAL SCH (07:34)
[2017-09-07 09:06] VITALS: BP 146/82; PULSE 112; RESP 20; TEMP 98.6
[2017-09-07 12:24] VITALS: BP 120/69; PULSE 109; RESP 20; TEMP 97.9; O2SAT 96
[2017-09-07 16:05] VITALS: BP 124/72; PULSE 111; RESP 20; TEMP 98; O2SAT 95
--- NOTE | 2017-09-07 16:33 | HHI.NSPN ---
(Mich Trevino) History Chief Complaint: Back to the lower back shooting down the legs. (Mich Trevino) Interval History 09/06: The patient is a 61-year-old male previously seen by the undersigned in May 2017 for cervical discitis-osteomyelitis with epidural abscess which was surgically evacuated. His lumbar spine MRI of 05/24/2017 revealed diffuse bone marrow edema and enhancement with cortical erosion of the L4 vertebral body without L3-4 disc enhancement with a small paraspinous fluid collection. He was treated with a full course of intravenous antibiotics and discharged to senior living. He now presents to the emergency room after having been in half-way for approximately 1 week, with complaint of progressive low back pain and some increasing neck pain. He has not had any significant pain weakness or numbness in the lower extremities except for chronic discomfort in the right anterolateral thigh which has been present since his last admission. Repeat CT scan during this hospitalization has revealed progression of destructive changes at the L3-4 level. He complains of recent fevers and chills. No significant bowel or bladder dysfunction. 09/07: When seen this afternoon the patient is awake and alert in bed watching TV. He complains of pain to the lower back that is radiating into the proximal lower extremities, especially the right. He reports that his neck is stiff but no pain to it. His examination is limited due to pain to the lower back which prevents him from fully participating. His strength does seem to be normal on the right but weaker on the left. (Mich Trevino) Exam Results 09/05/17 09/05/17 09/06/17 09/06/17 09/07/17 09/07/17 06:00 18:00 06:00 18:00 06:00 18:00 Intake Total 480 ml Output Total 300 ml 850 ml Balance 180 ml -850 ml Intake Oral 480 ml Output Urine Total 300 ml 850 ml # Voids 1 1 # Bowel Movements 0 Vital Signs Date Time Temp Pulse Resp B/P (MAP) Pulse Ox O2 Delivery O2 Flow Rate FiO2 09/07/17 12:24 97.9 109 20 120/69 (86) 96 09/07/17 09:06 98.6 112 20 146/82 (103) 09/07/17 04:00 98.1 111 18 129/72 (91) 94 09/07/17 00:00 97.6 111 18 109/68 (82) 94 09/06/17 20:00 97.6 112 18 119/70 (86) 97 09/06/17 17:39 97.4 108 18 114/68 (83) 98 09/06/17 12:00 97.6 104 18 128/88 (101) 99 09/06/17 11:50 110 18 133/99 (110) 94 09/06/17 11:20 111 18 100/77 (85) 93 09/06/17 11:05 97.6 108 18 118/80 (93) 97 09/06/17 08:00 97.8 92 20 161/96 (117) 99 09/06/17 04:00 98.6 98 16 138/84 (102) 97 09/06/17 00:00 98.6 94 18 140/82 (101) 99 09/06/17 00:00 98.6 94 18 146/82 (103) 99 09/05/17 16:18 98.1 96 20 143/88 (106) 97 09/05/17 16:05 09/05/17 15:00 97 18 144/83 (103) 99 Room Air 09/05/17 11:00 100 17 140/92 (108) 99 Room Air 09/05/17 10:10 97 21 09/05/17 10:00 17 09/05/17 07:46 104 12 153/100 (117) 98 Room Air 09/05/17 07:46 98 Room Air 09/05/17 06:58 98 18 146/93 (110) 98 09/05/17 03:21 97.7 98 16 170/94 (119) 100 (Mich Trevino) Physical Examination GENERAL: Awake & alert in bed watching TV. Affect essentially normal. Readily interacts. No apparent distress. HEENT: Normocephalic, atraumatic. NECK: Midline cervical spine NTTP but paraspinous musculature feels stiff to palpation. Neck supple. No JVD. Trachea midline. MUSCULOSKELETAL: NICOLE spontaneously & purposefully. Moderate midline lumbar & paraspinous muscle TTP. NEUROLOGICAL: AAOx3. Speech clear & appropriate. Follows simple commands w/o difficulty. Sensation is intact to light touch to the lower extremities. Muscle strength appears normal to all major flexion & extension muscle groups of the RLE. Muscle strength to the LLE appears essentially normal to the iliopsoas & hamstring but weaker to the other muscle groups due to pain. (Mich Trevino) Lab, Micro, Other Results Recent Impressions Needle Biopsy/Aspiration X-Ray 09/06/17 0000 Signed Impressions: Service Date/Time: Wednesday, September 06, 2017 09:58 - CONCLUSION: Uncomplicated needle biopsy of the L3-L4 disc as above. Dino Hernandez MD Lumbar Spine CT 09/05/17 0553 Signed Impressions: Service Date/Time: Tuesday, September 05, 2017 06:32 - CONCLUSION: 1. Destructive changes at L3-L4 disc space extending into the adjacent endplates consistent with discitis and osteomyelitis. This is a significant change relative to the prior MRI. MRI would be more sensitive for evaluating this. There is motion artifact on the CT scan and I am concerned that the degree of motion would degrade the MRI. Adam Cantu Jr., MD Thoracic Spine MRI 09/05/17 0323 Signed Impressions: Service Date/Time: Tuesday, September 05, 2017 04:13 - CONCLUSION: 1. No abscess. 2. Patent central canal throughout. Adam Cantu Jr., MD Lumbar Spine MRI 09/05/173 Signed Impressions: Service Date/Time: Tuesday, September 05, 2017 09:10 - CONCLUSION: 1. Suboptimal examination degraded by motion artifact especially on axial images. 2. Compared to the prior MRI there has been partial collapse of the superior endplate of L4 with moderate compression fracture deformity now noted. There is now new abnormal signal in the L3 vertebral body as well as enhancement. These findings are consistent with osteomyelitis. There is no abnormal enhancement or signal in the disc space on the current study. 3. Fairly diffuse increased enhancement involving the epidural space surrounding the thecal sac at the L3-4 level with no focal epidural abscess. 4. Paravertebral soft tissue swelling enhancement surrounding L3-L4 vertebral bodies. This is mildly increased compared to the prior study. Phillip Tracey MD Cervical Spine MRI 09/05/17 0323 Signed Impressions: Service Date/Time: Tuesday, September 05, 2017 04:13 - CONCLUSION: 1. Study degraded by motion artifact. 2. No abscess. 3. Multilevel degenerative changes most pronounced at C5-C6 with compression of the ventral portion of the cord but no appreciable signal change within the cord on these limited images. Adam Cantu Jr., MD Laboratory Tests Test 09/05/17 03:30 09/05/17 17:53 09/05/17 19:08 09/06/17 06:22 White Blood Count 13.0 TH/MM3 9.8 TH/MM3 Red Blood Count 5.30 MIL/MM3 4.85 MIL/MM3 Hemoglobin 14.8 GM/DL 13.6 GM/DL Hematocrit 44.3 % 40.8 % Mean Corpuscular Volume 83.7 FL 84.2 FL Mean Corpuscular Hemoglobin 28.0 PG 28.1 PG Mean Corpuscular Hemoglobin Concent 33.4 % 33.4 % Red Cell Distribution Width 15.8 % 15.7 % Platelet Count 371 TH/MM3 305 TH/MM3 Mean Platelet Volume 7.9 FL 8.0 FL Neutrophils (%) (Auto) 65.8 % 59.7 % Lymphocytes (%) (Auto) 26.2 % 29.4 % Monocytes (%) (Auto) 6.6 % 9.3 % Eosinophils (%) (Auto) 0.8 % 1.0 % Basophils (%) (Auto) 0.6 % 0.6 % Neutrophils # (Auto) 8.5 TH/MM3 5.8 TH/MM3 Lymphocytes # (Auto) 3.4 TH/MM3 2.9 TH/MM3 Monocytes # (Auto) 0.9 TH/MM3 0.9 TH/MM3 Eosinophils # (Auto) 0.1 TH/MM3 0.1 TH/MM3 Basophils # (Auto) 0.1 TH/MM3 0.1 TH/MM3 CBC Comment AUTO DIFF DIFF FINAL Differential Comment AUTO DIFF CONFIRMED Blood Urea Nitrogen 15 MG/DL 16 MG/DL Creatinine 1.02 MG/DL 1.01 MG/DL Random Glucose 85 MG/DL 74 MG/DL Calcium Level 9.6 MG/DL 9.3 MG/DL Sodium Level 139 MEQ/L 141 MEQ/L Potassium Level 4.4 MEQ/L 4.5 MEQ/L Chloride Level 104 MEQ/L 106 MEQ/L Carbon Dioxide Level 26.5 MEQ/L 25.7 MEQ/L Anion Gap 9 MEQ/L 9 MEQ/L Estimat Glomerular Filtration Rate 75 ML/MIN 76 ML/MIN Total Bilirubin 0.3 MG/DL 0.3 MG/DL Direct Bilirubin LESS THAN 0.1 MG/DL Indirect Bilirubin 0.2 MG/DL Aspartate Amino Transf (AST/SGOT) 32 U/L 12 U/L Alanine Aminotransferase (ALT/SGPT) 30 U/L 20 U/L Alkaline Phosphatase 145 U/L 139 U/L C-Reactive Protein 3.90 MG/DL Total Protein 9.0 GM/DL 7.9 GM/DL Albumin 3.5 GM/DL 3.1 GM/DL Erythrocyte Sedimentation Rate GREATER THAN 140 mm/hr Prothrombin Time 10.9 SEC Prothromb Time International Ratio 1.1 RATIO Activated Partial Thromboplast Time 30.8 SEC (Mich Trevino) Medical Decision Making Impression and Plan Impression: Progression of L3-4 discitis osteomyelitis No evidence recurrent cervical spine infectious process Patient continues to have low back pain going into the proximal lower extremities. Pain seems to be a limiting factor to the patient's muscle strength upon examination today. Tachycardia. Afebrile the past 24 hrs. Blood cultures x2 w/o growth x1 day, preliminary. Abscess culture w/rare WBC & no organisms seen on final Gram stain, no growth x24 hrs, preliminary. Blood cultures x2 w/Staphylococcus specie coagulase negative in 1 bottle & no growth x2 days in the other, preliminary. Plan: Primary management per Hospitalist. Mobilise patient w/assistance as needed. Physical Therapy eval & tx. (Mich Trevino) Attending Statement The exam, history, and the medical decision-making described in the above note were completed with the assistance of the mid-level provider. I reviewed and agree with the findings presented. I attest that I had a [id number] encounter with the patient on the same day, and personally performed and documented my assessment and findings in the medical record. On examination 09/03/2013 the patient is awake and alert Complains of persistent low back pain with some radiation of the proximal lower extremities. He has some breakaway weakness with lower extremity motor testing which appears related to back pain. Otherwise sensory motor function intact in the lower extremities Initial culture results reviewed. Lumbar biopsy negative thus far. Continue to mobilize out of bed as tolerated. Continue to follow cultures ID following No neurosurgical intervention planned at this point (Tawanda Vargas MD) Mich Trevino Sep 07, 2017 16:33 Tawanda Vargas MD Sep 07, 2017 21:25
[2017-09-07 21:40] VITALS: BP 124/78; PULSE 107; RESP 17; TEMP 97.8; O2SAT 95
[2017-09-08] VITALS: BP 119/68; PULSE 107; RESP 17; TEMP 97.6; O2SAT 94
[2017-09-08] MEDS: ACETAMINOPHEN/HYDROcodone 325 MG/10 MG TAB PO PRN ×5 (02:28→20:50)
[2017-09-08 04:00] VITALS: BP 140/80; PULSE 106; RESP 18; TEMP 98; O2SAT 95
--- NOTE | 2017-09-08 07:40 | HHI.PR ---
Subjective Remarks Delayed note and strain from 09/07, node failed to be safe Patient seen and examined, law enforcement agent at the bedside Continue to complain of back pain but afebrile Continue IV antibiotic Objective Vitals Vital Signs Date Time Temp Pulse Resp B/P (MAP) Pulse Ox O2 Delivery O2 Flow Rate FiO2 09/08/17 04:00 98.0 106 18 140/80 (100) 95 09/08/17 04:00 18 09/08/17 00:00 97.6 107 17 119/68 (85) 94 09/07/17 21:40 97.8 107 17 124/78 (93) 95 09/07/17 16:05 98.0 111 20 124/72 (89) 95 09/07/17 12:24 97.9 109 20 120/69 (86) 96 09/07/17 09:06 98.6 112 20 146/82 (103) I/O 09/07/17 09/07/17 09/07/17 09/08/17 09/08/17 09/08/17 07:00 15:00 23:00 07:00 15:00 23:00 Intake Total 1620 ml 1442 ml Output Total 850 ml 0 ml 800 ml Balance -850 ml 1620 ml 642 ml Intake Oral 1620 ml 1442 ml Output Urine Total 850 ml 0 ml 800 ml # Voids 2 3 # Bowel Movements 0 0 0 Result Diagram: 09/06/1762109/06/17621 Objective Remarks GENERAL: This is a well-nourished, well-developed patient, in no apparent distress. SKIN: No rashes, warm and dry HEAD: Atraumatic. Normocephalic. EYES: Pupils equal round and reactive. Extraocular motions intact. No scleral icterus. ENT: Nose without bleeding, or drainage, Airway patent. NECK: Trachea midline. Supple CARDIOVASCULAR: Regular rate and rhythm without murmurs, gallops, or rubs. RESPIRATORY: Fair air entry bilaterally. No wheezes, rales, or rhonchi. GASTROINTESTINAL: Abdomen soft, non-tender, nondistended. Positive bowel sounds MUSCULOSKELETAL: Extremities without clubbing, cyanosis, or edema. Pedal pulses appreciated NEUROLOGICAL: Awake and alert. Moves all extremity. Normal speech.no focal neurological deficit A/P Assessment and Plan 61-year-old male with a history of IV drug use in the past, previous epidural abscess in the cervical spine, presents with complaints of severe low back pain. Patient also reports pain in his cervical spine and thoracic spine. There is no reported fevers, chills. MRI of his cervical and thoracic spine. Those show no evidence of acute abscess. He would not sit still enough to obtain the lumbar MRI. A lumbar CT was ordered instead. Lumbar CT shows what appears to be discitis and osteomyelitis and appears much worse than his previous MRI. Intractable back pain Lumbar spine discitis and osteomyelitis History of IV drug use Follow blood culture, third set showed 1 to positive for staph coag negative possible contamination Continue IV antibiotic per ID recommendation, appreciate their consult Appreciate neurosurgery consultation Restart home meds as appropriate 09/07: Continue current care with IV antibiotic, monitor temperature and any signs of sepsis, follow blood culture Maggie Cramer MD Sep 08, 2017 07:40
[2017-09-08 08:29] VITALS: BP 154/99; PULSE 101; RESP 20; TEMP 98.4; O2SAT 95
[2017-09-08] MEDS ORDERED: Vancomycin Consult Pharmacy 1 EA OTHER SCH (09:15)
--- NOTE | 2017-09-08 09:20 | HHI.IDPN ---
Subjective Subjective Remarks Patient is a 61-year-old male, has been in senior living for about 7 days, brought into the hospital for further evaluation of worsening back pain. His history is significant for a diagnosis of cervical spine abscess last May 2017 for which she underwent laminectomy and drainage of the abscess. During that time his MRI showed some abnormalities in the lumbar spine. He completed his IV antibiotic like August 05 and this was done in the longterm. Patient stated that he has not used IV drugs since his last hospitalization. He stated that he always has had that low back pain, but since he has been in senior living the pain has been worsening and there is radiation of the pain to his anterior right thigh. He denies any urinary retention or any other urinary complaints and denies any GI as far as constipation. Patient has had some nausea which he attributes to the severe pain. He denies any respiratory complaint. He had some low-grade fevers around the day that he was being taken to the hospital. Patient is afebrile. His WBC on admission is 13,000. CT of the lumbar spine showing destructive changes in L3-L4 suggestive of discitis. Patient got 1 dose of IV vancomycin this morning. Neurosurgery has been consulted. Infectious disease consultation has been requested to assist with his management. Notes reviewed Temps okay Back pain the same, not better Culture from CT-guided biopsy negative so far 1 blood culture with coag negative staph No new positive blood culture ESR greater than 140 CRP 3.9 Antibiotics No antibiotics Current Medications Medications (Trade) Dose Ordered Sig/Ирина Route Start Time Stop Time Status Last Admin (NS Flush) 2 ml UNSCH PRN IV FLUSH 09/05/17 09:00 (NS Flush) 2 ml BID IV FLUSH 09/05/17 09:00 09/07/17 21:38 (Tylenol) 650 mg Q4H PRN PO 09/05/17 09:00 (Zofran Inj) 4 mg Q6H PRN IVP 09/05/17 09:00 (Narcan Inj) 0.4 mg UNSCH PRN IV PUSH 09/05/17 09:00 (Kati-Colace) 1 tab BID PO 09/05/17 09:00 09/07/17 21:38 (Milk Of Magnesia Liq) 30 ml Q12H PRN PO 09/05/17 09:00 (Senokot) 17.2 mg Q12H PRN PO 09/05/17 09:00 (Dulcolax Supp) 10 mg DAILY PRN RECTAL 09/05/17 09:00 (Lactulose Liq) 30 ml DAILY PRN PO 09/05/17 09:00 (Buspar) 10 mg TID PO 09/05/17 13:00 09/07/17 16:54 (Neurontin) 300 mg TID PO 09/05/17 13:00 09/07/17 16:53 ([place] 10-325 Mg) 1 tab Q4H PRN PO 09/05/17 10:00 09/08/17 06:34 (Lidoderm 5% Patch.12 Hr) 1 patch DAILY T-DERMAL 09/06/17 09:00 09/07/17 07:34 (Robaxin) 500 mg QID PRN PO 09/05/17 10:00 09/06/17 21:49 (risperDAL) 1 mg DAILY PO 09/06/17 09:00 09/07/17 07:33 Miscellaneous Information 1 DAILY T-DERMAL 09/06/17 09:00 09/07/17 07:34 Lines PIV no evidence of infection Past Medical History HTN GERD HEP C PTSD ADHD Bipolar Disorder Cervical epidural abscess May 2017 Question lumbar osteomyelitis May 2017 Past Surgical History C2 laminectomy, and drainage of epidural abscess May 2017 Allergies: Coded Allergies: No Known Allergies (Verified Adverse Reaction, Unknown, 09/05/17) Objective . Vital Signs Date Time Temp Pulse Resp B/P (MAP) Pulse Ox O2 Delivery O2 Flow Rate FiO2 09/08/17 08:29 98.4 101 20 154/99 (117) 95 09/08/17 04:00 98.0 106 18 140/80 (100) 95 09/08/17 04:00 18 09/08/17 00:00 97.6 107 17 119/68 (85) 94 09/07/17 21:40 97.8 107 17 124/78 (93) 95 09/07/17 16:05 98.0 111 20 124/72 (89) 95 09/07/17 12:24 97.9 109 20 120/69 (86) 96 . Microbiology Date/Time Source Procedure Growth Status 09/06/17 13:40 Blood Peripheral Aerobic Blood Culture - Preliminary NO GROWTH IN 1 DAY Resulted 09/06/17 13:40 Blood Peripheral Anaerobic Blood Culture - Preliminary NO GROWTH IN 1 DAY Resulted 09/06/17 13:40 Blood Peripheral Aerobic Blood Culture - Preliminary NO GROWTH IN 1 DAY Resulted 09/06/17 13:40 Blood Peripheral Anaerobic Blood Culture - Preliminary NO GROWTH IN 1 DAY Resulted 09/06/17 10:50 Abscess Back Fungal Smear - Final NO FUNGAL ELEMENTS SEEN. Resulted 09/06/17 10:50 Abscess Back Fungal Culture Pending Resulted 09/06/17 10:50 Abscess Back Acid Fast Stain - Final NO ACID FAST BACILLI SEEN Resulted 09/06/17 10:50 Abscess Back Mycobacterial Culture Pending Resulted 09/06/17 10:50 Abscess Back Gram Stain - Final Resulted 09/06/17 10:50 Abscess Back Wound Culture - Preliminary NO GROWTH IN 24 HOURS. Resulted Imaging Last Impressions Needle Biopsy/Aspiration X-Ray 09/06/17 0000 Signed Impressions: Service Date/Time: Wednesday, September 06, 2017 09:58 - CONCLUSION: Uncomplicated needle biopsy of the L3-L4 disc as above. Dino Hernandez MD Lumbar Spine CT 09/05/17 0553 Signed Impressions: Service Date/Time: Tuesday, September 05, 2017 06:32 - CONCLUSION: 1. Destructive changes at L3-L4 disc space extending into the adjacent endplates consistent with discitis and osteomyelitis. This is a significant change relative to the prior MRI. MRI would be more sensitive for evaluating this. There is motion artifact on the CT scan and I am concerned that the degree of motion would degrade the MRI. Adam Cantu Jr., MD Thoracic Spine MRI 09/05/17 0323 Signed Impressions: Service Date/Time: Tuesday, September 05, 2017 04:13 - CONCLUSION: 1. No abscess. 2. Patent central canal throughout. Adam Cantu Jr., MD Lumbar Spine MRI 09/05/17 0323 Signed Impressions: Service Date/Time: Tuesday, September 05, 2017 09:10 - CONCLUSION: 1. Suboptimal examination degraded by motion artifact especially on axial images. 2. Compared to the prior MRI there has been partial collapse of the superior endplate of L4 with moderate compression fracture deformity now noted. There is now new abnormal signal in the L3 vertebral body as well as enhancement. These findings are consistent with osteomyelitis. There is no abnormal enhancement or signal in the disc space on the current study. 3. Fairly diffuse increased enhancement involving the epidural space surrounding the thecal sac at the L3-4 level with no focal epidural abscess. 4. Paravertebral soft tissue swelling enhancement surrounding L3-L4 vertebral bodies. This is mildly increased compared to the prior study. Phillip Tracey MD Cervical Spine MRI 09/05/17 0323 Signed Impressions: Service Date/Time: Tuesday, September 05, 2017 04:13 - CONCLUSION: 1. Study degraded by motion artifact. 2. No abscess. 3. Multilevel degenerative changes most pronounced at C5-C6 with compression of the ventral portion of the cord but no appreciable signal change within the cord on these limited images. Adam Cantu Jr., MD Physical Exam GENERAL: awake and alert, NAD. SKIN: Warm and dry. No generalized rash, no ecchymoses and no evidence of embolic lesions. HEAD: Atraumatic. Normocephalic. No temporal wasting, or tenderness. EYES: [place] conjunctiva. No petechia or hemorrhage. Pupils equal, round and reactive to light. Extraocular movements full and intact. No scleral icterus. EARS, NOSE AND THROAT: Nose without bleeding or purulent nasal discharge. No sinus tenderness. Mucous membranes pink and moist. No oral lesions noted. NECK: Trachea midline. Supple and not tender, no meningeal signs CARDIOVASCULAR: Regular rate and rhythm. No murmurs, rubs or gallops heard RESPIRATORY: Clear to auscultation. Breath sounds equal bilaterally. No rales , wheezing or rhonchi ABDOMEN: Soft, non-tender, nondistended. Bowel sounds present and normoactive. No guarding. No rebound. No organomegaly. EXTREMITIES: No clubbing, cyanosis, or edema.No joint effusion, has good ROM. No calf tenderness. Well perfused and warm. NEUROLOGICAL: Grossly nonfocal. PSYCHIATRIC: Normal affect, calm and cooperative. LINE: No evidence of infection Assessment & Plan Remarks IMPRESSION Discitis L3-L4, has progressed, ?due to MRSA or other pathogen S/P Rx cervical spine abscess C/S MRSA Previous IVDU, denies recent use 1 positive blood culture with coag negative staph, likely contaminant RECOMMENDATION Follow C/S MRI of the lumbar spine Start IV Vanco Follow cultures Will determine course of RX once work-up completed Explained plan to the patient Jeannette Carmona MD Sep 08, 2017 09:20
[2017-09-08] MEDS: busPIRone HCL 10 MG TAB PO SCH ×3 (09:22→17:40)
[2017-09-08] MEDS: GABAPENTIN 300 MG CAP PO SCH ×3 (09:22→17:40)
[2017-09-08] MEDS: DOCUSATE SODIUM 50 MG/SENNA 8.6 MG TAB PO SCH ×2 (09:22→20:50)
[2017-09-08] MEDS: risperiDONE 1 MG TAB PO SCH (09:22)
[2017-09-08] MEDS: LIDOCAINE HCL 5% PATCH T-DERMAL SCH (09:24)
[2017-09-08] MEDS: REMOVE OLD PATCH T-DERMAL SCH (09:24)
[2017-09-08] MEDS: SODIUM CHLORIDE 0.9% FLUSH 10 ML FLUSH IV FLUSH SCH ×2 (09:25→20:50)
[2017-09-08] MEDS ORDERED: VANCOMYCIN INJ 1,500 MG in SODIUM CHLORID 0.9% 500 ML INJ 500 ML IV ONE (11:00)
--- NOTE | 2017-09-08 11:43 | HHI.NSPN ---
(Mich Trevino) History Chief Complaint: Still with low back pain. (Mich Trevino) Interval History 09/06: The patient is a 61-year-old male previously seen by the undersigned in May 2017 for cervical discitis-osteomyelitis with epidural abscess which was surgically evacuated. His lumbar spine MRI of 05/24/2017 revealed diffuse bone marrow edema and enhancement with cortical erosion of the L4 vertebral body without L3-4 disc enhancement with a small paraspinous fluid collection. He was treated with a full course of intravenous antibiotics and discharged to group home. He now presents to the emergency room after having been in [facility] for approximately 1 week, with complaint of progressive low back pain and some increasing neck pain. He has not had any significant pain weakness or numbness in the lower extremities except for chronic discomfort in the right anterolateral thigh which has been present since his last admission. Repeat CT scan during this hospitalization has revealed progression of destructive changes at the L3-4 level. He complains of recent fevers and chills. No significant bowel or bladder dysfunction. 09/07: When seen this afternoon the patient is awake and alert in bed watching TV. He complains of pain to the lower back that is radiating into the proximal lower extremities, especially the right. He reports that his neck is stiff but no pain to it. His examination is limited due to pain to the lower back which prevents him from fully participating. His strength does seem to be normal on the right but weaker on the left. 09/08: The patient was down having an MRI of the lumbar spine that was ordered by Infectious Disease when this practitioner went to see him initially. He was seen shortly after his return from MRI. He complained of pain to the low back from being moved about for the MRI. He still has the pain to the anterior thighs and he states that his toes are numb. Upon examination the patient continues to demonstrate weakness, although not as bad as yesterday, especially on the left, related to pain in the lower back with movement. (Mich Trevino) Exam Results 4/23/18 4/2309/07/17 09/07/17 09/08/17 09/08/17 06:00 18:00 06:00 18:00 06:00 18:00 Intake Total 720 ml 1900 ml 442 ml Output Total 850 ml 0 ml 800 ml Balance -850 ml 720 ml 1900 ml -358 ml Intake Oral 720 ml 1900 ml 442 ml Output Urine Total 850 ml 0 ml 800 ml # Voids 1 5 # Bowel Movements 0 0 Vital Signs Date Time Temp Pulse Resp B/P (MAP) Pulse Ox O2 Delivery O2 Flow Rate FiO2 09/08/17 08:29 98.4 101 20 154/99 (117) 95 09/08/17 04:00 98.0 106 18 140/80 (100) 95 09/08/17 04:00 18 09/08/17 00:00 97.6 107 17 119/68 (85) 94 09/07/17 21:40 97.8 107 17 124/78 (93) 95 09/07/17 16:05 98.0 111 20 124/72 (89) 95 09/07/17 12:24 97.9 109 20 120/69 (86) 96 09/07/17 09:06 98.6 112 20 146/82 (103) 09/07/17 04:00 98.1 111 18 129/72 (91) 94 09/07/17 00:00 97.6 111 18 109/68 (82) 94 09/06/17 20:00 97.6 112 18 119/70 (86) 97 09/06/17 17:39 97.4 108 18 114/68 (83) 98 09/06/17 12:00 97.6 104 18 128/88 (101) 99 09/06/17 11:50 110 18 133/99 (110) 94 09/06/17 11:20 111 18 100/77 (85) 93 09/06/17 11:05 97.6 108 18 118/80 (93) 97 09/06/17 08:00 97.8 92 20 161/96 (117) 99 09/06/17 04:00 98.6 98 16 138/84 (102) 97 09/06/17 00:00 98.6 94 18 140/82 (101) 99 09/06/17 00:00 98.6 94 18 146/82 (103) 99 09/05/17 16:18 98.1 96 20 143/88 (106) 97 09/05/17 16:05 09/05/17 15:00 97 18 144/83 (103) 99 Room Air (Mich Trevino) Physical Examination GENERAL: Awake & alert in bed watching TV. Affect essentially normal. Readily interacts. No apparent distress. HEENT: Normocephalic, atraumatic. MUSCULOSKELETAL: NICOLE spontaneously & purposefully. Moderate midline lumbar & paraspinous muscles TTP. NEUROLOGICAL: AAOx3. Speech clear & appropriate. Follows simple commands w/o difficulty. Sensation is intact to light touch to the lower extremities. Muscle strength to all major flexion & extension muscle groups of the lower extremities is mildly weak w/the weakness being attributable to pain resulting from movement of the extremities. He does have improvement in the left lower from yesterday. (Mich Trevino) Lab, Micro, Other Results Recent Impressions Needle Biopsy/Aspiration X-Ray 09/06/17 0000 Signed Impressions: Service Date/Time: Wednesday, September 06, 2017 09:58 - CONCLUSION: Uncomplicated needle biopsy of the L3-L4 disc as above. Dino Hernandez MD Laboratory Tests Test 09/05/17 17:53 09/05/17 19:08 09/06/17 06:22 Erythrocyte Sedimentation Rate GREATER THAN 140 mm/hr Prothrombin Time 10.9 SEC Prothromb Time International Ratio 1.1 RATIO Activated Partial Thromboplast Time 30.8 SEC White Blood Count 9.8 TH/MM3 Red Blood Count 4.85 MIL/MM3 Hemoglobin 13.6 GM/DL Hematocrit 40.8 % Mean Corpuscular Volume 84.2 FL Mean Corpuscular Hemoglobin 28.1 PG Mean Corpuscular Hemoglobin Concent 33.4 % Red Cell Distribution Width 15.7 % Platelet Count 305 TH/MM3 Mean Platelet Volume 8.0 FL Neutrophils (%) (Auto) 59.7 % Lymphocytes (%) (Auto) 29.4 % Monocytes (%) (Auto) 9.3 % Eosinophils (%) (Auto) 1.0 % Basophils (%) (Auto) 0.6 % Neutrophils # (Auto) 5.8 TH/MM3 Lymphocytes # (Auto) 2.9 TH/MM3 Monocytes # (Auto) 0.9 TH/MM3 Eosinophils # (Auto) 0.1 TH/MM3 Basophils # (Auto) 0.1 TH/MM3 CBC Comment DIFF FINAL Differential Comment Blood Urea Nitrogen 16 MG/DL Creatinine 1.01 MG/DL Random Glucose 74 MG/DL Total Protein 7.9 GM/DL Albumin 3.1 GM/DL Calcium Level 9.3 MG/DL Alkaline Phosphatase 139 U/L Aspartate Amino Transf (AST/SGOT) 12 U/L Alanine Aminotransferase (ALT/SGPT) 20 U/L Total Bilirubin 0.3 MG/DL Sodium Level 141 MEQ/L Potassium Level 4.5 MEQ/L Chloride Level 106 MEQ/L Carbon Dioxide Level 25.7 MEQ/L Anion Gap 9 MEQ/L Estimat Glomerular Filtration Rate 76 ML/MIN (Mich Trevino) Medical Decision Making Impression and Plan Impression: Progression of L3-4 discitis osteomyelitis No evidence recurrent cervical spine infectious process Patient is still having low back pain going into the proximal lower extremities. It appears that pain to the lower back from movement of the lower extremities limits the patient's motor strength still, but the left is stronger than yesterday. Tachycardia. Afebrile the past 24 hrs. Blood cultures x2 w/o growth x2 days, preliminary. Abscess culture w/rare WBC & no organisms seen on final Gram stain, no growth x48 hrs, preliminary. Blood cultures x2 w/Staphylococcus specie coagulase negative in 1 bottle & no growth x3 days in the other, preliminary. MRI cervical spine demonstrated degenerative changes w/ventral cord compression but no appreciable signal change w/i the cord at the C5-6 level, no abscess noted. MRI thoracic spine demonstrated a patent central canal throughout, no abscess noted. MRI lumbar spine demonstrated partial collapse of L4 superior endplate. Abnormal signal to the L3 vertebral body c/w osteomyelitis. Increased enhancement of the epidural space surrounding the thecal sac at the L3-4 level but no focal epidural abscess. Paravertebral soft tissue swelling w/enhancement surrounding the L3-L4 vertebral bodies which is increased since last study. Plan: Primary management per Hospitalist. Infectious Disease for antibiotic management. Mobilise patient w/assistance as needed. Physical Therapy eval & tx. No neurosurgical intervention planned at this time. (Mich Trevino) Attending Statement The exam, history, and the medical decision-making described in the above note were completed with the assistance of the mid-level provider. I reviewed and agree with the findings presented. I attest that I had a [id number] encounter with the patient on the same day, and personally performed and documented my assessment and findings in the medical record. The patient's examination by the undersigned on 09/08/2017 remains stable with no definite focal lower extremity sensorimotor deficit. Cultures from the spine CT-guided biopsy remaining no growth thus far. Discussed with patient Infectious disease notes [id number] MRI has been ordered. Continue therapy (Tawanda Vargas MD) Mich Trevino Sep 08, 2017 11:43 Tawanda Vargas MD Sep 08, 2017 20:18
[2017-09-08 12:00] VITALS: BP 142/80; PULSE 120; RESP 20; TEMP 98.1; O2SAT 94
[2017-09-08] MEDS: VANCOMYCIN INJ 1,250 MG in SODIUM CHLOR 0.9% 250 ML INJ 250 ML IV SCH (12:13)
[2017-09-08] MEDS ORDERED: GADODIAMIDE PF 287 MG/ML 5 ML VIAL (for RAD MRI) IVCONTRAST ONE (12:53)
--- NOTE | 2017-09-08 12:57 | RADRPT ---
EXAM DATE/TIME: 09/08/2017 11:14 [facility] COMPARISON: MRI LUMBAR SPINE W & W/O CONTRAST, September 05, 2017, 9:10. MRI LUMBAR SPINE W & W/O CONTRAST, May 24, 2017, 14:52. INDICATIONS : Abscess. Severe back pain. CONTRAST: 15 cc Omniscan (gadodiamide) IV MEDICAL HISTORY : Hypertension. Myocardial infarction. CVA SURGICAL HISTORY : Tonsillectomy. valve replacement ENCOUNTER: Subsequent ACUITY: 4-6 days PAIN SCORE: 6/10 LOCATION: lower back TECHNIQUE: Multiplanar multisequence MRI of the lumbar spine was performed with and without contrast. FINDINGS: The most caudal appearing lumbar vertebra is numbered as L5. VERTEBRAE: There again is marked edema, marrow placement in enhancement between the L3 and L4 vertebral bodies. There is collapse of the anterior half of L4. There is some fluid remaining within the disc space whi ch is markedly narrowed. It is very similar to the 09/05 exam. Both L3 and L4 markedly enhancing as is the epidural space. I do not see any pockets of non-enhancement within the epidural space to suggest epidural abscess. There again is marked enhancement of the paravertebral soft tissues without any ob viously drainable collections on the T2 weighted sequences. CO NUS: Normal level and configuration. POST CONTRAST: Again marked enhancement around L3-4. T12-L1: The thecal sac has a normal diameter. No evidence of disc bulge or protrusion. The neural foramina are patent bilaterally. L1-L2: The thecal sac has a normal diameter. No evidence of disc bulge or protrusion. The neural foramina are patent bilaterally. L2-L3: The thecal sac has a normal diameter. No evidence of disc bulge or protrusion. The neural foramina are patent bilaterally. L3-L4: Disc space is markedly narrowed. There is irregularity involving the L4 endplate. There is marked bon y edema. No significant thecal sac narrowing is noted. L4-L5: The thecal sac has a normal diameter. No evidence of disc bulge or protrusion. The neural foramina are patent bilaterally. L5-S1: The thecal sac has a normal diameter. No evidence of disc bulge or protrusion. The neural foramina are patent bilaterally. CONCLUSION: Ongoing presumed discitis at the L3-4 level with partial collapse of the L4 vertebral body. There is marked bony edema and enhancement. There is no significant subluxation. Sebastian A. Sevigny, MD on September 08, 2017 at 12:51 Board Certified Radiologist. This report was verified electronically.
--- NOTE | 2017-09-08 15:20 | HHI.PR ---
Subjective Remarks Patient reports persistent back pain. No fevers or chills. Objective Vitals Vital Signs Date Time Temp Pulse Resp B/P (MAP) Pulse Ox O2 Delivery O2 Flow Rate FiO2 09/08/17 12:00 98.1 120 20 142/80 (100) 94 09/08/17 08:29 98.4 101 20 154/99 (117) 95 09/08/17 04:00 98.0 106 18 140/80 (100) 95 09/08/17 04:00 18 09/08/17 00:00 97.6 107 17 119/68 (85) 94 09/07/17 21:40 97.8 107 17 124/78 (93) 95 09/07/17 16:05 98.0 111 20 124/72 (89) 95 I/O 09/07/17 09/07/17 09/07/17 09/08/17 09/08/17 09/08/17 07:00 15:00 23:00 07:00 15:00 23:00 Intake Total 1620 ml 1442 ml Output Total 850 ml 0 ml 800 ml Balance -850 ml 1620 ml 642 ml Intake Oral 1620 ml 1442 ml Output Urine Total 850 ml 0 ml 800 ml # Voids 2 3 # Bowel Movements 0 0 0 Result Diagram: 09/06/1762109/06/17 06 Objective Remarks GENERAL: This is a well-nourished, well-developed patient, in no apparent distress. CARDIOVASCULAR: Normal rate and regular rhythm without murmurs, gallops, or rubs. RESPIRATORY: Good respiratory efforts. Breath sounds equal and clear to auscultation bilaterally. GASTROINTESTINAL: Abdomen soft, non-tender, non-distended. Normal active bowel sounds MUSCULOSKELETAL: Reports tenderness to palpation over the lumbar area. No lower extremity edema. NEURO: Alert & Oriented x4 to person, place, time, situation. Moves all ext x4 PSYCH: Appropriate mood and affect. A/P Assessment and Plan 61-year-old male with a history of IV drug use in the past, previous epidural abscess in the cervical spine, presents with complaints of severe low back pain. Patient also reports pain in his cervical spine and thoracic spine. There is no reported fevers, chills. MRI of his cervical and thoracic spine showed no evidence of acute abscess. Lumbar CT shows what appears to be discitis and osteomyelitis and appears much worse than his previous MRI. Intractable back pain Lumbar spine discitis and osteomyelitis History of IV drug use Follow blood culture, third set showed 1 to positive for staph coag negative possible contamination Continue IV antibiotic per ID recommendation Appreciate neurosurgery consultation. No surgical intervention at this point. Restart home meds as appropriate I discussed with the clinical medical assistant at the correctional facility Dr. Simpson, phone #[phone]. They are able to do IV antibiotics at the facility once final recommendations are made. Discharge Planning Continue to follow cultures. Antibiotics per ID. Stephanie Potter MD Sep 08, 2017 15:20
[2017-09-08 16:00] VITALS: BP 127/74; PULSE 115; RESP 20; TEMP 98.1; O2SAT 96
[2017-09-08 19:47] VITALS: BP 131/72; PULSE 113; RESP 16; TEMP 98; O2SAT 96
[2017-09-09 00:50] VITALS: BP 120/89; PULSE 88; RESP 18; TEMP 98.1; O2SAT 96
[2017-09-09] MEDS: ACETAMINOPHEN/HYDROcodone 325 MG/10 MG TAB PO PRN ×6 (00:51→23:08)
[2017-09-09] MEDS: VANCOMYCIN INJ 1,250 MG in SODIUM CHLOR 0.9% 250 ML INJ 250 ML IV SCH ×3 (00:52→23:08)
[2017-09-09 05:30] VITALS: BP 125/81; PULSE 76; RESP 19; TEMP 98.3; O2SAT 94
[2017-09-09 07:41] LABS: HEMATOCRIT 36.3 % (39.0-51.0); HEMOGLOBIN 12.7 GM/DL (13.0-17.0); MEAN CELL VOLUME 82.7 FL (80.0-100.0); MEAN CORPUSCULAR HGB CONC 35.1 % (32.0-36.0); MEAN PLATELET VOLUME 7.6 FL (7.0-11.0); PLATELET COUNT 325 TH/MM3 (150-450); RED BLOOD COUNT 4.38 MIL/MM3 (4.50-5.90); RED CELL DISTRIBUTION WIDTH 15.5 % (11.6-17.2); WHITE BLOOD COUNT 12.2 TH/MM3 (4.0-11.0)
[2017-09-09 08:00] VITALS: BP 129/81; PULSE 105; RESP 17; TEMP 98.6; O2SAT 95
[2017-09-09 08:01] LABS: BICARBONATE 25.3 MEQ/L (21.0-32.0); CALCIUM 9.4 MG/DL (8.5-10.1); CREATININE 0.88 MG/DL (0.60-1.30)
[2017-09-09] MEDS: DOCUSATE SODIUM 50 MG/SENNA 8.6 MG TAB PO SCH ×2 (08:25→21:00)
[2017-09-09] MEDS: risperiDONE 1 MG TAB PO SCH (08:25)
[2017-09-09] MEDS: busPIRone HCL 10 MG TAB PO SCH ×3 (08:25→18:08)
[2017-09-09] MEDS: GABAPENTIN 300 MG CAP PO SCH ×3 (08:25→18:08)
[2017-09-09] MEDS: REMOVE OLD PATCH T-DERMAL SCH (08:27)
[2017-09-09] MEDS: LIDOCAINE HCL 5% PATCH T-DERMAL SCH (08:27)
[2017-09-09] MEDS: SODIUM CHLORIDE 0.9% FLUSH 10 ML FLUSH IV FLUSH SCH ×2 (08:28→23:08)
--- NOTE | 2017-09-09 11:52 | HHI.NSPN ---
(Mich Trevino) History Chief Complaint: Continues with low back pain. (Mich Trevino) Interval History 09/06: The patient is a 61-year-old male previously seen by the undersigned in May 2017 for cervical discitis-osteomyelitis with epidural abscess which was surgically evacuated. His lumbar spine MRI of 05/24/2017 revealed diffuse bone marrow edema and enhancement with cortical erosion of the L4 vertebral body without L3-4 disc enhancement with a small paraspinous fluid collection. He was treated with a full course of intravenous antibiotics and discharged to long term. He now presents to the emergency room after having been in group home for approximately 1 week, with complaint of progressive low back pain and some increasing neck pain. He has not had any significant pain weakness or numbness in the lower extremities except for chronic discomfort in the right anterolateral thigh which has been present since his last admission. Repeat CT scan during this hospitalization has revealed progression of destructive changes at the L3-4 level. He complains of recent fevers and chills. No significant bowel or bladder dysfunction. 09/07: When seen this afternoon the patient is awake and alert in bed watching TV. He complains of pain to the lower back that is radiating into the proximal lower extremities, especially the right. He reports that his neck is stiff but no pain to it. His examination is limited due to pain to the lower back which prevents him from fully participating. His strength does seem to be normal on the right but weaker on the left. 09/08: The patient was down having an MRI of the lumbar spine that was ordered by Infectious Disease when this practitioner went to see him initially. He was seen shortly after his return from MRI. He complained of pain to the low back from being moved about for the MRI. He still has the pain to the anterior thighs and he states that his toes are numb. Upon examination the patient continues to demonstrate weakness, although not as bad as yesterday, especially on the left, related to pain in the lower back with movement. 09/09: This morning the patient is awake in bed watching TV. He continues to have the low back pain and says that he had been up ambulating with Therapy a little before being seen. He does have some pain coming from the low back into the right buttock around into the right anterior thigh. Both lower legs are sensitive and he has numbness to the toes. His muscle strength continues to be weak secondary to not fully participating due to pain. He did state he felt pain to the lower back with movement of the lower extremities as being assessed. (Mich Trevino) Exam Results 09/07/17 09/07/17 09/08/17 09/08/17 09/09/17 09/09/17 06:00 18:00 06:00 18:00 06:00 18:00 Intake Total 720 ml 1900 ml 1022 ml 1050 ml Output Total 850 ml 0 ml 800 ml 900 ml Balance -850 ml 720 ml 1900 ml 222 ml 150 ml Intake Oral 720 ml 1900 ml 1022 ml 800 ml IV Total 250 ml Output Urine Total 850 ml 0 ml 800 ml 900 ml # Voids 1 5 4 2 # Bowel Movements 0 0 0 Vital Signs Date Time Temp Pulse Resp B/P (MAP) Pulse Ox O2 Delivery O2 Flow Rate FiO2 09/09/17 08:00 98.6 105 17 129/81 (97) 95 09/09/17 05:30 98.3 76 19 125/81 (96) 94 09/09/17 00:50 98.1 88 18 120/89 (99) 96 09/08/17 19:47 98.0 113 16 131/72 (91) 96 09/08/17 16:00 98.1 115 20 127/74 (91) 96 09/08/17 12:00 98.1 120 20 142/80 (100) 94 09/08/17 08:29 98.4 101 20 154/99 (117) 95 09/08/17 04:00 98.0 106 18 140/80 (100) 95 09/08/17 04:00 18 09/08/17 00:00 97.6 107 17 119/68 (85) 94 09/07/17 21:40 97.8 107 17 124/78 (93) 95 09/07/17 16:05 98.0 111 20 124/72 (89) 95 09/07/17 12:24 97.9 109 20 120/69 (86) 96 09/07/17 09:06 98.6 112 20 146/82 (103) 09/07/17 04:00 98.1 111 18 129/72 (91) 94 09/07/17 00:00 97.6 111 18 109/68 (82) 94 09/06/17 20:00 97.6 112 18 119/70 (86) 97 09/06/17 17:39 97.4 108 18 114/68 (83) 98 09/06/17 12:00 97.6 104 18 128/88 (101) 99 09/06/17 11:50 110 18 133/99 (110) 94 (Mich Trevino) Physical Examination GENERAL: Awake & alert in bed watching TV. Affect essentially normal. Readily interacts. No apparent distress. HEENT: Normocephalic, atraumatic. MUSCULOSKELETAL: NICOLE spontaneously & purposefully. Moderate midline lumbar & paraspinous muscles TTP. NEUROLOGICAL: AAOx3. Speech clear & appropriate. Follows simple commands w/o difficulty. Lower legs are sensitive to touch and the toes are numb. Muscle strength continues to be weak to the lower extremities due to decreased effort secondary to lower back pain with movement. (Mich Trevino) Lab, Micro, Other Results Recent Impressions Lumbar Spine MRI 09/08/17 0000 Signed Impressions: Service Date/Time: Friday, September 08, 2017 11:14 - CONCLUSION: Ongoing presumed discitis at the L3-4 level with partial collapse of the L4 vertebral body. There is marked bony edema and enhancement. There is no significant subluxation. Sebastian Ernandez MD Laboratory Tests Test 09/09/17 06:51 White Blood Count 12.2 TH/MM3 Red Blood Count 4.38 MIL/MM3 Hemoglobin 12.7 GM/DL Hematocrit 36.3 % Mean Corpuscular Volume 82.7 FL Mean Corpuscular Hemoglobin 29.0 PG Mean Corpuscular Hemoglobin Concent 35.1 % Red Cell Distribution Width 15.5 % Platelet Count 325 TH/MM3 Mean Platelet Volume 7.6 FL Blood Urea Nitrogen 16 MG/DL Creatinine 0.88 MG/DL Random Glucose 93 MG/DL Calcium Level 9.4 MG/DL Sodium Level 139 MEQ/L Potassium Level 4.2 MEQ/L Chloride Level 103 MEQ/L Carbon Dioxide Level 25.3 MEQ/L Anion Gap 11 MEQ/L Estimat Glomerular Filtration Rate 89 ML/MIN (Mich Trevino) Medical Decision Making Impression and Plan Impression: Progression of L3-4 discitis osteomyelitis No evidence recurrent cervical spine infectious process Patient is still having low back pain going into the right anterior thigh. Increased sensitivity to the lower legs and numbness to the toes. Muscle strength continues to be weak to the lower extremities due to decreased effort secondary to lower back pain with movement. Tachycardia. Afebrile the past 24 hrs. Reviewed labs for today. Interval development of leukocytosis & anaemia. Blood cultures x2 w/o growth x3 days, preliminary. Abscess culture w/rare WBC & no organisms seen on final Gram stain, no growth x72 hrs, final . Blood cultures x2 w/Staphylococcus specie coagulase negative in 1 bottle & no growth x4 days in the other, preliminary. MRI lumbar spine demonstrated ongoing discitis at the L3-4 level w/ partial collapse of the L4 vertebral body. There is marked bony edema & enhancement. No significant subluxation. Per Dr Vargas there is no change from his prior study on . Plan: Primary management per Hospitalist. Infectious Disease for antibiotic management. Mobilise patient w/assistance as needed. Physical Therapy eval & tx. No neurosurgical intervention planned at this time. Stable for discharge from Neurosurgery's perspective. Follow up on Wednesday at 1:15 PM. Prior to that office appointment lumbar spine x-rays will need to be completed. (Mich Trevino) Attending Statement The exam, history, and the medical decision-making described in the above note were completed with the assistance of the mid-level provider. I reviewed and agree with the findings presented. I attest that I had a [id number] encounter with the patient on the same day, and personally performed and documented my assessment and findings in the medical record. The patient's neurologic exam remained stable without significant lower extremity motor deficit. 09/08/2017 MRI lumbar spine images reviewed by the undersigned. Relatively stable L3-4 lumbar discitis-osteomyelitis with inflammation along the bilateral psoas muscle. No significant change from prior scan. MRI findings may represent a subacute sequela from the previous infection. CT- guided biopsy no growth so far. Anticipate that the patient will require additional course of intravenous antibiotics-defer to infectious disease. No neurosurgical intervention planned at this point He will need follow-up lumbar spine x-ray imaging, which can be accomplished either outpatient or inpatient. He is stable for discharge from neurosurgical standpoint pending final infectious disease disposition. (Tawanda Vargas MD) Mich TrevinoP Sep 09, 2017 11:52 Tawanda Vargas MD Sep 09, 2017 12:52
[2017-09-09 12:34] VITALS: BP 125/72; PULSE 106; RESP 21; TEMP 98.3; O2SAT 95
--- NOTE | 2017-09-09 13:05 | HHI.IDPN ---
Subjective Subjective Remarks Patient is a 61-year-old male, has been in intermediate for about 7 days, brought into the hospital for further evaluation of worsening back pain. His history is significant for a diagnosis of cervical spine abscess last May 2017 for which she underwent laminectomy and drainage of the abscess. During that time his MRI showed some abnormalities in the lumbar spine. He completed his IV antibiotic like August 05 and [facility]. Patient stated that he has not used IV drugs since his last hospitalization. He stated that he always has had that low back pain, but since he has been in intermediate the pain has been worsening and there is radiation of the pain to his anterior right thigh. He denies any urinary retention or any other urinary complaints and denies any GI as far as constipation. Patient has had some nausea which he attributes to the severe pain. He denies any respiratory complaint. He had some low-grade fevers around the day that he was being taken to the hospital. Patient is afebrile. His WBC on admission is 13,000. CT of the lumbar spine showing destructive changes in L3-L4 suggestive of discitis. Patient got 1 dose of IV vancomycin this morning. Neurosurgery has been consulted. Infectious disease consultation has been requested to assist with his management. Notes reviewed Temps okay Back pain a little better, ambulating in the room Culture from CT-guided biopsy negative so far 1 blood culture with coag negative staph No new positive blood culture ESR greater than 140 CRP 3.9 Antibiotics Vancomycin Current Medications Medications (Trade) Dose Ordered Sig/Ирина Route Start Time Stop Time Status Last Admin (NS Flush) 2 ml UNSCH PRN IV FLUSH 09/05/17 09:00 (NS Flush) 2 ml BID IV FLUSH 09/05/17 09:00 09/09/17 08:28 (Tylenol) 650 mg Q4H PRN PO 09/05/17 09:00 (Zofran Inj) 4 mg Q6H PRN IVP 09/05/17 09:00 (Narcan Inj) 0.4 mg UNSCH PRN IV PUSH 09/05/17 09:00 (Kati-Colace) 1 tab BID PO 09/05/17 09:00 09/09/17 08:25 (Milk Of Magnesia Liq) 30 ml Q12H PRN PO 09/05/17 09:00 (Senokot) 17.2 mg Q12H PRN PO 09/05/17 09:00 (Dulcolax Supp) 10 mg DAILY PRN RECTAL 09/05/17 09:00 (Lactulose Liq) 30 ml DAILY PRN PO 09/05/17 09:00 (Buspar) 10 mg TID PO 09/05/17 13:00 09/09/17 12:43 (Neurontin) 300 mg TID PO 09/05/17 13:00 09/09/17 12:43 ([place] 10-325 Mg) 1 tab Q4H PRN PO 09/05/17 10:00 09/09/17 10:00 (Lidoderm 5% Patch.12 Hr) 1 patch DAILY T-DERMAL 09/06/17 09:00 09/09/17 08:27 (Robaxin) 500 mg QID PRN PO 09/05/17 10:00 09/06/17 21:49 (risperDAL) 1 mg DAILY PO 09/06/17 09:00 09/09/17 08:25 Miscellaneous Information 1 DAILY T-DERMAL 09/06/17 09:00 09/09/17 08:27 Pharmacy Profile Note 0 ml @ 0 mls/hr UNSCH OTHER 09/08/17 09:15 Vancomycin HCl 1250 mg/Sodium Chloride 262.5 ml @ 250 mls/hr Q12H IV 09/08/17 11:00 09/09/17 12:01 Miscellaneous Information SPECIFIC LAB TO BE DRAWN:VANCOMYCIN TROUGH DATE TO... ONCE ONCE .XX 09/10/17 10:45 09/10/17 10:46 Lines PIV no evidence of infection Past Medical History HTN GERD HEP C PTSD ADHD Bipolar Disorder Cervical epidural abscess May 2017 Question lumbar osteomyelitis May 2017 Past Surgical History C2 laminectomy, and drainage of epidural abscess May 2017 Allergies: Coded Allergies: No Known Allergies (Verified Adverse Reaction, Unknown, 09/05/17) Objective . Vital Signs Date Time Temp Pulse Resp B/P (MAP) Pulse Ox O2 Delivery O2 Flow Rate FiO2 09/09/17 12:34 98.3 106 21 125/72 (89) 95 09/09/17 08:00 98.6 105 17 129/81 (97) 95 09/09/17 05:30 98.3 76 19 125/81 (96) 94 09/09/17 00:50 98.1 88 18 120/89 (99) 96 09/08/17 19:47 98.0 113 16 131/72 (91) 96 09/08/17 16:00 98.1 115 20 127/74 (91) 96 . Laboratory Tests Test 09/09/17 06:51 White Blood Count 12.2 TH/MM3 Red Blood Count 4.38 MIL/MM3 Hemoglobin 12.7 GM/DL Hematocrit 36.3 % Mean Corpuscular Volume 82.7 FL Mean Corpuscular Hemoglobin 29.0 PG Mean Corpuscular Hemoglobin Concent 35.1 % Red Cell Distribution Width 15.5 % Platelet Count 325 TH/MM3 Mean Platelet Volume 7.6 FL Laboratory Tests Test 09/09/17 06:51 Blood Urea Nitrogen 16 MG/DL Creatinine 0.88 MG/DL Random Glucose 93 MG/DL Calcium Level 9.4 MG/DL Sodium Level 139 MEQ/L Potassium Level 4.2 MEQ/L Chloride Level 103 MEQ/L Carbon Dioxide Level 25.3 MEQ/L Anion Gap 11 MEQ/L Estimat Glomerular Filtration Rate 89 ML/MIN Microbiology Date/Time Source Procedure Growth Status 09/06/17 13:40 Blood Peripheral Aerobic Blood Culture - Preliminary NO GROWTH IN 3 DAYS Resulted 09/06/17 13:40 Blood Peripheral Anaerobic Blood Culture - Preliminary NO GROWTH IN 3 DAYS Resulted 09/06/17 13:40 Blood Peripheral Aerobic Blood Culture - Preliminary NO GROWTH IN 3 DAYS Resulted 09/06/17 13:40 Blood Peripheral Anaerobic Blood Culture - Preliminary NO GROWTH IN 3 DAYS Resulted Imaging Last Impressions Needle Biopsy/Aspiration X-Ray 09/06/17 0000 Signed Impressions: Service Date/Time: Wednesday, September 06, 2017 09:58 - CONCLUSION: Uncomplicated needle biopsy of the L3-L4 disc as above. Dino Hernandez MD Lumbar Spine CT 09/05/17 0553 Signed Impressions: Service Date/Time: Tuesday, September 05, 2017 06:32 - CONCLUSION: 1. Destructive changes at L3-L4 disc space extending into the adjacent endplates consistent with discitis and osteomyelitis. This is a significant change relative to the prior MRI. MRI would be more sensitive for evaluating this. There is motion artifact on the CT scan and I am concerned that the degree of motion would degrade the MRI. Adam Cantu Jr., MD Thoracic Spine MRI 09/05/17 0323 Signed Impressions: Service Date/Time: Tuesday, September 05, 2017 04:13 - CONCLUSION: 1. No abscess. 2. Patent central canal throughout. Adam Cantu Jr., MD Lumbar Spine MRI 09/05/17322 Signed Impressions: Service Date/Time: Tuesday, September 05, 2017 09:10 - CONCLUSION: 1. Suboptimal examination degraded by motion artifact especially on axial images. 2. Compared to the prior MRI there has been partial collapse of the superior endplate of L4 with moderate compression fracture deformity now noted. There is now new abnormal signal in the L3 vertebral body as well as enhancement. These findings are consistent with osteomyelitis. There is no abnormal enhancement or signal in the disc space on the current study. 3. Fairly diffuse increased enhancement involving the epidural space surrounding the thecal sac at the L3-4 level with no focal epidural abscess. 4. Paravertebral soft tissue swelling enhancement surrounding L3-L4 vertebral bodies. This is mildly increased compared to the prior study. Phillip Tracey MD Cervical Spine MRI 09/05/17322 Signed Impressions: Service Date/Time: Tuesday, September 05, 2017 04:13 - CONCLUSION: 1. Study degraded by motion artifact. 2. No abscess. 3. Multilevel degenerative changes most pronounced at C5-C6 with compression of the ventral portion of the cord but no appreciable signal change within the cord on these limited images. Adam Cantu Jr., MD Physical Exam GENERAL: awake and alert, NAD. SKIN: Warm and dry. No generalized rash, no ecchymoses and no evidence of embolic lesions. HEAD: Atraumatic. Normocephalic. No temporal wasting, or tenderness. EYES: [place] conjunctiva. No petechia or hemorrhage. Pupils equal, round and reactive to light. Extraocular movements full and intact. No scleral icterus. EARS, NOSE AND THROAT: Nose without bleeding or purulent nasal discharge. No sinus tenderness. Mucous membranes pink and moist. No oral lesions noted. NECK: Trachea midline. Supple and not tender, no meningeal signs CARDIOVASCULAR: Regular rate and rhythm. No murmurs, rubs or gallops heard RESPIRATORY: Clear to auscultation. Breath sounds equal bilaterally. No rales , wheezing or rhonchi ABDOMEN: Soft, non-tender, nondistended. Bowel sounds present and normoactive. No guarding. No rebound. No organomegaly. EXTREMITIES: No clubbing, cyanosis, or edema.No joint effusion, has good ROM. No calf tenderness. Well perfused and warm. NEUROLOGICAL: Grossly nonfocal. PSYCHIATRIC: Normal affect, calm and cooperative. LINE: No evidence of infection Assessment & Plan Remarks IMPRESSION Discitis L3-L4, has progressed, ?due to MRSA or other pathogen S/P Rx cervical spine abscess C/S MRSA Previous IVDU, denies recent use 1 positive blood culture with coag negative staph, likely contaminant RECOMMENDATION Continue IV Vanco -Plan 6-[address] PICC Follow labs while on antibiotics Once arrangements made, he can be discharged and clear from ID standpoint I will fill out antibiotic form Explained plan to the patient Jeannette Carmona MD Sep 09, 2017 13:05
--- NOTE | 2017-09-09 13:07 | HHI.FF ---
Infusion Therapy Location of Infusion Therapy: [facility] IV Infusion Order Patient Information Patient Weight 77 kg Diagnosis: Diagnosis L2-3 discitis Coded Allergies: No Known Allergies (Verified Adverse Reaction, Unknown, 09/05/17) Administer Medication Vanco 1.25 gm IV q12H Stop Treatment: Nov 02, 2017 Additional Information Venous access: PICC Line Additional Instructions [x] Peripheral flush and dressing changes per protocol [x] Implanted port and central solderer production line: * Implanted port: 10 ml Normal Saline followed by 5 ml Heparin 100 units/ml Heparin flush after each use and monthly to maintain. [] May leave port accessed during therapy. [] May leave peripheral site accessed for duration of therapy. [x] If patient has SOB or respiratory distress, check oxygen saturation. If less than 90% or clinical signs of respiratory distress, administer oxygen at 2 L/min. via nasal cannula and notify physician. [x] Anaphylaxis/Reaction orders: * Stop infusion. * Keep IV line open with saline flush. * Notify physician. * Monitor vital signs every 15 minutes until symptoms resolve. * Check Oxygen saturation; Oxygen at 2 L/min. via nasal cannula if less than 90% or clinical signs of respiratory distress. * Administer diphenhydramine (Benadryl) 25 mg IV STAT, (unless patient has received as pre-med). May repeat once, if necessary. * Solu-Cortef 250 mg IVP over 30-60 seconds, use 100 mg vials for each dissolution. * Epinephrine (1mg/1 ml) 0.3 mg subcutaneously or IVP now with any signs of respiratory distress. * Check with physician for new additional pre-med orders if patient is re- challenged or re-treated. [x] May remove PICC line when treatment complete, after confirming with Physician. [x] If the patient is admitted to the hospital, the ED, or transferred via [facility] , complete transfer form including medication reconciliation order sheet. Laboratory Tests Weekly Labs: CBC w/diff, Creatinine, Vancomycin Trough (Labs every Wednesday. Have pharm adjust dosing aim for trough 15-20) Jeannette Carmona MD Sep 09, 2017 13:07
--- NOTE | 2017-09-09 13:31 | HHI.PR ---
Subjective Remarks Patient reports he is feeling better. He ambulated with physical therapy. Still complaining of back pain. No fevers or chills. Objective Vitals Vital Signs Date Time Temp Pulse Resp B/P (MAP) Pulse Ox O2 Delivery O2 Flow Rate FiO2 09/09/17 12:34 98.3 106 21 125/72 (89) 95 09/09/17 08:00 98.6 105 17 129/81 (97) 95 09/09/17 05:30 98.3 76 19 125/81 (96) 94 09/09/17 00:50 98.1 88 18 120/89 (99) 96 09/08/17 19:47 98.0 113 16 131/72 (91) 96 09/08/17 16:00 98.1 115 20 127/74 (91) 96 I/O 09/08/17 09/08/17 09/08/17 09/09/17 09/09/17 09/09/17 07:00 15:00 23:00 07:00 15:00 23:00 Intake Total 1442 ml 580 ml 1050 ml Output Total 800 ml 300 ml 600 ml Balance 642 ml 580 ml -300 ml 450 ml Intake Oral 1442 ml 580 ml 800 ml IV Total 250 ml Output Urine Total 800 ml 300 ml 600 ml # Voids 3 4 2 # Bowel Movements 0 0 Result Diagram: 09/09/17 0651 09/09/17 0651 Objective Remarks GENERAL: This is a well-nourished, well-developed patient, in no apparent distress. CARDIOVASCULAR: Normal rate and regular rhythm without murmurs, gallops, or rubs. RESPIRATORY: Good respiratory efforts. Breath sounds equal and clear to auscultation bilaterally. GASTROINTESTINAL: Abdomen soft, non-tender, non-distended. Normal active bowel sounds MUSCULOSKELETAL: Reports tenderness to palpation over the lumbar area. No lower extremity edema. NEURO: Alert & Oriented x4 to person, place, time, situation. Moves all ext x4 PSYCH: Appropriate mood and affect. A/P Assessment and Plan 61-year-old male with a history of IV drug use in the past, previous epidural abscess in the cervical spine, presents with complaints of severe low back pain. Patient also reports pain in his cervical spine and thoracic spine. There is no reported fevers, chills. MRI of his cervical and thoracic spine showed no evidence of acute abscess. Lumbar CT shows what appears to be discitis and osteomyelitis and appears much worse than his previous MRI. Intractable back pain Lumbar spine discitis and osteomyelitis History of IV drug use One set of blood cultures positive for staph coag negative possible contamination Appreciate neurosurgery consultation. No surgical intervention at this point. Discussed with ID today. Plan to treat the patient medically with 6-8 weeks of IV antibiotics. Orders written. Advised case management to alert the snf so preparation can be made for the patient to continue to receive IV antibiotics there. PICC line ordered today Previously discussed with the director of medical staff services at the correctional facility Dr. Simpson, phone #[phone]. They are able to do IV antibiotics at the facility once final recommendations are made. Discharge Planning Anticipate discharge tomorrow morning Stephanie Potter MD Sep 09, 2017 13:31
[2017-09-09] MEDS ORDERED: SODIUM CHLORIDE 0.9% FLUSH 10 ML FLUSH IV FLUSH PRN (16:30)
[2017-09-09 16:53] VITALS: BP 115/64; PULSE 106; RESP 21; TEMP 98.2; O2SAT 94
[2017-09-09 20:00] VITALS: BP 104/65; PULSE 104; RESP 18; TEMP 98.2; O2SAT 93
[2017-09-09] MEDS: METHOCARBAMOL 500 MG TAB PO PRN (21:04)
[2017-09-10] VITALS: BP 131/80; PULSE 114; RESP 18; TEMP 98; O2SAT 91
[2017-09-10] MEDS: ACETAMINOPHEN/HYDROcodone 325 MG/10 MG TAB PO PRN ×3 (03:31→12:23)
[2017-09-10 04:00] VITALS: BP 125/92; PULSE 104; RESP 18; TEMP 98.1; O2SAT 95
[2017-09-10 08:00] VITALS: BP 130/83; PULSE 107; RESP 18; TEMP 97.9; O2SAT 93
[2017-09-10] MEDS: LIDOCAINE HCL 5% PATCH T-DERMAL SCH (08:03)
[2017-09-10] MEDS: risperiDONE 1 MG TAB PO SCH (08:03)
[2017-09-10] MEDS: DOCUSATE SODIUM 50 MG/SENNA 8.6 MG TAB PO SCH (08:03)
[2017-09-10] MEDS: GABAPENTIN 300 MG CAP PO SCH ×2 (08:03→12:22)
[2017-09-10] MEDS: busPIRone HCL 10 MG TAB PO SCH ×2 (08:03→12:23)
[2017-09-10] MEDS ORDERED: SODIUM CHLORIDE 0.9% FLUSH 10 ML FLUSH IV FLUSH SCH (09:00)
--- NOTE | 2017-09-10 09:19 | HHI.DS ---
Discharge Summary Admission Date Sep 05, 2017 at 08:45 Discharge Date: Sep 10, 2017 Admitting Diagnosis Discitis, osteomyelitis lumbar spine (1) Discitis of lumbar region ICD Code: M46.46 - Discitis, unspecified, lumbar region Procedures None Brief History - From Admission This is a 61-year-old male with a history of cervical abscess in May 2017, presents here from the snf in custody with complaints of back and neck pain. Patient denies any fevers, chills. Patient reports the back and neck pain is associated with sharp pains running down his legs bilaterally. There is no report of incontinence. There is no report of weakness. He denies any recent IV drug use. He did state that he had used drugs in the past. He has been in snf for the last 7 days. Can't walk. Nausea last night. No vomiting. CBC/BMP: 09/09/17 0651 09/09/17 0651 Significant Findings Laboratory Tests Test 09/09/17 06:51 White Blood Count 12.2 TH/MM3 (4.0-11.0) Red Blood Count 4.38 MIL/MM3 (4.50-5.90) Hemoglobin 12.7 GM/DL (13.0-17.0) Hematocrit 36.3 % (39.0-51.0) PE at Discharge GENERAL: This is a well-nourished, well-developed patient, in no apparent distress. CARDIOVASCULAR: Normal rate and regular rhythm without murmurs, gallops, or rubs. RESPIRATORY: Good respiratory efforts. Breath sounds equal and clear to auscultation bilaterally. GASTROINTESTINAL: Abdomen soft, non-tender, non-distended. Normal active bowel sounds MUSCULOSKELETAL: Reports tenderness to palpation over the lumbar area. No lower extremity edema. NEURO: Alert & Oriented x4 to person, place, time, situation. Moves all ext x4 PSYCH: Appropriate mood and affect. Pt update on day of discharge Patient reports he is doing okay. Back pain is slightly better. Ambulating with a walker. Hospital Course 61-year-old male with a history of IV drug use in the past, previous epidural abscess in the cervical spine, presents with complaints of severe low back pain. Patient also reports pain in his cervical spine and thoracic spine. There is no reported fevers, chills. MRI of his cervical and thoracic spine showed no evidence of acute abscess. Lumbar CT shows what appears to be discitis and osteomyelitis and appears much worse than his previous MRI. The patient was followed by infectious disease. 1 of his blood cultures grew staph coag negative, probable contaminant. Repeat blood culture is negative. He was followed by neurosurgery recommended medical management with IV antibiotics. The patient is discharged to continue on IV antibiotics per infectious disease recommendations. A PICC line was placed. Previously discussed with the medical research tech at the correctional facility Dr. Simpson. They are able to do IV antibiotics at the facility once final recommendations are made. Pt Condition on Discharge: Good Discharge Disposition: Dis to Court [employer] Discharge Time: > 30 minutes Discharge Instructions DIET: Follow Instructions for: Heart Healthy Diet Activities you can perform: Regular-No Restrictions Follow up Referrals: Neurosurgery - 10/06/17 with Tawanda Vargas MD Follow up on Wednesday at 1:15 PM. Call the office at [phone] so as to obtain the order for the lumbar spine x-rays to be completed before your office visit. New Medications: Walker with Front Wheels (Walker with Front Wheels) 1 Mis Mis EA .XX DIRECTED, #1 0 Refills Continued Medications: Aspirin DR (Aspirin EC) 81 Mg Tabdr 81 MG PO DAILY, TAB 0 Refills Atorvastatin (Atorvastatin) 40 Mg Tab 40 MG PO HS for Cholesterol Management, #30 TAB 0 Refills Buspirone (Buspirone) 10 Mg Tab 10 MG PO TID for Anxiety, TAB 0 Refills Clopidogrel (Plavix) 75 Mg Tab 75 MG PO DAILY for Blood Clot Prevention, #30 TAB 0 Refills Gabapentin (Neurontin) 300 Mg Cap 300 MG PO TID, #90 CAP Hydrocodone/Acetaminophen (Hydrocodone-Acetamin 10-325 mg) 10 Mg-325 Mg Tablet 1 TAB PO Q4H PRN for PAIN GREATER THAN 5, #30 Lidocaine (Lidoderm) 5 % Adh..patch 1 PATCH T-DERMAL DAILY, #15 PATCH Methocarbamol (Robaxin) 500 Mg Tab 500 MG PO QID PRN for MUSCLE SPASM, #30 TAB 0 Refills Risperidone (Risperidone) 1 Mg Tab 1 MG PO DAILY, #30 TAB 0 Refills Stephanie Potter MD Sep 10, 2017 09:19
[2017-09-10] MEDS ORDERED: PHARMACY ORDERED LAB ONE (10:45)
[2017-09-10] MEDS: VANCOMYCIN INJ 1,250 MG in SODIUM CHLOR 0.9% 250 ML INJ 250 ML IV SCH (11:30)
[2017-09-10] MEDS ORDERED: WALKER WHEELS/F1 MIS (12:33)
== END 2017-09-10 15:06 | DRG 540 ==
LOC: NEPE 03:20 → NEDA 08:45 → N05A 16:12
PROVIDERS: ADMIT Family Medicine; ATTEND Family Medicine
PROC: 0S923ZX Drainage of Lumbar Vertebral Disc, Percutaneous Approach, Diagnostic (ICD-10-PCS; principal; 2017-09-06)
PROC: 02HV33Z Insertion of Infusion Device into Superior Vena Cava, Percutaneous Approach (ICD-10-PCS; 2017-09-09)
DX: M46.26 Osteomyelitis of vertebra, lumbar region (principal); G95.20 Unspecified cord compression; N19 Unspecified kidney failure; M46.46 Discitis, unspecified, lumbar region; I10 Essential (primary) hypertension; F19.90 Other psychoactive substance use, unspecified, uncomplicated; M54.2 Cervicalgia; I25.10 Atherosclerotic heart disease of native coronary artery without angina pectoris; K21.9 Gastro-esophageal reflux disease without esophagitis; E78.00 Pure hypercholesterolemia, unspecified; F43.10 Post-traumatic stress disorder, unspecified; R11.0 Nausea; F17.210 Nicotine dependence, cigarettes, uncomplicated; R60.9 Edema, unspecified; R79.82 Elevated C-reactive protein (CRP); R00.0 Tachycardia, unspecified; R20.0 Anesthesia of skin; R53.1 Weakness; D64.9 Anemia, unspecified; Z86.73 Personal history of transient ischemic attack (TIA), and cerebral infarction without residual deficits; I25.2 Old myocardial infarction; Z86.19 Personal history of other infectious and parasitic diseases; Z86.61 Personal history of infections of the central nervous system; Z23 Encounter for immunization; Z79.01 Long term (current) use of anticoagulants; Z95.2 Presence of prosthetic heart valve
CPT/HCPCS: 36569; 62267; 72131; 72141; 72146; 72158; 76937; 77002; 80048; 80053; 80076; 85025; 85027; 85610; 85652; 85730; 86140; 87015; 87040; 87070; 87077; 87102; 87116; 87186; 87205; 87206; 90471; 90686; 96365; 96375; 99152; 99153; A9579; G0008; J1200; J1650; J1885; J2060; J2250; J2270; J2405; J3010; J3370; J7050; Q2038

== ENCOUNTER 2017-09-19 02:35 | Observation (INO) | payer OTHER, MEDICARE ==
[2017-09-19] MEDS: SODIUM CHLOR 0.9% 1000 ML INJ 1,000 ML IV (04:10)
[2017-09-19] MEDS: MORPHINE SULFATE 2 MG/ML SYRINGE IV PUSH (04:10)
[2017-09-19] MEDS: ONDANSETRON HCL 4 MG/2 ML VIAL IV PUSH (04:10)
[2017-09-19] MEDS: SODIUM CHLORIDE 0.9% FLUSH 10 ML FLUSH IV FLUSH ×3 (04:11→23:41)
[2017-09-19 04:12] LABS: AUTOMATED NEUTROPHIL # 4.8 TH/MM3 (1.8-7.7); BASOPHIL # 0.1 TH/MM3 (0-0.2); EOSINOPHIL # 0.3 TH/MM3 (0-0.4); EOSINOPHIL % 2.5 % (0.0-4.0); HEMATOCRIT 41.6 % (39.0-51.0); HEMO FLAGS DIFF FINAL; HEMOGLOBIN 14.2 GM/DL (13.0-17.0); LYMPH % 40.5 % (9.0-44.0); LYMPHOCYTE # 4.1 TH/MM3 (1.0-4.8); MEAN CELL VOLUME 81.5 FL (80.0-100.0); MEAN CORPUSCULAR HEMOGLOBIN 27.8 PG (27.0-34.0); MEAN CORPUSCULAR HGB CONC 34.1 % (32.0-36.0); MEAN PLATELET VOLUME 7.4 FL (7.0-11.0); MONO % 8.6 % (0.0-8.0); MONOCYTE # 0.9 TH/MM3 (0-0.9); NEUT % 47.4 % (16.0-70.0); PLATELET COUNT 314 TH/MM3 (150-450); RED BLOOD COUNT 5.11 MIL/MM3 (4.50-5.90); WHITE BLOOD COUNT 10.1 TH/MM3 (4.0-11.0)
[2017-09-19 04:19] LABS: APTT (PATIENT) 24.3 SEC (24.3-30.1); INTERNATIONAL NORMALIZED RATIO 1.1 RATIO; PROTHROMBIN TIME - PATIENT 10.8 SEC (9.8-11.6)
[2017-09-19 04:20] LABS: ANION GAP 9 MEQ/L (5-15); BICARBONATE 25.5 MEQ/L (21.0-32.0); BLOOD UREA NITROGEN 13 MG/DL (7-18); CALCIUM 9.1 MG/DL (8.5-10.1); CHLORIDE 109 MEQ/L (98-107); CREATININE 1.01 MG/DL (0.60-1.30); GLOMERULAR FILTRATION RATE 76 ML/MIN (>89); GLUCOSE,RANDOM 84 MG/DL (74-106); POTASSIUM 3.5 MEQ/L (3.5-5.1); SODIUM (NA) 143 MEQ/L (136-145)
[2017-09-19 04:24] LABS: LACTIC ACID 1.8 mmol/L (0.4-2.0)
[2017-09-19] MEDS: LORazepam 2 MG/ML VIAL IV PUSH (04:35)
[2017-09-19] MEDS: GADODIAMIDE PF 287 MG/ML 5 ML VIAL (for RAD MRI) IVCONTRAST (05:25)
[2017-09-19 05:27] LABS: BACTERIA, URINE RARE /hpf; BILIRUBIN, URINE NEG (NEG); BLOOD, URINE TRACE (NEG); GLUCOSE,URINE NEG (NEG); KETONE, URINE NEG (NEG); MUCUS URINE FEW /lpf (OCC); NITRITE,URINE NEG (NEG); PH, URINE 6.5 (5.0-8.5); SQUAMOUS EPITHELIAL CELL URINE <1 /hpf (0-5); URINE COLOR LIGHT-YELLOW (YELLW/STRAW); URINE LEUKOCYTE ESTERASE NEG (NEG)
[2017-09-19] MEDS: MORPHINE SULFATE 4 MG/ML INJ IV PUSH ×2 (06:23→18:53)
[2017-09-19] MEDS ORDERED: ACETAMINOPHEN 325 MG TAB PO (08:00)
[2017-09-19] MEDS ORDERED: LACTULOSE SYRUP 20 GM/30 ML CUP PO (08:00)
[2017-09-19] MEDS ORDERED: SENNOSIDES 8.6 MG TAB PO (08:00)
[2017-09-19] MEDS ORDERED: SODIUM CHLORIDE 0.9% FLUSH 10 ML FLUSH IV FLUSH (08:00)
[2017-09-19] MEDS ORDERED: BISACODYL 10 MG SUPP RECTAL (08:00)
[2017-09-19] MEDS ORDERED: NALOXONE HCL 0.4 MG/ML AMP IV PUSH (08:00)
[2017-09-19] MEDS ORDERED: ONDANSETRON HCL 4 MG/2 ML VIAL IVP (08:00)
[2017-09-19] MEDS ORDERED: MAGNESIUM HYDROXIDE SUSP 30 ML CUP PO (08:00)
[2017-09-19] MEDS ORDERED: oxyCODONE/ACETAMINOPHEN 5 MG/325 MG TAB PO (08:15)
[2017-09-19 08:38] LABS: ALBUMIN 3.5 GM/DL (3.4-5.0); ALT (GPT) 21 U/L (12-78); AST (GOT) 13 U/L (15-37); C-REACTIVE PROTEIN LESS THAN 0.29 MG/DL (0.00-0.30); DIRECT BILIRUBIN ADULT 0.1 MG/DL (0.0-0.2)
[2017-09-19 08:40] LABS: ALKALINE PHOSPHATASE 137 U/L (45-117); INDIRECT BILIRUBIN 0.1 MG/DL (0.0-0.8); TOTAL BILIRUBIN ADULT 0.2 MG/DL (0.2-1.0)
[2017-09-19 08:45] LABS: WESTERGREN SEDIMENTATION RATE 29 mm/hr (0-20)
[2017-09-19] MEDS ORDERED: VANCOMYCIN HCL 1000 MG VIAL IV (09:00)
[2017-09-19] MEDS ORDERED: Vancomycin Consult Pharmacy 1 EA OTHER (09:45)
[2017-09-19] MEDS ORDERED: VANCOMYCIN INJ 1,250 MG in SODIUM CHLOR 0.9% 250 ML INJ 250 ML IV (10:00)
[2017-09-19] MEDS: KETOROLAC TROMETHAMINE 30 MG/ML (IVP) VIAL IV PUSH ×3 (10:56→18:47)
[2017-09-19] MEDS: busPIRone HCL 5 MG TAB PO ×2 (10:59→23:42)
[2017-09-19] MEDS: FAMOTIDINE 20 MG TAB PO ×2 (11:00→23:42)
[2017-09-19] MEDS: ASPIRIN EC 81 MG TABEC PO (11:00)
[2017-09-19] MEDS: DOCUSATE SODIUM 50 MG/SENNA 8.6 MG TAB PO ×2 (11:00→23:41)
[2017-09-19] MEDS: ENOXAPARIN SODIUM 40 MG/0.4 ML SYRINGE SQ (11:03)
[2017-09-19] MEDS: VANCOMYCIN INJ 1,250 MG in SODIUM CHLOR 0.9% 250 ML INJ 250 ML IV (12:00)
[2017-09-19] MEDS: BACLOFEN 10 MG TAB PO ×2 (14:01→23:41)
[2017-09-19] MEDS: MIRTAZAPINE 15 MG TAB PO (23:42)
[2017-09-19] MEDS: ATORVASTATIN 40 MG TAB PO (23:42)
[2017-09-20] MEDS: VANCOMYCIN INJ 1,250 MG in SODIUM CHLOR 0.9% 250 ML INJ 250 ML IV ×2 (01:43→11:50)
[2017-09-20] MEDS: KETOROLAC TROMETHAMINE 30 MG/ML (IVP) VIAL IV PUSH ×5 (01:43→23:58)
[2017-09-20] MEDS: MORPHINE SULFATE 4 MG/ML INJ IV PUSH ×5 (01:44→22:31)
[2017-09-20 06:20] LABS: AUTOMATED NEUTROPHIL # 3.8 TH/MM3 (1.8-7.7); BASOPHIL # 0.1 TH/MM3 (0-0.2); BASOPHIL % 0.8 % (0.0-2.0); EOSINOPHIL # 0.3 TH/MM3 (0-0.4); HEMATOCRIT 40.5 % (39.0-51.0); HEMO FLAGS DIFF FINAL; HEMOGLOBIN 13.6 GM/DL (13.0-17.0); LYMPH % 44.9 % (9.0-44.0); LYMPHOCYTE # 3.9 TH/MM3 (1.0-4.8); MEAN CELL VOLUME 82.9 FL (80.0-100.0); MEAN CORPUSCULAR HEMOGLOBIN 27.8 PG (27.0-34.0); MEAN CORPUSCULAR HGB CONC 33.6 % (32.0-36.0); MEAN PLATELET VOLUME 7.5 FL (7.0-11.0); MONO % 7.2 % (0.0-8.0); MONOCYTE # 0.6 TH/MM3 (0-0.9); NEUT % 44.1 % (16.0-70.0); PLATELET COUNT 284 TH/MM3 (150-450); RED BLOOD COUNT 4.89 MIL/MM3 (4.50-5.90); RED CELL DISTRIBUTION WIDTH 15.2 % (11.6-17.2); WHITE BLOOD COUNT 8.6 TH/MM3 (4.0-11.0)
[2017-09-20 06:51] LABS: ANION GAP 6 MEQ/L (5-15); BICARBONATE 26.7 MEQ/L (21.0-32.0); BLOOD UREA NITROGEN 16 MG/DL (7-18); CALCIUM 9.1 MG/DL (8.5-10.1); CHLORIDE 109 MEQ/L (98-107); CREATININE 1.14 MG/DL (0.60-1.30); GLOMERULAR FILTRATION RATE 66 ML/MIN (>89); GLUCOSE,RANDOM 93 MG/DL (74-106); POTASSIUM 4.3 MEQ/L (3.5-5.1); SODIUM (NA) 142 MEQ/L (136-145)
[2017-09-20] MEDS: ASPIRIN EC 81 MG TABEC PO (07:49)
[2017-09-20] MEDS: BACLOFEN 10 MG TAB PO ×2 (07:49→20:14)
[2017-09-20] MEDS: DOCUSATE SODIUM 50 MG/SENNA 8.6 MG TAB PO ×2 (07:49→20:14)
[2017-09-20] MEDS: ENOXAPARIN SODIUM 40 MG/0.4 ML SYRINGE SQ (07:49)
[2017-09-20] MEDS: FAMOTIDINE 20 MG TAB PO ×2 (07:50→20:14)
[2017-09-20] MEDS: CLOPIDOGREL 75 MG TAB PO (07:50)
[2017-09-20] MEDS: busPIRone HCL 5 MG TAB PO ×2 (07:50→20:14)
[2017-09-20] MEDS: SODIUM CHLORIDE 0.9% FLUSH 10 ML FLUSH IV FLUSH ×2 (07:51→20:15)
[2017-09-20] MEDS: MIRTAZAPINE 15 MG TAB PO (20:14)
[2017-09-20] MEDS: ATORVASTATIN 40 MG TAB PO (20:14)
[2017-09-20] MEDS: PHARMACY ORDERED LAB (23:45)
[2017-09-21] MEDS: MORPHINE SULFATE 4 MG/ML INJ IV PUSH ×3 (02:29→11:50)
[2017-09-21 05:57] LABS: RANDOM VANCOMYCIN 20.8 COMMENT
[2017-09-21] MEDS: KETOROLAC TROMETHAMINE 30 MG/ML (IVP) VIAL IV PUSH ×2 (06:18→11:49)
[2017-09-21] MEDS: busPIRone HCL 5 MG TAB PO (08:37)
[2017-09-21] MEDS: DOCUSATE SODIUM 50 MG/SENNA 8.6 MG TAB PO (08:37)
[2017-09-21] MEDS: SODIUM CHLORIDE 0.9% FLUSH 10 ML FLUSH IV FLUSH (08:38)
[2017-09-21] MEDS: CLOPIDOGREL 75 MG TAB PO (08:38)
[2017-09-21] MEDS: ASPIRIN EC 81 MG TABEC PO (08:38)
[2017-09-21] MEDS: FAMOTIDINE 20 MG TAB PO (08:38)
[2017-09-21] MEDS: BACLOFEN 10 MG TAB PO (08:38)
[2017-09-21] MEDS: ENOXAPARIN SODIUM 40 MG/0.4 ML SYRINGE SQ (08:39)
[2017-09-21] MEDS: VANCOMYCIN INJ 1,250 MG in SODIUM CHLOR 0.9% 250 ML INJ 250 ML IV (14:18)
[2017-09-21] MEDS ORDERED: VANCOMYCIN 1,500 MG/NS 500 ML IV (15:00)
[2017-09-23] MEDS ORDERED: PHARMACY ORDERED LAB (14:45)
== END 2017-09-21 14:43 | disposition home or self-care (01) ==
LOC: NEPC 02:35 → NEDA 07:30 → NEPGCP 08:49
DX: M46.46 Discitis, unspecified, lumbar region (principal); G06.1 Intraspinal abscess and granuloma; M86.9 Osteomyelitis, unspecified; I10 Essential (primary) hypertension; I25.10 Atherosclerotic heart disease of native coronary artery without angina pectoris; F31.9 Bipolar disorder, unspecified; E78.00 Pure hypercholesterolemia, unspecified; E78.5 Hyperlipidemia, unspecified; I25.2 Old myocardial infarction; K21.9 Gastro-esophageal reflux disease without esophagitis; Z72.0 Tobacco use; Z79.02 Long term (current) use of antithrombotics/antiplatelets; Z86.61 Personal history of infections of the central nervous system; Z86.73 Personal history of transient ischemic attack (TIA), and cerebral infarction without residual deficits; Z82.0 Family history of epilepsy and other diseases of the nervous system
CPT/HCPCS: 72125; 72131; 72156; 72157; 72158; 80048; 80076; 80202; 81001; 83605; 85025; 85610; 85652; 85730; 86140; 96361; 96365; 96366; 96372; 96375; 96376; 97162-GP; 97530-GP; 99285-25

== ENCOUNTER 2017-09-22 21:27 | Inpatient (IN) | payer OTHER, MEDICARE ==
[~2017-09-22 21:27] MED LIST changes: +BACL10TA PO; -EPIN1INJ21 IV PUSH; -EPIN1INJ21 SQ; -HYDR-3583 PO; -HYDR50TA94 PO; -LIDO1ADH4 T-DERMAL; +MIRTA15 PO; -NEUR300C PO; +RANI150T PO; -RISP1TAB2 PO; -ROBA500T PO; -SOLU250I IV PUSH; +TRAM50TA PO; +VANC1000P IV; -VANC10IN IV
[2017-09-22 21:47] VITALS: BP 113/70; PULSE 129; RESP 16; O2SAT 98
[2017-09-22] MEDS ORDERED: oxyCODONE/ACETAMINOPHEN 5 MG/325 MG TAB PO ONE (23:15)
[2017-09-22] MEDS ORDERED: VANCOMYCIN INJ 1,250 MG in SODIUM CHLOR 0.9% 250 ML INJ 250 ML IV ONE (23:15)
[2017-09-22] MEDS ORDERED: KETOROLAC TROMETHAMINE 30 MG/ML (IVP) VIAL IV PUSH ONE (23:15)
[2017-09-23] VITALS (8 sets, daily range): BP systolic 108–169; BP diastolic 66–94; PULSE 87–97; RESP 16–21; TEMP 97.8–99; O2SAT 96–98
--- NOTE | 2017-09-23 00:35 | PD ---
HPI Chief Complaint: Medication Refill Request Time Seen by Provider: 23:00 Travel History International Travel<30 days: No Contact w/Intl Traveler<30days: No Traveled to known affect area: No History of Present Illness HPI Patient is a 61 year old male with history of osteomyelitis of the cervical spine, who comes in because he needs his Vancomycin. Patient was discharged yesterday, and is supposed to receive vancomycin twice a day via PICC line. Patient was in the custody of law enforcement at the time of discharge yesterday and was set to [facility] his medication [facility] the [facility]. However, he was released from retirement today, his PICC line was removed per protocol at the retirement and he does not know how to get his antibiotics. He has no new symptoms. He says he continues to have pain and he really just needs his vancomycin. Severity is mild. PFSH Past Medical History Hx Anticoagulant Therapy: Yes (EFFIENT ) ADHD: Yes Arthritis: No Asthma: No Autoimmune Disease: No Blood Disorders: No Bipolar Disorder: Yes Anxiety: Yes Depression: Yes Cancer: No Cardiac Catheterization: Yes Cardiovascular Problems: Yes (i stent) High Cholesterol: Yes Chemotherapy: No Chest Pain: No Congestive Heart Failure: No COPD: No Cerebrovascular Accident: Yes Coronary Artery Disease: Yes Diabetes: No Diminished Hearing: No Endocrine: No GERD: Yes Glaucoma: No Genitourinary: No Headaches: No Hepatitis: Yes (C) Hiatal Hernia: No Hypertension: Yes Immune Disorder: Yes Kidney Stones: No Musculoskeletal: Yes (leg pain , back pain) Neurologic: No Psychiatric: Yes (PTSD) Reproductive: No Respiratory: No Migraines: No Myocardial Infarction: Yes Radiation Therapy: No Renal Failure: Yes Seizures: No Sickle Cell Disease: No Sleep Apnea: No Thyroid Disease: No Triglycerides - High: Yes Ulcer: No Past Surgical History Abdominal Surgery: No AICD: No Appendectomy: No Arteriovenous Shunt: No Cardiac Surgery: Yes (cath; valve replacement ) Cholecystectomy: No Coronary Stent: Yes Ear Surgery: No Endocrine Surgery: No Eye Surgery: No Genitourinary Surgery: No Gynecologic Surgery: No Insulin Pump: No Joint Replacement: No Neurologic Surgery: Yes (C-SPINE) Oral Surgery: Yes (sinuses ) Pacemaker: No Thoracic Surgery: No Tonsillectomy: Yes Other Surgery: Yes Social History Alcohol Use: No Tobacco Use: Yes (1 pck/3 days) Substance Use: No Allergies-Medications (Allergen,Severity, Reaction): Coded Allergies: No Known Allergies (Verified Adverse Reaction, Unknown, 09/22/17) Reported Meds & Prescriptions Reported Meds & Active Scripts Active Atorvastatin (Atorvastatin Calcium) 40 Mg Tab 40 Mg PO HS Plavix (Clopidogrel Bisulfate) 75 Mg Tab 75 Mg PO DAILY 30 Days Reported Vancomycin Inj (Vancomycin HCl) 1 Gram Inj 1.25 Gm IV BID Tramadol (Tramadol HCl) 50 Mg Tab 50 Mg PO BID PRN Ranitidine (Ranitidine HCl) 150 Mg Tab 150 Mg PO BID Mirtazapine 15 Mg Tab 15 Mg PO HS Baclofen 10 Mg Tab 10 Mg PO BID Buspirone (Buspirone HCl) 10 Mg Tab 5 Mg PO BID Aspirin EC (Aspirin) 81 Mg Tabdr 81 Mg PO DAILY Review of Systems Except as stated in HPI: all other systems reviewed are Neg General / Constitutional: No: Fever, Chills HENT: No: Headaches Cardiovascular: No: Chest Pain or Discomfort Respiratory: No: Shortness of Breath Gastrointestinal: No: Nausea, Vomiting Musculoskeletal: Positive: Pain Skin: No Rash, No Change in Pigmentation Neurologic: No: Weakness, Dizziness, Sensory Disturbance Physical Exam Narrative GENERAL: Awake and alert, in no acute distress. SKIN: Focused skin assessment warm/dry. No wounds or signs of infection. HEAD: Atraumatic. Normocephalic. EYES: Pupils equal and round. No scleral icterus. ENT: Mucous membranes pink and moist. NECK: Trachea midline. No JVD. CARDIOVASCULAR: Regular rate and rhythm. No murmur appreciated. RESPIRATORY: No accessory muscle use. Clear to auscultation. Breath sounds equal bilaterally. GASTROINTESTINAL: Abdomen soft, non-tender, nondistended. MUSCULOSKELETAL: No obvious deformities. No clubbing. No cyanosis. No edema. Pain with movement of his back. NEUROLOGICAL: Awake and alert. No obvious cranial nerve deficits. Motor grossly within normal limits. Normal speech. PSYCHIATRIC: Appropriate mood and affect; insight and judgment normal. Data Data Last Documented VS Vital Signs Date Time Temp Pulse Resp B/P (MAP) Pulse Ox O2 Delivery O2 Flow Rate FiO2 09/22/17 21:47 129 16 113/70 (84) 98 Orders Orders Iv Access Insert/Monitor (09/22/17 23:11) Vancomycin Inj (Vancomycin Inj) (09/22/17 23:15) Ketorolac Inj (Toradol Inj) (09/22/17 23:15) Oxycodone-Acetamin 5-325 Mg (Percocet (09/22/17 23:15) MDM Medical Decision Making Medical Screen Exam Complete: Yes Emergency Medical Condition: Yes Medical Record Reviewed: Yes Differential Diagnosis Encounter for antibiotics versus osteomyelitis versus encounter for pain medicine Narrative Course Patient is a 61-year-old male who comes to the ED because he needs a dose of vancomycin. Patient does not have a PICC line and has no way receiving his antibiotics currently. I spoke with case management, they suggest placing him in observation for PICC line placement and being able to set up home infusions for him. Patty Patricia MD September 23, 2017 00:35
[2017-09-23] MEDS ORDERED: SODIUM CHLORIDE 0.9% FLUSH 10 ML FLUSH IV FLUSH PRN (00:45)
[2017-09-23] MEDS ORDERED: MAGNESIUM HYDROXIDE SUSP 30 ML CUP PO PRN (00:45)
[2017-09-23] MEDS ORDERED: NALOXONE HCL 0.4 MG/ML AMP IV PUSH PRN (00:45)
[2017-09-23] MEDS ORDERED: LACTULOSE SYRUP 20 GM/30 ML CUP PO PRN (00:45)
[2017-09-23] MEDS ORDERED: SENNOSIDES 8.6 MG TAB PO PRN (00:45)
[2017-09-23] MEDS ORDERED: Vancomycin Consult Pharmacy 1 EA OTHER SCH (00:45)
[2017-09-23] MEDS ORDERED: BISACODYL 10 MG SUPP RECTAL PRN (00:45)
[2017-09-23 01:30] LABS: AUTOMATED NEUTROPHIL # 7.8 TH/MM3 (1.8-7.7); BASOPHIL # 0.1 TH/MM3 (0-0.2); BASOPHIL % 0.9 % (0.0-2.0); EOSINOPHIL # 0.2 TH/MM3 (0-0.4); HEMATOCRIT 37.7 % (39.0-51.0); HEMOGLOBIN 12.7 GM/DL (13.0-17.0); LYMPH % 27.3 % (9.0-44.0); LYMPHOCYTE # 3.3 TH/MM3 (1.0-4.8); MEAN CELL VOLUME 81.8 FL (80.0-100.0); MEAN CORPUSCULAR HEMOGLOBIN 27.5 PG (27.0-34.0); MEAN CORPUSCULAR HGB CONC 33.6 % (32.0-36.0); MEAN PLATELET VOLUME 7.7 FL (7.0-11.0); MONO % 6.2 % (0.0-8.0); MONOCYTE # 0.8 TH/MM3 (0-0.9); NEUT % 63.6 % (16.0-70.0); PLATELET COUNT 273 TH/MM3 (150-450); RED BLOOD COUNT 4.61 MIL/MM3 (4.50-5.90); WHITE BLOOD COUNT 12.2 TH/MM3 (4.0-11.0)
[2017-09-23 01:55] LABS: ALBUMIN 3.2 GM/DL (3.4-5.0); ALKALINE PHOSPHATASE 115 U/L (45-117); ALT (GPT) 24 U/L (12-78); AST (GOT) 19 U/L (15-37); BICARBONATE 26.5 MEQ/L (21.0-32.0); BLOOD UREA NITROGEN 27 MG/DL (7-18); CALCIUM 8.6 MG/DL (8.5-10.1); CHLORIDE 108 MEQ/L (98-107); CREATININE 1.09 MG/DL (0.60-1.30); GLOMERULAR FILTRATION RATE 69 ML/MIN (>89); GLUCOSE,RANDOM 120 MG/DL (74-106); SODIUM (NA) 143 MEQ/L (136-145); TOTAL BILIRUBIN ADULT 0.2 MG/DL (0.2-1.0)
--- NOTE | 2017-09-23 02:15 | HHI.HP ---
HPI Service [facility] Primary Care Physician [facility] Admission Diagnosis osteomyelitis Diagnoses: Travel History International Travel<30 Days: No Contact w/Intl Traveler <30 Da: No Traveled to Known Affected Are: No History of Present Illness 61-year-old male with a history of IV drug use, as well as cervical spine epidural abscess, supposed to be on IV vancomycin until November 02, 2017 who was discharged on 09/21/17 to present with PICC line. Patient unfortunately received 1 dose of vancomycin and was discharged yesterday without PICC line or means of receiving vancomycin at home. He presents to resume treatment. Patient reports chronic neck and back pain without worsening, however he is requesting narcotic pain medications. He denies any chest pain, shortness of breath, nausea, vomiting, fevers, chills. Review of Systems Except as stated in HPI: all other systems reviewed are Neg Past Family Social History Past Medical History CAD with history of STEMI December 2015 s/p BMS of RCA Hyperlipidemia Hypertension HCV ADHD Bipolar Disorder Anxiety Depression PTSD History of IVDU Previous epidural abscess in C-spine Previous discitis and osteomyelitis L-spine C2 left semi-laminectomy and evacuation C1-C2 epidural abscess May 2017 Cardiac cath with bare metal stent of RCA 2016 Tonsillectomy Mother with dementia, father with Parkinson's History of IVDU, last use a year ago Denies EtOH "Occasionally" smokes a cigaretteCAD with history of STEMI December 2015 s/p BMS of RCA Hyperlipidemia Hypertension HCV ADHD Bipolar Disorder Anxiety Depression PTSD History of IVDU Previous epidural abscess in C-spine Previous discitis and osteomyelitis L-spine Past Surgical History C2 left semi-laminectomy and evacuation C1-C2 epidural abscess May 2017 Cardiac cath with bare metal stent of RCA 2016 Tonsillectomy Reported Medications Reported Meds & Active Scripts Active Atorvastatin (Atorvastatin Calcium) 40 Mg Tab 40 Mg PO HS Plavix (Clopidogrel Bisulfate) 75 Mg Tab 75 Mg PO DAILY 30 Days Reported Vancomycin Inj (Vancomycin HCl) 1 Gram Inj 1.25 Gm IV BID Tramadol (Tramadol HCl) 50 Mg Tab 50 Mg PO BID PRN Ranitidine (Ranitidine HCl) 150 Mg Tab 150 Mg PO BID Mirtazapine 15 Mg Tab 15 Mg PO HS Baclofen 10 Mg Tab 10 Mg PO BID Buspirone (Buspirone HCl) 10 Mg Tab 5 Mg PO BID Aspirin EC (Aspirin) 81 Mg Tabdr 81 Mg PO DAILY Allergies: Coded Allergies: No Known Allergies (Verified Adverse Reaction, Unknown, 09/22/17) Family History Mother with dementia, father with Parkinson's Social History History of IVDU, last use a year ago Denies EtOH Occasionally smokes a cigarette Physical Exam Vital Signs Vital Signs Date Time Temp Pulse Resp B/P (MAP) Pulse Ox O2 Delivery O2 Flow Rate FiO2 09/23/17 01:47 98.1 95 16 118/77 (91) 97 09/23/17 01:36 09/23/17 00:52 97 20 169/94 (119) 98 Room Air 09/22/17 21:47 129 16 113/70 (84) 98 Physical Exam GENERAL: This is a well-nourished, well-developed patient, in no apparent distress. Alert and oriented 3. SKIN: No rashes, ecchymoses or lesions. Cool and dry. HEAD: Atraumatic. Normocephalic. No temporal or scalp tenderness. EYES: Pupils equal round and reactive. Extraocular motions intact. No scleral icterus. No injection or drainage. ENT: Nose without bleeding, purulent drainage or septal hematoma. Throat without erythema, tonsillar hypertrophy or exudate. Uvula midline. Airway patent. NECK: Trachea midline. No JVD or lymphadenopathy. Supple, nontender, no meningeal signs. CARDIOVASCULAR: Regular rate and rhythm without murmurs, gallops, or rubs. RESPIRATORY: Clear to auscultation. Breath sounds equal bilaterally. No wheezes , rales, or rhonchi. GASTROINTESTINAL: Abdomen soft, non-tender, nondistended. No hepato-splenomegaly , or palpable masses. No guarding. MUSCULOSKELETAL: Extremities without clubbing, cyanosis, or edema. No joint tenderness, effusion, or edema noted. No calf tenderness. Negative Homans sign bilaterally. NEUROLOGICAL: Awake and alert. Cranial nerves II through XII intact. Motor and sensory grossly within normal limits. Five out of 5 muscle strength in bilateral upper extremities. 4 out of 5 strength in bilateral lower extremities. Normal speech. Laboratory Laboratory Tests Test 09/23/17 01:25 White Blood Count 12.2 Red Blood Count 4.61 Hemoglobin 12.7 Hematocrit 37.7 Mean Corpuscular Volume 81.8 Mean Corpuscular Hemoglobin 27.5 Mean Corpuscular Hemoglobin Concent 33.6 Red Cell Distribution Width 15.0 Platelet Count 273 Mean Platelet Volume 7.7 Neutrophils (%) (Auto) 63.6 Lymphocytes (%) (Auto) 27.3 Monocytes (%) (Auto) 6.2 Eosinophils (%) (Auto) 2.0 Basophils (%) (Auto) 0.9 Neutrophils # (Auto) 7.8 Lymphocytes # (Auto) 3.3 Monocytes # (Auto) 0.8 Eosinophils # (Auto) 0.2 Basophils # (Auto) 0.1 CBC Comment DIFF FINAL Differential Comment Blood Urea Nitrogen 27 Creatinine 1.09 Random Glucose 120 Total Protein 7.0 Albumin 3.2 Calcium Level 8.6 Alkaline Phosphatase 115 Aspartate Amino Transf (AST/SGOT) 19 Alanine Aminotransferase (ALT/SGPT) 24 Total Bilirubin 0.2 Sodium Level 143 Potassium Level 3.7 Chloride Level 108 Carbon Dioxide Level 26.5 Anion Gap 9 Estimat Glomerular Filtration Rate 69 Result Diagram: 09/23/1712409/23/17124 Caprini VTE Risk Assessment Caprini VTE Risk Assessment: No/Low Risk (score <= 1) Caprini Risk Assessment Model Point Value = 1 Point Value = 2 Point Value = 3 Point Value = 5 Age 41-60 Minor surgery BMI > 25 kg/m2 Swollen legs Varicose veins or History of unexplained or recurrent spontaneous Oral contraceptives or hormone replacement Sepsis (< 1 month) Serious lung disease, including pneumonia (< 1 month) Abnormal pulmonary function Acute myocardial infarction Congestive heart failure (< 1 month) History of inflammatory bowel disease Medical patient at bed rest Age 61-74 Arthroscopic surgery Major open surgery (> 45 min) Laparoscopic surgery (> 45 min) Malignancy Confined to bed (> 72 hours) Immobilizing plaster cast Central venous access Age >= 75 History of VTE Family history of VTE Factor V Leiden Prothrombin [id number] Lupus anticoagulant Anticardiolipin antibodies Elevated serum homocysteine Heparin-induced thrombocytopenia Other congenital or acquired thrombophilia Stroke (< 1 month) Elective arthroplasty Hip, pelvis, or leg fracture Acute spinal cord injury (< 1 month) Prophylaxis Regimen Total Risk Factor Score Risk Level Prophylaxis Regimen 0-1 Low Early ambulation 2 Moderate Order ONE of the following: *Sequential Compression Device (SCD) *Heparin 5000 units SQ BID 3-4 Higher Order ONE of the following medications: *Heparin 5000 units SQ TID *Enoxaparin/Lovenox 40 mg SQ daily (WT < 150 kg, CrCl > 30 mL/min) *Enoxaparin/Lovenox 30 mg SQ daily (WT < 150 kg, CrCl > 10-29 mL/min) *Enoxaparin/Lovenox 30 mg SQ BID (WT < 150 kg, CrCl > 30 mL/min) AND/OR *Sequential Compression Device (SCD) 5 or more Highest Order ONE of the following medications: *Heparin 5000 units SQ TID (Preferred with Epidurals) *Enoxaparin/Lovenox 40 mg SQ daily (WT < 150 kg, CrCl > 30 mL/min) *Enoxaparin/Lovenox 30 mg SQ daily (WT < 150 kg, CrCl > 10-29 mL/min) *Enoxaparin/Lovenox 30 mg SQ BID (WT < 150 kg, CrCl > 30 mL/min) AND *Sequential Compression Device (SCD) Assessment and Plan Assessment and Plan //History of C1-2 epidural abscess //History of L3-4 discitis. To continue antibiotics until November 02, 2017. //Now with sepsis -Leukocytosis of 12.2, tachycardia, pre-existing known C1-2 epidural abscess requiring IV glycine. -Patient apparently had been discharged to senior care, however discharged without PICC line for antibiotics. = We will consult ID, case management for discharge plan. esr, crp, lactate = Start on IV vancomycin here. //CAD. Continue aspirin, Plavix, statin //Depression //Anxiety. Chronic. //Bipolar disorder. Chronic. = Continue home medications. //GERD. = Continue home medications. //Tobacco use. Cessation counseling provided. Discussed Condition With Patient, nurse, ED physician Physician Certification 2 Midnight Certification Type: Admission for Inpatient Services Order for Inpatient Services The services are ordered in accordance with Medicare regulations or non- Medicare payer requirements, as applicable. In the case of services not specified as inpatient-only, they are appropriately provided as inpatient services in accordance with the 2-midnight benchmark. Estimated LOS (days): 2 days is the estimated time the patient will need to remain in the hospital, assuming treatment plan goals are met and no additional complications. Post-Hospital Plan: Not yet determined Mal Mendoza MD September 23, 2017 02:15
[2017-09-23] MEDS: SODIUM CHLOR 0.9% 1000 ML INJ 1,000 ML IV SCH ×3 (02:21→23:24)
[2017-09-23] MEDS: HEPARIN SODIUM - SQ 10,000 UNITS/ML VIAL SQ SCH ×2 (05:34→18:14)
--- NOTE | 2017-09-23 09:12 | HHI.PR ---
Subjective Remarks Follow-up visit cervical spine epidural abscess on vancomycin. Patient was apparently discharged from custodial and they took off his PICC line. Patient is supposed to get IV vancomycin to be completed in October as per ID recommendation. Patient states that he was doing okay complaints of pain neck and right lower extremity, rated 8/10, radiating to his hip and back, aching, unrelieved by repositioning. Otherwise states he has no fevers or chills overnight. Denies cough, shortness of breath, dyspnea. Denies chest pain, palpitations, headaches , dizziness. Denies abdominal pain or cramping, denies dysuria, hematuria, nausea, vomiting, diarrhea. Objective Vitals Vital Signs Date Time Temp Pulse Resp B/P (MAP) Pulse Ox O2 Delivery O2 Flow Rate FiO2 09/23/17 07:51 97.8 87 18 140/74 (96) 97 09/23/17 04:00 97.8 88 21 108/69 (82) 97 09/23/17 01:47 98.1 95 16 118/77 (91) 97 09/23/17 01:36 09/23/17 00:52 97 20 169/94 (119) 98 Room Air 09/22/17 21:47 129 16 113/70 (84) 98 I/O 09/22/17 09/22/17 09/22/17 09/23/17 09/23/17 09/23/17 07:00 15:00 23:00 07:00 15:00 23:00 Intake Total 262.5 ml Balance 262.5 ml Intake IV Total 262.5 ml Result Diagram: 09/23/17 0125 09/23/17 0125 Objective Remarks GENERAL: This is a well-nourished, well-developed patient, in no apparent distress. SKIN: Warm and dry. HEENT: Normocephalic. Pupils equal round and reactive. Nose without bleeding. Airway patent. NECK: Trachea midline. No JVD. Supple. CARDIOVASCULAR: Regular rate and rhythm without murmurs, gallops, or rubs. RESPIRATORY: Clear to auscultation. Breath sounds equal bilaterally. No wheezes , rales, or rhonchi. GASTROINTESTINAL: Abdomen soft, non-tender, nondistended. Bowel Sounds normoactive x4. MUSCULOSKELETAL: Extremities without clubbing, cyanosis, or edema. NEUROLOGICAL: Awake and alert. Oriented to time, place, person. No focal neuro deficit. Moves all extremities. Normal speech. A/P Problem List: (1) Abscess in epidural space of cervical spine ICD Code: G06.1 - Intraspinal abscess and granuloma (2) Intractable back pain ICD Code: M54.9 - Dorsalgia, unspecified (3) Discitis of lumbar region ICD Code: M46.46 - Discitis, unspecified, lumbar region Assessment and Plan Patient is a 61-year-old male with history of IVDA and cervical spine stenosis who initially came into the hospital for cervical spine epidural abscess and was treated with IV antibiotics. He is supposed to get IV antibiotics through PICC line until November 02, 2017. Recently he came back under observation unit for intractable pain which she received pain medication. He was discharged to continue with a PICC line and IV antibiotics in [facility]. Unfortunately the took out the PICC line, he received 1 dose of vancomycin and was discharged home from [facility] yesterday. Meets sepsis criteria Sepsis secondary to epidural abscess, discitis History of C1-2 epidural abscess History of L3-L4 discitis -Plan to continue antibiotics until November 02, 2017 as per ID. -Leukocytosis 12.2, with tachycardia -Reconsult infectious disease plan for management with discharge especially IV antibiotic use. -PICC line placement -Check ESR, CRP, lactic -Consult case management for discharge planning -Start IV vancomycin -Tramadol for pain, baclofen for spasms CAD -Continue aspirin, Plavix, statin Depression Anxiety Bipolar disorder -Continue with home medication GERD -Continue Zantac DVT prop heparin Discharge Planning Plan to DC to SNF or with [facility], pending ID recommendations Jigna Spangler September 23, 2017 09:12
--- NOTE | 2017-09-23 09:15 | HHI.FF ---
Face to Face Verification Diagnosis: (1) Intractable back pain (2) Discitis of lumbar region (3) Abscess in epidural space of cervical spine Home Health Nursing Order: Medical education Signs/symptoms of disease process Medication education-adverse effect Nursing assessment with vital signs IV medication administration I have seen patient Phillip Colón on 09/23/17. My clinical findings support the need for the requested home health care services because: Med compliance is questionable Need for psychosocial assistance Infection w/ risk of complications I certify that my clinical findings support that this patient is homebound because: Need for psychosocial assistance Jigna Spangler September 23, 2017 09:15
[2017-09-23] MEDS ORDERED: traMADol HCL 50 MG TAB PO PRN (10:00)
[2017-09-23] MEDS: busPIRone HCL 5 MG TAB PO SCH ×2 (10:46→21:35)
[2017-09-23] MEDS: ASPIRIN EC 81 MG TABEC PO SCH (10:46)
[2017-09-23] MEDS: DOCUSATE SODIUM 50 MG/SENNA 8.6 MG TAB PO SCH ×2 (10:46→21:35)
[2017-09-23] MEDS: BACLOFEN 10 MG TAB PO SCH ×2 (10:46→21:35)
[2017-09-23] MEDS: CLOPIDOGREL 75 MG TAB PO SCH (10:46)
[2017-09-23] MEDS: FAMOTIDINE 20 MG TAB PO SCH ×2 (10:46→21:35)
[2017-09-23] MEDS: SODIUM CHLORIDE 0.9% FLUSH 10 ML FLUSH IV FLUSH SCH ×2 (10:47→21:00)
--- NOTE | 2017-09-23 14:34 | PD.CONS ---
History of Present Illness Service Infectious disease Consult Requested By Dr Josef Mendoza Reason for Consult Assist in management of patient with lumbar discitis [facility] Diagnoses: History of Present Illness Patient seen and examined. Records reviewed. Patient is a 61-year-old male, known to me from his previous hospitalization, was diagnosed to have L3-L4 discitis, discharge on IV vancomycin with plans to complete treatment November 02. He was in the hospital September 05 - September 10, and at that time he was in halfway. He had a PICC line in place, and he was getting twice a day IV vancomycin. He was apparently released from halfway yesterday, his PICC was removed, and the patient presented to the hospital for further management. Patient has not missed any of his IV vancomycin dose. He had an ED visit for increased back pain on September 19, and imaging studies did not show any progression of his infection. Patient also was treated for cervical spine epidural abscess back in May 2017, and he underwent surgery, and completed a course of IV vancomycin, cultures at that time had MRSA. When he was here in August, he had biopsy of his back, and that came back negative. Patient however had some IV antibiotics before his biopsy. Patient currently is complaining of back pain. He is afebrile. His sed rate is down to 40, and back in August his sed rate was greater than 140. Patient has a PICC placed today. He is currently homeless. He denies any rash or itching. He has not had any nausea vomiting or any diarrhea. Denies any incontinence. Infectious disease consultation has been requested to assist with his treatment. Review of Systems Constitutional: DENIES: Fever, Chills, Night Sweats Eyes: DENIES: Eye pain Ears, nose, mouth, throat: DENIES: Nasal discharge, Oral lesions, Throat pain, Ear Pain, Sinus Pain Respiratory: DENIES: Cough, Sputum production, Shortness of breath Cardiovascular: DENIES: Chest pain, Palpitations, Dyspnea on Exertion, Lower Extremity Edema Gastrointestinal: DENIES: Abdominal pain, Diarrhea, Nausea, Vomiting, Difficulty Swallowing Genitourinary: DENIES: Urinary incontinence, Hematuria, Dysuria Musculoskeletal: COMPLAINS OF: Back pain Integumentary: DENIES: Pruritus, Rash Hematologic/lymphatic: DENIES: Lymphadenopathy Neurologic: DENIES: Headache, Localized weakness Psychiatric: DENIES: Hallucinations Past Family Social History Allergies: Coded Allergies: No Known Allergies (Verified Adverse Reaction, Unknown, 09/22/17) Past Medical History Hypertension GERD Hepatitis C PTSD Bipolar disorder ADHD Cervical epidural abscess May 2017, had surgery, and IV antibiotic Lumbar discitis, osteomyelitis Past Surgical History C2 laminectomy and drainage of epidural abscess May 2017 Active Ordered Medications Current Medications Medications (Trade) Dose Ordered Sig/Ирина Route Start Time Stop Time Status Last Admin Pharmacy Profile Note 0 ml @ 0 mls/hr UNSCH OTHER 09/23/17 00:45 Sodium Chloride 1,000 ml @ 100 mls/hr Q10H IV 09/23/17 00:43 09/23/17 12:35 (NS Flush) 2 ml UNSCH PRN IV FLUSH 09/23/17 00:45 (NS Flush) 2 ml BID IV FLUSH 09/23/17 09:00 (Heparin Inj) 5,000 units Q12H SQ 09/23/17 06:00 09/23/17 05:34 (Narcan Inj) 0.4 mg UNSCH PRN IV PUSH 09/23/17 00:45 (Kati-Colace) 1 tab BID PO 09/23/17 09:00 09/23/17 10:46 (Milk Of Magnesia Liq) 30 ml Q12H PRN PO 09/23/17 00:45 (Senokot) 17.2 mg Q12H PRN PO 09/23/17 00:45 (Dulcolax Supp) 10 mg DAILY PRN RECTAL 09/23/17 00:45 (Lactulose Liq) 30 ml DAILY PRN PO 09/23/17 00:45 (Ecotrin Ec) 81 mg DAILY PO 09/23/17 10:00 09/23/17 10:46 (Lipitor) 40 mg HS PO 09/23/17 21:00 (Lioresal) 10 mg BID PO 09/23/17 10:00 09/23/17 10:46 (Buspar) 5 mg BID PO 09/23/17 10:00 09/23/17 10:46 (Plavix) 75 mg DAILY PO 09/23/17 10:00 09/23/17 10:46 (Remeron) 15 mg HS PO 09/23/17 21:00 (Pepcid) 20 mg BID PO 09/23/17 10:00 09/23/17 10:46 (Ultram) 50 mg BID PRN PO 09/23/17 10:00 Vancomycin HCl 1250 mg/Sodium Chloride 262.5 ml @ 250 mls/hr Q18H IV 09/23/17 18:00 ([facility] Ordered Lab Info) SPECIFIC LAB TO BE DRAWN:VANCOMYCIN TROUGH DATE TO... ONCE ONCE .XX 09/25/17 05:45 09/25/17 05:46 Family History Non-contributory Social History Smokes 1/2 ppd No ETOH abuse History IVDU Physical Exam Vital Signs Vital Signs Date Time Temp Pulse Resp B/P (MAP) Pulse Ox O2 Delivery O2 Flow Rate FiO2 09/23/17 11:37 98.1 91 18 137/93 (108) 97 09/23/17 07:51 97.8 87 18 140/74 (96) 97 09/23/17 04:00 97.8 88 21 108/69 (82) 97 09/23/17 01:47 98.1 95 16 118/77 (91) 97 09/23/17 01:36 09/23/17 00:52 97 20 169/94 (119) 98 Room Air 09/22/17 21:47 129 16 113/70 (84) 98 Physical Exam GENERAL: Patient is a well-nourished, well-developed male, awake and alert, not in respiratory distress. SKIN: Warm and dry. No generalized rash, no ecchymoses and no evidence of embolic lesions. HEAD: Atraumatic. Normocephalic. No temporal wasting, or tenderness. EYES: [place] conjunctiva. No petechia or hemorrhage. Pupils equal, round and reactive to light. Extraocular movements full and intact. No scleral icterus. No injection or drainage. EARS, NOSE AND THROAT: Nose without bleeding or purulent nasal discharge. No sinus tenderness. Mucous membranes pink and moist. No oral lesions noted. NECK: Trachea midline. Supple and not tender, no meningeal signs CARDIOVASCULAR: Regular rate and rhythm. No murmurs, rubs or gallops heard RESPIRATORY: Clear to auscultation. Breath sounds equal bilaterally. No rales , wheezing or rhonchi ABDOMEN: Soft, non-tender, nondistended. Bowel sounds present and normoactive. No guarding. No rebound. No organomegaly. EXTREMITIES: No clubbing, cyanosis, or edema.No joint effusion, has good ROM. No calf tenderness. Well perfused and warm. NEUROLOGICAL: Awake and alert. Cranial nerves grossly intact. Motor grossly within normal limits. PSYCHIATRIC: Normal affect, calm and cooperative. LINE: No evidence of infection Laboratory Laboratory Tests Test 09/23/17 01:25 White Blood Count 12.2 Red Blood Count 4.61 Hemoglobin 12.7 Hematocrit 37.7 Mean Corpuscular Volume 81.8 Mean Corpuscular Hemoglobin 27.5 Mean Corpuscular Hemoglobin Concent 33.6 Red Cell Distribution Width 15.0 Platelet Count 273 Mean Platelet Volume 7.7 Neutrophils (%) (Auto) 63.6 Lymphocytes (%) (Auto) 27.3 Monocytes (%) (Auto) 6.2 Eosinophils (%) (Auto) 2.0 Basophils (%) (Auto) 0.9 Neutrophils # (Auto) 7.8 Lymphocytes # (Auto) 3.3 Monocytes # (Auto) 0.8 Eosinophils # (Auto) 0.2 Basophils # (Auto) 0.1 CBC Comment DIFF FINAL Differential Comment Erythrocyte Sedimentation Rate 40 Blood Urea Nitrogen 27 Creatinine 1.09 Random Glucose 120 Total Protein 7.0 Albumin 3.2 Calcium Level 8.6 Alkaline Phosphatase 115 Aspartate Amino Transf (AST/SGOT) 19 Alanine Aminotransferase (ALT/SGPT) 24 Total Bilirubin 0.2 Sodium Level 143 Potassium Level 3.7 Chloride Level 108 Carbon Dioxide Level 26.5 Anion Gap 9 Estimat Glomerular Filtration Rate 69 Result Diagram: 09/23/175 09/23/17124 Assessment and Plan Assessment and Plan IMPRESSION Discitis L3-L4, has progressed, ?due to MRSA or other pathogen - has been on IV Vanco - last imaging studies, stable and no progression - ESR also is better S/P Rx cervical spine abscess C/S MRSA Previous IVDU, denies recent use RECOMMENDATION Continue IV Vanco - Plan 6-8 weeks of IV - continue as originally planned end date November 02 Arrange for placement Labs while on IV Abx: CBC, creatinine and Vanco trough Could be D/C once arrangements made for his IV Abx Rx Thank you for this consultation Discussed Condition With Explained plan to the patient Jeannette Carmona MD September 23, 2017 14:34
[2017-09-23] MEDS ORDERED: VANCOMYCIN INJ 1,250 MG in SODIUM CHLOR 0.9% 250 ML INJ 250 ML IV SCH (18:00)
[2017-09-23] MEDS: VANCOMYCIN INJ 1,250 MG in SODIUM CHLOR 0.9% 250 ML INJ 250 ML IV SCH (18:14)
[2017-09-23] MEDS ORDERED: MIRTAZAPINE 15 MG TAB PO SCH (21:00)
[2017-09-23] MEDS ORDERED: ATORVASTATIN 40 MG TAB PO SCH (21:00)
[2017-09-24 03:49] VITALS: BP 143/92; PULSE 95; RESP 16; TEMP 98.4; O2SAT 97
[2017-09-24] MEDS: HEPARIN SODIUM - SQ 10,000 UNITS/ML VIAL SQ SCH ×2 (05:42→18:00)
[2017-09-24] MEDS: VANCOMYCIN INJ 1,250 MG in SODIUM CHLOR 0.9% 250 ML INJ 250 ML IV SCH ×2 (05:42→17:07)
[2017-09-24 08:10] VITALS: BP 173/93; PULSE 100; RESP 18; TEMP 97.9; O2SAT 96
[2017-09-24] MEDS: DOCUSATE SODIUM 50 MG/SENNA 8.6 MG TAB PO SCH (08:56)
[2017-09-24] MEDS: FAMOTIDINE 20 MG TAB PO SCH (08:56)
[2017-09-24] MEDS: SODIUM CHLORIDE 0.9% FLUSH 10 ML FLUSH IV FLUSH SCH (08:56)
[2017-09-24] MEDS: CLOPIDOGREL 75 MG TAB PO SCH (08:56)
[2017-09-24] MEDS: ASPIRIN EC 81 MG TABEC PO SCH (08:56)
[2017-09-24] MEDS: BACLOFEN 10 MG TAB PO SCH (08:56)
[2017-09-24] MEDS: busPIRone HCL 5 MG TAB PO SCH (08:56)
--- NOTE | 2017-09-24 10:19 | HHI.DCPOC ---
Discharge Care Plan Diagnosis: (1) Abscess in epidural space of cervical spine (2) Intractable back pain Your Health Problems Are: Inflammation Swelling Goals to Promote Your Health * To prevent worsening of your condition and complications * To maintain your health at the optimal level Directions to Meet Your Goals Take your medications as prescribed Follow your dietary instruction Follow activity as directed Keep your appointments as scheduled Take your immunizations and boosters as scheduled If your symptoms worsen call your PCP, if no PCP go to Urgent Care Center or Emergency Room Smoking is Dangerous to Your Health. Avoid second hand smoke Call the 24-hour hour crisis hotline for domestic abuse at Jigna Spangler September 24, 2017 10:19
[2017-09-24] MEDS: SODIUM CHLOR 0.9% 1000 ML INJ 1,000 ML IV SCH (10:29)
[2017-09-24 11:03] LABS: AUTOMATED NEUTROPHIL # 5.3 TH/MM3 (1.8-7.7); BASOPHIL # 0.1 TH/MM3 (0-0.2); BASOPHIL % 0.7 % (0.0-2.0); EOSINOPHIL # 0.3 TH/MM3 (0-0.4); EOSINOPHIL % 3.2 % (0.0-4.0); HEMATOCRIT 38.5 % (39.0-51.0); HEMOGLOBIN 12.8 GM/DL (13.0-17.0); LYMPH % 25.8 % (9.0-44.0); LYMPHOCYTE # 2.1 TH/MM3 (1.0-4.8); MEAN CELL VOLUME 82.2 FL (80.0-100.0); MEAN CORPUSCULAR HEMOGLOBIN 27.4 PG (27.0-34.0); MEAN CORPUSCULAR HGB CONC 33.3 % (32.0-36.0); MONO % 5.6 % (0.0-8.0); MONOCYTE # 0.5 TH/MM3 (0-0.9); NEUT % 64.7 % (16.0-70.0); PLATELET COUNT 242 TH/MM3 (150-450); RED BLOOD COUNT 4.69 MIL/MM3 (4.50-5.90); WHITE BLOOD COUNT 8.2 TH/MM3 (4.0-11.0)
[2017-09-24 11:39] LABS: ALBUMIN 3.4 GM/DL (3.4-5.0); ALKALINE PHOSPHATASE 120 U/L (45-117); ALT (GPT) 22 U/L (12-78); AST (GOT) 14 U/L (15-37); BICARBONATE 25.3 MEQ/L (21.0-32.0); BLOOD UREA NITROGEN 12 MG/DL (7-18); CALCIUM 8.9 MG/DL (8.5-10.1); CHLORIDE 110 MEQ/L (98-107); CREATININE 1.01 MG/DL (0.60-1.30); GLOMERULAR FILTRATION RATE 76 ML/MIN (>89); GLUCOSE,RANDOM 107 MG/DL (74-106); SODIUM (NA) 143 MEQ/L (136-145); TOTAL BILIRUBIN ADULT 0.2 MG/DL (0.2-1.0); TOTAL PROTEIN 7.1 GM/DL (6.4-8.2)
[2017-09-24 11:50] VITALS: BP 140/86; PULSE 70; RESP 20; TEMP 97.9; O2SAT 98
--- NOTE | 2017-09-24 13:34 | HHI.FF ---
Jeannette Carmona MD 09/24/17 1334: Infusion Therapy Location of Infusion Therapy: Home Health Care IV Infusion Order Patient Information Patient Weight 68 kg Diagnosis: Diagnosis Lumbar discitis Coded Allergies: No Known Allergies (Verified Adverse Reaction, Unknown, 09/22/17) Administer Medication Vanco 1.25 gm IV q12h Stop Treatment: Nov 02, 2017 Additional Information Venous access: PICC Line Additional Instructions [x] Peripheral flush and dressing changes per protocol [x] Implanted port and central splash line operator: * Implanted port: 10 ml Normal Saline followed by 5 ml Heparin 100 units/ml Heparin flush after each use and monthly to maintain. [] May leave port accessed during therapy. [] May leave peripheral site accessed for duration of therapy. [x] If patient has SOB or respiratory distress, check oxygen saturation. If less than 90% or clinical signs of respiratory distress, administer oxygen at 2 L/min. via nasal cannula and notify physician. [x] Anaphylaxis/Reaction orders: * Stop infusion. * Keep IV line open with saline flush. * Notify physician. * Monitor vital signs every 15 minutes until symptoms resolve. * Check Oxygen saturation; Oxygen at 2 L/min. via nasal cannula if less than 90% or clinical signs of respiratory distress. * Administer diphenhydramine (Benadryl) 25 mg IV STAT, (unless patient has received as pre-med). May repeat once, if necessary. * Solu-Cortef 250 mg IVP over 30-60 seconds, use 100 mg vials for each dissolution. * Epinephrine (1mg/1 ml) 0.3 mg subcutaneously or IVP now with any signs of respiratory distress. * Check with physician for new additional pre-med orders if patient is re- challenged or re-treated. [x] May remove PICC line when treatment complete, after confirming with Physician. [x] If the patient is admitted to the hospital, the ED, or transferred via [facility] , complete transfer form including medication reconciliation order sheet. Laboratory Tests Weekly Labs: CBC w/diff, Creatinine, Vancomycin Trough (Labs every Wednesday - copy to me. Have pharm adjust Vanco dose, target trough 15-20) Jigna Spangler 09/24/17 1549: Infusion Therapy Location of Infusion Therapy: Home Health Care IV Infusion Order Patient Information Appointment Date: September 24, 2017 Diagnosis: Coded Allergies: No Known Allergies (Verified Adverse Reaction, Unknown, 09/22/17) Laboratory Tests Additional Information Home Care to draw including, Vanco labs in AM 09/25/17, and Vanco labs twice a week after Jeannette Carmona MD September 24, 2017 13:34 Jigna Spangler September 24, 2017 15:49
[2017-09-24 15:28] VITALS: BP 168/80; PULSE 78; RESP 20; TEMP 98.2; O2SAT 96
--- NOTE | 2017-09-24 15:44 | HHI.DS ---
Discharge Summary Admission Date September 23, 2017 at 02:11 Discharge Date: September 24, 2017 Admitting Diagnosis osteomyelitis (1) Abscess in epidural space of cervical spine ICD Code: G06.1 - Intraspinal abscess and granuloma (2) Intractable back pain ICD Code: M54.9 - Dorsalgia, unspecified (3) Discitis of lumbar region ICD Code: M46.46 - Discitis, unspecified, lumbar region Procedures none Brief History - From Admission 61-year-old male with a history of IV drug use, as well as cervical spine epidural abscess, supposed to be on IV vancomycin until November 02, 2017 who was discharged on 09/21/17 to present with PICC line. Patient unfortunately received 1 dose of vancomycin and was discharged yesterday without PICC line or means of receiving vancomycin at home. He presents to resume treatment. Patient reports chronic neck and back pain without worsening, however he is requesting narcotic pain medications. He denies any chest pain, shortness of breath, nausea, vomiting, fevers, chills. CBC/BMP: 09/24/17 1030 09/24/17 1030 Significant Findings Laboratory Tests Test 09/23/17 01:25 09/23/17 14:11 09/24/17 10:30 White Blood Count 12.2 TH/MM3 (4.0-11.0) Hemoglobin 12.7 GM/DL (13.0-17.0) 12.8 GM/DL (13.0-17.0) Hematocrit 37.7 % (39.0-51.0) 38.5 % (39.0-51.0) Neutrophils # (Auto) 7.8 TH/MM3 (1.8-7.7) Erythrocyte Sedimentation Rate 40 mm/hr (0-20) Blood Urea Nitrogen 27 MG/DL (7-18) Random Glucose 120 MG/DL (74-106) 107 MG/DL (74-106) Albumin 3.2 GM/DL (3.4-5.0) Chloride Level 108 MEQ/L (98-107) 110 MEQ/L (98-107) Estimat Glomerular Filtration Rate 69 ML/MIN (>89) 76 ML/MIN (>89) Alkaline Phosphatase 120 U/L (45-117) Aspartate Amino Transf (AST/SGOT) 14 U/L (15-37) PE at Discharge GENERAL: This is a well-nourished, well-developed patient, in no apparent distress. SKIN: Warm and dry. HEENT: Normocephalic. Pupils equal round and reactive. Nose without bleeding. Airway patent. NECK: Trachea midline. No JVD. Supple. CARDIOVASCULAR: Regular rate and rhythm without murmurs, gallops, or rubs. RESPIRATORY: Clear to auscultation. Breath sounds equal bilaterally. No wheezes , rales, or rhonchi. GASTROINTESTINAL: Abdomen soft, non-tender, nondistended. Bowel Sounds normoactive x4. MUSCULOSKELETAL: Extremities without clubbing, cyanosis, or edema. NEUROLOGICAL: Awake and alert. Oriented to time, place, person. No focal neuro deficit. Moves all extremities. Normal speech. Pt update on day of discharge Patient states he is doing well. Requesting to go home so he can take a shower. Patient states that he lives in [facility] and would prefer to go home and to be in the sn[facility] facility. Discussed with patient that he will have the PICC line and will be followed by home care. States that he will not do any illicit drugs with his PICC line. Denies pain and discomfort. Denies SOB/ dyspnea. Denies chest pain, palpitations, headaches, dizziness. Denies fevers, chills, n/v/d. Denies hematuria, dysuria. Hospital Course Patient is a 61-year-old male with history of IVDA and cervical spine stenosis who initiall previous day y came into the hospital for cervical spine epidural abscess and was treated with IV antibiotics. He is supposed to get IV antibiotics through PICC line until November 02, 2017. Recently he came back under observation unit for intractable pain which she received pain medication. He was discharged to continue with a PICC line and IV antibiotics in [facility]. Unfortunately they took out the PICC line, he received 1 dose of vancomycin and was discharged home from [facility]. He met sepsis criteria secondary to epidural abscess, discitis. Infectious disease was reconsulted for plan of management especially during discharge of the patient. Recommends to continue use of antibiotics vancomycin until stop date November 02, 2017. Leukocytosis have improved from 12.2-8.2. ESR 40, CRP less than 0.29. His IV vancomycin has been restarted and was treated for tramadol for pain and baclofen for muscle spasms. While in the hospital he also continued to have aspirin, Plavix, statin. Continued with his home medication for depression, anxiety, bipolar disorder -buspirone, Remeron. Patient clinically improved. Patient has met maximal benefits of hospitalization. Clinically stable for discharge. Pt Condition on Discharge: Stable Discharge Disposition: Disch w/ Home Health Serv Discharge Time: > 30 minutes Discharge Instructions DIET: Follow Instructions for: Heart Healthy Diet Activities you can perform: Regular-No Restrictions Activities to Avoid: Driving for 24 hrs Follow up Referrals: Infectious Disease - 2 Weeks with Monica Bundy PCP Follow-up - 2-3 Days Continued Medications: Aspirin DR (Aspirin EC) 81 Mg Tabdr 81 MG PO DAILY, TAB 0 Refills Atorvastatin (Atorvastatin) 40 Mg Tab 40 MG PO HS for Cholesterol Management, #30 TAB Baclofen (Baclofen) 10 Mg Tab 10 MG PO BID, TAB 0 Refills Buspirone (Buspirone) 10 Mg Tab 5 MG PO BID for Anxiety, TAB 0 Refills Clopidogrel (Plavix) 75 Mg Tab 75 MG PO DAILY for Blood Clot Prevention for 30 Days, #30 TAB Mirtazapine (Mirtazapine) 15 Mg Tab 15 MG PO HS for Depression Control, #30 TAB 0 Refills Ranitidine (Ranitidine) 150 Mg Tab 150 MG PO BID for Heartburn Management, #60 TAB 0 Refills Tramadol (Tramadol) 50 Mg Tab 50 MG PO BID PRN for PAIN, TAB 0 Refills Vancomycin Inj (Vancomycin Inj) 1 Gram Inj 1.25 GM IV BID for Infection, BAG 0 Refills Jigna Spangler September 24, 2017 15:44
[2017-09-25] MEDS ORDERED: PHARMACY ORDERED LAB ONE (05:45)
== END 2017-09-24 20:34 | disposition home health service (06) | DRG 871 ==
LOC: NEPE 21:27 → NEDA 09-23 00:44 → NEPHCDU 09-23 01:40 → OBSVTOIN 09-23 02:11
PROVIDERS: ADMIT Hospitalist; ATTEND Hospitalist
PROC: 05HY33Z Insertion of Infusion Device into Upper Vein, Percutaneous Approach (ICD-10-PCS; principal; 2017-09-23)
DX: A41.9 Sepsis, unspecified organism (principal); G06.1 Intraspinal abscess and granuloma; M46.22 Osteomyelitis of vertebra, cervical region; E78.5 Hyperlipidemia, unspecified; F17.210 Nicotine dependence, cigarettes, uncomplicated; F31.9 Bipolar disorder, unspecified; F43.10 Post-traumatic stress disorder, unspecified; F90.9 Attention-deficit hyperactivity disorder, unspecified type; G89.29 Other chronic pain; I10 Essential (primary) hypertension; M48.02 Spinal stenosis, cervical region; M62.838 Other muscle spasm; I25.10 Atherosclerotic heart disease of native coronary artery without angina pectoris; I25.2 Old myocardial infarction; K21.9 Gastro-esophageal reflux disease without esophagitis; M46.46 Discitis, unspecified, lumbar region; Z59.0 Homelessness; Z65.3 Problems related to other legal circumstances; Z86.14 Personal history of Methicillin resistant Staphylococcus aureus infection; Z86.73 Personal history of transient ischemic attack (TIA), and cerebral infarction without residual deficits; Z86.19 Personal history of other infectious and parasitic diseases; F19.10 Other psychoactive substance abuse, uncomplicated; F41.9 Anxiety disorder, unspecified; Z95.2 Presence of prosthetic heart valve; Z79.82 Long term (current) use of aspirin; Z79.02 Long term (current) use of antithrombotics/antiplatelets
CPT/HCPCS: 36569; 76937; 80053; 83605; 85025; 85652; 86140; 87040; 96365; J1642; J1644; J1885; J3370; J7030; J7050